=== PATIENT | female | born 1985 | race Caucasian/White ===

== ENCOUNTER 2018-04-27 17:02 | Inpatient (IN) | payer OTHER ==
[2018-04-27] MEDS ORDERED: ONDANSETRON 4 MG/2 ML VIAL IVPUSH ONE (17:13)
[2018-04-27] MEDS ORDERED: SODIUM CHLORIDE 1,000 ML IV STA (17:13)
--- NOTE | 2018-04-27 17:13 | PDOC ---
Rapid Medical Evaluation Chief Complaint: Nausea/Vomiting Time Seen by Provider: 04/27/18 17:09 Medical Evaluation: Allergies Allergy/AdvReac Type Severity Reaction Status Date / Time No Known Drug Allergies Allergy Verified 03/30/13 09:39 I have performed a brief in-person evaluation of this patient. The patient presents with a chief complaint of: Hx of fatty liver, cholecystectomy presents with emesis x 4 episodes today; denies fever, cp, abd pain, diarrhea, urinary complaints Pertinent physical exam findings: Dry mucous membranes, abdomen soft, ND I have ordered the following: Labs, IVF, zofran The patient will proceed to the ED for further evaluation. 04/27/18 17:09 Discharge Disposition - Discharge Dispostion Condition at time of disposition: Stable - Referrals - Patient Instructions - Post Discharge Activity
--- NOTE | 2018-04-27 17:34 | PDOC ---
Attending Attestation - HPI HPI: 04/27/18 18:14 The patient is a 32 year old female with a past medical history of cholecystectomy and EtOH abuse who presents to the emergency department for evaluation of multiple episodes of bloody emesis since this morning. Patient is cambodian speaking and spoke through administrative intern phone. Patient reports 2 episodes of bloody emesis this morning and she reports vomiting bright red blood 3 times in the emergency department. Patient endorses drinking a large quantity of alcohol over the last 2 days, and notes she lost track of how alcohol she consumed. Patient states that she experienced brief loss of consciousness for 5 seconds while sitting down this morning. She states this has never happened before. The patient denies chest pain, abdominal pain, palpitations, headache, shortness of breath, fevers, chills, urinary symptoms, diarrhea, and constipation. - Physicial Exam PE: 04/27/18 18:14 +Hypotensive 32 year old female head ncat Eyes +Icteric sclera neck supple oropharynx +very dry mucous membranes, no exudates Heart +Tachycardic No gallops, murmurs, or rubs. lungs clear to auscultation bilaterally abd soft,no rebound tenderness ext no e/c/c, MAEx4 skin +slightly jaundiced neuro A&Ox3,no gross focal neuro deficits - Medical Decision Making 04/27/18 18:[address] Ceballos at 17:45. 18:15 Documentation prepared by Elyse Taveras, acting as medical instrument cable fabricator for Claire Nesbitt MD. <Elyse Taveras - Last Filed: 04/27/18 18:18> - Resident Resident Name: Ephraim Aquino - ED Attending Attestation I have performed the following: I have examined & evaluated the patient, The case was reviewed & discussed with the resident, I agree w/resident's findings & plan, Exceptions are as noted - Medical Decision Making 04/27/18 17:59 32-year-old female presents in significant distress with hematemesis, she was hypotensive and tachycardic and has icteric sclera. Long history of alcoholism. Past surgical history cholecystectomy. Concern for esophageal varices, upper GI bleed, EtOH gastritis Patient is receiving octreotide octreotide, Zofran, Protonix, IV fluids. Her hemoglobin is referred to be fine for and she will be transfused with packed RBCs. GI consult Dr. Morales has been done 04/27/18 19:09 Dr. Ceballos's bedside and states that his goal for her hemoglobin is about 7.5. He does not want any more blood transfusions if she doesn't have any further bleeding once her hemoblogin about 7.5/8 and at that point he recommends FFP pt admitted to ICU 04/28/18 03:21 <Claire Nesbitt - Last Filed: 04/28/18 03:22>
[2018-04-27] MEDS ORDERED: OCTREOTIDE ACETATE 50 MCG/1 ML - 1 ML VIAL IVPUSH ONE (17:37)
[2018-04-27] MEDS ORDERED: PANTOPRAZOLE SODIUM 40 MG VIAL IVPUSH ONE (17:37)
[2018-04-27] MEDS ORDERED: CEFTRIAXONE 1,000 MG in DEXTROSE 5%-WATER - 50 ML IVPB ONE (17:38)
[2018-04-27 17:49] LABS: BASO % 0.6 % (0-2.0); LYMPH % 16.1 % (8-40); MCH 39.1 pg (25.7-33.7); MCHC 32.8 g/dl (32.0-36.0); MEAN CELL VOLUME 119.1 fl (80-96); MEAN PLT VOLUME 9.1 fl (7.5-11.1); MONO % 10.2 % (3.8-10.2); NEUT % 73.1 % (42.8-82.8); PLATELET COUNT 135 K/MM3 (134-434); RBC 1.41 M/mm3 (3.60-5.2); RDW 19.5 % (11.6-15.6); WHITE BLOOD COUNT 7.8 K/mm3 (4.0-10.0)
[2018-04-27 17:54] LABS: HEMOGLOBIN 5.5 GM/dL (10.7-15.3)
[2018-04-27 17:55] LABS: HEMATOCRIT 16.8 % (32.4-45.2)
[2018-04-27] MEDS ORDERED: ONDANSETRON 4 MG/2 ML VIAL ONE (17:57)
[2018-04-27] MEDS ORDERED: CEFTRIAXONE 1 GM/50 ML BAG ONE (17:58)
[2018-04-27] MEDS ORDERED: PANTOPRAZOLE SODIUM 40 MG VIAL ONE (17:58)
[2018-04-27] MEDS ORDERED: OCTREOTIDE ACETATE 100 MCG/1 ML ONE (17:59)
--- NOTE | 2018-04-27 18:00 | PDOC ---
History of Present Illness - History of Present Illness Initial Comments: 04/27/18 17:54 32 yo F with h/o cholecystectomy (2013), Etoh abuse, who p/w hematemesis. Patient Tamaz[place] speaking. Autism Tutor phone used. Patient reports acute onset of 3 large bloody, bright red blood, episodes of emesis, with absent clotting beginning at approximately 10 AM. Patient states that she experienced brie floss of consciousness for approximately 5 seconds while sitting down. Denies head trauma or fall. Denies h/o hematemeiss in past. States that she was drinking heavily/alcohol x 2 days. Normal bowel habits, denies BPR. Decreased PO intake. Patient denies MELENDEZ, palpitations, F/C, CP, SOB, urinary complaints, abdominal pain, diarrhea, constipation, BPR, hematruia, lightheadedness, weakness, sensory changes. PMHx: as noted above. Denies h/o endoscopy, colonoscopy, chronic NSAID use. Does not f/w GI. Surgical: cholecystecomy ROS: as noted SHx: Denies tobacco use, IVDA. Denies medication use. Allergies: NKDA <Ephraim Aquino - Last Filed: 04/27/18 19:12> <Claire Nesbitt - Last Filed: 04/27/18 20:19> - General Chief Complaint: Nausea/Vomiting Stated Complaint: VOMITING Time Seen by Provider: 04/27/18 17:09 Past History - Past Medical History Asthma: No Cancer: No Cardiac Disorders: No COPD: No Diabetes: No HTN: No Liver Disease: Yes Seizures: No Thyroid Disease: No - Surgical History Cardiac Surgery: No - Immunization History Immunization Up to Date: No - Suicide/Smoking/Psychosocial Hx Smoking History: Never smoked Have you smoked in the past 12 months: No Information on smoking cessation initiated: No Hx Alcohol Use: No Drug/Substance Use Hx: No Hx Substance Use Treatment: No <Ephraim Aquino - Last Filed: 04/27/18 19:12> <Claire Nesbitt - Last Filed: 04/27/18 20:19> - Past Medical History Allergies/Adverse Reactions: Allergies Allergy/AdvReac Type Severity Reaction Status Date / Time No Known Drug Allergies Allergy Verified 04/27/18 18:29 Home Medications: Ambulatory Orders No Home Medications 0 dose .ROUTE UTDICT 03/30/12 Review of Systems - Review of Systems Comments:: 04/27/18 18:05 GENERAL/CONSTITUTIONAL: No fever or chills. No weakness. HEAD, EYES, EARS, NOSE AND THROAT: No change in vision. No ear pain or discharge. No sore throat. CARDIOVASCULAR: No chest pain or shortness of breath RESPIRATORY: No cough, wheezing, or hemoptysis. GASTROINTESTINAL: + Nausea, vomiting, hematemesis. No diarrhea or constipation. GENITOURINARY: No dysuria, frequency, or change in urination. MUSCULOSKELETAL: No joint or muscle swelling or pain. No neck or back pain. SKIN: No rash NEUROLOGIC: No headache, vertigo, loss of consciousness, or change in strength/ sensation. ENDOCRINE: No increased thirst. No abnormal weight change HEMATOLOGIC/LYMPHATIC: No anemia, easy bleeding, or history of blood clots. ALLERGIC/IMMUNOLOGIC: No hives or skin allergy. <Ephraim Aquino - Last Filed: 04/27/18 19:12> *Physical Exam - Vital Signs Last Vital Signs Temp Pulse Resp BP Pulse Ox 98.0 F 124 H 16 74/28 L 100 04/27/18 17:06 04/27/18 17:06 04/27/18 17:06 04/27/18 17:06 04/27/18 17:06 - Physical Exam Comments: 04/27/18 18:06 GENERAL: Awake, alert, and fully oriented, in no acute distress HEAD: No signs of trauma, normocephalic, atraumatic EYES: + Slceral icterus. Dried blood in posterior oropharynx. PERRLA, EOMI, conjunctiva clear ENT: Auricles normal inspection, hearing grossly normal, nares patent, oropharynx clear without exudates. Moist mucosa NECK: Normal ROM, supple, no lymphadenopathy, JVD, or masses LUNGS: No distress, speaks full sentences, clear to auscultation bilaterally HEART: Regular rate and rhythm, normal S1 and S2, no murmurs, rubs or gallops, peripheral pulses normal and equal bilaterally. ABDOMEN: Soft, nontender, normoactive bowel sounds. No guarding, no rebound. No masses EXTREMITIES : Normal inspection, Normal range of motion, no edema. No clubbing or cyanosis. NEUROLOGICAL: Cranial nerves II through XII grossly intact. Normal speech, normal gait, no focal sensorimotor deficits SKIN: Jaudniced/pale appearing. Warm, Dry, normal turgor, no rashes or lesions noted <Ephraim Aquino - Last Filed: 04/27/18 19:12> - Vital Signs Last Vital Signs Temp Pulse Resp BP Pulse Ox 98.0 F 124 H 16 74/28 L 99 04/27/18 17:06 04/27/18 17:06 04/27/18 17:06 04/27/18 17:06 04/27/18 18:00 <Claire Nesbitt - Last Filed: 04/27/18 20:19> Moderate Sedation - Procedure Monitoring Vital Signs: Procedure Monitoring Vital Signs Temperature 98.0 F 04/27/18 17:06 Pulse Rate 124 H 04/27/18 17:06 Respiratory Rate 16 04/27/18 17:06 Blood Pressure 74/28 L 04/27/18 17:06 O2 Sat by Pulse Oximetry (%) 100 04/27/18 17:06 <Ephraim Aquino - Last Filed: 04/27/18 19:12> - Procedure Monitoring Vital Signs: Procedure Monitoring Vital Signs Temperature 98.0 F 04/27/18 17:06 Pulse Rate 124 H 04/27/18 17:06 Respiratory Rate 16 04/27/18 17:06 Blood Pressure 74/28 L 04/27/18 17:06 O2 Sat by Pulse Oximetry (%) 99 04/27/18 18:00 <Claire Nesbitt - Last Filed: 04/27/18 20:19> ED Treatment Course - LABORATORY CBC & Chemistry Diagram: 04/27/18 17:15 04/27/18 17:15 <Ephraim Aquino - Last Filed: 04/27/18 19:12> - LABORATORY CBC & Chemistry Diagram: 04/27/18 17:15 04/27/18 17:15 - ADDITIONAL ORDERS Additional order review: Laboratory Results 04/27/18 04/27/18 04/27/18 18:01 18:01 17:45 PT with INR INR Sodium Potassium Chloride Carbon Dioxide Anion Gap BUN Creatinine Creat Clearance w eGFR Random Glucose Lactic Acid 14.7 H* Calcium Total Bilirubin AST ALT Alkaline Phosphatase Total Protein Albumin Lipase Alcohol, Quantitative 20.5 H Crossmatch See Detail 04/27/18 04/27/18 17:40 17:15 PT with INR 27.60 H INR 2.32 H Sodium 140 Potassium 4.7 Chloride 108 H Carbon Dioxide 15 L Anion Gap 18 H BUN 24 H Creatinine 1.2 Creat Clearance w eGFR 51.43 Random Glucose 127 H Lactic Acid Calcium 7.3 L Total Bilirubin 1.5 H AST 101 H ALT 28 Alkaline Phosphatase 80 Total Protein 6.5 Albumin 1.6 L Lipase 183 Alcohol, Quantitative Crossmatch 04/27/18 17:15 RBC 1.41 L MCV 119.1 H MCHC 32.8 RDW 19.5 H MPV 9.1 Neutrophils % 73.1 D Lymphocytes % 16.1 D Monocytes % 10.2 Eosinophils % 0.0 D Basophils % 0.6 - Medications Given in the ED: ED Medications Discontinued Medications Generic Name Dose Route Start Last Admin Trade Name Freq PRN Reason Stop Dose Admin Sodium Chloride 1,000 mls @ 1,000 mls/hr 04/27/18 17:13 04/27/18 17:37 Normal Saline - IV 04/27/18 18:12 1,000 mls/hr ASDIR STA Administration Ceftriaxone Sodium 1,000 mg/ 50 mls @ 100 mls/hr 04/27/18 17:38 04/27/18 18: 05 Dextrose IVPB 04/27/18 18:07 100 mls/hr ONCE ONE Administration Octreotide Acetate 50 mcg 04/27/18 17:37 04/27/18 18:00 Sandostatin - IVPUSH 04/27/18 17:38 50 mcg ONCE ONE Administration Ondansetron HCl 4 mg 04/27/18 17:13 04/27/18 18:00 Zofran Injection IVPUSH 04/27/18 17:14 4 mg ONCE ONE Administration Pantoprazole Sodium 40 mg 04/27/18 17:37 04/27/18 17:55 Protonix Iv IVPUSH 04/27/18 17:38 40 mg ONCE ONE Administration <Claire Nesbitt - Last Filed: 04/27/18 20:19> Medical Decision Making - Critical Care Time Total Critical Care Time (minutes): 120 Critical Care Statement: The care of this patient involved high complexity decision making to prevent further life threatening deterioration of the patient 's condition and/or to evaluate & treat vital organ system(s) failure or risk of failure. - Medical Decision Making 04/27/18 18:00 32 yo F with h/o cholecystectomy (2013), Etoh abuse, who p/w hematemesis. HR 124 , BP 74/28, A&Ox3. Physical exam notable for scleral icterus, dry mucous membranes, drried blood in post. oropharynx. Patient with UGI bleed with suspected variceal hemmohrage, vs Edith idalia/Juanita, PUD. Will provide adequate hydration, resuscitation. Ed course: PRBC x 2 unit, Ocreotide, Protonix, Rocephin 1 gm, NS 2 L 04/27/18 18:07 H/H: 5.5/16.8 04/27/18 18:09 Patient consents to 2 U PRBC transfusions 04/27/18 18:23 EKG: Sinus tachycardia HR 113 with absent KYLE,STD. Normal interval duration and axis. Dr. Schaefer/GI consulted. Patient discussed by Dr. Nesbitt. 04/27/18 18:46 Patient endorsed to ICU. Dr. Rodas. Accepted to ICU 04/27/18 18:50 Patient to receive 1 Unit PRBC O neg 04/27/18 18:56 AST 101 TBILI 1.5 ETOH: 20.5 04/27/18 19:[address] Hastings switch from PRBC to FFP once Hemoglobin 7.5. Decrease risk of variceal bleed. LA: 14.7 <Ephraim Aquino - Last Filed: 04/27/18 19:12> *DC/Admit/Observation/Transfer - Discharge Dispostion Decision to Admit order: Yes <Ephraim Aquino - Last Filed: 04/27/18 19:12> - Discharge Dispostion Decision to Admit order: Yes <Claire Nesbitt - Last Filed: 04/27/18 20:19> Diagnosis at time of Disposition: Upper GI bleeding, GI bleed not requiring more than 4 units of blood in 24 hours, ICU, or surgery, Alcohol abuse Alcoholic cirrhosis Qualifiers: Ascites presence: unspecified Qualified Code(s): K70.30 - Alcoholic cirrhosis of liver without ascites - Discharge Dispostion Condition at time of disposition: Guarded
[2018-04-27 18:02] LABS: ALBUMIN 1.6 g/dl (3.4-5.0); ALK PHOS 80 U/L (45-117); ANION GAP 18 MMOL/L (8-16); BILIRUBIN,TOTAL 1.5 mg/dL (0.2-1); BLOOD UREA NITROGEN 24 mg/dL (7-18); CALCIUM 7.3 mg/dL (8.5-10.1); CHLORIDE 108 mmol/L (98-107); CO2 15 mmol/L (21-32); CREATININE 1.2 mg/dL (0.55-1.3); GLUCOSE,RANDOM 127 mg/dL (74-106); LIPASE 183 U/L (73-393); POTASSIUM 4.7 mmol/L (3.5-5.1); SGOT/AST 101 U/L (15-37); SGPT/ALT 28 U/L (13-61); SODIUM 140 mmol/L (136-145); TOT PROT 6.5 g/dl (6.4-8.2)
[2018-04-27 18:24] LABS: INR 2.32 (0.83-1.09); PROTHROMBIN TIME (PATIENT) 27.6 SEC (9.7-13.0)
[2018-04-27] MEDS: PANTOPRAZOLE SODIUM 80 MG in SODIUM CHLORIDE 100 ML IVPB SCH (18:30)
--- NOTE | 2018-04-27 19:50 | CON.GI ---
Consult Consult Specialty:: Gastroenterology ( covering the [facility] GI service) Referred by:: Dr Claire Nesbitt Reason for Consultation:: Hematemesis and hypotension - History of Present Illness Chief Complaint: Bright red hematemesis x 5 episodes today History of Present Illness: 32 F presents to the ER with c/o 4 episodes of bright red hematemesis at home and another here in the ER. Her BP is 90 systolic. The history was obtained and EGD consent procured using [employer] studio technician # [id number]. She has been experiencng epigastirc pain and nausea but did not vomit until today. She has noted black stools for 3 days. She was partying this last weekend drinking champagne and beers. She parties on most weekends. She has no PMH and takes no meds. She denies taking NSAIDs. She las had medical care when she presented with markedly abnormal LFTs in 2013 attributed to gallstones. She underwent a cholecystectomy after a MRCP revealed no CBD stones. Her LFTs were tending toward normal after that surgery. Her liver may have been fatty on ultrasound. She denies alcohol intake at that time but now admits that she has been drinking on weekends for many years. The history was obtained and EGD consent procured using [employer] studio technician # [id number]. - History Source History Provided By: Patient Limitations to Obtaining History: Language Barrier - Past Medical History Hepatobiliary: Yes: Other (alcoholic liver disease) ...LMP: 04/13/11 Psych: Yes: Addictions (alcohol) - Past Surgical History Past Surgical History: Yes: Cholecystectomy (laparoscopic in 2013), Tubal Ligation - Alcohol/Substance Use Hx Alcohol Use: Yes (champagne and beer for past few days,drinks only on weekends t ) History of Substance Use: reports: Cocaine (snorts, no IVDA, not in the past month ) - Smoking History Smoking history: Never smoked Have you smoked in the past 12 months: No - Social History Usual Living Arrangement: With Significant Other (boyfriend and child) ADL: Independent Occupation: unemployed Place of : Other ([place]) Came to [place]year[place] age 20 History of Recent Travel: No Home Medications - Allergies Allergies/Adverse Reactions: Allergies Allergy/AdvReac Type Severity Reaction Status Date / Time No Known Drug Allergies Allergy Verified 04/27/18 18:29 - Home Medications Home Medications: Ambulatory Orders No Home Medications 0 dose .ROUTE UTDICT 03/30/12 Family Disease History - Family Disease History Family Disease History: Respiratory: Sister ( of asthma), Other: Father ( healthy), Mother (healthy) Review of Systems Unable to obtain ROS, reason: language barrier - Review of Systems Gastrointestinal: reports: Melena, Vomiting Blood Physical Exam-GI Vital Signs: Vital Signs Temperature 98.0 F 04/27/18 17:06 Pulse Rate 124 H 04/27/18 17:06 Respiratory Rate 16 04/27/18 17:06 Blood Pressure 74/28 L 04/27/18 17:06 O2 Sat by Pulse Oximetry (%) 99 04/27/18 18:00 CBC,CMP WBC 7.8 K/mm3 (4.0-10.0) 04/27/18 17:15 RBC 1.41 M/mm3 (3.60-5.2) L 04/27/18 17:15 Hgb 5.5 GM/dL (10.7-15.3) L* 04/27/18 17:15 Hct 16.8 % (32.4-45.2) L D 04/27/18 17:15 MCV 119.1 fl (80-96) H 04/27/18 17:15 MCH 39.1 pg (25.7-33.7) H D 04/27/18 17:15 MCHC 32.8 g/dl (32.0-36.0) 04/27/18 17:15 RDW 19.5 % (11.6-15.6) H 04/27/18 17:15 Plt Count 135 K/MM3 (134-434) D 04/27/18 17:15 MPV 9.1 fl (7.5-11.1) 04/27/18 17:15 Absolute Neuts (auto) 5.7 K/mm3 (1.5-8.0) 04/27/18 17:15 Neutrophils % 73.1 % (42.8-82.8) D 04/27/18 17:15 Lymphocytes % 16.1 % (8-40) D 04/27/18 17:15 Monocytes % 10.2 % (3.8-10.2) 04/27/18 17:15 Eosinophils % 0.0 % (0-4.5) D 04/27/18 17:15 Basophils % 0.6 % (0-2.0) 04/27/18 17:15 Nucleated RBC % 0 % (0-0) 04/27/18 17:15 Sodium 140 mmol/L (136-145) 04/27/18 17:15 Potassium 4.7 mmol/L (3.5-5.1) 04/27/18 17:15 Chloride 108 mmol/L (98-107) H 04/27/18 17:15 Carbon Dioxide 15 mmol/L (21-32) L 04/27/18 17:15 Anion Gap 18 MMOL/L (8-16) H 04/27/18 17:15 BUN 24 mg/dL (7-18) H 04/27/18 17:15 Creatinine 1.2 mg/dL (0.55-1.3) 04/27/18 17:15 Creat Clearance w eGFR 51.43 (>60) 04/27/18 17:15 Random Glucose 127 mg/dL (74-106) H 04/27/18 17:15 Lactic Acid 14.7 mmol/L (0.4-2.0) H* 04/27/18 18:01 Calcium 7.3 mg/dL (8.5-10.1) L 04/27/18 17:15 Total Bilirubin 1.5 mg/dL (0.2-1) H 04/27/18 17:15 AST 101 U/L (15-37) H 04/27/18 17:15 ALT 28 U/L (13-61) 04/27/18 17:15 Alkaline Phosphatase 80 U/L (45-117) 04/27/18 17:15 Total Protein 6.5 g/dl (6.4-8.2) 04/27/18 17:15 Albumin 1.6 g/dl (3.4-5.0) L 04/27/18 17:15 Lipase 183 U/L (73-393) 04/27/18 17:15 Current Medications Generic Name Dose Route Start Last Admin Trade Name Freq PRN Reason Stop Dose Admin Pantoprazole Sodium 80 mg/ 100 mls @ 10 mls/hr 04/27/18 17:45 04/27/18 18:30 Sodium Chloride IVPB 10 mls/hr Q10H LYNN Administration 8 MG/HR Constitutional: Yes: Anxious Eyes: Yes: Conjunctiva Clear HENT: Yes: Atraumatic Neck: Yes: Supple Cardiovascular: Yes: Regular Rate and Rhythm, Tachycardia Respiratory: Yes: CTA Bilaterally Gastrointestinal Inspection: Yes: Scars (healed laparoscopic incisions) ...Auscultate: Yes: Hyperactive Bowel Sounds ...Palpate: Yes: Soft, Other (nontender) ...Rectal Exam: Yes: Guaiac Positive (loose melena, strongly guaiac positive) Edema: No Peripheral Pulses WNL: Yes Neurological: Yes: Alert, Oriented Labs: CBC, BMP 04/27/18 17:15 04/27/18 17:15 INR, PTT INR 2.32 (0.83-1.09) H 04/27/18 17:40 Laboratory Tests 01/23/12 01/24/12 03/27/12 20:00 05:40 11:50 Hgb 13.3 12.8 13.9 MCV Plt Count INR Lactic Acid Total Bilirubin AST ALT Alkaline Phosphatase Albumin Alcohol, Quantitative 03/30/13 03/30/13 03/31/13 10:29 10:29 07:00 Hgb 15.1 13.1 D MCV Plt Count INR Lactic Acid Total Bilirubin AST 604 H* ALT 586 H* Alkaline Phosphatase 170 H Albumin Alcohol, Quantitative 03/31/13 04/01/13 04/01/13 07:00 06:30 06:30 Hgb 13.5 MCV Plt Count INR Lactic Acid Total Bilirubin AST 297 H D 114 H D ALT 475 H 323 H D Alkaline Phosphatase 158 H 149 H Albumin Alcohol, Quantitative 04/01/13 04/02/13 04/02/13 06:30 06:00 06:00 Hgb 11.7 D MCV 97.6 H Plt Count INR Lactic Acid Total Bilirubin AST 111 H 98 H ALT 337 H 251 H D Alkaline Phosphatase 151 H 126 Albumin Alcohol, Quantitative 04/27/18 04/27/18 04/27/18 17:15 17:15 17:40 Hgb 5.5 L* MCV 119.1 H Plt Count 135 D INR 2.32 H Lactic Acid Total Bilirubin 1.5 H AST 101 H ALT 28 Alkaline Phosphatase 80 Albumin 1.6 L Alcohol, Quantitative 04/27/18 04/27/18 18:01 18:01 Hgb MCV Plt Count INR Lactic Acid 14.7 H* Total Bilirubin AST ALT Alkaline Phosphatase Albumin Alcohol, Quantitative 20.5 H Problem List - Problems (1) Gastrointestinal hemorrhage with hematemesis Assessment/Plan: Suspect bleeding from esophageal varices or portal gastropathy that will require endoscopic intervention. Using [employer] studio technician # [id number] I explained the need for upper endoscopy and control of hemorrhage that will likely need rubber band ligation. I informed her of the potential for such complication as perforation and hemorrhage and answered all of her questions via the studio technician after which she signed an informed consent in the ER. She will need resuscitation with PRBCs before this can be undertaken. Octreotide and PPI drip will be given. She should not be transfused above 8gms. FFP will be given if possible. Given the likely need for rubber band ligation prophylactic antibiotics will also be given. Code(s): K92.0 - HEMATEMESIS (2) Hematemesis with nausea Code(s): K92.0 - HEMATEMESIS (3) Alcoholic cirrhosis Assessment/Plan: The hypoalbuminemia and elevated INR indicate that Nichelle has already developed cirrhosis. A sonogram will be ordered to look for ascites which will place her at risk for SBP. The elevated MCV probably reflects reticulocytosis but will need to check Vitamin B12/folate levels when stable. She is at risk of developing hepatic encephalopathy. Code(s): K70.30 - ALCOHOLIC CIRRHOSIS OF LIVER WITHOUT ASCITES (4) History of cholecystectomy Code(s): Z90.49 - ACQUIRED ABSENCE OF OTHER SPECIFIED PARTS OF DIGESTIVE TRACT (5) Alcohol abuse Assessment/Plan: The patient will need to be watched for DTs. At present she still has alcohol in her system so may defer Librium or Ativan until the AM. Code(s): F10.10 - ALCOHOL ABUSE, UNCOMPLICATED Assessment/Plan Impression: UGI bleed due to esophageal and/or gastric varices and/or portal gastropathy with alcoholic and/or NSAID gastritis or ulcers as alternatives. Alcoholic cirrhosis with risk for hepatic encephalopathy and if ascites exists SBP Alcohol dependence and at risk of developing DTs Plan: Resuscitate with PRBCs but don't exceed Hb 8 IV Octreotide and PPI FFP once Hb 7 is reached NPO for EGD when stabilized Kefzol prophylaxis for anticipated rubber band ligation Sonogram to exclude ascites and hepatoma Watch for DT. Will need to start Librium or Ativan after EGD. Will then also start Lactulose Will need alcoholism counseling when recovers
--- NOTE | 2018-04-27 19:59 | CONSULT ---
Consult Consult Specialty:: ICU Reason for Consultation:: Upper GI bleed. - History of Present Illness Chief Complaint: vomiting blood History of Present Illness: 32 yo turkmen speaking F with significant PMHx of ETOH abuse and ETOH liver disease presents with one day history of hematemesis. She states that this morning she began with 2 bouts of bloody vomitous at home. She then went to work and had 2 more episodes that promoted the trip to ER. In ER she had two additional episodes of hematemesis. She has know liver disease from ETOH abuse discovered in 2013 when she came here for acute cholecystitis. She says she stopped drinking at that time but recently started again. She says she does not drink daily but on weekends when she does she binge drinks beer and champagne. She denies chronic NSAID use. In ER she was started on PPI drip and octreotide. Two units of prbc's ordered. She endorses some chest pressure but no pain. She denies CP, MELENDEZ, SOB,palpitations, abdominal pain, nausea, fever or chills. - History Source History Provided By: Patient Limitations to Obtaining History: Language Barrier - Past Medical History Hepatobiliary: Yes: Cholecystitis, Hepatitis A, Other (fatty liver?) ...LMP: 04/13/11 ...: No ...: 3 ...Para: 3 - Past Surgical History Past Surgical History: Yes: Cholecystectomy, Tubal Ligation - Alcohol/Substance Use Hx Alcohol Use: Yes (alcoholic liver disease. ) - Smoking History Smoking history: Never smoked Have you smoked in the past 12 months: No - Social History Usual Living Arrangement: With Child ADL: Independent Place of : Other ([place]) Came to [place]year[place] 2006 History of Recent Travel: No Home Medications - Allergies Allergies/Adverse Reactions: Allergies Allergy/AdvReac Type Severity Reaction Status Date / Time No Known Drug Allergies Allergy Verified 04/27/18 18:29 - Home Medications Home Medications: Ambulatory Orders No Home Medications 0 dose .ROUTE UTDICT 03/30/12 Family Disease History - Family Disease History Family History: Unremarkable Review of Systems - Review of Systems Constitutional: reports: Weakness Eyes: reports: No Symptoms HENT: reports: No Symptoms Neck: reports: No Symptoms Cardiovascular: reports: Other (chest pressure) Respiratory: reports: SOB on Exertion Gastrointestinal: reports: Vomiting Blood Genitourinary: reports: No Symptoms Breasts: reports: No Symptoms Reported Musculoskeletal: reports: No Symptoms Integumentary: reports: No Symptoms Neurological: reports: No Symptoms Endocrine: reports: No Symptoms Hematology/Lymphatic: reports: No Symptoms Psychiatric: reports: Anxiety Physical Exam Vital Signs: Vital Signs Temperature 98.0 F 04/27/18 17:06 Pulse Rate 124 H 04/27/18 17:06 Respiratory Rate 16 04/27/18 17:06 Blood Pressure 74/28 L 04/27/18 17:06 O2 Sat by Pulse Oximetry (%) 99 04/27/18 18:00 Constitutional: Yes: Well Nourished, Anxious, Mild Distress Eyes: Yes: Conjunctiva Clear, EOM Intact, PERRL. No: Sclera Icterus HENT: Yes: Atraumatic, Normocephalic Neck: Yes: Supple, Trachea Midline Cardiovascular: Yes: Tachycardia, Murmur (2/6 ZAID), S1, S2 Respiratory: Yes: Regular, CTA Bilaterally Gastrointestinal: Yes: Normal Bowel Sounds, Soft, Hematemesis. No: Ascites, Distention ...Rectal Exam: Yes: Deferred Renal/: Yes: WNL Breast(s): No: Dimpling, Discharge from Nipple, Nipple Inversion, Skin Changes Musculoskeletal: Yes: WNL Extremities: No: Calf Tenderness, Cyanosis, Erythema Edema: No Neurological: Yes: Alert, Oriented, Cran Nerves II-XII Intact ...Motor Strength: WNL Psychiatric: Yes: Alert, Oriented Labs: CBC, BMP 04/27/18 17:15 04/27/18 17:15 Assessment/Plan A: 32 yo turkmen speaking F with significant PMHx of ETOH abuse and ETOH liver disease presents with one day history of hematemesis admitted to ICU for further management of upper GI bleed. Plan: NEURO: * Will monitor for signs of encephalopathy. PULM: * No active issues. * supplemental O2 PRN * maintain SpO2 >90% CV: * No active CV issues. * chest pressure most likely 2/2 hematemesis. * Will monitor BP * maintain MAP >65 GI: * Upper GI possible variceal bleed. * 2 units of PRBC ordered; goal Hgb 7-8 * FFP x 1unit to be given * started on PPI drip and Octreotide. * Ceftriaxone given in ER will continue * Phenergan for nausea PRN * Seen by GI Dr. Ceballos plan for EGD in AM HEME/ONC: * Anemia 2/2 acute blood loss. * transfuse 2 units of PRBC's and repeat H/H * 1 unit of FFP for elevated INR FEN: * Given 1L of NS in ER , now recieving blood. * monitor e-lytes and replete PRN - Calcium low 2/2 low albumin corrected WNL * NPO for now. DISPO:Continue to monitor in ICU; FULL CODE>
[2018-04-27 20:09] LABS: ANISOCYTOSIS 1+; MACROCYTOSIS 3+; OVALOCYTE 1+; PLATELET ESTIMATE ADEQUATE
[2018-04-27] MEDS ORDERED: CEFAZOLIN 1 GM in DEXTROSE 5%-WATER - 50 ML IVPB SCH (20:30)
[2018-04-27] MEDS ORDERED: OCTREOTIDE ACETATE 1,200 MCG in DEXTROSE 5%-WATER - 488 ML IVPB SCH (20:30)
[2018-04-27] MEDS ORDERED: PHYTONADIONE 10 MG/1 ML AMP IVPB ONE (20:30)
[2018-04-27] MEDS ORDERED: LORazepam 2 MG/ML SDV VIAL IVPUSH PRN (20:53)
--- NOTE | 2018-04-27 20:56 | HP ---
CHIEF COMPLAINT: hematemesis PCP: None HISTORY OF PRESENT ILLNESS: 32 [place]er-speaking F w/ pmhx of fatty liver disease, alcohol abuse presented to the ED with 6 episodes of bright red bloody vomit that started today at 10am. Prior to coming to the hospital, she had 4 episodes of vomiting and after arriving she had 2 more episodes. She states she never had this before. Admits to drinking 1.5 bottles of champagne last Thursday and says she usually drinks about 3 bottles of champagne once a weekend. Pt states she has had liver problems about 4 years ago, but denies following up with a GI doctor or ever getting an endoscopy or colonoscopy. She denies diarrhea or bright red blood, or black stool. She also reported one syncopal episode while she was on the toilet, fell to the ground, but did not hit her head and loss consciousness for 5 seconds. ER course was notable for: (1) Initial BP 74/28, HR 124, H/H 5.5/16.8, Lac 14.7, T Bili 1.5, Alb 1.6 (2) EKG showed sinus tach, QTc 513 (3) Rocephin 1gm IV, Octretide 50 mcg, Protonix drip, Zofran 4, NS x1L, pRBC x2U ordered Recent Travel:Denies PAST MEDICAL HISTORY: fatty liver disease alcohol abuse PAST SURGICAL HISTORY: cholecystectomy tubal ligation Social History: Smoking: Denies Alcohol: Current drinker; ~3 bottles of champagne weekly Drugs: Did cocaine one time about 2-3 months ago, but no history of rec drug abuse prior Family History: "Sister of diabetes" Allergies No Known Drug Allergies Allergy (Verified 04/27/18 18:29) HOME MEDICATIONS: Home Medications Medication Instructions Recorded No Home Medications 0 dose .ROUTE UTDICT 03/30/12 REVIEW OF SYSTEMS CONSTITUTIONAL: Absent: fever, chills, diaphoresis, generalized weakness, malaise, loss of appetite, weight change HEENT: Absent: rhinorrhea, nasal congestion, throat pain, throat swelling, difficulty swallowing, mouth swelling, ear pain, eye pain, visual changes CARDIOVASCULAR: +R sided chest pain, syncope Absent: palpitations, irregular heart rate, lightheadedness, peripheral edema RESPIRATORY: Absent: cough, shortness of breath, dyspnea with exertion, orthopnea GASTROINTESTINAL: +R sided abdominal pain, +nausea, +vomiting, bright red blood , constipation Absent: abdominal distension, diarrhea, melena, hematochezia GENITOURINARY: Absent: dysuria, frequency, urgency, hesitancy, hematuria MUSCULOSKELETAL: Absent: myalgia, arthralgia, joint swelling, back pain, neck pain SKIN: Absent: rash, itching, pallor HEMATOLOGIC/IMMUNOLOGIC: Absent: easy bleeding, easy bruising, lymphadenopathy, frequent infections NEUROLOGIC: +lightheadedness, +dizziness Absent: headache, unsteady gait, mental status changes PHYSICAL EXAMINATION Vital Signs - 24 hr 04/27/18 04/27/18 04/27/18 17:06 18:00 19:45 Temperature 98.0 F 98.3 F Pulse Rate 124 H Pulse Rate [ 110 H Apical] Respiratory 16 20 Rate Blood Pressure 74/28 L Blood Pressure 116/60 [Right Arm] O2 Sat by Pulse 100 99 99 Oximetry (%) 04/27/18 20:00 Temperature 98.6 F Pulse Rate Pulse Rate [ 115 H Apical] Respiratory 16 Rate Blood Pressure Blood Pressure 115/56 L [Right Arm] O2 Sat by Pulse 100 Oximetry (%) GENERAL: Awake and alert. NAD. Cooperative, [place]er-speaking female. HEENT: AT/NC. EOMI. HANNA. Moist mucus membranes. NECK: Normal range of motion, supple without lymphadenopathy. LUNGS: CTA B/L. No wheezes heard. HEART: Tachycardic. Normal S1, S2. +3/6 systolic murmur RUSB. ABDOMEN: Soft, ND. +TTP in R u/l quadrant. MUSCULOSKELETAL: Normal range of motion at all joints. No bony deformities or tenderness. No CVA tenderness. UPPER EXTREMITIES: 2+ pulses, warm, well-perfused. No cyanosis. No clubbing. No peripheral edema. LOWER EXTREMITIES: 2+ pulses, warm, well-perfused. No calf tenderness. No peripheral edema. NEUROLOGICAL: Normal speech. Responds to commands. Laboratory Results - last 24 hr 04/27/18 04/27/18 04/27/18 17:15 17:15 17:15 WBC 7.8 RBC 1.41 L Hgb 5.5 L* Hct 16.8 L D MCV 119.1 H MCH 39.1 H D MCHC 32.8 RDW 19.5 H Plt Count 135 D MPV 9.1 Absolute Neuts (auto) 5.7 Neutrophils % 73.1 D Lymphocytes % 16.1 D Monocytes % 10.2 Eosinophils % 0.0 D Basophils % 0.6 Nucleated RBC % 0 Platelet Estimate Adequate Platelet Comment Polychromasia 1+ Poikilocytosis 1+ Anisocytosis 1+ Macrocytosis 3+ Ovalocytes 1+ PT with INR INR Sodium 140 Potassium 4.7 Chloride 108 H Carbon Dioxide 15 L Anion Gap 18 H BUN 24 H Creatinine 1.2 Creat Clearance w eGFR 51.43 Random Glucose 127 H Lactic Acid Calcium 7.3 L Total Bilirubin 1.5 H AST 101 H ALT 28 Alkaline Phosphatase 80 Total Protein 6.5 Albumin 1.6 L Lipase 183 Serum , Qual Negative Alcohol, Quantitative Crossmatch 04/27/18 04/27/18 04/27/18 17:40 17:45 18:01 WBC RBC Hgb Hct MCV MCH MCHC RDW Plt Count MPV Absolute Neuts (auto) Neutrophils % Lymphocytes % Monocytes % Eosinophils % Basophils % Nucleated RBC % Platelet Estimate Platelet Comment Polychromasia Poikilocytosis Anisocytosis Macrocytosis Ovalocytes PT with INR 27.60 H INR 2.32 H Sodium Potassium Chloride Carbon Dioxide Anion Gap BUN Creatinine Creat Clearance w eGFR Random Glucose Lactic Acid Calcium Total Bilirubin AST ALT Alkaline Phosphatase Total Protein Albumin Lipase Serum , Qual Alcohol, Quantitative 20.5 H Crossmatch See Detail 04/27/18 18:01 WBC RBC Hgb Hct MCV MCH MCHC RDW Plt Count MPV Absolute Neuts (auto) Neutrophils % Lymphocytes % Monocytes % Eosinophils % Basophils % Nucleated RBC % Platelet Estimate Platelet Comment Polychromasia Poikilocytosis Anisocytosis Macrocytosis Ovalocytes PT with INR INR Sodium Potassium Chloride Carbon Dioxide Anion Gap BUN Creatinine Creat Clearance w eGFR Random Glucose Lactic Acid 14.7 H* Calcium Total Bilirubin AST ALT Alkaline Phosphatase Total Protein Albumin Lipase Serum , Qual Alcohol, Quantitative Crossmatch CONSULT: GI- Dr. Ceballos IMAGING ASSESSMENT/PLAN: 32 [place]er-speaking F w/ pmhx of fatty liver disease, alcohol abuse presented to the ED with 6 episodes hematemesis admitted for acute GI bleed. #Upper GIB; likely 2/2 esophageal varices due to alcohol abuse -IV Octreotide -Protonix drip -2U pRBCs ordered, recheck CBC -GI consulted; per GI recs, once Hgb reaches 7-8, can transition to FFP as Hgb > 8 increases risk of esophageal variceal bleeding -IV Ceftriaxone given for prophylaxis -NPO; will need EGD -Per GI, will likely need rubber band ligation #Alcoholic liver disease; likely cirrhosis -Pt is currently mentating well, able to answer questions, no acute encephalopathic signs at this time. Cont to monitor. -Abd U/S ordered, r/o ascites and hepatoma, SBP -MELD score 19; given pt's elevated INR and low albumin, pt likely has already developed cirrhosis -HIV/Hep C panel ordered #Alcohol Abuse -Monitor for withdrawal symptoms -Seems to still be intoxicated; Librium protocol deferred until AM #Syncope; likely 2/2 acute anemia -monitor for symptoms; currently treating likely cause (GI bleed) #Hyperbilirubinemia; 1.5. Likely 2/2 alcohol abuse. -Fractionate bilirubin -f/u Abd U/S #Elevated lactate; 14.7 -trend lactate -Aggressive hydration and transfuse #Coagulopathy; elevated INR 2.32 and not currently on AC -likely 2/2 alcoholic cirrhosis -cont to trend #Macrocytosis; persistent. likely 2/2 EtOH. -check B12/folate #Prophylaxis -SCDs -Protonix drip #FEN -IVf -recheck lytes in AM -NPO dispo -admit to ICU level of care -full code Visit type - Emergency Visit Emergency Visit: Yes ED Registration Date: 04/27/18 Care time: The patient presented to the Emergency Department on the above date and was hospitalized for further evaluation of their emergent condition. - New Patient This patient is new to me today: Yes Date on this admission: 04/29/18 - Critical Care Critical Care patient: Yes Total Critical Care Time (in minutes): 50 Critical Care Statement: The care of this patient involved high complexity decision making to prevent further life threatening deterioration of the patient 's condition and/or to evaluate & treat vital organ system(s) failure or risk of failure.
[2018-04-27] MEDS ORDERED: METOCLOPRAMIDE HCL INJECTION 10 MG/2 ML VIAL IVPUSH SCH (21:00)
[2018-04-27] MEDS ORDERED: PROMETHAZINE HCL 25 MG/1 ML VIAL IVPUSH PRN (21:02)
[2018-04-27 21:54] LABS: BASO % 0.3 % (0-2.0); LYMPH % 17.9 % (8-40); MCH 36.2 pg (25.7-33.7); MEAN CELL VOLUME 109.6 fl (80-96); MEAN PLT VOLUME 8.6 fl (7.5-11.1); NEUT % 70.8 % (42.8-82.8); PLATELET COUNT 116 K/MM3 (134-434); RBC 1.62 M/mm3 (3.60-5.2); RDW 24.4 % (11.6-15.6); WHITE BLOOD COUNT 10.1 K/mm3 (4.0-10.0)
[2018-04-27 21:56] LABS: HEMATOCRIT 17.7 % (32.4-45.2)
[2018-04-27 21:57] LABS: HEMOGLOBIN 5.9 GM/dL (10.7-15.3)
[2018-04-27] MEDS ORDERED: CHLORHEXIDINE GLUCONATE 4% CLEANSER FOR DECOLONIZATION TP SCH (22:00)
[2018-04-27] MEDS ORDERED: MUPIROCIN 2% TOPICAL OINTMENT FOR DECOLONIZATION NS SCH (22:00)
[2018-04-27] MEDS ORDERED: SODIUM CHLORIDE 500 ML IV STA (22:17)
--- NOTE | 2018-04-27 22:25 | PN ---
Teaching Attending Note Name of Resident: Magalis Nunez ATTENDING PHYSICIAN STATEMENT I saw and evaluated the patient. I reviewed the resident's note and discussed the case with the resident. I agree with the resident's findings and plan as documented. SUBJECTIVE: Seen and examined; please see resident note for further historical information. Briefly, patient presents for hematemesis and is found to have a Hb 5-range and a largely elevated lactate to 15-range; she is seen in the ICU with the resident team. She has had 6 episodes of large-volume bright red hemetemsis. No history of EGD/Cscope. Has a history of alcohol and cocaine abuse and known fatty liver disease. Did have syncope at home. Her INR is found to be elevated and she is quite tachycardic. She was seen by GI already in consult who plan for procedure in the AM and recommended transfusion with PRBC/FFP and close monitoring. 10 sys ROS done and negative aside from HPI PMH, PSH, Family hx, Social hx reviewed Medication list reviewed; pending reconciliation OBJECTIVE: VS, labs, imaging reviewed NAD, AAO, resting comfortably in bed RRR s1/2 no mgr NC AT EOMI PERRLA Lungs CTAB, w/ sym exp NT ND +BS CN2-12 wnl, no fnd Normal mood, appropriate behavior EKG reviewed; sinus tachy CXR reviewed Consult notes reviewed Elevated bilirubin; Hb and lactate per HPI ASSESSMENT AND PLAN: Patient presents for hemetemsis with elevated lactate, elevated bilirubin. Likely etiology is alcoholic cirrhosis (from her fatty liver progression likely ) causing likely variceal bleed (vs. of course other sources). She is being monitored in the ICU and GI will be following her; appreciate their expert opinion. She is critically ill. 1) Upper GIB -As stated, likely 2/2 varices related to EtOH but can consider other items on ddx; will be determined after scope. -Transfuse between goal of 7-8; FFP when Hb>8. Will need EGD. Followup RUQ US -Protonic and sandostatin drips; ppx ceftriaxone 2) Likely Cirrhosis, alcoholic -Checking US to r/o ascites, calculating MELD score, monitor for encephalopathy (mentating well with no asterixis) -Check Hep C and HIV screen 3) Alcohol Abuse -[facility] protocol -Counseling when critical issues resolved 4) Syncope -Likely 2/2 acute blood loss anemia; treat the presenting problem. If still persists can check nonurgent echo, etc. but this is overwhelmingly likely the cause 5) Elevated Bilirubin -Fractionate and f/u US; likely 2/2 #2 6) Elevated Lactate -Aggressively hydrate and transfuse; trend down. Also had a +alcohol level when in the ER so this could have contributed 7) Hypoalbuminemia -Likely 2/2 underlying illness; check prealbumin. 8) Acute blood loss anemia -2/2 UGIB; as she is being transfused will not further workup as would be unreliable 9) Coagulopathy -Likely due to cirrhosis; trend and give FFP 10) Macrocytosis -persistent; check b12/folate; likely 2/2 EtOH 11) Borderline thrombocytopenia -Checking HIV and HCV Ab; likely 2/2 EtOH. I would expect this number to drop; monitor it closely
[2018-04-27 23:05] VITALS: BMI 29.0
[2018-04-28] MEDS: PANTOPRAZOLE SODIUM 80 MG in SODIUM CHLORIDE 100 ML IVPB SCH ×2 (02:00→13:00)
[2018-04-28 03:43] LABS: BASO % 0.3 % (0-2.0); EOS % 0.3 % (0-4.5); HEMATOCRIT 21.1 % (32.4-45.2); HEMOGLOBIN 7.3 GM/dL (10.7-15.3); LYMPH % 16.2 % (8-40); MCH 34.9 pg (25.7-33.7); MCHC 34.5 g/dl (32.0-36.0); MEAN CELL VOLUME 100.9 fl (80-96); MEAN PLT VOLUME 8.8 fl (7.5-11.1); MONO % 13.1 % (3.8-10.2); NEUT % 70.1 % (42.8-82.8); PLATELET COUNT 96 K/MM3 (134-434); RBC 2.09 M/mm3 (3.60-5.2); RDW 21.3 % (11.6-15.6)
[2018-04-28 06:55] LABS: HEMATOCRIT 16.7 % (32.4-45.2); MCHC 35.5 g/dl (32.0-36.0); MEAN CELL VOLUME 98.6 fl (80-96); MEAN PLT VOLUME 8.9 fl (7.5-11.1); PLATELET COUNT 80 K/MM3 (134-434); RBC 1.69 M/mm3 (3.60-5.2); RDW 21.6 % (11.6-15.6); WHITE BLOOD COUNT 6.8 K/mm3 (4.0-10.0)
[2018-04-28 07:29] LABS: HEMOGLOBIN 5.9 GM/dL (10.7-15.3)
[2018-04-28 07:30] LABS: MAGNESIUM 1.7 mg/dL (1.8-2.4); PHOSPHOROUS 3.8 mg/dL (2.5-4.9)
[2018-04-28 08:16] LABS: INR 2.4 (0.83-1.09); PROTHROMBIN TIME (PATIENT) 28.6 SEC (9.7-13.0)
[2018-04-28 08:33] LABS: ALBUMIN 1.6 g/dl (3.4-5.0); ALK PHOS 55 U/L (45-117); ANION GAP 7 MMOL/L (8-16); BILIRUBIN,DIRECT 1.4 mg/dL (0.0-0.2); BLOOD UREA NITROGEN 33 mg/dL (7-18); CHLORIDE 114 mmol/L (98-107); CO2 22 mmol/L (21-32); CREATININE 1.5 mg/dL (0.55-1.3); GLUCOSE,RANDOM 144 mg/dL (74-106); SGOT/AST 136 U/L (15-37); SGPT/ALT 34 U/L (13-61); SODIUM 143 mmol/L (136-145); TOT PROT 5.2 g/dl (6.4-8.2)
--- NOTE | 2018-04-28 08:33 | PN ---
GI Progress Note Subjective: Patient received 3 U PRBC, 1 U monodonor platelets, Hgb 5.9 this morning Melena reported Patient denies abdominal pain - Objective Vital Signs: Vital Signs Temperature 99.3 F 04/28/18 08:00 Pulse Rate 108 H 04/28/18 08:00 Respiratory Rate 20 04/28/18 08:00 Blood Pressure 98/46 L 04/28/18 08:00 O2 Sat by Pulse Oximetry (%) 100 04/27/18 22:51 Constitutional: Calm Eyes: No: Sclera Icterus Cardiovascular: Yes: Tachycardia, Murmur (2/6 systolic murmur) Respiratory: Yes: CTA Bilaterally Gastrointestinal Inspection: No: Distention ...Auscultate: Yes: Normoactive Bowel Sounds ...Palpate: No: Hepatomegaly, Splenomegaly, Tenderness ...Percussion: No: Tympanitic Edema: No (No LE edema) Neurological: Yes: Alert (awake) Labs: CBC, BMP 04/28/18 06:15 INR, PTT INR 2.40 (0.83-1.09) H 04/28/18 06:15 Assessment/Plan UGIB: Suspected variceal hemorrhage given the clinical picture Continued resuscitation. Receiving 3 more units PRBC, FFP On Octreotide / PPI drip For upper endoscopy when stable Guarded prognosis
[2018-04-28] MEDS ORDERED: INSULIN REGULAR HUMAN 100 UNITS/ML *VIAL IVPUSH ONE (08:49)
[2018-04-28] MEDS ORDERED: ALBUTEROL SO4 0.083% IH SOL 2.5 MG/3 ML VIAL.NEB. NEB ONE (08:50)
[2018-04-28] MEDS ORDERED: CALCIUM GLUCONATE 10% - 1,000 MG/10 ML VIAL IVPUSH ONE (08:50)
[2018-04-28] MEDS ORDERED: DEXTROSE 50%-WATER - 25 GM/50 ML VIAL IVPUSH ONE (08:50)
[2018-04-28] MEDS ORDERED: SODIUM CHLORIDE 1,000 ML IV SCH ×2 (09:00→14:30)
--- NOTE | 2018-04-28 09:04 | PN ---
Physical Exam: SUBJECTIVE: Patient seen and examined this AM. Admits to drinking ~3 bottles of champagne over the past few days. No repeat episodes of hematemesis overnight. OBJECTIVE: Vital Signs Period Temp Pulse Resp BP Sys/Nash Pulse Ox Last 24 Hr 98.0 F-99.7 F 102-124 16-23 73-116/28-80 99-100 GENERAL: A&Ox3, NAD HEAD: NCAT EYES: PERRL, EOMI, Pale conjunctival mucosa ENT: Dry mucous membranes NECK: Supple LUNGS: Diminished breath sounds at the bases, no wheezes, no crackles HEART: Tachycardic, Diastolic murmur at the LUSB ABDOMEN: Soft, Tender to palpation over the right abdomen and midepigastrum, nondistended, + bowel sounds, no guarding RECTAL: Maroon Stool on tip of glove, Good sphincter tone, No external hemmorrhoids visualized, No internal hemmorhoids felt EXTREMITIES: no edema NEUROLOGICAL: Cranial nerves II through XII grossly intact. Normal speech SKIN: Warm, dry Laboratory Results - last 24 hr 04/27/18 04/27/18 04/27/18 17:15 17:15 17:15 WBC 7.8 RBC 1.41 L Hgb 5.5 L* Hct 16.8 L D MCV 119.1 H MCH 39.1 H D MCHC 32.8 RDW 19.5 H Plt Count 135 D MPV 9.1 Absolute Neuts (auto) 5.7 Neutrophils % 73.1 D Lymphocytes % 16.1 D Monocytes % 10.2 Eosinophils % 0.0 D Basophils % 0.6 Nucleated RBC % 0 Platelet Estimate Adequate Platelet Comment Polychromasia 1+ Poikilocytosis 1+ Anisocytosis 1+ Macrocytosis 3+ Ovalocytes 1+ Retic Count PT with INR INR Sodium 140 Potassium 4.7 Chloride 108 H Carbon Dioxide 15 L Anion Gap 18 H BUN 24 H Creatinine 1.2 Creat Clearance w eGFR 51.43 Random Glucose 127 H Lactic Acid Calcium 7.3 L Phosphorus Magnesium Total Bilirubin 1.5 H AST 101 H ALT 28 Alkaline Phosphatase 80 Ammonia Troponin I Total Protein 6.5 Albumin 1.6 L Lipase 183 Vitamin B12 Serum , Qual Negative Alcohol, Quantitative Blood Type Antibody Screen Crossmatch 04/27/18 04/27/18 04/27/18 17:40 17:45 18:01 WBC RBC Hgb Hct MCV MCH MCHC RDW Plt Count MPV Absolute Neuts (auto) Neutrophils % Lymphocytes % Monocytes % Eosinophils % Basophils % Nucleated RBC % Platelet Estimate Platelet Comment Polychromasia Poikilocytosis Anisocytosis Macrocytosis Ovalocytes Retic Count PT with INR 27.60 H INR 2.32 H Sodium Potassium Chloride Carbon Dioxide Anion Gap BUN Creatinine Creat Clearance w eGFR Random Glucose Lactic Acid Calcium Phosphorus Magnesium Total Bilirubin AST ALT Alkaline Phosphatase Ammonia Troponin I Total Protein Albumin Lipase Vitamin B12 Serum , Qual Alcohol, Quantitative 20.5 H Blood Type O POSITIVE Antibody Screen Negative Crossmatch See Detail 04/27/18 04/27/18 04/28/18 18:01 21:40 03:20 WBC 10.1 H 9.0 RBC 1.62 L 2.09 L Hgb 5.9 L* 7.3 L Hct 17.7 L 21.1 L D MCV 109.6 H D 100.9 H MCH 36.2 H 34.9 H MCHC 33.0 34.5 RDW 24.4 H 21.3 H Plt Count 116 L 96 L MPV 8.6 8.8 Absolute Neuts (auto) 7.1 6.3 Neutrophils % 70.8 70.1 Lymphocytes % 17.9 16.2 Monocytes % 11.0 H 13.1 H Eosinophils % 0.0 0.3 D Basophils % 0.3 0.3 Nucleated RBC % 0 0 Platelet Estimate Platelet Comment Polychromasia Poikilocytosis Anisocytosis Macrocytosis Ovalocytes Retic Count PT with INR INR Sodium Potassium Chloride Carbon Dioxide Anion Gap BUN Creatinine Creat Clearance w eGFR Random Glucose Lactic Acid 14.7 H* Calcium Phosphorus Magnesium Total Bilirubin AST ALT Alkaline Phosphatase Ammonia Troponin I Total Protein Albumin Lipase Vitamin B12 Serum , Qual Alcohol, Quantitative Blood Type Antibody Screen Crossmatch 04/28/18 04/28/18 04/28/18 06:15 06:15 06:15 WBC 6.8 RBC 1.69 L Hgb 5.9 L* Hct 16.7 L D MCV 98.6 H MCH 35.0 H MCHC 35.5 RDW 21.6 H Plt Count 80 L MPV 8.9 Absolute Neuts (auto) Neutrophils % Lymphocytes % Monocytes % Eosinophils % Basophils % Nucleated RBC % Platelet Estimate Platelet Comment Polychromasia Poikilocytosis Anisocytosis Macrocytosis Ovalocytes Retic Count 5.40 H PT with INR 28.60 H INR 2.40 H Sodium Potassium Chloride Carbon Dioxide Anion Gap BUN Creatinine Creat Clearance w eGFR Random Glucose Lactic Acid Calcium Phosphorus Magnesium Total Bilirubin AST ALT Alkaline Phosphatase Ammonia 161.90 H Troponin I Total Protein Albumin Lipase Vitamin B12 Serum , Qual Alcohol, Quantitative Blood Type Antibody Screen Crossmatch 04/28/18 04/28/18 04/28/18 06:15 06:15 06:15 WBC RBC Hgb Hct MCV MCH MCHC RDW Plt Count MPV Absolute Neuts (auto) Neutrophils % Lymphocytes % Monocytes % Eosinophils % Basophils % Nucleated RBC % Platelet Estimate Platelet Comment Polychromasia Poikilocytosis Anisocytosis Macrocytosis Ovalocytes Retic Count PT with INR INR Sodium Potassium Chloride Carbon Dioxide Anion Gap BUN Creatinine Creat Clearance w eGFR Random Glucose Lactic Acid 5.2 H* Calcium Phosphorus 3.8 Magnesium 1.7 L Total Bilirubin AST ALT Alkaline Phosphatase Ammonia Troponin I 0.36 H Total Protein Albumin Lipase Vitamin B12 968 Serum , Qual Alcohol, Quantitative Blood Type Antibody Screen Crossmatch Active Medications Chlorhexidine Gluconate (Hibiclens For Decolonization -) 1 applic TP HS LYNN Last Admin: 04/27/18 21:36 Dose: 1 applic Pantoprazole Sodium 80 mg/ (Sodium Chloride) 100 mls @ 10 mls/hr IVPB Q10H LYNN Last Admin: 04/28/18 02:00 Dose: 10 mls/hr Octreotide Acetate 1,200 mcg/ (Dextrose) 500 mls @ 20.83 mls/hr IVPB ASDIR LYNN Last Admin: 04/27/18 21:38 Dose: 20.83 mls/hr Ceftriaxone Sodium 1 gm/ (Dextrose) 50 mls @ 100 mls/hr IVPB DAILY [facility]; Protocol Lorazepam (Ativan Injection -) 0.5 mg IVPUSH Q6H PRN PRN Reason: ANXIETY Mupirocin (Bactroban Ointment (For Decolonization) -) 1 applic NS BID [facility] Stop: 05/02/18 21:59 Last Admin: 04/27/18 21:36 Dose: 1 applic Promethazine HCl (Phenergan Injection -) 12.5 mg IVPUSH Q6H PRN PRN Reason: NAUSEA AND/OR VOMITING Thiamine HCl (Vitamin B1 Injection -) 200 mg IVPB DAILY [facility] ASSESSMENT/PLAN: 32 y/o F with PMHx of ETOH abuse and ETOH liver disease presents with 1 day hx of hematemesis and Melana likely due to UGIB and will be admitted to ICU for further monitoring. #Neuro Hx of ETOH abuse -A&Ox3, NAD -Ammonia level, EtOH level elevated -Continue to monitor CIWA (currently 5) and for signs of hepatic encephalopathy -Continue Lorazepam 0.5mg IV Q6H PRN, Thiamine 200mg IV Daily #Cardio Tachycardia and Hypotension Troponemia, likely demand -Stat EKG pending -Likely due to UGIB -Maintain MAP > 65; Will Consider Fluid Bolus after pRBC's if MAP not at goal #Pulmonary -CXR: No acute chest pathology -Supplemental O2 to maintain SpO2 >90% #GI Hematemesis and Melana likely due to UGIB Lactic acidosis Hyperbilirubinemia Hx of ETOH liver disease -Endoscopy today -Vital Signs Q2H -Keep NPO -Hepatitis panel, FOBT, Abdominal US pending -S/P 1.5L NS; Continue NS @ 100 mls/hr -Continue Pantoprazole gtt and Octreotide gtt -Continue Ceftriaxone 1g Daily (Started on 04/27) -Promethazine for nausea PRN -Dr. Ceballos consulted, Appreciate Rec's #Renal GERA, Likely due to dehydration HyperKalemia -S/P 1.5L NS; Continue NS @ 100 mls/hr -Calcium gluconate, D50 with Insulin, Albuterol ordered -Continue to monitor Urine output, I&O's -Will consider further imaging if Cr continues to rise #Endo Elevated BG #ID -Afebrile, Mild leukocytosis (Resolved) -Continue Ceftriaxone 1g Daily (Started on 04/27) #Heme/Onc Acute blood loss Anemia, Likely due to UGIB Thrombocytopenia Elevated INR likely due to Liver Dysfunction -S/P 2 units of pRBC; Will order 3 more Units this AM as H&H have dropped -Goal Hgb 7-8 -FFP x 1 and Platelets x 1 unit this AM -Folate, B12 Normal -Elevated Retic Count #FEN -NS @ 100 mls/hr -Replete Lytes PRN -NPO #PPx -DVT: SCDs; Avoid chemical AC in the setting of GIB -GI: PPI gtt Code Status: Full code Dispo: Continue to monitor in ICU Visit type - Emergency Visit Emergency Visit: Yes ED Registration Date: 04/27/18 Care time: The patient presented to the Emergency Department on the above date and was hospitalized for further evaluation of their emergent condition. - New Patient This patient is new to me today: Yes Date on this admission: 04/28/18 - Critical Care Critical Care patient: Yes Total Critical Care Time (in minutes): 36 Critical Care Statement: The care of this patient involved high complexity decision making to prevent further life threatening deterioration of the patient 's condition and/or to evaluate & treat vital organ system(s) failure or risk of failure.
[2018-04-28] MEDS ORDERED: SODIUM CHLORIDE 1,000 ML IV STA (09:06)
--- NOTE | 2018-04-28 09:06 | PN ---
Physical Exam: SUBJECTIVE: Patient seen and examined in the ICU. No acute complaints at this time. No further episodes of vomiting or hematemesis overnight. Affirms multiple episodes bright red hematemesis since yesterday AM, additionally affirms melena. Mild abdominal pain. OBJECTIVE: Vital Signs Period Temp Pulse Resp BP Sys/Nash Pulse Ox Last 24 Hr 98.0 F-99.7 F 102-124 16-23 73-116/28-80 99-100 GENERAL: A&Ox3, NAD HEENT: NC/AT, EOMI, PERRLA, +scleral icterus NECK: Trachea midline, full range of motion, supple. LUNGS: CTA b/l HEART: tachycardic, systolic flow murmur ABDOMEN: soft, mild diffuse tenderness EXTREMITIES: tachy bounding pulses, warm, well-perfused, no edema. NEUROLOGICAL: project management director, motor, sensory systems w/o focal deficit PSYCH: Normal mood, normal affect. SKIN: diffusely jaundiced Laboratory Results - last 24 hr 04/27/18 04/27/18 04/27/18 17:15 17:15 17:15 WBC 7.8 RBC 1.41 L Hgb 5.5 L* Hct 16.8 L D MCV 119.1 H MCH 39.1 H D MCHC 32.8 RDW 19.5 H Plt Count 135 D MPV 9.1 Absolute Neuts (auto) 5.7 Neutrophils % 73.1 D Lymphocytes % 16.1 D Monocytes % 10.2 Eosinophils % 0.0 D Basophils % 0.6 Nucleated RBC % 0 Platelet Estimate Adequate Platelet Comment Polychromasia 1+ Poikilocytosis 1+ Anisocytosis 1+ Macrocytosis 3+ Ovalocytes 1+ Retic Count PT with INR INR Sodium 140 Potassium 4.7 Chloride 108 H Carbon Dioxide 15 L Anion Gap 18 H BUN 24 H Creatinine 1.2 Creat Clearance w eGFR 51.43 Random Glucose 127 H Lactic Acid Calcium 7.3 L Phosphorus Magnesium Total Bilirubin 1.5 H Direct Bilirubin AST 101 H ALT 28 Alkaline Phosphatase 80 Ammonia Troponin I C-Reactive Protein Total Protein 6.5 Albumin 1.6 L Lipase 183 Vitamin B12 Serum Folate Serum , Qual Negative Alcohol, Quantitative Blood Type Antibody Screen Crossmatch 04/27/18 04/27/18 04/27/18 17:40 17:45 18:01 WBC RBC Hgb Hct MCV MCH MCHC RDW Plt Count MPV Absolute Neuts (auto) Neutrophils % Lymphocytes % Monocytes % Eosinophils % Basophils % Nucleated RBC % Platelet Estimate Platelet Comment Polychromasia Poikilocytosis Anisocytosis Macrocytosis Ovalocytes Retic Count PT with INR 27.60 H INR 2.32 H Sodium Potassium Chloride Carbon Dioxide Anion Gap BUN Creatinine Creat Clearance w eGFR Random Glucose Lactic Acid Calcium Phosphorus Magnesium Total Bilirubin Direct Bilirubin AST ALT Alkaline Phosphatase Ammonia Troponin I C-Reactive Protein Total Protein Albumin Lipase Vitamin B12 Serum Folate Serum , Qual Alcohol, Quantitative 20.5 H Blood Type O POSITIVE Antibody Screen Negative Crossmatch See Detail 04/27/18 04/27/18 04/28/18 18:01 21:40 03:20 WBC 10.1 H 9.0 RBC 1.62 L 2.09 L Hgb 5.9 L* 7.3 L Hct 17.7 L 21.1 L D MCV 109.6 H D 100.9 H MCH 36.2 H 34.9 H MCHC 33.0 34.5 RDW 24.4 H 21.3 H Plt Count 116 L 96 L MPV 8.6 8.8 Absolute Neuts (auto) 7.1 6.3 Neutrophils % 70.8 70.1 Lymphocytes % 17.9 16.2 Monocytes % 11.0 H 13.1 H Eosinophils % 0.0 0.3 D Basophils % 0.3 0.3 Nucleated RBC % 0 0 Platelet Estimate Platelet Comment Polychromasia Poikilocytosis Anisocytosis Macrocytosis Ovalocytes Retic Count PT with INR INR Sodium Potassium Chloride Carbon Dioxide Anion Gap BUN Creatinine Creat Clearance w eGFR Random Glucose Lactic Acid 14.7 H* Calcium Phosphorus Magnesium Total Bilirubin Direct Bilirubin AST ALT Alkaline Phosphatase Ammonia Troponin I C-Reactive Protein Total Protein Albumin Lipase Vitamin B12 Serum Folate Serum , Qual Alcohol, Quantitative Blood Type Antibody Screen Crossmatch 04/28/18 04/28/18 04/28/18 06:15 06:15 06:15 WBC RBC Hgb Hct MCV MCH MCHC RDW Plt Count MPV Absolute Neuts (auto) Neutrophils % Lymphocytes % Monocytes % Eosinophils % Basophils % Nucleated RBC % Platelet Estimate Platelet Comment Polychromasia Poikilocytosis Anisocytosis Macrocytosis Ovalocytes Retic Count PT with INR 28.60 H INR 2.40 H Sodium 143 Potassium 6.0 H Chloride 114 H Carbon Dioxide 22 Anion Gap 7 L BUN 33 H Creatinine 1.5 H Creat Clearance w eGFR 39.75 Random Glucose 144 H Lactic Acid Calcium 6.1 L* Phosphorus Magnesium Total Bilirubin 4.0 H Direct Bilirubin 1.4 H AST 136 H ALT 34 Alkaline Phosphatase 55 Ammonia 161.90 H Troponin I C-Reactive Protein 1.0 H Total Protein 5.2 L Albumin 1.6 L Lipase Vitamin B12 Serum Folate 7 Serum , Qual Alcohol, Quantitative Blood Type Antibody Screen Crossmatch 04/28/18 04/28/18 04/28/18 06:15 06:15 06:15 WBC 6.8 RBC 1.69 L Hgb 5.9 L* Hct 16.7 L D MCV 98.6 H MCH 35.0 H MCHC 35.5 RDW 21.6 H Plt Count 80 L MPV 8.9 Absolute Neuts (auto) Neutrophils % Lymphocytes % Monocytes % Eosinophils % Basophils % Nucleated RBC % Platelet Estimate Platelet Comment Polychromasia Poikilocytosis Anisocytosis Macrocytosis Ovalocytes Retic Count 5.40 H PT with INR INR Sodium Potassium Chloride Carbon Dioxide Anion Gap BUN Creatinine Creat Clearance w eGFR Random Glucose Lactic Acid Calcium Phosphorus 3.8 Magnesium 1.7 L Total Bilirubin Direct Bilirubin AST ALT Alkaline Phosphatase Ammonia Troponin I 0.36 H C-Reactive Protein Total Protein Albumin Lipase Vitamin B12 968 Serum Folate Serum , Qual Alcohol, Quantitative Blood Type Antibody Screen Crossmatch 04/28/18 06:15 WBC RBC Hgb Hct MCV MCH MCHC RDW Plt Count MPV Absolute Neuts (auto) Neutrophils % Lymphocytes % Monocytes % Eosinophils % Basophils % Nucleated RBC % Platelet Estimate Platelet Comment Polychromasia Poikilocytosis Anisocytosis Macrocytosis Ovalocytes Retic Count PT with INR INR Sodium Potassium Chloride Carbon Dioxide Anion Gap BUN Creatinine Creat Clearance w eGFR Random Glucose Lactic Acid 5.2 H* Calcium Phosphorus Magnesium Total Bilirubin Direct Bilirubin AST ALT Alkaline Phosphatase Ammonia Troponin I C-Reactive Protein Total Protein Albumin Lipase Vitamin B12 Serum Folate Serum , Qual Alcohol, Quantitative Blood Type Antibody Screen Crossmatch Active Medications Generic Name Dose Route Start Last Admin Trade Name Freq PRN Reason Stop Dose Admin Chlorhexidine Gluconate 1 applic 04/27/18 22:00 04/27/18 21:36 Hibiclens For Decolonization - TP 1 applic HS LYNN Administration Pantoprazole Sodium 80 mg/ 100 mls @ 10 mls/hr 04/27/18 17:45 04/28/18 02:00 Sodium Chloride IVPB 10 mls/hr Q10H LYNN Administration 8 MG/HR Octreotide Acetate 1,200 mcg/ 500 mls @ 20.83 mls/hr 04/27/18 20:30 04/27/18 21:38 Dextrose IVPB 20.83 mls/hr ASDIR LYNN Administration 50 MCG/HR Ceftriaxone Sodium 1 gm/ 50 mls @ 100 mls/hr 04/28/18 10:00 Dextrose IVPB DAILY LYNN Protocol Lorazepam 0.5 mg 04/27/18 20:53 Ativan Injection - IVPUSH Q6H PRN ANXIETY Mupirocin 1 applic 04/27/18 22:00 04/27/18 21:36 Bactroban Ointment (For Decolonization) - NS 05/02/18 21:59 1 applic BID LYNN Administration Promethazine HCl 12.5 mg 04/27/18 21:02 Phenergan Injection - IVPUSH Q6H PRN NAUSEA AND/OR VOMITING Thiamine HCl 200 mg 04/28/18 10:00 Vitamin B1 Injection - IVPB DAILY [facility] ASSESSMENT/PLAN: 32 y/ F w/ PMHx EtOH abuse, unspecified "liver problem," p/w 6+ episodes bright red melena since yesterday AM a/w melena, on octreotide and PTX gtt in ICU. #neuro -monitor for encephalopathy -no active issues -ativan PRN #CV -K spiked to 6.0, stat EKG -insulin, D50, Ca gluconate, albuterol -not maintaining MAP > 65, undergoing resuscitation w/ PRBC/FFP/Plts, will reassess, provide further fluid bolus, then consider central line -active flow murmur #heme onc -actively bleeding, Hb 5.9-->7.3-->5.9 s/p 3U PRBC and 1U FFP -further 3U PRBC, 1U FFP, 1U Plt on board -grossly visible melena on BRENT, FOBT positive -INR 2.32-2.4 -spiking T bili 1.5-->4 #GI -high suspicion of varices -for urgent endoscopy, will await results -octreotide gtt -PTX gtt -alcoholic hepatitis LFT pattern -direct hyperbilirubinemia and jaundice on PE -phenergan PRN -possible acute on chronic liver failure #renal -hyperkalemia treated with insulin, D50, Ca gluconate, albuterol and corrected -now in GERA -monitor and aggressively correct electrolyte imbalances #FEN -large volume of fluids through transfusion on board, further boluses pending -monitor and aggressively correct K, Mg, Phos abnormalities -NPO #PPx -DVT: no pharmacologic AC -GI: PTX/octreotide gtt #code -full #dispo -cont to monitor in ICU Visit type - Emergency Visit Emergency Visit: Yes ED Registration Date: 04/27/18 Care time: The patient presented to the Emergency Department on the above date and was hospitalized for further evaluation of their emergent condition. - New Patient This patient is new to me today: Yes Date on this admission: 04/28/18 - Critical Care Critical Care patient: Yes Total Critical Care Time (in minutes): 35 Critical Care Statement: The care of this patient involved high complexity decision making to prevent further life threatening deterioration of the patient 's condition and/or to evaluate & treat vital organ system(s) failure or risk of failure.
[2018-04-28] MEDS ORDERED: DEXTROSE 50%-WATER 25 GM/50 ML DISP.SYRIN ONE (09:41)
[2018-04-28] MEDS ORDERED: CALCIUM GLUCONATE 10% - 1,000 MG/10 ML VIAL ONE (09:42)
[2018-04-28 09:44] LABS: CALCIUM 6.1 mg/dL (8.5-10.1)
[2018-04-28] MEDS ORDERED: THIAMINE HCL 200 MG/2 ML VIAL IVPB SCH (10:00)
[2018-04-28] MEDS ORDERED: CEFTRIAXONE 1 GM in DEXTROSE 5%-WATER - 50 ML IVPB SCH (10:00)
[2018-04-28] MEDS ORDERED: PHYTONADIONE 10 MG/1 ML AMP IVPB ONE (10:00)
[2018-04-28] MEDS ORDERED: cefTRIAXone SODIUM 1 GM VIAL ONE (10:35)
[2018-04-28] MEDS ORDERED: DEXTROSE 5%-WATER - 50 ML IVPB ONE (10:35)
--- NOTE | 2018-04-28 10:44 | EKG ---
Test Reason : Blood Pressure : / mmHG Vent. Rate : 113 BPM Atrial Rate : 113 BPM P-R Int : 120 ms QRS Dur : 070 ms QT Int : 374 ms P-R-T Axes : 039 026 029 degrees QTc Int : 513 ms SINUS TACHYCARDIA CANNOT RULE OUT INFERIOR INFARCT , AGE UNDETERMINED ABNORMAL ECG NO PREVIOUS ECGS AVAILABLE Confirmed by NACHO COX, RENATE ([id number]) on 04/28/2018 10:44:17 AM Referred By: Confirmed By:RENATE GRIFFITH MD
--- NOTE | 2018-04-28 10:46 | EKG ---
Test Reason : Blood Pressure : / mmHG Vent. Rate : 101 BPM Atrial Rate : 101 BPM P-R Int : 138 ms QRS Dur : 076 ms QT Int : 372 ms P-R-T Axes : 039 026 029 degrees QTc Int : 482 ms SINUS TACHYCARDIA OTHERWISE NORMAL ECG WHEN COMPARED WITH ECG OF 27-APR-2018 18:09, NO SIGNIFICANT CHANGE WAS FOUND Confirmed by RENATE GRIFFITH MD ([id number]) on 04/28/2018 10:46:19 AM Referred By: YASH DURAND DR Confirmed By:RENATE GRIFFITH MD
[2018-04-28 10:48] LABS: BASO % 0.6 % (0-2.0); EOS % 0.9 % (0-4.5); HEMATOCRIT 22.6 % (32.4-45.2); HEMOGLOBIN 7.8 GM/dL (10.7-15.3); LYMPH % 20.6 % (8-40); MCH 32.7 pg (25.7-33.7); MCHC 34.4 g/dl (32.0-36.0); MEAN CELL VOLUME 95.1 fl (80-96); MEAN PLT VOLUME 8.7 fl (7.5-11.1); MONO % 8.7 % (3.8-10.2); NEUT % 69.2 % (42.8-82.8); PLATELET COUNT 72 K/MM3 (134-434); RBC 2.37 M/mm3 (3.60-5.2); RDW 17.7 % (11.6-15.6); WHITE BLOOD COUNT 5.6 K/mm3 (4.0-10.0)
[2018-04-28 11:10] LABS: ANION GAP 6 MMOL/L (8-16); BLOOD UREA NITROGEN 36 mg/dL (7-18); CHLORIDE 116 mmol/L (98-107); CO2 23 mmol/L (21-32); CREATININE 1.5 mg/dL (0.55-1.3); GLUCOSE,RANDOM 141 mg/dL (74-106); POTASSIUM 4.6 mmol/L (3.5-5.1); SODIUM 145 mmol/L (136-145)
[2018-04-28 11:14] LABS: ACTIVATED PTT 40.5 SECONDS (25.2-36.5)
[2018-04-28 11:17] LABS: CALCIUM 6.1 mg/dL (8.5-10.1)
[2018-04-28 11:37] LABS: INR 2.37 (0.83-1.09); PROTHROMBIN TIME (PATIENT) 28.2 SEC (9.7-13.0)
[2018-04-28] MEDS ORDERED: SODIUM BICARBONATE 8.4% 50 MEQ/50 ML DISP.SYRIN IVPUSH ONE (11:57)
--- NOTE | 2018-04-28 12:26 | PN ---
Teaching Attending Note Name of Resident: Siobhan Adrian ATTENDING PHYSICIAN STATEMENT I saw and evaluated the patient. I reviewed the resident's note and discussed the case with the resident. I agree with the resident's findings and plan as documented. SUBJECTIVE: Pt seen and examined in the ICU. Still bleeding. Transfused 6 units PRBC, 1 unit FFP so far. Denies abdominal pain, shortness of breath or chest pain. Blood pressure borderline. OBJECTIVE: Vital Signs Period Temp Pulse Resp BP Sys/Nash Pulse Ox Last 24 Hr 98.0 F-99.7 F 102-124 16-23 73-116/28-80 99-100 Intake & Output 04/25/18 04/26/18 04/27/18 04/28/18 23:59 23:59 23:59 23:59 Intake Total 1350 2110 Output Total 500 1500 Balance 850 610 Weight 74.435 kg 74.389 kg Gen: anxious but in NAD Heart: tachycardic, regular Lung: decreased breath sounds at the bases Abd: soft, nontender Ext: no edema CBC, BMP 04/28/18 10:15 04/28/18 10:15 Active Medications Chlorhexidine Gluconate (Hibiclens For Decolonization -) 1 applic TP HS YLNN Last Admin: 04/27/18 21:36 Dose: 1 applic Pantoprazole Sodium 80 mg/ (Sodium Chloride) 100 mls @ 10 mls/hr IVPB Q10H LYNN Last Admin: 04/28/18 02:00 Dose: 10 mls/hr Octreotide Acetate 1,200 mcg/ (Dextrose) 500 mls @ 20.83 mls/hr IVPB ASDIR LYNN Last Admin: 04/27/18 21:38 Dose: 20.83 mls/hr Ceftriaxone Sodium 1 gm/ (Dextrose) 50 mls @ 100 mls/hr IVPB DAILY LYNN; Protocol Last Admin: 04/28/18 10:46 Dose: 100 mls/hr Sodium Chloride (Normal Saline -) 1,000 mls @ 100 mls/hr IV ASDIR LYNN Lorazepam (Ativan Injection -) 0.5 mg IVPUSH Q6H PRN PRN Reason: ANXIETY Mupirocin (Bactroban Ointment (For Decolonization) -) 1 applic NS BID LYNN Stop: 05/02/18 21:59 Last Admin: 04/27/18 21:36 Dose: 1 applic Promethazine HCl (Phenergan Injection -) 12.5 mg IVPUSH Q6H PRN PRN Reason: NAUSEA AND/OR VOMITING Thiamine HCl (Vitamin B1 Injection -) 200 mg IVPB DAILY LYNN Last Admin: 04/28/18 10:51 Dose: 200 mg ASSESSMENT AND PLAN: GI Bleed likely Upper Acute Blood Loss Anemia r/o Liver Cirrhosis/Variceal Bleed Coagulopathy Elevated LFTs Thrombocytopenia Lactic Acidosis Acute Kidney Injury Alcohol Abuse - transfuse PRBC, FFP - monitor CBC, coags - continue protonix, octreotide gtts - ensure large bore peripheral access - empiric antibiotics - for endoscopy - NPO - IVF - DVT prophylaxis - monitor for withdrawal symptoms - continue ICU monitoring critical care time spent in reviewing chart, evaluating patient and formulating plan 35 min
[2018-04-28] MEDS ORDERED: fentaNYL CITRATE 250 MCG/5 ML VIAL ONE (12:30)
--- NOTE | 2018-04-28 13:28 | PN ---
Progress Note (short form) - Note Progress Note: EGD complete. Report left in procedural section of physical chart and to be scanned into [employer]
[2018-04-28] MEDS ORDERED: BENZOIN/ALOE VERA/STORAX/TOLU 58 ML BOTTLE ONE (14:06)
--- NOTE | 2018-04-28 14:26 | DS ---
Physical Exam: SUBJECTIVE: Patient seen and examined in the ICU. No acute complaints at this time. No further episodes of vomiting or hematemesis overnight. Affirms multiple episodes bright red hematemesis since yesterday AM, additionally affirms melena. Mild abdominal pain. OBJECTIVE: Vital Signs Period Temp Pulse Resp BP Sys/Nash Pulse Ox Last 24 Hr 98.0 F-99.7 F 102-124 16-23 73-116/28-80 99-100 PHYSICAL EXAM GENERAL: A&Ox3, NAD HEENT: NC/AT, EOMI, PERRLA, +scleral icterus NECK: Trachea midline, full range of motion, supple. LUNGS: CTA b/l HEART: tachycardic, systolic flow murmur ABDOMEN: soft, mild diffuse tenderness EXTREMITIES: tachy bounding pulses, warm, well-perfused, no edema. NEUROLOGICAL: human resources support specialist, motor, sensory systems w/o focal deficit PSYCH: Normal mood, normal affect. SKIN: diffusely jaundiced LABS Laboratory Results - last 24 hr 04/27/18 04/27/18 04/27/18 17:15 17:15 17:15 WBC 7.8 RBC 1.41 L Hgb 5.5 L* Hct 16.8 L D MCV 119.1 H MCH 39.1 H D MCHC 32.8 RDW 19.5 H Plt Count 135 D MPV 9.1 Absolute Neuts (auto) 5.7 Neutrophils % 73.1 D Lymphocytes % 16.1 D Monocytes % 10.2 Eosinophils % 0.0 D Basophils % 0.6 Nucleated RBC % 0 Platelet Estimate Adequate Platelet Comment Polychromasia 1+ Poikilocytosis 1+ Anisocytosis 1+ Macrocytosis 3+ Ovalocytes 1+ Retic Count PT with INR INR PTT (Actin FS) Sodium 140 Potassium 4.7 Chloride 108 H Carbon Dioxide 15 L Anion Gap 18 H BUN 24 H Creatinine 1.2 Creat Clearance w eGFR 51.43 Random Glucose 127 H Lactic Acid Calcium 7.3 L Phosphorus Magnesium Total Bilirubin 1.5 H Direct Bilirubin AST 101 H ALT 28 Alkaline Phosphatase 80 Ammonia Troponin I C-Reactive Protein Total Protein 6.5 Albumin 1.6 L Lipase 183 Vitamin B12 Serum Folate Serum , Qual Negative Stool Occult Blood Alcohol, Quantitative Blood Type Antibody Screen Crossmatch 04/27/18 04/27/18 04/27/18 17:40 17:45 18:01 WBC RBC Hgb Hct MCV MCH MCHC RDW Plt Count MPV Absolute Neuts (auto) Neutrophils % Lymphocytes % Monocytes % Eosinophils % Basophils % Nucleated RBC % Platelet Estimate Platelet Comment Polychromasia Poikilocytosis Anisocytosis Macrocytosis Ovalocytes Retic Count PT with INR 27.60 H INR 2.32 H PTT (Actin FS) Sodium Potassium Chloride Carbon Dioxide Anion Gap BUN Creatinine Creat Clearance w eGFR Random Glucose Lactic Acid Calcium Phosphorus Magnesium Total Bilirubin Direct Bilirubin AST ALT Alkaline Phosphatase Ammonia Troponin I C-Reactive Protein Total Protein Albumin Lipase Vitamin B12 Serum Folate Serum , Qual Stool Occult Blood Alcohol, Quantitative 20.5 H Blood Type O POSITIVE Antibody Screen Negative Crossmatch See Detail 04/27/18 04/27/18 04/28/18 18:01 21:40 03:20 WBC 10.1 H 9.0 RBC 1.62 L 2.09 L Hgb 5.9 L* 7.3 L Hct 17.7 L 21.1 L D MCV 109.6 H D 100.9 H MCH 36.2 H 34.9 H MCHC 33.0 34.5 RDW 24.4 H 21.3 H Plt Count 116 L 96 L MPV 8.6 8.8 Absolute Neuts (auto) 7.1 6.3 Neutrophils % 70.8 70.1 Lymphocytes % 17.9 16.2 Monocytes % 11.0 H 13.1 H Eosinophils % 0.0 0.3 D Basophils % 0.3 0.3 Nucleated RBC % 0 0 Platelet Estimate Platelet Comment Polychromasia Poikilocytosis Anisocytosis Macrocytosis Ovalocytes Retic Count PT with INR INR PTT (Actin FS) Sodium Potassium Chloride Carbon Dioxide Anion Gap BUN Creatinine Creat Clearance w eGFR Random Glucose Lactic Acid 14.7 H* Calcium Phosphorus Magnesium Total Bilirubin Direct Bilirubin AST ALT Alkaline Phosphatase Ammonia Troponin I C-Reactive Protein Total Protein Albumin Lipase Vitamin B12 Serum Folate Serum , Qual Stool Occult Blood Alcohol, Quantitative Blood Type Antibody Screen Crossmatch 04/28/18 04/28/18 04/28/18 06:15 06:15 06:15 WBC RBC Hgb Hct MCV MCH MCHC RDW Plt Count MPV Absolute Neuts (auto) Neutrophils % Lymphocytes % Monocytes % Eosinophils % Basophils % Nucleated RBC % Platelet Estimate Platelet Comment Polychromasia Poikilocytosis Anisocytosis Macrocytosis Ovalocytes Retic Count PT with INR 28.60 H INR 2.40 H PTT (Actin FS) Sodium 143 Potassium 6.0 H Chloride 114 H Carbon Dioxide 22 Anion Gap 7 L BUN 33 H Creatinine 1.5 H Creat Clearance w eGFR 39.75 Random Glucose 144 H Lactic Acid Calcium 6.1 L* Phosphorus Magnesium Total Bilirubin 4.0 H Direct Bilirubin 1.4 H AST 136 H ALT 34 Alkaline Phosphatase 55 Ammonia 161.90 H Troponin I C-Reactive Protein 1.0 H Total Protein 5.2 L Albumin 1.6 L Lipase Vitamin B12 Serum Folate 7 Serum , Qual Stool Occult Blood Alcohol, Quantitative Blood Type Antibody Screen Crossmatch 04/28/18 04/28/18 04/28/18 06:15 06:15 06:15 WBC 6.8 RBC 1.69 L Hgb 5.9 L* Hct 16.7 L D MCV 98.6 H MCH 35.0 H MCHC 35.5 RDW 21.6 H Plt Count 80 L MPV 8.9 Absolute Neuts (auto) Neutrophils % Lymphocytes % Monocytes % Eosinophils % Basophils % Nucleated RBC % Platelet Estimate Platelet Comment Polychromasia Poikilocytosis Anisocytosis Macrocytosis Ovalocytes Retic Count 5.40 H PT with INR INR PTT (Actin FS) Sodium Potassium Chloride Carbon Dioxide Anion Gap BUN Creatinine Creat Clearance w eGFR Random Glucose Lactic Acid Calcium Phosphorus 3.8 Magnesium 1.7 L Total Bilirubin Direct Bilirubin AST ALT Alkaline Phosphatase Ammonia Troponin I 0.36 H C-Reactive Protein Total Protein Albumin Lipase Vitamin B12 968 Serum Folate Serum , Qual Stool Occult Blood Alcohol, Quantitative Blood Type Antibody Screen Crossmatch 04/28/18 04/28/18 04/28/18 06:15 08:00 10:15 WBC 5.6 RBC 2.37 L Hgb 7.8 L Hct 22.6 L D MCV 95.1 MCH 32.7 MCHC 34.4 RDW 17.7 H Plt Count 72 L MPV 8.7 Absolute Neuts (auto) 3.9 Neutrophils % 69.2 Lymphocytes % 20.6 D Monocytes % 8.7 Eosinophils % 0.9 D Basophils % 0.6 Nucleated RBC % 0 Platelet Estimate Platelet Comment Polychromasia Poikilocytosis Anisocytosis Macrocytosis Ovalocytes Retic Count PT with INR INR PTT (Actin FS) Sodium Potassium Chloride Carbon Dioxide Anion Gap BUN Creatinine Creat Clearance w eGFR Random Glucose Lactic Acid 5.2 H* Calcium Phosphorus Magnesium Total Bilirubin Direct Bilirubin AST ALT Alkaline Phosphatase Ammonia Troponin I C-Reactive Protein Total Protein Albumin Lipase Vitamin B12 Serum Folate Serum , Qual Stool Occult Blood Positive Alcohol, Quantitative Blood Type Antibody Screen Crossmatch 04/28/18 04/28/18 10:15 10:15 WBC RBC Hgb Hct MCV MCH MCHC RDW Plt Count MPV Absolute Neuts (auto) Neutrophils % Lymphocytes % Monocytes % Eosinophils % Basophils % Nucleated RBC % Platelet Estimate Platelet Comment Polychromasia Poikilocytosis Anisocytosis Macrocytosis Ovalocytes Retic Count PT with INR 28.20 H INR 2.37 H PTT (Actin FS) 40.5 H Sodium 145 Potassium 4.6 Chloride 116 H Carbon Dioxide 23 Anion Gap 6 L BUN 36 H Creatinine 1.5 H Creat Clearance w eGFR 39.75 Random Glucose 141 H Lactic Acid Calcium 6.1 L* Phosphorus Magnesium Total Bilirubin Direct Bilirubin AST ALT Alkaline Phosphatase Ammonia Troponin I C-Reactive Protein Total Protein Albumin Lipase Vitamin B12 Serum Folate Serum , Qual Stool Occult Blood Alcohol, Quantitative Blood Type Antibody Screen Crossmatch HOSPITAL COURSE: Date of Admission:04/27/18 Patient is a 32 y/ F w/ PMHx EtOH abuse who presented w/ 6+ episodes bright red hematemeis since yesterday AM a/w melena, admitted to ICU. Placed on octreotide and PTX gtt in ICU. Lab evidence showing LFT derangement in alcoholic hepatitis pattern with coagulopathy and hyperbilirubinemia. Received total 7U PRBCs, 1U FFP, 1U platelets. Underwent EGD and had 6 varices banded. Hemodynamically stable post-endoscopy. Intubated and sedated upon return to ICU. Transferred to tertiary care center. Date of Discharge: 04/28/18 Minutes to complete discharge: 40 Discharge Summary Reason For Visit: ALCOHOL ABUSE,GASTROINTRSTINAL HEMORRHAGE WITH Current Active Problems Alcohol abuse (Acute) Alcoholic cirrhosis (Acute) GI bleed not requiring more than 4 units of blood in 24 hours, ICU, or surgery ( Acute) Gastrointestinal hemorrhage with hematemesis (Acute) Hematemesis with nausea (Acute) History of cholecystectomy (Acute) Upper GI bleeding (Acute) Condition: Guarded - Instructions Diet, Activity, Other Instructions: Patient presented with variceal bleeding. Received total 7U PRBC, 1U FFP, 1U Platelets. Underwent EGD. 6 esophageal varices found and banded, 1 with white nipple, no gastric varices. 1 varix bled post banding and required repeat banding. Transfer to tertiary center recommended by GI given high risk of rebleeding. Disposition: TRANSFER ACUTE CARE/OTHER HOSP - Home Medications Comprehensive Discharge Medication List: Ambulatory Orders No Home Medications 0 dose .ROUTE UTDICT 03/30/12 This patient is new to me today: Yes Date on this admission: 04/28/18 Emergency Visit: Yes ED Registration Date: 04/27/18 Care time: The patient presented to the Emergency Department on the above date and was hospitalized for further evaluation of their emergent condition. Critical Care patient: Yes Total Critical Care Time (in minutes): 40 Critical Care Statement: The care of this patient involved high complexity decision making to prevent further life threatening deterioration of the patient 's condition and/or to evaluate & treat vital organ system(s) failure or risk of failure. - Discharge Referral Referred to [facility] Med P.C.: No
[2018-04-28] MEDS ORDERED: PROPOFOL 1,000,000 MCG/100 ML VIAL IVPB SCH (14:30)
[2018-04-28 15:59] LABS: BASO % 0.6 % (0-2.0); EOS % 1.4 % (0-4.5); HEMATOCRIT 32.2 % (32.4-45.2); HEMOGLOBIN 11.5 GM/dL (10.7-15.3); LYMPH % 16.2 % (8-40); MCH 32.6 pg (25.7-33.7); MCHC 35.7 g/dl (32.0-36.0); MEAN CELL VOLUME 91.3 fl (80-96); MEAN PLT VOLUME 8.6 fl (7.5-11.1); MONO % 14.5 % (3.8-10.2); NEUT % 67.3 % (42.8-82.8); PLATELET COUNT 87 K/MM3 (134-434); RBC 3.53 M/mm3 (3.60-5.2); RDW 16.3 % (11.6-15.6); WHITE BLOOD COUNT 7.9 K/mm3 (4.0-10.0)
[2018-04-28 17:39] VITALS: BP 113/67; PULSE 105; TEMP 99.3
--- NOTE | 2018-04-28 18:49 | PN ---
Teaching Attending Note Name of Resident: Fabio Marsh ATTENDING PHYSICIAN STATEMENT I saw and evaluated the patient. I reviewed the resident's note and discussed the case with the resident. I agree with the resident's findings and plan as documented. SUBJECTIVE: Feels okay - no complaints. Denies abdominal discomfort. 1 further episode of Hematemesis this am. Now having melena. OBJECTIVE: Afebrile, Hemodynamically Stable. Intubated for EGD subsequent to my medical interview and examination. Last Vital Signs Temp Pulse Resp BP Pulse Ox 99.3 F 105 H 12 113/67 96 04/28/18 17:35 04/28/18 17:35 04/28/18 17:35 04/28/18 17:35 04/28/18 13:45 HEENT - Atraumatic, Normocytic Heart - S1, S2, RRR Lungs - clear to auscultation. Abdomen - Soft, non-tender. Bowel Sounds normal. Extremities - no edema, no calf tenderness. Laboratory Results - last 24 hr 04/27/18 04/27/18 04/27/18 17:15 17:15 17:45 WBC RBC Hgb Hct MCV MCH MCHC RDW Plt Count MPV Absolute Neuts (auto) Neutrophils % Lymphocytes % Monocytes % Eosinophils % Basophils % Nucleated RBC % Platelet Estimate Adequate Platelet Comment Polychromasia 1+ Poikilocytosis 1+ Anisocytosis 1+ Macrocytosis 3+ Ovalocytes 1+ Retic Count PT with INR INR PTT (Actin FS) Sodium Potassium Chloride Carbon Dioxide Anion Gap BUN Creatinine Creat Clearance w eGFR Random Glucose Lactic Acid Calcium Phosphorus Magnesium Total Bilirubin Direct Bilirubin AST ALT Alkaline Phosphatase Ammonia Troponin I C-Reactive Protein Total Protein Albumin Vitamin B12 Serum Folate Serum , Qual Negative Stool Occult Blood Blood Type O POSITIVE Antibody Screen Negative Crossmatch See Detail 04/27/18 04/27/18 04/28/18 18:01 21:40 03:20 WBC 10.1 H 9.0 RBC 1.62 L 2.09 L Hgb 5.9 L* 7.3 L Hct 17.7 L 21.1 L D MCV 109.6 H D 100.9 H MCH 36.2 H 34.9 H MCHC 33.0 34.5 RDW 24.4 H 21.3 H Plt Count 116 L 96 L MPV 8.6 8.8 Absolute Neuts (auto) 7.1 6.3 Neutrophils % 70.8 70.1 Lymphocytes % 17.9 16.2 Monocytes % 11.0 H 13.1 H Eosinophils % 0.0 0.3 D Basophils % 0.3 0.3 Nucleated RBC % 0 0 Platelet Estimate Platelet Comment Polychromasia Poikilocytosis Anisocytosis Macrocytosis Ovalocytes Retic Count PT with INR INR PTT (Actin FS) Sodium Potassium Chloride Carbon Dioxide Anion Gap BUN Creatinine Creat Clearance w eGFR Random Glucose Lactic Acid 14.7 H* Calcium Phosphorus Magnesium Total Bilirubin Direct Bilirubin AST ALT Alkaline Phosphatase Ammonia Troponin I C-Reactive Protein Total Protein Albumin Vitamin B12 Serum Folate Serum , Qual Stool Occult Blood Blood Type Antibody Screen Crossmatch 04/28/18 04/28/18 04/28/18 06:15 06:15 06:15 WBC RBC Hgb Hct MCV MCH MCHC RDW Plt Count MPV Absolute Neuts (auto) Neutrophils % Lymphocytes % Monocytes % Eosinophils % Basophils % Nucleated RBC % Platelet Estimate Platelet Comment Polychromasia Poikilocytosis Anisocytosis Macrocytosis Ovalocytes Retic Count PT with INR 28.60 H INR 2.40 H PTT (Actin FS) Sodium 143 Potassium 6.0 H Chloride 114 H Carbon Dioxide 22 Anion Gap 7 L BUN 33 H Creatinine 1.5 H Creat Clearance w eGFR 39.75 Random Glucose 144 H Lactic Acid Calcium 6.1 L* Phosphorus Magnesium Total Bilirubin 4.0 H Direct Bilirubin 1.4 H AST 136 H ALT 34 Alkaline Phosphatase 55 Ammonia 161.90 H Troponin I C-Reactive Protein 1.0 H Total Protein 5.2 L Albumin 1.6 L Vitamin B12 Serum Folate 7 Serum , Qual Stool Occult Blood Blood Type Antibody Screen Crossmatch 04/28/18 04/28/18 04/28/18 06:15 06:15 06:15 WBC 6.8 RBC 1.69 L Hgb 5.9 L* Hct 16.7 L D MCV 98.6 H MCH 35.0 H MCHC 35.5 RDW 21.6 H Plt Count 80 L MPV 8.9 Absolute Neuts (auto) Neutrophils % Lymphocytes % Monocytes % Eosinophils % Basophils % Nucleated RBC % Platelet Estimate Platelet Comment Polychromasia Poikilocytosis Anisocytosis Macrocytosis Ovalocytes Retic Count 5.40 H PT with INR INR PTT (Actin FS) Sodium Potassium Chloride Carbon Dioxide Anion Gap BUN Creatinine Creat Clearance w eGFR Random Glucose Lactic Acid Calcium Phosphorus 3.8 Magnesium 1.7 L Total Bilirubin Direct Bilirubin AST ALT Alkaline Phosphatase Ammonia Troponin I 0.36 H C-Reactive Protein Total Protein Albumin Vitamin B12 968 Serum Folate Serum , Qual Stool Occult Blood Blood Type Antibody Screen Crossmatch 04/28/18 04/28/18 04/28/18 06:15 08:00 10:15 WBC 5.6 RBC 2.37 L Hgb 7.8 L Hct 22.6 L D MCV 95.1 MCH 32.7 MCHC 34.4 RDW 17.7 H Plt Count 72 L MPV 8.7 Absolute Neuts (auto) 3.9 Neutrophils % 69.2 Lymphocytes % 20.6 D Monocytes % 8.7 Eosinophils % 0.9 D Basophils % 0.6 Nucleated RBC % 0 Platelet Estimate Platelet Comment Polychromasia Poikilocytosis Anisocytosis Macrocytosis Ovalocytes Retic Count PT with INR INR PTT (Actin FS) Sodium Potassium Chloride Carbon Dioxide Anion Gap BUN Creatinine Creat Clearance w eGFR Random Glucose Lactic Acid 5.2 H* Calcium Phosphorus Magnesium Total Bilirubin Direct Bilirubin AST ALT Alkaline Phosphatase Ammonia Troponin I C-Reactive Protein Total Protein Albumin Vitamin B12 Serum Folate Serum , Qual Stool Occult Blood Positive Blood Type Antibody Screen Crossmatch 04/28/18 04/28/18 04/28/18 10:15 10:15 15:15 WBC 7.9 RBC 3.53 L Hgb 11.5 Hct 32.2 L D MCV 91.3 MCH 32.6 MCHC 35.7 RDW 16.3 H Plt Count 87 L D MPV 8.6 Absolute Neuts (auto) 5.3 Neutrophils % 67.3 Lymphocytes % 16.2 D Monocytes % 14.5 H Eosinophils % 1.4 Basophils % 0.6 Nucleated RBC % 0 Platelet Estimate Platelet Comment Polychromasia Poikilocytosis Anisocytosis Macrocytosis Ovalocytes Retic Count PT with INR 28.20 H INR 2.37 H PTT (Actin FS) 40.5 H Sodium 145 Potassium 4.6 Chloride 116 H Carbon Dioxide 23 Anion Gap 6 L BUN 36 H Creatinine 1.5 H Creat Clearance w eGFR 39.75 Random Glucose 141 H Lactic Acid Calcium 6.1 L* Phosphorus Magnesium Total Bilirubin Direct Bilirubin AST ALT Alkaline Phosphatase Ammonia Troponin I C-Reactive Protein Total Protein Albumin Vitamin B12 Serum Folate Serum , Qual Stool Occult Blood Blood Type Antibody Screen Crossmatch Current Medications Generic Name Dose Route Start Last Admin Trade Name Freq PRN Reason Stop Dose Admin Chlorhexidine Gluconate 1 applic 04/27/18 22:00 04/27/18 21:36 Hibiclens For Decolonization - TP 1 applic HS LYNN Administration Pantoprazole Sodium 80 mg/ 100 mls @ 10 mls/hr 04/27/18 17:45 04/28/18 13:00 Sodium Chloride IVPB 10 mls/hr Q10H LYNN Administration 8 MG/HR Octreotide Acetate 1,200 mcg/ 500 mls @ 20.83 mls/hr 04/27/18 20:30 04/27/18 21:38 Dextrose IVPB 20.83 mls/hr ASDIR LYNN Administration 50 MCG/HR Ceftriaxone Sodium 1 gm/ 50 mls @ 100 mls/hr 04/28/18 10:00 04/28/18 10:46 Dextrose IVPB 100 mls/hr DAILY LYNN Administration Protocol Sodium Chloride 1,000 mls @ 100 mls/hr 04/28/18 09:00 Normal Saline - IV ASDIR LYNN Sodium Chloride 1,000 mls @ 125 mls/hr 04/28/18 14:30 Normal Saline - IV ASDIR LYNN Propofol 1,000,000 mcg in 100 mls @ 2.232 mls/hr 04/28/18 14:30 Diprivan - IVPB TITR LYNN Protocol 5 MCG/KG/MIN Lorazepam 0.5 mg 04/27/18 20:53 Ativan Injection - IVPUSH Q6H PRN ANXIETY Mupirocin 1 applic 04/27/18 22:00 04/27/18 21:36 Bactroban Ointment (For Decolonization) - NS 05/02/18 21:59 1 applic BID LYNN Administration Promethazine HCl 12.5 mg 04/27/18 21:02 Phenergan Injection - IVPUSH Q6H PRN NAUSEA AND/OR VOMITING Thiamine HCl 200 mg 04/28/18 10:00 04/28/18 10:51 Vitamin B1 Injection - IVPB 200 mg DAILY LYNN Administration Home Medications Medication Instructions Recorded No Home Medications 0 dose .ROUTE UTDICT 03/30/12 ASSESSMENT AND PLAN: 32 year old female with history of alcohol abuse, presents with large volume hematemesis and severe anemia, with hypotension and lactic acidosis requiring ICU admission. 1. Acute Blood Loss Anemia secondary to Variceal Bleed sec to portal gastropathy secondary to Liver Cirrhosis due to alcohol excess. H/H 5.5/16.8 , now 7.8/22 s/p 6 units PRBCs (Target Hb 7-8) s/p EGD with banding of 6 varices. Hemodynamically stable but given high risk for re-bleed, will transfer patient to [facility] - accepting physician: Dr. Gold. IV Octreotide, PPI drips IV Ceftriaxone prophylaxis. Currently intubated post EGD No signs yet of alcohol withdrawal. Thiamine IV daily. 2. Liver Cirrhosis with synthetic Dysfunction, possible Hepatic Failure with Hyperbilirubinemia, elevated INR, elevated Ammonia levels, and Hypoalbuminemia Accepted for transfer to [facility] where Dr. Mallory of Hepatology team agrees to evaluate her. s/p 2 units FFP and Vitamin K to attempt correction of coagulopathy. MELD 25, prognosis guarded, 20% chance of 3 month mortality. 3. Macrocytosis/Thrombocytopenia - likely sec to Alcohol excess and Liver disease. Can check B12/Folate. 4. GERA secondary to Hemorrhagic Shock with low circulating volume - resolved s/ p transfusion of 6 units PRBCs. Will continue IV hydration and monitor renal response. 5. Apparent Hypocalcemia with Ca 6.1. When corrected for Albumin, corrected Calcium level 8.0. 6. Troponin egression - secondary to demand ischemia due to low circulating volume due to hemorrhagic shock. Will monitor. 7. Hyperkalemia sec to GERA - resolved s/p Insulin/Dextrose. DVT Px - SCDs. Medically Stable for transfer to ICU at [facility] for more specialized tertiary care including Advanced Endoscopy and Hepatology evaluation. Prognosis guarded. Accepting [employer] Coach at [facility] - Dr. Gold.
[2018-04-29 04:18] LABS: HEP.C VIRUS AB 0.2 s/co ratio (0.0-0.9)
== END 2018-04-28 18:15 | disposition short-term general hospital (02) | DRG 242 ==
LOC: JER 17:02 → JICU 20:19 → JER 21:26
PROVIDERS: ADMIT Internal Medicine
PROC: 30233N1 Transfusion of Nonautologous Red Blood Cells into Peripheral Vein, Percutaneous Approach (ICD-10-PCS; 2018-04-27)
PROC: 06L38CZ Occlusion of Esophageal Vein with Extraluminal Device, Via Natural or Artificial Opening Endoscopic (ICD-10-PCS; 2018-04-28)
PROC: 0W3P8ZZ Control Bleeding in Gastrointestinal Tract, Via Natural or Artificial Opening Endoscopic (ICD-10-PCS; principal; 2018-04-28 12:30)
DX: I85.11 Secondary esophageal varices with bleeding (principal); K70.30 Alcoholic cirrhosis of liver without ascites; D62 Acute posthemorrhagic anemia; I95.9 Hypotension, unspecified; N17.9 Acute kidney failure, unspecified; E83.51 Hypocalcemia; E87.5 Hyperkalemia; D68.9 Coagulation defect, unspecified; E87.2 Acidosis; R00.0 Tachycardia, unspecified; E88.09 Other disorders of plasma-protein metabolism, not elsewhere classified; E86.0 Dehydration; D75.89 Other specified diseases of blood and blood-forming organs; K76.0 Fatty (change of) liver, not elsewhere classified; F10.20 Alcohol dependence, uncomplicated; R55 Syncope and collapse; K92.0 Hematemesis; K92.1 Melena; K72.00 Acute and subacute hepatic failure without coma; R57.8 Other shock; I86.4 Gastric varices; D68.8 Other specified coagulation defects
CPT/HCPCS: 31500; 36415; 36430; 71045-TC-FY; 76700-TC; 80048; 80053; 80074; 80307; 82140; 82248; 82272; 82607; 82746; 83605; 83690; 83735; 84100; 84484; 84703; 85025; 85027; 85044; 85610; 85730; 86140; 87522; 93005; 93010; 94640; 99284-25; J7030; P9017; P9034; P9038; P9058

== ENCOUNTER 2018-07-22 10:57 | Inpatient (IN) | payer OTHER | END 2018-07-30 12:01 | disposition home or self-care (01) | LOC: J8W 07-23 00:20 → JER 10:57 → JERBED 14:43 ==

== ENCOUNTER 2018-07-31 10:13 | Day surgery (SDC) | payer OTHER ==
[2018-07-31] MEDS ORDERED: ERTAPENEM SODIUM 1 GM in SODIUM CHLORIDE 50 ML IVPB ONE (11:30)
[2018-07-31 11:59] VITALS: BP 103/56; PULSE 78; TEMP 98.1
== END 2018-07-31 11:59 | disposition home or self-care (01) ==
LOC: JINFUSION 10:13 → J7W 10:14 → JINFUSION 11:59
PROVIDERS: ATTEND Internal Medicine Infectious Disease
DX: K52.9 Noninfective gastroenteritis and colitis, unspecified (principal)
CPT/HCPCS: 96365; 96366

== ENCOUNTER 2018-08-01 10:39 | Day surgery (SDC) | payer OTHER | END 2018-08-01 12:15 | disposition home or self-care (01) | LOC: JINFUSION 10:39 → J7W 10:39 → JINFUSION 12:15 ==

== ENCOUNTER 2018-08-02 10:13 | Day surgery (SDC) | payer OTHER | END 2018-08-02 11:55 | disposition home or self-care (01) | LOC: JINFUSION 10:13 ==

== ENCOUNTER 2018-08-03 10:20 | Day surgery (SDC) | payer OTHER | END 2018-08-03 11:50 | disposition home or self-care (01) | LOC: JINFUSION 10:20 ==

== ENCOUNTER 2018-08-04 13:18 | Day surgery (SDC) | payer OTHER ==
[~2018-08-04 13:18] MED LIST: ERTAPENEM SODIUM 1 GM in SODIUM CHLORIDE 50 ML IVPB ONE
[2018-08-04 13:59] VITALS: TEMP 98.2
[2018-08-04 15:00] VITALS: BP 106/58; PULSE 78
== END 2018-08-04 14:36 | disposition home or self-care (01) ==
LOC: JINFUSION 13:18
PROVIDERS: ATTEND Internal Medicine Infectious Disease
DX: K25.9 Gastric ulcer, unspecified as acute or chronic, without hemorrhage or perforation (principal)
CPT/HCPCS: 96365

== ENCOUNTER 2018-08-05 11:14 | Day surgery (SDC) | payer OTHER ==
[2018-08-05 12:32] VITALS: BP 105/56; PULSE 89; TEMP 97.7
== END 2018-08-05 12:31 | disposition home or self-care (01) ==
LOC: JINFUSION 11:14
PROVIDERS: ATTEND Internal Medicine Infectious Disease
DX: K25.9 Gastric ulcer, unspecified as acute or chronic, without hemorrhage or perforation (principal)
CPT/HCPCS: 96365

== ENCOUNTER 2018-12-14 07:52 | Inpatient (IN) | payer OTHER ==
--- NOTE | 2018-12-14 08:23 | PDOC ---
History of Present Illness - General Chief Complaint: Pain Stated Complaint: ABD PAIN Time Seen by Provider: 12/14/18 08:23 Past History - Past Medical History Allergies/Adverse Reactions: Allergies Allergy/AdvReac Type Severity Reaction Status Date / Time No Known Drug Allergies Allergy Verified 12/14/18 08:03 Home Medications: Ambulatory Orders Lactulose (Oral Use) [Cephulac -] 20 gm PO TID PRN #1 bottle 07/30/18 Multivitamins [Multivit ([facility] Formulary)] 1 tab PO DAILY #30 tab 07/30/18 Pantoprazole Sodium [Protonix -] 40 mg PO DAILY #30 tablet.ec 07/30/18 Asthma: No Cancer: No Cardiac Disorders: No COPD: No Diabetes: No HTN: No Liver Disease: Yes (Alcoholic cirrhosis) Seizures: No Thyroid Disease: No - Surgical History Cardiac Surgery: No Cholecystectomy: Yes - Immunization History Immunization Up to Date: No - Psycho Social/Smoking Cessation Hx Smoking History: Former smoker Have you smoked in the past 12 months: No Information on smoking cessation initiated: No Hx Alcohol Use: No (past) Drug/Substance Use Hx: No Substance Use Type: None Hx Substance Use Treatment: No *Physical Exam - Vital Signs Last Vital Signs Temp Pulse Resp BP Pulse Ox 101 F H 114 H 20 99/57 L 100 12/14/18 08:05 12/14/18 08:05 12/14/18 08:05 12/14/18 08:05 12/14/18 08:05 ED Treatment Course - LABORATORY CBC & Chemistry Diagram: 12/15/18 06:17 12/15/18 06:17 Medical Decision Making - Medical Decision Making HPI: 33yo F with PMH of alcoholic cirrhosis, esophageal varices (s/p banding), EtOH abuse (last drink several months ago) presenting with diarrhea, cough, and abdominal pain. Patient states she has had watery diarrhea for the past 3 days, about five episodes per day. Patient has also had two episodes of bilious nonbloody vomiting. Denies urinary symptoms, vaginal discharge, or genital lesions. Did not take any medicine at home. No recent antibiotic use. Has had a nonproductive cough for two days. Reports abdominal pain. LMP was several months ago for unknown reasons. Endorses high fevers, but did not measure with a thermometer and chills. History obtained with assistance from [employer] edging supervisor #[id number] ROS: Constitutional: +fever, +chills HEENT: no throat pain, no dysphagia Cardiovascular: no chest pain, no palpitations Respiratory: +cough, no shortness of breath Gastrointestinal: +abdominal pain, +vomiting Genitourinary: no dysuria, no hematuria Musculoskeletal: no myalgia, no arthralgia Skin: no rash, no itching Neurologic: no headache, no weakness PE: General: Awake, alert, and fully oriented, with rigors Head: No signs of trauma Eyes: EOMI, sclera anicteric ENT: Dry mucus membranes Neck: Normal ROM, supple Lungs: Lungs clear, Normal breath sounds Cardio: Regular rhythm, S1 and S2 present Abdomen: Tender to palpation in RUQ and suprapubic area. Soft, No guarding, no rebound, no masses. No CVA tenderness Extremities: Normal range of motion, Distal pulses present SKIN: Jaundiced Neurologic: Cranial nerves II through XII grossly intact. Normal speech Pelvic: External genitalia without erythema, exudate or discharge. Vaginal vault is with yellow discharge. Cervix is of normal color without lesion. The os is closed. There is no bleeding noted. Uterus is noted to be of appropriate size and nontender. No cervical motion tenderness is seen. No masses are palpated. The adnexa are without masses or tenderness. ED Course/MDM: DDX including but not limited to UTI, pyelonephritis, PID, PNA, bacteremia Febrile, hypotensive, tachycardic Sepsis workup initiated Fluids Antibiotics: meropenem and vancomycin Tylenol (no ofirmev available in the hospital) 12/14/18 08:23 CBC WBC 14.8 K/mm3 (4.0-10.0) H 12/14/18 08:43 RBC 2.89 M/mm3 (3.60-5.2) L 12/14/18 08:43 Hgb 9.4 GM/dL (10.7-15.3) L 12/14/18 08:43 Hct 28.1 % (32.4-45.2) L D 12/14/18 08:43 MCV 97.0 fl (80-96) H 12/14/18 08:43 MCH 32.4 pg (25.7-33.7) 12/14/18 08:43 MCHC 33.4 g/dl (32.0-36.0) 12/14/18 08:43 RDW 17.7 % (11.6-15.6) H 12/14/18 08:43 Plt Count 95 K/MM3 (134-434) L D 12/14/18 08:43 MPV 10.3 fl (7.5-11.1) D 12/14/18 08:43 Absolute Neuts (auto) 10.9 K/mm3 (1.5-8.0) H 12/14/18 08:43 Neutrophils % 73.5 % (42.8-82.8) D 12/14/18 08:43 Lymphocytes % 5.4 % (8-40) L D 12/14/18 08:43 Monocytes % 20.6 % (3.8-10.2) H D 12/14/18 08:43 Eosinophils % 0.2 % (0-4.5) D 12/14/18 08:43 Basophils % 0.3 % (0-2.0) 12/14/18 08:43 Nucleated RBC % 0 % (0-0) 12/14/18 08:43 Leukocytosis CMP Sodium 132 mmol/L (136-145) L 12/14/18 08:43 Potassium 2.8 mmol/L (3.5-5.1) L* 12/14/18 08:43 Chloride 100 mmol/L (98-107) 12/14/18 08:43 Carbon Dioxide 18 mmol/L (21-32) L 12/14/18 08:43 Anion Gap 14 MMOL/L (8-16) 12/14/18 08:43 BUN 68.0 mg/dL (7-18) H 12/14/18 08:43 Creatinine 3.2 mg/dL (0.55-1.3) H 12/14/18 08:43 Est GFR (CKD-EPI)AfAm 20.71 12/14/18 08:43 Est GFR (CKD-EPI)NonAf 17.87 12/14/18 08:43 Random Glucose 116 mg/dL (74-106) H 12/14/18 08:43 Lactic Acid 3.4 mmol/L (0.4-2.0) H* 12/14/18 08:43 Calcium 6.7 mg/dL (8.5-10.1) L* 12/14/18 08:43 Phosphorus 2.7 mg/dL (2.5-4.9) 12/14/18 08:43 Magnesium 2.0 mg/dL (1.8-2.4) 12/14/18 08:43 Total Bilirubin 2.8 mg/dL (0.2-1) H 12/14/18 08:43 AST 130 U/L (15-37) H 12/14/18 08:43 ALT 50 U/L (13-61) 12/14/18 08:43 Alkaline Phosphatase 89 U/L (45-117) 12/14/18 08:43 Creatine Kinase 644 U/L (26-192) H 12/14/18 08:43 Creatine Kinase Index 0.5 % (0.0-5.0) 12/14/18 08:43 CK-MB (CK-2) 3.3 ng/mL (0.5-3.6) 12/14/18 08:43 Troponin I < 0.02 ng/ml (0.00-0.05) 12/14/18 08:43 Total Protein 6.8 g/dl (6.4-8.2) 12/14/18 08:43 Albumin 1.9 g/dl (3.4-5.0) L 12/14/18 08:43 Total Amylase 88 U/L (25-115) 12/14/18 08:43 Lipase 576 U/L (73-393) H 12/14/18 08:43 Beta HCG, Quant < 1.0 mIU/ml 12/14/18 08:43 Potassium Low; 40meq K-dur ordered Cr elevated, 3.2 Lactate elevated, 3.4 Lipase elevated, 576 Corrected calcium is 7.9 EKG: rate 97, QTc 513, NSR, prolonged QT UA positive for infection Urine test positive B-hcg added-on TVUS ordered RUQ US ordered 12/14/18 10:33 Patient informed of positive test with assistance from [employer] ed[employer] supervisor #[id number] Needs a CXR to assess for PNA as a source of infection, We will shield her abdomen/pelvis to minimize risk to fetus. 12/14/18 10:49 B-hcg <1 Urine test was likely a false positive CT re-ordered 12/14/18 11:29 CT as read by radiology: "TECHNIQUE: Sequential axial images were obtained from the domes of the diaphragm through the symphysis pubis. The study is markedly limited without the use of any contrast material. The lung bases are clear. There is a trace amount of ascites within the abdomen and pelvis. The liver is somewhat small in size and irregular in contour consistent with advanced hepatocellular disease. No mass lesions are identified within the liver. There is a TIPS shunt within the liver. Shunt patency cannot be determined without the use of intravenous contrast. There is a recanalized umbilical vein, additional Cirrhosis. The spleen is enlarged measuring 15.5 cm in craniocaudad dimension. The kidneys are somewhat enlarged with no evidence of a discrete mass or hydronephrosis. The etiology of this finding is uncertain. Correlation with renal function tests is recommended. The pancreas, adrenal glands and kidneys demonstrate no significant abnormalities. The gallbladder has been removed. There is no evidence of intra-abdominal or retroperitoneal lymphadenopathy or fluid collections. There is no evidence of pneumoperitoneum, bowel obstruction or intra-abdominal abscess. There is no CT evidence of acute appendicitis or diverticulitis. Examination of the pelvis demonstrates no evidence of pelvic masses, fluid collections or lymphadenopathy. The uterus is retroverted. There is no evidence of acute bony pathology. IMPRESSION: 1. Findings consistent with cirrhosis, including a small irregular liver, splenomegaly, trace ascites and recanalized umbilical vein. 2. TIPS shunt within the liver. Patency cannot be determined from this examination. 3. Enlarged kidneys without evidence of renal masses or obstructive uropathy. 4. No evidence of acute pathology within the abdomen or pelvis. Please see above discussion. " Plan for admission for urosepsis as patient with evidence of hemodynamic instability upon initial presentation. Parenteral antibiotics needed beyond observation care treatment as she has had prior positive blood cultures 12/14/18 13:35 Dr. Serrano discussed case with Dr. Tipton who accepted patient for admission under Dr. Moore 12/14/18 14:44 RUQ US as read by radiology: "Real time examination of the abdomen demonstrates the following: The gallbladder has been removed. There is no evidence of intra or extrahepatic biliary duct dilatation. The liver is normal in size. It is heterogeneous in texture with no discrete intrahepatic masses seen. There is a TIPS shunt within the liver that appears to be patent. Hepatopedal flow is documented within the main portal vein. The pancreas is normal in size and texture with no pancreatic masses identified. The spleen is enlarged measuring 15.4 cm in craniocaudad dimension. There is no evidence of hydronephrosis or acute renal abnormalities. The kidneys are somewhat large in size with the right kidney measuring 15.3 x 8.4 x 7.8 cm and the left kidney measuring 14.5 x 6.6 x 6.8 cm. There is no evidence of AAA. The IVC is patent. IMPRESSION: 1. Heterogeneous liver with patent TIPS shunt. 2. Splenomegaly. 3. Mildly enlarged kidneys with no evidence of hydronephrosis or acute pathology. " TVUS as read by radiology: "Vaginal discharge. Positive urine test. Negative beta hCG test. Rule out ectopic Pelvis ultrasound, transvaginal Initial transvesical images of the pelvis were obtained followed with a transvaginal examination. Compared to prior examination dated 09/15/2011 The uterus is retroverted measuring 0.8 x 4.8 cm. Endometrial stripe measures 6.5 mm in thickness. No intra-HI gestational sac is identified. Normal- appearing left ovary measuring 3 x 1.6 cm with normal vascular flow. Normal appearing right ovary measuring 2.5 x 1.7 cm with normal vascular flow. There is no free fluid in the cul-de-sac IMPRESSION: Normal appearing retroverted uterus with normal thickness of the chest right. Both ovaries appear unremarkable without evidence of torsion. There is no free fluid in the cul-de- sac. Incidentally noted the borderline thickening of the urinary bladder posterior wall, measuring 5 mm that may be due to partial distention. Correlate clinically to rule out cystitis " CXR as read by radiology: "Single AP view of the chest reveals an apical lordotic projection with large heart, normal aorta, prominent vernon and clear lung wong. The hands are sharp. The bones and soft tissues are intact. Impression: No acute chest pathology" Discharge - Discharge Information Problems reviewed: Yes Clinical Impression/Diagnosis: UTI (urinary tract infection), Sepsis - Admission Yes - Follow up/Referral - Patient Discharge Instructions - Post Discharge Activity
[2018-12-14] MEDS ORDERED: ACETAMINOPHEN 1000 MG/100 ML VIAL (NON FORMULARY) IVPB ONE (08:25)
[2018-12-14] MEDS ORDERED: SODIUM CHLORIDE 1,000 ML IV STA ×3 (08:25→13:31)
[2018-12-14] MEDS ORDERED: MEROPENEM 1 GM in DEXTROSE 5%-WATER 100 ML IVPB ONE (08:53)
[2018-12-14] MEDS ORDERED: VANCOMYCIN 1 GM in D5W (PRE-DOCKED) 1,000 MG/250 ML IVPB ONE (08:53)
[2018-12-14 09:03] LABS: BASO % 0.3 % (0-2.0); EOS % 0.2 % (0-4.5); HEMATOCRIT 28.1 % (32.4-45.2); HEMOGLOBIN 9.4 GM/dL (10.7-15.3); LYMPH % 5.4 % (8-40); MCH 32.4 pg (25.7-33.7); MCHC 33.4 g/dl (32.0-36.0); MEAN PLT VOLUME 10.3 fl (7.5-11.1); MONO % 20.6 % (3.8-10.2); NEUT % 73.5 % (42.8-82.8); PLATELET COUNT 95 K/MM3 (134-434); RBC 2.89 M/mm3 (3.60-5.2); RDW 17.7 % (11.6-15.6); WHITE BLOOD COUNT 14.8 K/mm3 (4.0-10.0)
[2018-12-14 09:18] LABS: INR 1.82 (0.83-1.09); PROTHROMBIN TIME (PATIENT) 21.6 SEC (9.7-13.0)
[2018-12-14 09:21] LABS: ACTIVATED PTT 40.6 SECONDS (25.2-36.5)
--- NOTE | 2018-12-14 09:23 | PDOC ---
Attending Attestation - Resident Resident Name: CarliePat - ED Attending Attestation I have performed the following: I have examined & evaluated the patient, The case was reviewed & discussed with the resident, I agree w/resident's findings & plan - HPI HPI: 12/14/18 09:18 33-year-old female history of alcoholic cirrhosis status post TIPS presents with 3 days of feeling generally unwell with nausea/vomiting/diarrhea and fever/ chills with generalized abdominal pain. No confusion or falls, slight cough but no dyspnea or chest pain. Denies dysuria or flank pain, though prior admission for UTI with bacteremia sepsis with similar presentation. Patient states has been noncompliant with her medications for over 1 month, when they ran out. - Physicial Exam PE: 12/14/18 09:19 Febrile, tachycardic, blood pressure 99 systolic Alert and conversant, oriented, moderate distress with chills Positive jaundice Heart is regular tachycardia, lungs are clear Abdomen is soft/nondistended. Slight tenderness in the right mid abdomen without guarding or rebound, no CVA tenderness Neurological exam is nonfocal, no asterixis Scattered bruising to face and extremities - Critical Care Time Total Critical Care Time: 50 Critical Care Statement: The care of this patient involved high complexity decision making to prevent further life threatening deterioration of the patient 's condition and/or to evaluate & treat vital organ system(s) failure or risk of failure. - Medical Decision Making 12/14/18 09:20 33-year-old female with history of cirrhosis/TIPS with infectious presentation, febrile and tachycardic with borderline blood pressure. Similar presentation in the setting of UTI/bacteremia in the past, rule out GI etiology. Sepsis protocol initiated Antipyretics, IV fluids IV antibiotics Admission 12/14/18 11:19 leukocytosis, baseline anemia, thrombocytopenia. T bili at baseline 2, Lipase elevated >500. Urine preg POSITIVE. pelvic per resident. started empirically on abx for sepsis (both OK in ), will perform U/S gallbladder/liver and pelvis. proceed with admission. 12/14/18 11:23 false positive urine (hcg quant negative). Heart Score/ECG Review #1 ECG reviewed & interpreted by me at: 10:12 General ECG Interpretation: Sinus Rhythm, Normal Rate (97, slight tachy), Normal Intervals (qtc 53), No acute ischemic changes
[2018-12-14] MEDS ORDERED: VANCOMYCIN 1 GRAM (PRE-DOCKED) 1,000 MG/250 ML BAG IVPB ONE (09:31)
[2018-12-14 09:36] LABS: ALBUMIN 1.9 g/dl (3.4-5.0); ALK PHOS 89 U/L (45-117); ANION GAP 14 MMOL/L (8-16); BILIRUBIN,TOTAL 2.8 mg/dL (0.2-1); CHLORIDE 100 mmol/L (98-107); CO2 18 mmol/L (21-32); CREATININE 3.2 mg/dL (0.55-1.3); GLUCOSE,RANDOM 116 mg/dL (74-106); SGOT/AST 130 U/L (15-37); SGPT/ALT 50 U/L (13-61); SODIUM 132 mmol/L (136-145); TOT PROT 6.8 g/dl (6.4-8.2)
[2018-12-14 09:39] LABS: CALCIUM 6.7 mg/dL (8.5-10.1); POTASSIUM 2.8 mmol/L (3.5-5.1)
[2018-12-14] MEDS ORDERED: POTASSIUM CHLORIDE TABS 20 MEQ TABLET.ER (FP) PO ONE ×3 (09:52→16:28)
[2018-12-14] MEDS ORDERED: ACETAMINOPHEN 325 MG TABLET (FP) PO ONE (09:52)
[2018-12-14] MEDS ORDERED: ACETAMINOPHEN 325 MG TABLET (FP) ONE (10:11)
[2018-12-14] MEDS ORDERED: POTASSIUM CHLORIDE TABS 10 MEQ TABLET.ER (FP) ONE (10:11)
[2018-12-14 10:16] LABS: HYALINE CASTS 10 /lpf (0-8); PH,URINE 5.5 (5.0-8.0); URINE APPEARANCE CLOUDY; URINE BACTERIA 712.7 /hpf (NEGATIVE); URINE BILIRUBIN NEGATIVE (NEGATIVE); URINE COLOR DK YELLOW; URINE GLUCOSE (UA) NEGATIVE (NEGATIVE); URINE KETONE NEGATIVE (NEGATIVE); URINE LEUK ESTERASE 3+ (NEGATIVE); URINE NITRITE NEGATIVE (NEGATIVE); URINE PROTEIN 2+ (NEGATIVE); URINE RBC 129 /hpf (0-4); URINE WBC 158 /hpf (0-5)
[2018-12-14 10:29] LABS: AMYLASE 88 U/L (25-115); LIPASE 576 U/L (73-393); PHOSPHOROUS 2.7 mg/dL (2.5-4.9)
[2018-12-14 12:13] LABS: ANISOCYTOSIS 1+; MACROCYTOSIS 0; PLATELET ESTIMATE DECREASED
[2018-12-14] MEDS ORDERED: ERTAPENEM SODIUM 1 GM in SODIUM CHLORIDE 50 ML IVPB ONE (14:58)
[2018-12-14] MEDS ORDERED: POTASSIUM CHLORIDE 10 MEQ in SODIUM CHLORIDE 1,000 ML IVPB SCH (15:00)
--- NOTE | 2018-12-14 15:01 | HP ---
CHIEF COMPLAINT: suprapubic pain PCP: none HISTORY OF PRESENT ILLNESS: Patient is a 33 y/o female with a history of ETOH cirrhosis and esophogeal varicies (with banding) who presents for suprapubic pain. Patient reports shes been having this pain for 3 days and it has been worsening. The patient reports she has also been having burning with urination. Patient reports the only time the pain got better was when she got to the ED and was given pain medications. Patient denies havign a history of UTI's but after further questioning reports she has had one years ago. She does not follow up with a PCP, but sometimes goes to [facility] for care. She denies fever, chills, nausea, headache, chest pain, or pain radiating to her back. She reports she is sexually active with multiple people. She states she has not been tested for STD's but has regular papsmears that are normal. Patient reports she is compliant with her medications , but does not know the names. ER course was notable for: (1) (2) (3) Recent Travel: denies PAST MEDICAL HISTORY: ETOH cirrhosis and esophogeal varicies (with banding) PAST SURGICAL HISTORY: per patient she has had no surgeries of liver or throat , per chart review patient is s/p TIPS and banding Social History: Smoking: denies Alcohol: no alcoholic drinks for 6 months and reports 6 months ago she only had one drink Drugs: denies Allergies No Known Drug Allergies Allergy (Verified 12/14/18 08:03) HOME MEDICATIONS: Home Medications Medication Instructions Recorded Ertapenem Sodium [Invanz -] 1 gm IVPB DAILY vial 07/30/18 Lactulose (Oral Use) [Cephulac -] 20 gm PO TID PRN #1 bottle 07/30/18 Multivitamins [Multivit ([facility] 1 tab PO DAILY #30 tab 07/30/18 Formulary)] Pantoprazole Sodium [Protonix -] 40 mg PO DAILY #30 tablet.ec 07/30/18 REVIEW OF SYSTEMS CONSTITUTIONAL: Absent: fever, chills, diaphoresis, generalized weakness, malaise, loss of appetite, weight change HEENT: Absent: rhinorrhea, nasal congestion, throat pain, throat swelling, difficulty swallowing, mouth swelling, ear pain, eye pain, visual changes CARDIOVASCULAR: Absent: chest pain, syncope, palpitations, irregular heart rate, lightheadedness , peripheral edema RESPIRATORY: Absent: cough, shortness of breath, dyspnea with exertion, orthopnea, wheezing, stridor, hemoptysis GASTROINTESTINAL: Absent: abdominal pain, abdominal distension, nausea, vomiting, diarrhea, constipation, melena, hematochezia GENITOURINARY: dysuria, frequency Absent: , urgency, hesitancy, hematuria, flank pain, genital pain MUSCULOSKELETAL: Absent: myalgia, arthralgia, joint swelling, back pain, neck pain SKIN: Absent: rash, itching, pallor HEMATOLOGIC/IMMUNOLOGIC: Absent: easy bleeding, easy bruising, lymphadenopathy, frequent infections ENDOCRINE: Absent: unexplained weight gain, unexplained weight loss, heat intolerance, cold intolerance NEUROLOGIC: Absent: headache, focal weakness or paresthesias, dizziness, unsteady gait, seizure, mental status changes, bladder or bowel incontinence PSYCHIATRIC: Absent: anxiety, depression, suicidal or homicidal ideation, hallucinations. PHYSICAL EXAMINATION Vital Signs - 24 hr 12/14/18 12/14/18 12/14/18 08:05 10:07 13:28 Temperature 101 F H 98.1 F Pulse Rate 114 H Pulse Rate [ 100 H 85 Apical] Respiratory 20 17 18 Rate Blood Pressure 99/57 L Blood Pressure 113/56 L 94/50 L [Right Arm] O2 Sat by Pulse 100 98 100 Oximetry (%) GENERAL: Awake, alert, and fully oriented, in no acute distress. EYES: Pupils equal, round and reactive to light, extraocular movements intact, NECK: no JVD EARS, NOSE, THROAT: Moist mucous membranes. LUNGS: Breath sounds equal, clear to auscultation bilaterally. No wheezes, and no crackles. No accessory muscle use. HEART: Regular rate and rhythm, 3/6 systolic murmur at upper sternal border ABDOMEN:suprapubic enderness MUSCULOSKELETAL: Normal range of motion at all joints. o CVA tenderness. LOWER EXTREMITIES: 2+ pulses, warm, well-perfused. No calf tenderness. No peripheral edema. SKIN: Warm, dry, normal turgor, no rashes or lesions noted, normal capillary refill. CBC, BMP 12/14/18 08:43 12/14/18 08:43 ASSESSMENT/PLAN: Patient is a 33 y/o female with a history of ETOH cirrhosis and esophogeal varicies (with banding) who is admitted for urosepsis. #Urosepsis - UA indicative of infection - patient with ESBL in the past, isolation precautions - will continue Ertapenem and Vancomycin - consult Chema - f/u blood and urine cx - NS with 10 KCL @ 125 - tylenol prn for pain #nemo - likely 2/2 to sepsis - f/u renal US - f/u urine lytes - CT: with enlarged kidneys #unprotected sex - f/u gonnorhea and chlamydia - f/u HIV, discussed with patient and she is agreeable to testing #cirrhosis - continue lactulose DVT ppx - heparin q8h FEN - regular diet - k 2.8, given 40 kdur in ED, 2 kriders ordered and KCL added to NS Dispo: monitor on med surg Visit type - Emergency Visit Emergency Visit: Yes ED Registration Date: 12/14/18 Care time: The patient presented to the Emergency Department on the above date and was hospitalized for further evaluation of their emergent condition. - New Patient This patient is new to me today: Yes Date on this admission: 12/15/18 - Critical Care Critical Care patient: No ATTENDING PHYSICIAN STATEMENT I saw and evaluated the patient. I reviewed the resident's note and discussed the case with the resident. I agree with the resident's findings and plan as documented. SUBJECTIVE: OBJECTIVE: ASSESSMENT AND PLAN:
[2018-12-14] MEDS ORDERED: KCL 10 MEQ IVPB 10 MEQ/100 ML INFUS.BAG IVPB ONE ×2 (15:32→16:02)
--- NOTE | 2018-12-14 15:37 | PN ---
Teaching Attending Note Name of Resident: Nichelle Tipton ATTENDING PHYSICIAN STATEMENT I saw and evaluated the patient. I reviewed the resident's note and discussed the case with the resident. I agree with the resident's findings and plan as documented with exceptions below. SUBJECTIVE: 33 yof with PMhx of ETOH abuse, ETOH cirrhosis, Esophageal varices s/p banding, s/p TIPS, Prior ESBL UTI/bacteremia in 06/2018, comes with 3 days of suprapubic discomfort, dysuria, urinary urgency, subjective fevers, decreased oral intake and occasional watery diarrhea. Currently sexually active with multiple partners per patient. Reports last ETOH use 6 months. No recent follow up and states ran out of her medications recently, which she gets intermittently from [facility]. OBJECTIVE: Vital Signs Period Temp Pulse Resp BP Sys/Nash Pulse Ox Last 24 Hr 98.1 F-101 F 85-114 17-20 94-113/50-57 98-100 Intake & Output 12/11/18 12/12/18 12/13/18 12/14/18 23:59 23:59 23:59 23:59 Weight 150 lb GENERAL: Awake, alert, and fully oriented, weak looking, but in no acute distress HEAD: Normal with no signs of trauma. EYES: Pupils equal, round and reactive to light, extraocular movements intact, scleral icterus, no lid lag EARS, NOSE, THROAT: Ears normal, nares patent, oropharynx clear without exudates. dry mucous membranes. NECK: Normal range of motion, supple , No JVD noted LUNGS: Breath sounds equal, clear to auscultation bilaterally. No wheezes, and no crackles. No accessory muscle use. HEART: Regular rate and rhythm, normal S1 and S2 ABDOMEN: Soft, obese, suprapubic and medial RLQ tenderness, no CVA tenderness, no voluntary or involuntary guarding or rigidity, pos bowel sounds RECTAL: Yellow brown scant watery stools, no blood noted MUSCULOSKELETAL: Normal range of motion at all joints. No bony deformities or tenderness. No CVA tenderness. UPPER EXTREMITIES: 2+ pulses, warm, well-perfused. No cyanosis. No clubbing. No peripheral edema. LOWER EXTREMITIES: 2+ pulses, warm, well-perfused. No calf tenderness. No peripheral edema. NEUROLOGICAL: AAOx3, power 5/5, Cranial nerves II-XII intact. Normal speech. Gait not observed PSYCHIATRIC: Cooperative. Good eye contact. Appropriate mood and affect. SKIN: Warm, dry, decreased skin turgor, no rashes or lesions noted, normal capillary refill. Home Medications Medication Instructions Recorded Lactulose (Oral Use) [Cephulac -] 20 gm PO TID PRN #1 bottle 07/30/18 Multivitamins [Multivit ([facility] 1 tab PO DAILY #30 tab 07/30/18 Formulary)] Pantoprazole Sodium [Protonix -] 40 mg PO DAILY #30 tablet.ec 07/30/18 Active Medications Acetaminophen (Tylenol -) 650 mg PO Q4H PRN PRN Reason: FEVER Heparin Sodium (Porcine) (Heparin -) 5,000 unit SQ TID LYNN Potassium Chloride 10 meq/ (Sodium Chloride) 1,005 mls @ 125 mls/hr IVPB ASDIR LYNN Potassium Chloride (Potassium Chloride 10 Meq Premix Ivpb -) 10 meq in 100 mls @ 100 mls/hr IVPB Q60M LYNN Stop: 12/14/18 16:59 Ertapenem 1 gm/ Sodium (Chloride) 50 mls @ 100 mls/hr IVPB DAILY LYNN Lactulose (Cephulac (Oral Use)) 20 gm PO TID PRN PRN Reason: liver cirrhosis Multivitamins/Minerals/Vitamin C (Tab-A-Vit -) 1 tab PO DAILY LYNN Pantoprazole Sodium (Protonix -) 40 mg PO DAILY [facility] Laboratory Results - last 24 hr 12/14/18 12/14/18 12/14/18 08:43 08:43 08:43 WBC 14.8 H RBC 2.89 L Hgb 9.4 L Hct 28.1 L D MCV 97.0 H MCH 32.4 MCHC 33.4 RDW 17.7 H Plt Count 95 L D MPV 10.3 D Absolute Neuts (auto) 10.9 H Neutrophils % 73.5 D Neutrophils % (Manual) 75.3 Band Neutrophils % 0.0 Lymphocytes % 5.4 L D Lymphocytes % (Manual) 6.9 L D Monocytes % 20.6 H D Monocytes % (Manual) 16 H D Eosinophils % 0.2 D Eosinophils % (Manual) 0.0 Basophils % 0.3 Basophils % (Manual) 0.0 Myelocytes % (Man) 0 Promyelocytes % (Man) 0 Blast Cells % (Manual) 0 Nucleated RBC % 0 Metamyelocytes 0 D Hypochromia 0 Platelet Estimate Decreased Polychromasia 1+ Poikilocytosis 0 Anisocytosis 1+ Microcytosis 0 Macrocytosis 0 PT with INR 21.60 H INR 1.82 H PTT (Actin FS) 40.6 H Sodium 132 L Potassium 2.8 L* Chloride 100 Carbon Dioxide 18 L Anion Gap 14 BUN 68.0 H Creatinine 3.2 H Est GFR (CKD-EPI)AfAm 20.71 Est GFR (CKD-EPI)NonAf 17.87 Random Glucose 116 H Lactic Acid Calcium 6.7 L* Phosphorus 2.7 Magnesium 2.0 Total Bilirubin 2.8 H AST 130 H ALT 50 Alkaline Phosphatase 89 Creatine Kinase 644 H Creatine Kinase Index 0.5 CK-MB (CK-2) 3.3 Troponin I < 0.02 Total Protein 6.8 Albumin 1.9 L Total Amylase 88 Lipase 576 H Beta HCG, Quant < 1.0 Urine Color Urine Appearance Urine pH Ur Specific [place] Urine Protein Urine Glucose (UA) Urine Ketones Urine Blood Urine Nitrite Urine Bilirubin Urine Urobilinogen Ur Leukocyte Esterase Urine WBC (Auto) Urine RBC (Auto) Urine Casts (Auto) U Epithel Cells (Auto) Urine Bacteria (Auto) Urine HCG, Qual 12/14/18 12/14/18 12/14/18 08:43 08:43 10:05 WBC RBC Hgb Hct MCV MCH MCHC RDW Plt Count MPV Absolute Neuts (auto) Neutrophils % Neutrophils % (Manual) Band Neutrophils % Lymphocytes % Lymphocytes % (Manual) Monocytes % Monocytes % (Manual) Eosinophils % Eosinophils % (Manual) Basophils % Basophils % (Manual) Myelocytes % (Man) Promyelocytes % (Man) Blast Cells % (Manual) Nucleated RBC % Metamyelocytes Hypochromia Platelet Estimate Polychromasia Poikilocytosis Anisocytosis Microcytosis Macrocytosis PT with INR Cancelled INR Cancelled PTT (Actin FS) Sodium Potassium Chloride Carbon Dioxide Anion Gap BUN Creatinine Est GFR (CKD-EPI)AfAm Est GFR (CKD-EPI)NonAf Random Glucose Lactic Acid 3.4 H* Calcium Phosphorus Magnesium Total Bilirubin AST ALT Alkaline Phosphatase Creatine Kinase Creatine Kinase Index CK-MB (CK-2) Troponin I Total Protein Albumin Total Amylase Lipase Beta HCG, Quant Urine Color Dk yellow Urine Appearance Cloudy Urine pH 5.5 Ur Specific [place] 1.011 Urine Protein 2+ H Urine Glucose (UA) Negative Urine Ketones Negative Urine Blood 3+ H Urine Nitrite Negative Urine Bilirubin Negative Urine Urobilinogen 1.0 Ur Leukocyte Esterase 3+ H Urine WBC (Auto) 158 Urine RBC (Auto) 129 Urine Casts (Auto) 10 U Epithel Cells (Auto) 1.0 Urine Bacteria (Auto) 712.7 Urine HCG, Qual 12/14/18 12/14/18 10:05 13:14 WBC RBC Hgb Hct MCV MCH MCHC RDW Plt Count MPV Absolute Neuts (auto) Neutrophils % Neutrophils % (Manual) Band Neutrophils % Lymphocytes % Lymphocytes % (Manual) Monocytes % Monocytes % (Manual) Eosinophils % Eosinophils % (Manual) Basophils % Basophils % (Manual) Myelocytes % (Man) Promyelocytes % (Man) Blast Cells % (Manual) Nucleated RBC % Metamyelocytes Hypochromia Platelet Estimate Polychromasia Poikilocytosis Anisocytosis Microcytosis Macrocytosis PT with INR INR PTT (Actin FS) Sodium Potassium Chloride Carbon Dioxide Anion Gap BUN Creatinine Est GFR (CKD-EPI)AfAm Est GFR (CKD-EPI)NonAf Random Glucose Lactic Acid 1.9 Calcium Phosphorus Magnesium Total Bilirubin AST ALT Alkaline Phosphatase Creatine Kinase Creatine Kinase Index CK-MB (CK-2) Troponin I Total Protein Albumin Total Amylase Lipase Beta HCG, Quant Urine Color Urine Appearance Urine pH Ur Specific [place] Urine Protein Urine Glucose (UA) Urine Ketones Urine Blood Urine Nitrite Urine Bilirubin Urine Urobilinogen Ur Leukocyte Esterase Urine WBC (Auto) Urine RBC (Auto) Urine Casts (Auto) U Epithel Cells (Auto) Urine Bacteria (Auto) Urine HCG, Qual Positive CT A/P,abdominal US and transvaginal US results noted CXR results noted EKG Sinus tach, prolonged QTc ASSESSMENT AND PLAN: 33 yof with PMhx of ETOH abuse, ETOH cirrhosis, Esophageal varices s/p banding, s/p TIPS, Prior ESBL UTI/bacteremia in 06/2018 admitted with UTI/cystitis with sepsis, GERA -Complicated UTI/cystitis with sepsis -GERA, suspect hypovolumia/sepsis, CT A/P neg for obstructive process -Lactic acidosis, suspect from sepsis/Dehydration -Dehydration -Severe hypokalemia -Transaminitis, AST>ALT, ?concerns for active ETOH use -Thrombocytopenia, suspect from sepsis/cirrhosis/Splenomegaly, cannot r/o ongoing ETOH related suppression -ETOH Cirrhosis with esophageal varices s/p banding, s/p TIPS -Prior ESBL UTI/Bacteremia 06/2018 -h/o ETOH abuse -False pos test Plan: Ertapenem, blood/urine cultures. Aggresive hydration, monitor hemodynamics/volume status closely. CT A/P results noted. Chlamydia/gonorrhea, consent for HIV. ID consult. Renal consult, check urine lytes. Replete K aggressively. Check GGT, monitor h/h. PPI daily Retrieve prior home meds. Dispo pending clinical improvement. Discussed with patient, care co-ordinated with ED Total admit time 65 min.
[2018-12-14] MEDS: KCL 10 MEQ IVPB 10 MEQ/100 ML INFUS.BAG IVPB SCH ×2 (15:44→16:26)
[2018-12-14] MEDS ORDERED: SODIUM CHLORIDE 1,000 ML IV ONE (15:54)
--- NOTE | 2018-12-14 16:20 | CONSULT ---
Consult Consult Specialty:: Nephrology Reason for Consultation:: GERA - History of Present Illness Chief Complaint: suprapubic pain History of Present Illness: Pt is a 33 year old female with pmhx of alcoholic liver cirrhosis, esophageal varicces, and s/p tips who presents with suprapubic pain. She was found to be acute renal failure and I was called to evaluate her. She was also found to be hypokalemic. She was hypotensive and requires 3 liters of saline boluses. She complains of nausea and decreased PO intake. She also complains of diarrhea. She says she has not taken any of her meds in about a month. She denies active etoh use. - History Source History Provided By: Patient, Medical Record - Past Medical History Gastrointestinal: Yes: Esophageal Varices (bleed 04/20) Hepatobiliary: Yes: Cirrhosis (ETOH), Cholecystitis, Other (fatty liver?, esophageal varices (bleed 04/20)) ...LMP: 04/13/11 Psych: Yes: Addictions (alcohol) - Past Surgical History Past Surgical History: Yes: Cholecystectomy, Tubal Ligation - Alcohol/Substance Use Hx Alcohol Use: No (past) History of Substance Use: reports: Cocaine (intranasal, no IVDA, not in the past month ) - Smoking History Smoking history: Former smoker Have you smoked in the past 12 months: No - Social History Usual Living Arrangement: With Child ADL: Independent Occupation: Unemployed History of Recent Travel: No Home Medications - Allergies Allergies/Adverse Reactions: Allergies Allergy/AdvReac Type Severity Reaction Status Date / Time No Known Drug Allergies Allergy Verified 12/14/18 08:03 - Home Medications Home Medications: Ambulatory Orders Lactulose (Oral Use) [Cephulac -] 20 gm PO TID PRN #1 bottle 07/30/18 Multivitamins [Multivit ([facility] Formulary)] 1 tab PO DAILY #30 tab 07/30/18 Pantoprazole Sodium [Protonix -] 40 mg PO DAILY #30 tablet.ec 07/30/18 Family Medical History Family History: Denies Review of Systems - Review of Systems Constitutional: reports: Chills, Fever, Malaise Eyes: reports: No Symptoms HENT: reports: No Symptoms Neck: reports: No Symptoms Cardiovascular: reports: No Symptoms Respiratory: reports: No Symptoms Gastrointestinal: reports: No Symptoms Genitourinary: reports: Dysuria Musculoskeletal: reports: No Symptoms Integumentary: reports: No Symptoms Neurological: reports: No Symptoms Endocrine: reports: No Symptoms Hematology/Lymphatic: reports: No Symptoms Psychiatric: reports: No Symptoms Physical Exam Vital Signs: Vital Signs Temperature 98.1 F 12/14/18 13:28 Pulse Rate 85 12/14/18 13:28 Respiratory Rate 18 12/14/18 13:28 Blood Pressure 94/50 L 12/14/18 13:28 O2 Sat by Pulse Oximetry (%) 100 12/14/18 13:28 Constitutional: Yes: Calm Eyes: Yes: Conjunctiva Clear HENT: Yes: Atraumatic Neck: Yes: Supple Cardiovascular: Yes: S1, S2 Respiratory: Yes: CTA Bilaterally Gastrointestinal: Yes: Normal Bowel Sounds, Soft Renal/: Yes: WNL Musculoskeletal: Yes: WNL Extremities: Yes: WNL Edema: No Neurological: Yes: Oriented Psychiatric: Yes: Oriented Labs: CBC, BMP 12/14/18 08:43 12/14/18 08:43 Laboratory Tests 07/27/18 07/28/18 07/29/18 07:20 06:30 07:00 WBC Hgb Plt Count Sodium Potassium BUN Creatinine 0.7 0.7 0.7 Lactic Acid Beta HCG, Quant Urine Protein Urine Blood Ur Leukocyte Esterase Ur Random Sodium 12/14/18 12/14/18 12/14/18 08:43 08:43 08:43 WBC 14.8 H Hgb 9.4 L Plt Count 95 L D Sodium 132 L Potassium 2.8 L* BUN 68.0 H Creatinine 3.2 H Lactic Acid 3.4 H* Beta HCG, Quant < 1.0 Urine Protein Urine Blood Ur Leukocyte Esterase Ur Random Sodium 12/14/18 12/14/18 12/14/18 10:05 13:14 15:40 WBC Hgb Plt Count Sodium Potassium BUN Creatinine Lactic Acid 1.9 Beta HCG, Quant Urine Protein 2+ H Urine Blood 3+ H Ur Leukocyte Esterase 3+ H Ur Random Sodium 17 L Imaging - Results Cat Scan: Report Reviewed Problem List - Problems (1) Sepsis Code(s): A41.9 - SEPSIS, UNSPECIFIED ORGANISM (2) UTI (urinary tract infection) Code(s): N39.0 - URINARY TRACT INFECTION, SITE NOT SPECIFIED (3) Alcoholic cirrhosis Code(s): K70.30 - ALCOHOLIC CIRRHOSIS OF LIVER WITHOUT ASCITES Qualifiers: Ascites presence: unspecified Qualified Code(s): K70.30 - Alcoholic cirrhosis of liver without ascites Assessment/Plan Current Medications Generic Name Dose Route Start Last Admin Trade Name Elian PRN Reason Stop Dose Admin Acetaminophen 650 mg 12/14/18 14:54 Tylenol - PO Q4H PRN FEVER Heparin Sodium (Porcine) 5,000 unit 12/14/18 22:00 Heparin - SQ TID LYNN Potassium Chloride 10 meq/ 1,005 mls @ 125 mls/hr 12/14/18 15:00 Sodium Chloride IVPB ASDIR LYNN Potassium Chloride 10 meq in 100 mls @ 100 mls/hr 12/14/18 15:00 12/14/18 15: 44 Potassium Chloride 10 Meq Premix Ivpb - IVPB 12/14/18 16:59 100 mls/hr Q60M LYNN Administration Ertapenem 1 gm/ Sodium 50 mls @ 100 mls/hr 12/15/18 10:00 Chloride IVPB DAILY LYNN Sodium Chloride 1,000 mls @ 1,000 mls/hr 12/14/18 15:54 12/14/18 15:59 Normal Saline - IV 12/14/18 16:53 1,000 mls/hr ONCE ONE Administration Lactulose 20 gm 12/14/18 15:22 Cephulac (Oral Use) PO TID PRN liver cirrhosis Multivitamins/Minerals/Vitamin C 1 tab 12/15/18 10:00 Tab-A-Vit - PO DAILY [facility] Pantoprazole Sodium 40 mg 12/15/18 10:00 Protonix - PO DAILY [facility] Impression 1. GERA 2. hypokalemia 3. sepsis 4. lactic acidosis 5. hypotension 6. UTI 7. liver corrhosis 8. hx of etoh abuse Plan - replace potassium - cont with fluids - monitor lytes - check mag level - cont abx - monitor bp - maintain a map of 65 - follow blood and urine cultures - GERA likely from sepsis and pre-renal disease - low urine sodium consistent with pre-renal disease
--- NOTE | 2018-12-14 17:27 | PN ---
Progress Note (short form) - Note Progress Note: ID consult dictated imp/reccd sepsis secondary to UTI-got vancomycin and meropenem in ED this am GERA- no obstruction prior history of ecoli ESBL bacteremia liver cirrhosis- s/p TIPS continue meropenem until cultures are back will f/u cultures contact isolation Problem List - Problems (1) Sepsis Code(s): A41.9 - SEPSIS, UNSPECIFIED ORGANISM (2) UTI (urinary tract infection) Code(s): N39.0 - URINARY TRACT INFECTION, SITE NOT SPECIFIED (3) GERA (acute kidney injury) Code(s): N17.9 - ACUTE KIDNEY FAILURE, UNSPECIFIED (4) Liver cirrhosis Code(s): K74.60 - UNSPECIFIED CIRRHOSIS OF LIVER
[2018-12-14] MEDS: POTASSIUM CHLORIDE 10 MEQ in SODIUM CHLORIDE 1,000 ML IVPB SCH (18:49)
--- NOTE | 2018-12-14 20:09 | CONS ---
INFECTIOUS DISEASE CONSULTATION DATE OF CONSULTATION: 12/14/2018 REQUESTING PHYSICIAN: The hospitalist service. This is a 33-year-old woman with a history of alcohol-related liver cirrhosis and varices with banding, who presented with suprapubic pain. She was found to have fever in the ER of 101. She has a prior history of E. coli ESBL UTI. She has no regular care and goes to [facility]. She denied fevers, chills, and otherwise felt well. She reported that she has had suprapubic discomfort and that she had some dysuria. She has multiple sexual partners. She has not been tested for STDs. She takes medications, but she does not know what. PAST MEDICAL HISTORY: Notable for alcoholic cirrhosis with esophageal varices. She is status post TIPS and banding. Patient is unaware of all these things. SOCIAL HISTORY: She says she has not had a drink for 6 months. Denies any drug or cigarette use. ALLERGIES: She has no known drug allergies. MEDICATIONS: Her medication list is not known. REVIEW OF SYSTEMS: She is resting comfortably. She denies chest pain, cough, nausea, vomiting, or diarrhea. PHYSICAL EXAMINATION: General: She is a young lady in no acute distress. Vital Signs: Current temperature is 98.7; T-max of 101. Pulse of 86, blood pressure 93/59. She is saturating 100% on room air. HEENT: She is normocephalic. Her eyes are anicteric. She has no thrush. Neck: Supple. Lungs: Clear to auscultation. Heart: Regular rate and rhythm. Abdomen: Soft, nontender. She has no CVA tenderness, and her suprapubic pain has resolved. LABORATORY DATA: Her labs are notable for a white count of 14.8, hemoglobin 9.4, platelets are 95,000. INR is 1.8. BUN is 68 and creatinine 3.2. Her lactic acid was 3.4 on admission. Urinalysis had 3+ leukocyte esterase with 158 white cells. Urine and blood cultures are pending. She has a history in June of having had an E. coli ESBL bacteremia. Her baseline renal function is normal; so, this is clearly an abnormality. She has had a chest x-ray that was normal. She had a CAT of her abdomen and pelvis notable for liver cirrhosis, splenomegaly, TIP shunt, enlarged kidneys, no obstructive uropathy. She had an ultrasound that showed heterogeneous liver, splenomegaly, no hydronephrosis. She had a transvaginal ultrasound that showed no free fluid. In summary, this is a 33-year-old woman admitted with: 1. Fever, urinary tract infection, possible sepsis secondary to urinary tract infection. 2. Acute renal failure, all in the setting of liver cirrhosis. Would continue her on ertapenem as ordered. She is being hydrated. Renal has evaluated her. She has no signs of obstruction. Further recommendations to follow. Jass [id number]
[2018-12-14] MEDS: MEROPENEM 500 MG in DEXTROSE 5%-WATER 100 ML IVPB SCH (21:52)
[2018-12-14] MEDS ORDERED: HEPARIN NA (PORCINE) 5,000 UNITS/ML 1ML VIAL SQ SCH (22:00)
[2018-12-15 01:37] VITALS: BMI 31.5
[2018-12-15] MEDS: ACETAMINOPHEN 325 MG TABLET (FP) PO PRN (02:33)
[2018-12-15] MEDS: POTASSIUM CHLORIDE 10 MEQ in SODIUM CHLORIDE 1,000 ML IVPB SCH ×3 (02:39→18:00)
[2018-12-15 07:03] LABS: BASO % 0.1 % (0-2.0); EOS % 0.9 % (0-4.5); HEMATOCRIT 24.6 % (32.4-45.2); HEMOGLOBIN 8.2 GM/dL (10.7-15.3); MCH 33.2 pg (25.7-33.7); MCHC 33.4 g/dl (32.0-36.0); MEAN CELL VOLUME 99.3 fl (80-96); MEAN PLT VOLUME 10.3 fl (7.5-11.1); MONO % 18.6 % (3.8-10.2); NEUT % 75.4 % (42.8-82.8); PLATELET COUNT 115 K/MM3 (134-434); RBC 2.48 M/mm3 (3.60-5.2); RDW 17.8 % (11.6-15.6); WHITE BLOOD COUNT 15.5 K/mm3 (4.0-10.0)
[2018-12-15 07:13] LABS: INR 2.11 (0.83-1.09); PROTHROMBIN TIME (PATIENT) 25.1 SEC (9.7-13.0)
[2018-12-15 07:17] LABS: ALBUMIN 1.4 g/dl (3.4-5.0); BILIRUBIN,TOTAL 1.8 mg/dL (0.2-1); BLOOD UREA NITROGEN 62.2 mg/dL (7-18); CREATININE 2.2 mg/dL (0.55-1.3); MAGNESIUM 1.8 mg/dL (1.8-2.4); PHOSPHOROUS 2.9 mg/dL (2.5-4.9); POTASSIUM 3.1 mmol/L (3.5-5.1)
[2018-12-15 07:31] LABS: CALCIUM 5.7 mg/dL (8.5-10.1)
[2018-12-15] MEDS ORDERED: CALCIUM CHLORIDE 1 GM/10 ML *DISP.SYRIN IVPB ONE ×2 (08:19→13:15)
[2018-12-15] MEDS ORDERED: CALCIUM GLUCONATE 10% - 1,000 MG/10 ML VIAL IVPB ONE ×2 (09:00→22:30)
[2018-12-15] MEDS ORDERED: PT OWN MED DRAWER 7, Y5N ONE (09:57)
[2018-12-15] MEDS ORDERED: VANCOMYCIN 1 GM in D5W (PRE-DOCKED) 1,000 MG/250 ML IVPB SCH (10:00)
[2018-12-15] MEDS ORDERED: ERTAPENEM SODIUM 1 GM in SODIUM CHLORIDE 50 ML IVPB SCH (10:00)
[2018-12-15] MEDS: PANTOPRAZOLE 40 MG TABLET (FP) PO SCH (10:06)
[2018-12-15] MEDS: LACTULOSE 20 GM/30 ML UDC (FOR ORAL USE ONLY) PO PRN (10:06)
[2018-12-15] MEDS: MULTIVITAMINS (DAILY MVI) TABLET (FP) PO SCH (10:06)
[2018-12-15] MEDS: POTASSIUM CHLORIDE TABS 20 MEQ TABLET.ER (FP) PO ONE ×2 (10:07)
[2018-12-15] MEDS: POTASSIUM CHLORIDE TABS 20 MEQ TABLET.ER (FP) PO SCH ×3 (10:07→16:38)
[2018-12-15 10:12] LABS: ANISOCYTOSIS 1+; MACROCYTOSIS 1+; PLATELET ESTIMATE DECREASED
--- NOTE | 2018-12-15 11:02 | EKG ---
Test Reason : Blood Pressure : / mmHG Vent. Rate : 097 BPM Atrial Rate : 097 BPM P-R Int : 158 ms QRS Dur : 100 ms QT Int : 404 ms P-R-T Axes : 025 028 013 degrees QTc Int : 513 ms NORMAL SINUS RHYTHM PROLONGED QT ABNORMAL ECG WHEN COMPARED WITH ECG OF 23-JUL-2018 09:32, NO SIGNIFICANT CHANGE WAS FOUND Confirmed by RENATE GRIFFITH MD ([id number]) on 12/15/2018 11:01:47 AM Referred By: Confirmed By:RENATE GRIFFITH MD
[2018-12-15] MEDS ORDERED: MAGNESIUM OXIDE 400 MG TABLET (FP) PO ONE (11:30)
--- NOTE | 2018-12-15 11:43 | EKG ---
Test Reason : Blood Pressure : / mmHG Vent. Rate : 076 BPM Atrial Rate : 076 BPM P-R Int : 174 ms QRS Dur : 102 ms QT Int : 438 ms P-R-T Axes : 052 037 024 degrees QTc Int : 492 ms NORMAL SINUS RHYTHM PROLONGED QT ABNORMAL ECG WHEN COMPARED WITH ECG OF 14-DEC-2018 10:12, NO SIGNIFICANT CHANGE WAS FOUND Confirmed by RENATE GRIFFITH MD ([id number]) on 12/15/2018 11:42:48 AM Referred By: Orville LEMOS Confirmed By:RENATE GRIFFITH MD
[2018-12-15 12:43] LABS: BILIRUBIN,DIRECT 1.3 mg/dL (0.0-0.2)
--- NOTE | 2018-12-15 13:40 | PN ---
Progress Note, Physician History of Present Illness: Pt seen and examined at bedside. She is awake and alert. She feels much better than yesterday. - Current Medication List Current Medications: Active Medications Acetaminophen (Tylenol -) 650 mg PO Q4H PRN PRN Reason: FEVER Last Admin: 12/15/18 02:33 Dose: 650 mg Potassium Chloride 10 meq/ (Sodium Chloride) 1,005 mls @ 125 mls/hr IVPB Q8H LYNN Last Admin: 12/15/18 08:30 Dose: 125 mls/hr Meropenem 500 mg/ Dextrose 100 mls @ 400 mls/hr IVPB Q12H LYNN Last Admin: 12/14/18 21:52 Dose: 400 mls/hr Lactulose (Cephulac (Oral Use)) 20 gm PO TID PRN PRN Reason: liver cirrhosis Lorazepam (Ativan Injection -) 1 mg IVPUSH Q4H PRN PRN Reason: ANXIETY Multivitamins/Minerals/Vitamin C (Tab-A-Vit -) 1 tab PO DAILY LYNN Last Admin: 12/15/18 10:06 Dose: 1 tab Pantoprazole Sodium (Protonix -) 40 mg PO DAILY LYNN Last Admin: 12/15/18 10:06 Dose: 40 mg Potassium Chloride (K-Dur -) 40 meq PO Q6H LYNN Stop: 12/15/18 16:46 - Objective Vital Signs: Vital Signs Temperature 98.9 F 12/15/18 04:00 Pulse Rate 95 H 12/15/18 04:00 Respiratory Rate 20 12/15/18 04:00 Blood Pressure 93/60 12/15/18 04:00 O2 Sat by Pulse Oximetry (%) 98 12/15/18 01:12 Constitutional: Yes: Calm Eyes: Yes: Conjunctiva Clear HENT: Yes: Atraumatic Neck: Yes: Supple Cardiovascular: Yes: S1, S2 Respiratory: Yes: CTA Bilaterally Gastrointestinal: Yes: Soft Genitourinary: Yes: WNL Musculoskeletal: Yes: WNL Edema: No Neurological: Yes: Oriented Psychiatric: Yes: Oriented Labs: CBC, BMP 12/15/18 06:17 12/15/18 06:17 INR, PTT INR 2.11 (0.83-1.09) H 12/15/18 06:17 Problem List - Problems (1) Sepsis Code(s): A41.9 - SEPSIS, UNSPECIFIED ORGANISM (2) UTI (urinary tract infection) Code(s): N39.0 - URINARY TRACT INFECTION, SITE NOT SPECIFIED (3) Alcoholic cirrhosis Code(s): K70.30 - ALCOHOLIC CIRRHOSIS OF LIVER WITHOUT ASCITES Qualifiers: Ascites presence: unspecified Qualified Code(s): K70.30 - Alcoholic cirrhosis of liver without ascites Assessment/Plan Current Medications Generic Name Dose Route Start Last Admin Trade Name Freq PRN Reason Stop Dose Admin Acetaminophen 650 mg 12/14/18 14:54 12/15/18 02:33 Tylenol - PO 650 mg Q4H PRN Administration FEVER Potassium Chloride 10 meq/ 1,005 mls @ 125 mls/hr 12/14/18 18:30 12/15/18 08: 30 Sodium Chloride IVPB 125 mls/hr Q8H LYNN Administration Meropenem 500 mg/ Dextrose 100 mls @ 400 mls/hr 12/14/18 21:00 12/14/18 21:52 IVPB 400 mls/hr Q12H LYNN Administration Lactulose 20 gm 12/14/18 15:22 Cephulac (Oral Use) PO TID PRN liver cirrhosis Lorazepam 1 mg 12/15/18 11:28 Ativan Injection - IVPUSH Q4H PRN ANXIETY Multivitamins/Minerals/Vitamin C 1 tab 12/15/18 10:00 12/15/18 10:06 Tab-A-Vit - PO 1 tab DAILY LYNN Administration Pantoprazole Sodium 40 mg 12/15/18 10:00 12/15/18 10:06 Protonix - PO 40 mg DAILY LYNN Administration Potassium Chloride 40 meq 12/15/18 10:45 K-Dur - PO 12/15/18 16:46 Q6H LYNN Impression 1. GERA 2. hypokalemia 3. sepsis 4. lactic acidosis 5. hypotension 6. UTI 7. liver corrhosis 8. hx of etoh abuse Plan - replace potassium - renal function is improving - cont fluids - replace calcium - appetite is improved - follow blood and urine cultures - GERA likely from sepsis and pre-renal disease
[2018-12-15] MEDS: MEROPENEM 500 MG in DEXTROSE 5%-WATER 100 ML IVPB SCH (14:22)
--- NOTE | 2018-12-15 15:21 | PN ---
Teaching Attending Note Name of Resident: Avinash Mares ATTENDING PHYSICIAN STATEMENT I saw and evaluated the patient. I reviewed the resident's note and discussed the case with the resident. I agree with the resident's findings and plan as documented with exceptions below. SUBJECTIVE: patient seen and examined. feels better, no pain or urinary symptoms currently. OBJECTIVE: Vital Signs Period Temp Pulse Resp BP Sys/Nash Pulse Ox Last 24 Hr 97.6 F-99.5 F 79-95 17-20 89-93/59-63 98-100 Intake & Output 12/12/18 12/13/18 12/14/18 12/15/18 23:59 23:59 23:59 23:59 Intake Total 575 1215 Balance 575 1215 Weight 150 lb 167 lb General: sitting in bed in no acute distress Neck: soft, supple CVS:S1S2 regular Chest: CTAb, no rales or wheezing Abdomen:soft, obese, no new distension, no suprapubic or CVA tenderness Extremities: no edema, mild tremors Home Medications Medication Instructions Recorded Lactulose (Oral Use) [Cephulac -] 20 gm PO TID PRN #1 bottle 07/30/18 Multivitamins [Multivit ([facility] 1 tab PO DAILY #30 tab 07/30/18 Formulary)] Pantoprazole Sodium [Protonix -] 40 mg PO DAILY #30 tablet.ec 07/30/18 Active Medications Acetaminophen (Tylenol -) 650 mg PO Q4H PRN PRN Reason: FEVER Last Admin: 12/15/18 02:33 Dose: 650 mg Potassium Chloride 10 meq/ (Sodium Chloride) 1,005 mls @ 125 mls/hr IVPB Q8H LYNN Last Admin: 12/15/18 08:30 Dose: 125 mls/hr Meropenem 500 mg/ Dextrose 100 mls @ 400 mls/hr IVPB Q12H LYNN Last Admin: 12/15/18 14:22 Dose: 400 mls/hr Lactulose (Cephulac (Oral Use)) 20 gm PO TID PRN PRN Reason: liver cirrhosis Lorazepam (Ativan Injection -) 1 mg IVPUSH Q4H PRN PRN Reason: ANXIETY Multivitamins/Minerals/Vitamin C (Tab-A-Vit -) 1 tab PO DAILY LYNN Last Admin: 12/15/18 10:06 Dose: 1 tab Pantoprazole Sodium (Protonix -) 40 mg PO DAILY LYNN Last Admin: 12/15/18 10:06 Dose: 40 mg Potassium Chloride (K-Dur -) 40 meq PO Q6H LYNN Stop: 12/15/18 16:46 Laboratory Results - last 24 hr 12/14/18 12/14/18 12/15/18 15:40 15:40 06:17 WBC 15.5 H RBC 2.48 L Hgb 8.2 L Hct 24.6 L MCV 99.3 H MCH 33.2 MCHC 33.4 RDW 17.8 H Plt Count 115 L D MPV 10.3 Absolute Neuts (auto) 11.7 H Neutrophils % 75.4 Neutrophils % (Manual) 82.0 Band Neutrophils % 1.0 Lymphocytes % 5.0 L Lymphocytes % (Manual) 3.0 L D Monocytes % 18.6 H Monocytes % (Manual) 12 H Eosinophils % 0.9 D Eosinophils % (Manual) 2.0 D Basophils % 0.1 Basophils % (Manual) 0.0 Myelocytes % (Man) 0 Promyelocytes % (Man) 0 Blast Cells % (Manual) 0 Nucleated RBC % 0 Metamyelocytes 0 Hypochromia 1+ Platelet Estimate Decreased Polychromasia 1+ Poikilocytosis 0 Anisocytosis 1+ Microcytosis 0 Macrocytosis 1+ PT with INR INR Sodium Potassium Chloride Carbon Dioxide Anion Gap BUN Creatinine Est GFR (CKD-EPI)AfAm Est GFR (CKD-EPI)NonAf Random Glucose Calcium Phosphorus Magnesium Total Bilirubin Direct Bilirubin GGT AST ALT Alkaline Phosphatase Total Protein Albumin Ur Random Creatinine 129.0 Ur Random Sodium 17 L Ur Random Potassium 12.0 L Ur Random Chloride < 11 L Random Vancomycin 12/15/18 12/15/18 12/15/18 06:17 06:17 13:49 WBC RBC Hgb Hct MCV MCH MCHC RDW Plt Count MPV Absolute Neuts (auto) Neutrophils % Neutrophils % (Manual) Band Neutrophils % Lymphocytes % Lymphocytes % (Manual) Monocytes % Monocytes % (Manual) Eosinophils % Eosinophils % (Manual) Basophils % Basophils % (Manual) Myelocytes % (Man) Promyelocytes % (Man) Blast Cells % (Manual) Nucleated RBC % Metamyelocytes Hypochromia Platelet Estimate Polychromasia Poikilocytosis Anisocytosis Microcytosis Macrocytosis PT with INR 25.10 H INR 2.11 H Sodium 137 Potassium 3.1 L Chloride 113 H Carbon Dioxide 15 L Anion Gap 9 BUN 62.2 H Creatinine 2.2 H Est GFR (CKD-EPI)AfAm 32.58 Est GFR (CKD-EPI)NonAf 28.11 Random Glucose 104 Calcium 5.7 L* Phosphorus 2.9 Magnesium 1.8 Total Bilirubin 1.8 H Direct Bilirubin 1.3 H GGT 32 AST 81 H ALT 35 Alkaline Phosphatase 65 Total Protein 5.0 L Albumin 1.4 L Ur Random Creatinine Ur Random Sodium Ur Random Potassium Ur Random Chloride Random Vancomycin 8.2 L Microbiology 12/14/18 10:05 Urine - Urine Clean Catch Urine Culture - Final Contaminated: Please Repeat 12/14/18 08:43 Blood - Peripheral Venous Blood Culture - Preliminary Non Lactose Fermenting Gnb 12/14/18 08:30 Blood - Peripheral Venous Blood Culture - Preliminary Non Lactose Fermenting Gnb ASSESSMENT AND PLAN: 33 yof with PMhx of ETOH abuse, ETOH cirrhosis, Esophageal varices s/p banding, s/p TIPS, Prior ESBL UTI/bacteremia in 06/2018 admitted with UTI/cystitis with sepsis, GERA -Gm neg complicated UTI/cystitis/sepsis with bacteremia -GERA, suspect hypovolumia/sepsis, CT A/P neg for obstructive process -Lactic acidosis, suspect from sepsis/Dehydration -Dehydration -Severe hypokalemia -Transaminitis, AST>ALT, ?concerns for active ETOH use -Thrombocytopenia, suspect from sepsis/cirrhosis/Splenomegaly, cannot r/o ongoing ETOH related suppression -ETOH Cirrhosis with esophageal varices s/p banding, s/p TIPS -Prior ESBL UTI/Bacteremia 06/2018 -h/o ETOH abuse -False pos test Plan: Changed to meropenem, follow up blood/urine cultures ID/renal input noted. Aggressive hydration with monitoring for ascitis/effusions. Monitor hemodynamics/volume status closely. CT A/P results noted. Follow up Chlamydia/Gonorrhea/HIV Tremulous today, though denies recent ETOH use, Monitor closely for withdrawals. GGT noted. PPI daily Dispo pending clinical improvement. DVTPPX SCDs. Place on heparin if platelets stable x 24 hours and no bleed concerns. Discussed with patient and nursing.
--- NOTE | 2018-12-15 15:28 | PN ---
Progress Note (short form) - Note Progress Note: up out of bed feels well wants to know when she can go home Vital Signs Period Temp Pulse Resp BP Sys/Nash Pulse Ox Last 24 Hr 97.6 F-99.5 F 79-95 17-20 89-93/59-63 98-100 cor-rrr 2/6 hsm lungs clear abd soft,nt no cvat, no suplrapubic pain ext no edema CBC, BMP 12/15/18 06:17 12/15/18 06:17 Microbiology 12/14/18 10:05 Urine - Urine Clean Catch Urine Culture - Final Contaminated: Please Repeat 12/14/18 08:43 Blood - Peripheral Venous Blood Culture - Preliminary Non Lactose Fermenting Gnb 12/14/18 08:30 Blood - Peripheral Venous Blood Culture - Preliminary Non Lactose Fermenting Gnb imp/reccd sepsis secondary to UTI-continue meropenem, dose adjust for improving renal function GERA- no obstruction history of liver cirrhosis with TIPS prior history of ecoli ESBL bacteremia 07/18 continue meropenem until cultures are back will f/u cultures contact isolation
--- NOTE | 2018-12-15 15:42 | PN ---
Physical Exam: SUBJECTIVE: Patient seen and examined. ANISA Endorses mild Right lower abdomen-suprapubic pain; overall improved from last night. Denies pain with urination. States that urine is very yellow Denies being an everyday drinker. Last EtOH was 5 beers in Oct 2018 due to [employer] party. Sparkle [id number] OBJECTIVE: Vital Signs Period Temp Pulse Resp BP Sys/Nash Pulse Ox Last 24 Hr 97.6 F-99.5 F 79-95 17-20 89-93/59-63 98-100 GENERAL: The patient is awake, alert, in no acute distress. HEAD: Normal with no signs of trauma. EYES: mild sclera icterus, conjunctiva clear. ENT: Ears normal, nares patent, moist mucous membranes. NECK: Trachea midline, full range of motion, supple. LUNGS: Breath sounds equal, clear to auscultation bilaterally, no wheezes, no crackles, no accessory muscle use. HEART: Regular rate and rhythm, S1, S2 without murmur, rub or gallop. ABDOMEN: Soft, nondistended, mildly tender to deep palpitation of Right suprapubic area; no guarding, no rebound EXTREMITIES: 2+ pulses, warm, well-perfused, no edema. Tremulous with active movement NEUROLOGICAL: Normal speech. PSYCH: Normal mood, normal affect. SKIN: Warm, dry, normal turgor, no rashes or lesions noted Laboratory Results - last 24 hr 12/14/18 12/14/18 12/15/18 15:40 15:40 06:17 WBC 15.5 H RBC 2.48 L Hgb 8.2 L Hct 24.6 L MCV 99.3 H MCH 33.2 MCHC 33.4 RDW 17.8 H Plt Count 115 L D MPV 10.3 Absolute Neuts (auto) 11.7 H Neutrophils % 75.4 Neutrophils % (Manual) 82.0 Band Neutrophils % 1.0 Lymphocytes % 5.0 L Lymphocytes % (Manual) 3.0 L D Monocytes % 18.6 H Monocytes % (Manual) 12 H Eosinophils % 0.9 D Eosinophils % (Manual) 2.0 D Basophils % 0.1 Basophils % (Manual) 0.0 Myelocytes % (Man) 0 Promyelocytes % (Man) 0 Blast Cells % (Manual) 0 Nucleated RBC % 0 Metamyelocytes 0 Hypochromia 1+ Platelet Estimate Decreased Polychromasia 1+ Poikilocytosis 0 Anisocytosis 1+ Microcytosis 0 Macrocytosis 1+ PT with INR INR Sodium Potassium Chloride Carbon Dioxide Anion Gap BUN Creatinine Est GFR (CKD-EPI)AfAm Est GFR (CKD-EPI)NonAf Random Glucose Calcium Phosphorus Magnesium Total Bilirubin Direct Bilirubin GGT AST ALT Alkaline Phosphatase Total Protein Albumin Ur Random Creatinine 129.0 Ur Random Sodium 17 L Ur Random Potassium 12.0 L Ur Random Chloride < 11 L Random Vancomycin 12/15/18 12/15/18 12/15/18 06:17 06:17 13:49 WBC RBC Hgb Hct MCV MCH MCHC RDW Plt Count MPV Absolute Neuts (auto) Neutrophils % Neutrophils % (Manual) Band Neutrophils % Lymphocytes % Lymphocytes % (Manual) Monocytes % Monocytes % (Manual) Eosinophils % Eosinophils % (Manual) Basophils % Basophils % (Manual) Myelocytes % (Man) Promyelocytes % (Man) Blast Cells % (Manual) Nucleated RBC % Metamyelocytes Hypochromia Platelet Estimate Polychromasia Poikilocytosis Anisocytosis Microcytosis Macrocytosis PT with INR 25.10 H INR 2.11 H Sodium 137 Potassium 3.1 L Chloride 113 H Carbon Dioxide 15 L Anion Gap 9 BUN 62.2 H Creatinine 2.2 H Est GFR (CKD-EPI)AfAm 32.58 Est GFR (CKD-EPI)NonAf 28.11 Random Glucose 104 Calcium 5.7 L* Phosphorus 2.9 Magnesium 1.8 Total Bilirubin 1.8 H Direct Bilirubin 1.3 H GGT 32 AST 81 H ALT 35 Alkaline Phosphatase 65 Total Protein 5.0 L Albumin 1.4 L Ur Random Creatinine Ur Random Sodium Ur Random Potassium Ur Random Chloride Random Vancomycin 8.2 L Active Medications Generic Name Dose Route Start Last Admin Trade Name Freq PRN Reason Stop Dose Admin Acetaminophen 650 mg 12/14/18 14:54 12/15/18 02:33 Tylenol - PO 650 mg Q4H PRN Administration FEVER Potassium Chloride 10 meq/ 1,005 mls @ 125 mls/hr 12/14/18 18:30 12/15/18 08: 30 Sodium Chloride IVPB 125 mls/hr Q8H LYNN Administration Meropenem 1 gm/ Dextrose 100 mls @ 200 mls/hr 12/15/18 21:00 IVPB Q12H LYNN Lactulose 20 gm 12/14/18 15:22 Cephulac (Oral Use) PO TID PRN liver cirrhosis Lorazepam 1 mg 12/15/18 11:28 Ativan Injection - IVPUSH Q4H PRN ANXIETY Multivitamins/Minerals/Vitamin C 1 tab 12/15/18 10:00 12/15/18 10:06 Tab-A-Vit - PO 1 tab DAILY LYNN Administration Pantoprazole Sodium 40 mg 12/15/18 10:00 12/15/18 10:06 Protonix - PO 40 mg DAILY LYNN Administration Potassium Chloride 40 meq 12/15/18 10:45 K-Dur - PO 12/15/18 16:46 Q6H LYNN ASSESSMENT/PLAN: 33F w/ pmh of cirrhosis(s/p TIPS, esophageal banding, paracentesis) presenting w / 4days of lower abdominal pain, dark urine with fever. #sepsis 2/2 to complicated UTI > CXR(12/14/18): neg > CT A/P(12/14/18): neg for acute path(s/p cholecystectomy, patent TIPS, splenomegaly, cirrhotic liver) > h/o ESBL(June 2018) in BCX and UCX > UA(12/14/18): 3+ LE, WBC 158 > UCX(12/14/18) --contaminated --pending repeat > BCX(12/14/18) --GNB growing - Ertapenem and Vancomycin --dc'd as per ID - ID consult([facility]) --Meropenem day 1 --fu UCX #macrocytic anemia --likely chronic, less likely acute > baseline Hgb ~8-10 > Hgb 9.4 -->8.2 > MCV 97, 99.3 - trend daily Hgb #hyperbilirubinemia --likely 2/2 cirrrhosis - pt is s/p cholecystectomy > Tbil 2.8 --> 1.8(direct Carlos 1.3) #hypocalcemia > Alb 1.4 > Ca2+ 5.7, corrected ~ 7.8 - s/p calcium gluconate #GERA --likely 2/2 to sepsis > renal US(12/14/18): enlarged kidneys, no hydronephrosis > Cr baseline ~ 0.7 > Cr 3.2 --> 2.2 - IVF - encourage PO intake #unprotected sex > gonnorhea and chlamydia --pending > HIV --pending #cirrhosis 2/2 to ?pesticide exposure > Eveline B > RUQ US(12/14/18): heterogenous liver, patent TIPS, GB missing, mildly enlarged kidneys - continue lactulose DVT ppx - heparin q8h FEN - regular diet - replete electrolytes PRN Visit type - Emergency Visit Emergency Visit: No - New Patient This patient is new to me today: No - Critical Care Critical Care patient: No ATTENDING PHYSICIAN STATEMENT I saw and evaluated the patient. I reviewed the resident's note and discussed the case with the resident. I agree with the resident's findings and plan as documented. SUBJECTIVE: OBJECTIVE: ASSESSMENT AND PLAN:
[2018-12-15] MEDS ORDERED: DEXTROSE 5%-WATER 100 ML IVPB ONE (20:27)
[2018-12-15] MEDS ORDERED: MEROPENEM 1 GM VIAL (RESTRICTED TO ID) IVPB ONE (20:27)
[2018-12-15] MEDS: MEROPENEM 1 GM in DEXTROSE 5%-WATER 100 ML IVPB SCH (20:36)
[2018-12-15 21:27] LABS: BLOOD UREA NITROGEN 57.4 mg/dL (7-18); CREATININE 1.9 mg/dL (0.55-1.3); MAGNESIUM 2.2 mg/dL (1.8-2.4); POTASSIUM 3.5 mmol/L (3.5-5.1)
[2018-12-15 21:59] LABS: ALBUMIN 1.5 g/dl (3.4-5.0)
[2018-12-16] MEDS: POTASSIUM CHLORIDE 10 MEQ in SODIUM CHLORIDE 1,000 ML IVPB SCH ×4 (02:48→15:16)
[2018-12-16] MEDS ORDERED: MEROPENEM 1 GM VIAL (RESTRICTED TO ID) IVPB ONE (08:55)
[2018-12-16] MEDS ORDERED: DEXTROSE 5%-WATER 100 ML IVPB ONE (08:55)
[2018-12-16] MEDS: MEROPENEM 1 GM in DEXTROSE 5%-WATER 100 ML IVPB SCH (08:57)
[2018-12-16] MEDS: LACTULOSE 20 GM/30 ML UDC (FOR ORAL USE ONLY) PO PRN (09:41)
[2018-12-16] MEDS: MULTIVITAMINS (DAILY MVI) TABLET (FP) PO SCH (09:42)
[2018-12-16] MEDS: PANTOPRAZOLE 40 MG TABLET (FP) PO SCH (09:42)
[2018-12-16 10:15] LABS: BLOOD UREA NITROGEN 43.2 mg/dL (7-18); CREATININE 1.5 mg/dL (0.55-1.3); MAGNESIUM 1.9 mg/dL (1.8-2.4); PHOSPHOROUS 2.1 mg/dL (2.5-4.9); POTASSIUM 3.8 mmol/L (3.5-5.1)
[2018-12-16 10:34] LABS: CALCIUM 6.5 mg/dL (8.5-10.1)
[2018-12-16 11:22] LABS: BASO % 0.1 % (0-2.0); EOS % 0.4 % (0-4.5); HEMATOCRIT 26.4 % (32.4-45.2); HEMOGLOBIN 8.5 GM/dL (10.7-15.3); LYMPH % 6.2 % (8-40); MCH 32.4 pg (25.7-33.7); MCHC 32.3 g/dl (32.0-36.0); MEAN CELL VOLUME 100.3 fl (80-96); MEAN PLT VOLUME 9.3 fl (7.5-11.1); MONO % 12.6 % (3.8-10.2); NEUT % 80.7 % (42.8-82.8); PLATELET COUNT 173 K/MM3 (134-434); RBC 2.63 M/mm3 (3.60-5.2); WHITE BLOOD COUNT 14.7 K/mm3 (4.0-10.0)
--- NOTE | 2018-12-16 14:25 | PN ---
Progress Note (short form) - Note Progress Note: c/o itching, no rash Vital Signs Period Temp Pulse Resp BP Sys/Nash Pulse Ox Last 24 Hr 97.6 F-98.6 F 77-88 18-20 93-115/51-65 98 cor-rrr 2/6 hsm lungs clear abd soft,nt ext no edema CBC, BMP 12/16/18 10:40 12/16/18 08:00 Microbiology 12/14/18 08:43 Blood - Peripheral Venous Blood Culture - Final Escherichia Coli 12/14/18 08:30 Blood - Peripheral Venous Blood Culture - Final Escherichia Coli 12/15/18 12:25 Urine - Urine Clean Catch Urine Culture - Final NO GROWTH OBTAINED 12/14/18 10:05 Urine - Urine Clean Catch Urine Culture - Final Contaminated: Please Repeat imp/reccd ecoli bacteremia- switch to cefazolin, repeat blood cultures pending, presumed urinary source, no ascites , pyuria urine culture sent after antiibiotics were started?- I suspect by timing of antibioitcs and culture heart murmur check echo GERA- no obstruction history of liver cirrhosis with TIPS prolonged qtc prior history of ecoli ESBL bacteremia 07/18-contact isolation will f/u cultures contact isolation
--- NOTE | 2018-12-16 14:37 | PN ---
Progress Note, Physician History of Present Illness: Pt seen and examined at bedside. She is awake and alert. She denies shortness of breath. - Current Medication List Current Medications: Active Medications Acetaminophen (Tylenol -) 650 mg PO Q4H PRN PRN Reason: FEVER Last Admin: 12/15/18 02:33 Dose: 650 mg Potassium Chloride 10 meq/ (Sodium Chloride) 1,005 mls @ 125 mls/hr IVPB Q8H LYNN Last Admin: 12/16/18 14:05 Dose: 125 mls/hr Cefazolin Sodium 2 gm/ (Dextrose) 50 mls @ 200 mls/hr IVPB Q8H-IV LYNN Lactulose (Cephulac (Oral Use)) 20 gm PO TID PRN PRN Reason: liver cirrhosis Last Admin: 12/16/18 09:41 Dose: 20 gm Lorazepam (Ativan Injection -) 1 mg IVPUSH Q4H PRN PRN Reason: ANXIETY Multivitamins/Minerals/Vitamin C (Tab-A-Vit -) 1 tab PO DAILY LYNN Last Admin: 12/16/18 09:42 Dose: 1 tab Pantoprazole Sodium (Protonix -) 40 mg PO DAILY LYNN Last Admin: 12/16/18 09:42 Dose: 40 mg Potassium Phos/Sodium Phos (Phos-Nak Packet -) 1 packet PO Q6H [facility] - Objective Vital Signs: Vital Signs Temperature 98.2 F 12/16/18 10:18 Pulse Rate 88 12/16/18 10:18 Respiratory Rate 20 12/16/18 10:18 Blood Pressure 115/65 12/16/18 10:18 O2 Sat by Pulse Oximetry (%) 98 12/15/18 21:00 Constitutional: Yes: Calm HENT: Yes: Atraumatic Neck: Yes: Supple Cardiovascular: Yes: S1, S2 Respiratory: Yes: CTA Bilaterally Gastrointestinal: Yes: Normal Bowel Sounds, Soft Genitourinary: Yes: WNL Musculoskeletal: Yes: WNL Edema: No Neurological: Yes: Oriented Psychiatric: Yes: Oriented Labs: CBC, BMP 12/16/18 10:40 12/16/18 08:00 INR, PTT INR 2.11 (0.83-1.09) H 12/15/18 06:17 Problem List - Problems (1) Sepsis Code(s): A41.9 - SEPSIS, UNSPECIFIED ORGANISM (2) UTI (urinary tract infection) Code(s): N39.0 - URINARY TRACT INFECTION, SITE NOT SPECIFIED (3) Alcoholic cirrhosis Code(s): K70.30 - ALCOHOLIC CIRRHOSIS OF LIVER WITHOUT ASCITES Qualifiers: Ascites presence: unspecified Qualified Code(s): K70.30 - Alcoholic cirrhosis of liver without ascites Assessment/Plan Current Medications Generic Name Dose Route Start Last Admin Trade Name Freq PRN Reason Stop Dose Admin Acetaminophen 650 mg 12/14/18 14:54 12/15/18 02:33 Tylenol - PO 650 mg Q4H PRN Administration FEVER Potassium Chloride 10 meq/ 1,005 mls @ 125 mls/hr 12/14/18 18:30 12/16/18 14: 05 Sodium Chloride IVPB 125 mls/hr Q8H LYNN Administration Cefazolin Sodium 2 gm/ 50 mls @ 200 mls/hr 12/16/18 14:30 Dextrose IVPB Q8H-IV LYNN Lactulose 20 gm 12/14/18 15:22 12/16/18 09:41 Cephulac (Oral Use) PO 20 gm TID PRN Administration liver cirrhosis Lorazepam 1 mg 12/15/18 11:28 Ativan Injection - IVPUSH Q4H PRN ANXIETY Multivitamins/Minerals/Vitamin C 1 tab 12/15/18 10:00 12/16/18 09:42 Tab-A-Vit - PO 1 tab DAILY LYNN Administration Pantoprazole Sodium 40 mg 12/15/18 10:00 12/16/18 09:42 Protonix - PO 40 mg DAILY LYNN Administration Potassium Phos/Sodium Phos 1 packet 12/16/18 14:30 Phos-Nak Packet - PO Q6H [facility] Microbiology 12/15/18 12:25 Urine - Urine Clean Catch Urine Culture - Final NO GROWTH OBTAINED 12/14/18 10:05 Urine - Urine Clean Catch Urine Culture - Final Contaminated: Please Repeat 12/14/18 08:43 Blood - Peripheral Venous Blood Culture - Final Escherichia Coli 12/14/18 08:30 Blood - Peripheral Venous Blood Culture - Final Escherichia Coli Laboratory Tests 12/14/18 12/14/18 09:10 10:19 C. trachomatis (KAREN) Negative HIV 1&2 Ag/Ab, 4th Gen Non reactive N. gonorrhoeae (KAREN) Negative Impression 1. GERA 2. hypokalemia 3. sepsis 4. lactic acidosis 5. hypotension 6. UTI 7. liver corrhosis 8. hx of etoh abuse 9. bacteremia Plan - can start to decrease rate of fluids - monitor renal function - repeat ua once renal function improves - potassium is improved - GERA likely from sepsis and pre-renal disease
[2018-12-16] MEDS: NAPH,MB-DB/K PH,MBDB POWDER PACKET PO SCH ×2 (14:49→20:23)
[2018-12-16] MEDS: CEFAZOLIN 2 GM/D5W 2 GM/50 ML ML IVPB SCH ×2 (14:50→17:00)
--- NOTE | 2018-12-16 16:58 | PN ---
Teaching Attending Note Name of Resident: Avinash Mares ATTENDING PHYSICIAN STATEMENT I saw and evaluated the patient. I reviewed the resident's note and discussed the case with the resident. I agree with the resident's findings and plan as documented with exceptions below. SUBJECTIVE: Patient seen and examined, feels better, no pain. OBJECTIVE: Vital Signs Period Temp Pulse Resp BP Sys/Nash Pulse Ox Last 24 Hr 98 F-98.6 F 82-88 18-20 98-115/51-67 98 Intake & Output 12/13/18 12/14/18 12/15/18 12/16/18 23:59 23:59 23:59 23:59 Intake Total 575 2865 300 Balance 575 2865 300 Weight 150 lb 167 lb General: sitting in bed in no acute distress neck: soft, supple Chest: CTAb, no rales or wheezing Abdomen:Soft, NT, no suprapubic or CVA tenderness Extremities: no edema Home Medications Medication Instructions Recorded Lactulose (Oral Use) [Cephulac -] 20 gm PO TID PRN #1 bottle 07/30/18 Multivitamins [Multivit ([facility] 1 tab PO DAILY #30 tab 07/30/18 Formulary)] Pantoprazole Sodium [Protonix -] 40 mg PO DAILY #30 tablet.ec 07/30/18 Active Medications Acetaminophen (Tylenol -) 650 mg PO Q4H PRN PRN Reason: FEVER Last Admin: 12/15/18 02:33 Dose: 650 mg Cefazolin Sodium/Dextrose (Ancef 2 Gm Premixed Ivpb -) 2 gm in 50 mls @ 200 mls /hr IVPB Q8H-IV LYNN Last Admin: 12/16/18 14:50 Dose: 200 mls/hr Potassium Chloride 10 meq/ (Sodium Chloride) 1,005 mls @ 100 mls/hr IVPB Q10H LYNN Last Admin: 12/16/18 15:16 Dose: 100 mls/hr Lactulose (Cephulac (Oral Use)) 20 gm PO TID PRN PRN Reason: liver cirrhosis Last Admin: 12/16/18 09:41 Dose: 20 gm Lorazepam (Ativan Injection -) 1 mg IVPUSH Q4H PRN PRN Reason: ANXIETY Multivitamins/Minerals/Vitamin C (Tab-A-Vit -) 1 tab PO DAILY LYNN Last Admin: 12/16/18 09:42 Dose: 1 tab Pantoprazole Sodium (Protonix -) 40 mg PO DAILY LYNN Last Admin: 12/16/18 09:42 Dose: 40 mg Potassium Phos/Sodium Phos (Phos-Nak Packet -) 1 packet PO Q6H LYNN Last Admin: 12/16/18 14:49 Dose: 1 packet Laboratory Results - last 24 hr 12/14/18 12/14/18 12/15/18 09:10 10:19 19:20 WBC Corrected WBC (auto) RBC Hgb Hct MCV MCH MCHC RDW Plt Count MPV Absolute Neuts (auto) Neutrophils % Lymphocytes % Monocytes % Eosinophils % Basophils % Nucleated RBC % Platelet Estimate Platelet Comment Sodium 140 Potassium 3.5 Chloride 114 H Carbon Dioxide 16 L Anion Gap 11 BUN 57.4 H Creatinine 1.9 H Est GFR (CKD-EPI)AfAm 38.90 Est GFR (CKD-EPI)NonAf 33.57 Random Glucose 126 H Calcium 6.0 L* Phosphorus Magnesium 2.2 Albumin 1.5 L C. trachomatis (KAREN) Negative HIV 1&2 Ag/Ab, 4th Gen Non reactive N. gonorrhoeae (KAREN) Negative 12/16/18 12/16/18 12/16/18 08:00 08:00 10:40 WBC Cancelled 14.7 H Corrected WBC (auto) Cancelled RBC Cancelled 2.63 L Hgb Cancelled 8.5 L Hct Cancelled 26.4 L MCV Cancelled 100.3 H MCH Cancelled 32.4 MCHC Cancelled 32.3 RDW Cancelled 18.0 H Plt Count Cancelled 173 D MPV Cancelled 9.3 Absolute Neuts (auto) Cancelled 11.8 H Neutrophils % Cancelled 80.7 Lymphocytes % Cancelled 6.2 L D Monocytes % Cancelled 12.6 H Eosinophils % Cancelled 0.4 Basophils % Cancelled 0.1 Nucleated RBC % Cancelled 0 Platelet Estimate Cancelled Platelet Comment Cancelled Sodium 141 Potassium 3.8 Chloride 118 H Carbon Dioxide 15 L Anion Gap 9 BUN 43.2 H Creatinine 1.5 H Est GFR (CKD-EPI)AfAm 51.77 Est GFR (CKD-EPI)NonAf 44.67 Random Glucose 80 Calcium 6.5 L* Phosphorus 2.1 L Magnesium 1.9 Albumin C. trachomatis (KAREN) HIV 1&2 Ag/Ab, 4th Gen N. gonorrhoeae (KAREN) Microbiology 12/14/18 08:43 Blood - Peripheral Venous Blood Culture - Final Escherichia Coli 12/14/18 08:30 Blood - Peripheral Venous Blood Culture - Final Escherichia Coli 12/15/18 12:25 Urine - Urine Clean Catch Urine Culture - Final NO GROWTH OBTAINED 12/14/18 10:05 Urine - Urine Clean Catch Urine Culture - Final Contaminated: Please Repeat ASSESSMENT AND PLAN: 33 yof with PMhx of ETOH abuse, ETOH cirrhosis, Esophageal varices s/p banding, s/p TIPS, Prior ESBL UTI/bacteremia in 06/2018 admitted with UTI/cystitis with sepsis, GERA -Gm neg complicated UTI/cystitis/sepsis with bacteremia -GERA, suspect hypovolumia/sepsis, CT A/P neg for obstructive process -Lactic acidosis, suspect from sepsis/Dehydration -Dehydration -Severe hypokalemia -Transaminitis, AST>ALT, ?concerns for active ETOH use -Thrombocytopenia, suspect from sepsis/cirrhosis/Splenomegaly, cannot r/o ongoing ETOH related suppression -ETOH Cirrhosis with esophageal varices s/p banding, s/p TIPS -Prior ESBL UTI/Bacteremia 06/2018 -h/o ETOH abuse -False pos test Plan: Blood cx noted, changed to cefazolin Clinically improved renal function better Discuss with ID about abx duration Dc in 24 hours if no new concerns, pending ID input
--- NOTE | 2018-12-16 17:01 | PN ---
Physical Exam: SUBJECTIVE: Patient seen and examined NAEON. Lower abdominal pain has resolved, dysuria improved OBJECTIVE: Vital Signs Period Temp Pulse Resp BP Sys/Nash Pulse Ox Last 24 Hr 98 F-98.6 F 82-88 18-20 98-115/51-67 98 GENERAL: The patient is awake, alert, in no acute distress. HEAD: Normal with no signs of trauma. EYES: mild sclera icterus, conjunctiva clear. ENT: Ears normal, nares patent, moist mucous membranes. NECK: Trachea midline, full range of motion, supple. LUNGS: Breath sounds equal, clear to auscultation bilaterally, no wheezes, no crackles, no accessory muscle use. HEART: Regular rate and rhythm, S1, S2 without murmur, rub or gallop. ABDOMEN: Soft, nondistended, mildly tender to deep palpitation of Right suprapubic area; no guarding, no rebound EXTREMITIES: 2+ pulses, warm, well-perfused, no edema. Tremulous with active movement NEUROLOGICAL: Normal speech. PSYCH: Normal mood, normal affect. SKIN: Warm, dry, normal turgor, no rashes or lesions noted Laboratory Results - last 24 hr 12/14/18 12/14/18 12/15/18 09:10 10:19 19:20 WBC Corrected WBC (auto) RBC Hgb Hct MCV MCH MCHC RDW Plt Count MPV Absolute Neuts (auto) Neutrophils % Lymphocytes % Monocytes % Eosinophils % Basophils % Nucleated RBC % Platelet Estimate Platelet Comment Sodium 140 Potassium 3.5 Chloride 114 H Carbon Dioxide 16 L Anion Gap 11 BUN 57.4 H Creatinine 1.9 H Est GFR (CKD-EPI)AfAm 38.90 Est GFR (CKD-EPI)NonAf 33.57 Random Glucose 126 H Calcium 6.0 L* Phosphorus Magnesium 2.2 Albumin 1.5 L C. trachomatis (KAREN) Negative HIV 1&2 Ag/Ab, 4th Gen Non reactive N. gonorrhoeae (KAREN) Negative 12/16/18 12/16/18 12/16/18 08:00 08:00 10:40 WBC Cancelled 14.7 H Corrected WBC (auto) Cancelled RBC Cancelled 2.63 L Hgb Cancelled 8.5 L Hct Cancelled 26.4 L MCV Cancelled 100.3 H MCH Cancelled 32.4 MCHC Cancelled 32.3 RDW Cancelled 18.0 H Plt Count Cancelled 173 D MPV Cancelled 9.3 Absolute Neuts (auto) Cancelled 11.8 H Neutrophils % Cancelled 80.7 Lymphocytes % Cancelled 6.2 L D Monocytes % Cancelled 12.6 H Eosinophils % Cancelled 0.4 Basophils % Cancelled 0.1 Nucleated RBC % Cancelled 0 Platelet Estimate Cancelled Platelet Comment Cancelled Sodium 141 Potassium 3.8 Chloride 118 H Carbon Dioxide 15 L Anion Gap 9 BUN 43.2 H Creatinine 1.5 H Est GFR (CKD-EPI)AfAm 51.77 Est GFR (CKD-EPI)NonAf 44.67 Random Glucose 80 Calcium 6.5 L* Phosphorus 2.1 L Magnesium 1.9 Albumin C. trachomatis (KAREN) HIV 1&2 Ag/Ab, 4th Gen N. gonorrhoeae (KAREN) Active Medications Generic Name Dose Route Start Last Admin Trade Name Freq PRN Reason Stop Dose Admin Acetaminophen 650 mg 12/14/18 14:54 12/15/18 02:33 Tylenol - PO 650 mg Q4H PRN Administration FEVER Cefazolin Sodium/Dextrose 2 gm in 50 mls @ 200 mls/hr 12/16/18 14:45 14:50 Ancef 2 Gm Premixed Ivpb - IVPB 200 mls/hr Q8H-IV LYNN Administration Potassium Chloride 10 meq/ 1,005 mls @ 100 mls/hr 12/16/18 14:37 12/16/18 15: 16 Sodium Chloride IVPB 100 mls/hr Q10H LYNN Administration Lactulose 20 gm 12/14/18 15:22 12/16/18 09:41 Cephulac (Oral Use) PO 20 gm TID PRN Administration liver cirrhosis Lorazepam 1 mg 12/15/18 11:28 Ativan Injection - IVPUSH Q4H PRN ANXIETY Multivitamins/Minerals/Vitamin C 1 tab 12/15/18 10:00 12/16/18 09:42 Tab-A-Vit - PO 1 tab DAILY LYNN Administration Pantoprazole Sodium 40 mg 12/15/18 10:00 12/16/18 09:42 Protonix - PO 40 mg DAILY LYNN Administration Potassium Phos/Sodium Phos 1 packet 12/16/18 14:45 12/16/18 14:49 Phos-Nak Packet - PO 1 packet Q6H LYNN Administration Vital Signs Temp 98.2 F 12/16/18 14:00 Pulse 86 12/16/18 14:00 Resp 20 12/16/18 14:00 BP 112/67 12/16/18 14:00 Pulse Ox 98 12/15/18 21:00 Intake & Output 12/15/18 12/16/18 12/16/18 23:59 11:59 23:59 Intake Total 1850 300 Balance 1850 300 Intake: IV 1250 IVF 1250 IVPB 500 100 Oral 100 200 Other: Voiding Method Toilet Toilet # Unmeasured Voids Void 2 3 3 Bowel Movement No No No ASSESSMENT/PLAN: 33F w/ pmh of cirrhosis(s/p TIPS, esophageal banding, paracentesis) presenting w / 4days of lower abdominal pain, dark urine with fever. #sepsis 2/2 to complicated UTI > CXR(12/14/18): neg > CT A/P(12/14/18): neg for acute path(s/p cholecystectomy, patent TIPS, splenomegaly, cirrhotic liver) > h/o ESBL(June 2018) in BCX and UCX > UA(12/14/18): 3+ LE, WBC 158 > UCX(12/14/18) --contaminated --rpt w/ NGTD > BCX(12/14/18) --E coli(cordova-sensitive) - Ertapenem and Vancomycin --dc'd as per ID - ID consult([facility]) --Meropenem day 2 -- stopped --cefazolin day 3 --fu UCX #macrocytic anemia --likely chronic, less likely acute > baseline Hgb ~8-10 > Hgb 9.4 -->8.2 > MCV 97, 99.3 - trend daily Hgb #hyperbilirubinemia --likely 2/2 cirrrhosis - pt is s/p cholecystectomy > Tbil 2.8 --> 1.8(direct Carlos 1.3) #hypocalcemia --improving > Alb 1.4 > Ca2+ 5.7, corrected ~ 7.8; corrected 8.1 - s/p calcium gluconate #GERA --likely 2/2 to sepsis > renal US(12/14/18): enlarged kidneys, no hydronephrosis > Cr baseline ~ 0.7 > Cr 3.2 --> 2.2 -->1.5 - IVF - encourage PO intake #unprotected sex > gonnorhea and chlamydia --neg > HIV --neg #cirrhosis 2/2 to ?pesticide exposure > Veeline B > RUQ US(12/14/18): heterogenous liver, patent TIPS, GB missing, mildly enlarged kidneys - continue lactulose DVT ppx - heparin q8h FEN - regular diet - NS + K @100 - replete electrolytes PRN Visit type - Emergency Visit Emergency Visit: No - New Patient This patient is new to me today: No - Critical Care Critical Care patient: No ATTENDING PHYSICIAN STATEMENT I saw and evaluated the patient. I reviewed the resident's note and discussed the case with the resident. I agree with the resident's findings and plan as documented. SUBJECTIVE: OBJECTIVE: ASSESSMENT AND PLAN:
[2018-12-16] MEDS ORDERED: diphenhydrAMINE HCL 25 MG CAPSULE (FP) PO ONE (18:00)
[2018-12-17] MEDS: POTASSIUM CHLORIDE 10 MEQ in SODIUM CHLORIDE 1,000 ML IVPB SCH ×2 (00:50→15:19)
[2018-12-17] MEDS: NAPH,MB-DB/K PH,MBDB POWDER PACKET PO SCH ×4 (02:42→22:22)
[2018-12-17 07:20] LABS: BASO % 0.7 % (0-2.0); EOS % 0.6 % (0-4.5); HEMOGLOBIN 8.7 GM/dL (10.7-15.3); MCH 33.5 pg (25.7-33.7); MCHC 33.5 g/dl (32.0-36.0); MEAN CELL VOLUME 100.3 fl (80-96); MEAN PLT VOLUME 8.7 fl (7.5-11.1); MONO % 12.9 % (3.8-10.2); NEUT % 75.8 % (42.8-82.8); PLATELET COUNT 176 K/MM3 (134-434); RBC 2.59 M/mm3 (3.60-5.2); RDW 18.5 % (11.6-15.6); WHITE BLOOD COUNT 10.6 K/mm3 (4.0-10.0)
[2018-12-17] MEDS: LORazepam 2 MG/ML SDV VIAL IVPUSH PRN ×2 (07:37→11:39)
[2018-12-17 07:59] LABS: BLOOD UREA NITROGEN 30.2 mg/dL (7-18); MAGNESIUM 1.7 mg/dL (1.8-2.4); POTASSIUM 4.3 mmol/L (3.5-5.1)
[2018-12-17] MEDS ORDERED: MAGNESIUM OXIDE 400 MG TABLET (FP) PO ONE (08:14)
[2018-12-17 08:18] LABS: CREATININE 1.2 mg/dL (0.55-1.3)
[2018-12-17 08:23] LABS: CALCIUM 6.7 mg/dL (8.5-10.1)
[2018-12-17] MEDS: LACTULOSE 20 GM/30 ML UDC (FOR ORAL USE ONLY) PO PRN (09:15)
[2018-12-17] MEDS: MULTIVITAMINS (DAILY MVI) TABLET (FP) PO SCH (09:16)
[2018-12-17] MEDS: PANTOPRAZOLE 40 MG TABLET (FP) PO SCH (09:16)
[2018-12-17] MEDS: LORazepam 1 MG TABLET PO SCH ×3 (11:53→22:22)
[2018-12-17] MEDS: FOLIC ACID 1 MG TABLET (FP) PO SCH (11:59)
[2018-12-17] MEDS: THIAMINE HCL 100 MG TABLET (FP) PO SCH (11:59)
[2018-12-17] MEDS: LORazepam 1 MG TABLET PO PRN (13:28)
--- NOTE | 2018-12-17 13:47 | PN ---
Progress Note (short form) - Note Progress Note: c/o itching switched to azactam confused and tremulous +etoh use no abdominal pain Vital Signs Period Temp Pulse Resp BP Sys/Nash Pulse Ox Last 24 Hr 97.5 F-98.3 F 86-104 18-20 112-118/60-68 100 cor-rrr lungs clear abd soft, nt ext no edema no rash CBC, BMP 12/17/18 06:17 12/17/18 06:17 Microbiology 12/15/18 16:15 Blood - Peripheral Venous Blood Culture - Preliminary NO GROWTH OBTAINED AFTER 24 HOURS, INCUBATION TO CONTINUE FOR 4 DAYS. 12/15/18 16:30 Blood - Peripheral Venous Blood Culture - Preliminary NO GROWTH OBTAINED AFTER 24 HOURS, INCUBATION TO CONTINUE FOR 4 DAYS. 12/14/18 08:43 Blood - Peripheral Venous Blood Culture - Final Escherichia Coli 12/14/18 08:30 Blood - Peripheral Venous Blood Culture - Final Escherichia Coli 12/15/18 12:25 Urine - Urine Clean Catch Urine Culture - Final NO GROWTH OBTAINED 12/14/18 10:05 Urine - Urine Clean Catch Urine Culture - Final Contaminated: Please Repeat imp/reccd probable DTs ecoli bacteremia- secondary to UTI-currently on azactam due to itching- ? secondary to dts, no rash noted continue azactam heart murmur check echo GERA- no obstruction-resolving history of liver cirrhosis with TIPS prolonged qtc prior history of ecoli ESBL bacteremia 07/18-contact isolation will f/u cultures contact isolation
[2018-12-17] MEDS ORDERED: PT OWN MED DRAWER 7, Y5N ONE (13:53)
[2018-12-17] MEDS: AZTREONAM 1 GM in DEXTROSE 5%-WATER - 50 ML IVPB SCH ×2 (14:05→17:11)
[2018-12-17 14:51] LABS: BILIRUBIN,DIRECT 0.9 mg/dL (0.0-0.2); BILIRUBIN,TOTAL 1.7 mg/dL (0.2-1)
--- NOTE | 2018-12-17 15:17 | PN ---
Teaching Attending Note Name of Resident: Avinash Mares ATTENDING PHYSICIAN STATEMENT I saw and evaluated the patient. I reviewed the resident's note and discussed the case with the resident. I agree with the resident's findings and plan as documented with exceptions below. SUBJECTIVE: Patient seen and examined. confused, inappropriate laughing, though able to hold conversation, answers questions. No pain or concerns. OBJECTIVE: Vital Signs Period Temp Pulse Resp BP Sys/Nash Pulse Ox Last 24 Hr 97.5 F-98.3 F 86-104 18-20 115-118/60-68 100 Intake & Output 12/14/18 12/15/18 12/16/18 12/17/18 23:59 23:59 23:59 23:59 Intake Total 575 2865 2390 700 Balance 575 2865 2390 700 Weight 150 lb 167 lb General: ambulating with assist, unsteady, confused, inappropriate laughing CVS:S1S2 regular, tachycardic Chest: CTAB, no rales or wheezing Abdomen:Soft, obese, no suprapubic or CVA tenderness Extremities: tremulous unsteady gait Home Medications Medication Instructions Recorded Lactulose (Oral Use) [Cephulac -] 20 gm PO TID PRN #1 bottle 07/30/18 Multivitamins [Multivit ([facility] 1 tab PO DAILY #30 tab 07/30/18 Formulary)] Pantoprazole Sodium [Protonix -] 40 mg PO DAILY #30 tablet.ec 07/30/18 Active Medications Acetaminophen (Tylenol -) 650 mg PO Q4H PRN PRN Reason: FEVER Last Admin: 12/15/18 02:33 Dose: 650 mg Folic Acid (Folic Acid -) 1 mg PO DAILY LYNN Last Admin: 12/17/18 11:59 Dose: 1 mg Potassium Chloride 10 meq/ (Sodium Chloride) 1,005 mls @ 100 mls/hr IVPB Q10H LYNN Last Admin: 12/17/18 00:50 Dose: 100 mls/hr Aztreonam 1 gm/ Dextrose 50 mls @ 100 mls/hr IVPB Q8H-IV LYNN; Protocol Last Admin: 12/17/18 14:05 Dose: Not Given Lactulose (Cephulac (Oral Use)) 20 gm PO QID LYNN Lorazepam (Ativan Injection -) 1 mg IVPUSH Q4H PRN PRN Reason: ANXIETY Last Admin: 12/17/18 11:39 Dose: 1 mg Lorazepam (Ativan -) 0.5 mg PO 0500,1100,1700,2300 [facility] Stop: 12/19/18 05:01 Lorazepam (Ativan -) 0.5 mg PO Q4H PRN PRN Reason: Symptoms of Withdrawal Stop: 12/21/18 00:00 Lorazepam (Ativan -) 0.5 mg PO ONCE ONE Stop: 12/19/18 11:01 Lorazepam (Ativan -) 1 mg PO 0500,1100,1700,2300 [facility] Stop: 12/18/18 05:01 Last Admin: 12/17/18 11:53 Dose: Not Given Lorazepam (Ativan -) 1 mg PO Q4H PRN PRN Reason: Symptoms of Withdrawal Stop: 12/19/18 23:59 Last Admin: 12/17/18 13:28 Dose: 1 mg Multivitamins/Minerals/Vitamin C (Tab-A-Vit -) 1 tab PO DAILY [facility] Last Admin: 12/17/18 09:16 Dose: 1 tab Pantoprazole Sodium (Protonix -) 40 mg PO DAILY [facility] Last Admin: 12/17/18 09:16 Dose: 40 mg Potassium Phos/Sodium Phos (Phos-Nak Packet -) 1 packet PO Q6H [facility] Last Admin: 12/17/18 14:17 Dose: 1 packet Thiamine HCl (Vitamin B1 -) 100 mg PO DAILY [facility] Last Admin: 12/17/18 11:59 Dose: 100 mg Laboratory Results - last 24 hr 12/17/18 12/17/18 06:17 06:17 WBC 10.6 H RBC 2.59 L Hgb 8.7 L Hct 26.0 L MCV 100.3 H MCH 33.5 MCHC 33.5 RDW 18.5 H Plt Count 176 MPV 8.7 Absolute Neuts (auto) 8.1 H Neutrophils % 75.8 Lymphocytes % 10.0 D Monocytes % 12.9 H Eosinophils % 0.6 Basophils % 0.7 D Nucleated RBC % 0 Sodium 144 Potassium 4.3 Chloride 122 H Carbon Dioxide 16 L Anion Gap 7 L BUN 30.2 H Creatinine 1.2 Est GFR (CKD-EPI)AfAm 67.81 Est GFR (CKD-EPI)NonAf 58.50 Random Glucose 91 Calcium 6.7 L* Phosphorus 3.0 Magnesium 1.7 L Total Bilirubin 1.7 H Direct Bilirubin 0.9 H Microbiology 12/15/18 16:15 Blood - Peripheral Venous Blood Culture - Preliminary NO GROWTH OBTAINED AFTER 24 HOURS, INCUBATION TO CONTINUE FOR 4 DAYS. 12/15/18 16:30 Blood - Peripheral Venous Blood Culture - Preliminary NO GROWTH OBTAINED AFTER 24 HOURS, INCUBATION TO CONTINUE FOR 4 DAYS. 12/14/18 08:43 Blood - Peripheral Venous Blood Culture - Final Escherichia Coli 12/14/18 08:30 Blood - Peripheral Venous Blood Culture - Final Escherichia Coli 12/15/18 12:25 Urine - Urine Clean Catch Urine Culture - Final NO GROWTH OBTAINED 12/14/18 10:05 Urine - Urine Clean Catch Urine Culture - Final Contaminated: Please Repeat ASSESSMENT AND PLAN: 33 yof with PMhx of ETOH abuse, ETOH cirrhosis, Esophageal varices s/p banding, s/p TIPS, Prior ESBL UTI/bacteremia in 06/2018 admitted with UTI/cystitis with sepsis, GERA -AMS, highly suggestive of Delirium tremens, r/o hepatic encephalopathy -E coli UTI/cystitis/sepsis with bacteremia -GERA, suspect hypovolumia/sepsis, CT A/P neg for obstructive process -Lactic acidosis, suspect from sepsis/Dehydration -Dehydration -Severe hypokalemia -Transaminitis, AST>ALT, suspect from ETOH use -Thrombocytopenia, suspect from sepsis/cirrhosis/Splenomegaly, cannot r/o ongoing ETOH related suppression -ETOH Cirrhosis with esophageal varices s/p banding, s/p TIPS -Prior ESBL UTI/Bacteremia 06/2018 -h/o ETOH abuse -False pos test Plan: Confused, tremulous, inappropriate laughing. On detailed questioning, agreed to drinking almost daily with fridge full of beer. Last drink was day prior to admission at a '[facility]' per patient. Family also confirmed ongoing ETOH use. Will place on ativan detox protocol, folate/thiamine. Detox consult, and discuss ETOH rehab when improved. Reports of itching on cefazolin overnight, changed to Aztreonam, ID input noted.Will follow up. Trend daily LFts, coags for now. Change lactulose to QID standing, to be held for diarrhea. renal function better, IVF. Dispo dc on hold given ongoing active ETOH withdrawal Discussed with nursing.
[2018-12-17] MEDS ORDERED: MAGNESIUM SULF 50% (8.12 MEQ/2 ML-1 GM VIAL) IVPB ONE (15:23)
--- NOTE | 2018-12-17 16:17 | PN ---
Progress Note, Physician History of Present Illness: Pt seen and examined at bedside. She has apparently still been drinking etoh. She is in DTs. - Current Medication List Current Medications: Active Medications Acetaminophen (Tylenol -) 650 mg PO Q4H PRN PRN Reason: FEVER Last Admin: 12/15/18 02:33 Dose: 650 mg Folic Acid (Folic Acid -) 1 mg PO DAILY [facility] Last Admin: 12/17/18 11:59 Dose: 1 mg Potassium Chloride 10 meq/ (Sodium Chloride) 1,005 mls @ 100 mls/hr IVPB Q10H LYNN Last Admin: 12/17/18 15:19 Dose: 100 mls/hr Aztreonam 1 gm/ Dextrose 50 mls @ 100 mls/hr IVPB Q8H-IV LYNN; Protocol Last Admin: 12/17/18 14:05 Dose: Not Given Lactulose (Cephulac (Oral Use)) 20 gm PO QID LYNN Lorazepam (Ativan Injection -) 1 mg IVPUSH Q4H PRN PRN Reason: ANXIETY Last Admin: 12/17/18 11:39 Dose: 1 mg Lorazepam (Ativan -) 0.5 mg PO 0500,1100,1700,2300 [facility] Stop: 12/19/18 05:01 Lorazepam (Ativan -) 0.5 mg PO Q4H PRN PRN Reason: Symptoms of Withdrawal Stop: 12/21/18 00:00 Lorazepam (Ativan -) 0.5 mg PO ONCE ONE Stop: 12/19/18 11:01 Lorazepam (Ativan -) 1 mg PO 0500,1100,1700,2300 [facility] Stop: 12/18/18 05:01 Last Admin: 12/17/18 11:53 Dose: Not Given Lorazepam (Ativan -) 1 mg PO Q4H PRN PRN Reason: Symptoms of Withdrawal Stop: 12/19/18 23:59 Last Admin: 12/17/18 13:28 Dose: 1 mg Multivitamins/Minerals/Vitamin C (Tab-A-Vit -) 1 tab PO DAILY LYNN Last Admin: 12/17/18 09:16 Dose: 1 tab Pantoprazole Sodium (Protonix -) 40 mg PO DAILY [facility] Last Admin: 12/17/18 09:16 Dose: 40 mg Potassium Phos/Sodium Phos (Phos-Nak Packet -) 1 packet PO Q6H LYNN Last Admin: 12/17/18 14:17 Dose: 1 packet Thiamine HCl (Vitamin B1 -) 100 mg PO DAILY LYNN Last Admin: 12/17/18 11:59 Dose: 100 mg - Objective Vital Signs: Vital Signs Temperature 98.4 F 12/17/18 14:00 Pulse Rate 94 H 12/17/18 14:00 Respiratory Rate 20 12/17/18 14:00 Blood Pressure 115/65 12/17/18 14:00 O2 Sat by Pulse Oximetry (%) 100 12/16/18 21:00 Constitutional: Yes: Anxious Eyes: Yes: Conjunctiva Clear HENT: Yes: Atraumatic Cardiovascular: Yes: S1, S2 Respiratory: Yes: CTA Bilaterally Gastrointestinal: Yes: Soft Genitourinary: Yes: WNL Musculoskeletal: Yes: WNL Edema: No Integumentary: Yes: WNL Neurological: Yes: Confusion Psychiatric: Yes: Oriented Labs: CBC, BMP 12/17/18 06:17 12/17/18 06:17 INR, PTT INR 2.11 (0.83-1.09) H 12/15/18 06:17 Problem List - Problems (1) Sepsis Code(s): A41.9 - SEPSIS, UNSPECIFIED ORGANISM (2) UTI (urinary tract infection) Code(s): N39.0 - URINARY TRACT INFECTION, SITE NOT SPECIFIED (3) Alcoholic cirrhosis Code(s): K70.30 - ALCOHOLIC CIRRHOSIS OF LIVER WITHOUT ASCITES Qualifiers: Ascites presence: unspecified Qualified Code(s): K70.30 - Alcoholic cirrhosis of liver without ascites Assessment/Plan Current Medications Generic Name Dose Route Start Last Admin Trade Name Elian PRN Reason Stop Dose Admin Acetaminophen 650 mg 12/14/18 14:54 12/15/18 02:33 Tylenol - PO 650 mg Q4H PRN Administration FEVER Folic Acid 1 mg 12/17/18 11:45 12/17/18 11:59 Folic Acid - PO 1 mg DAILY LYNN Administration Potassium Chloride 10 meq/ 1,005 mls @ 100 mls/hr 12/16/18 14:37 12/17/18 15: 19 Sodium Chloride IVPB 100 mls/hr Q10H LYNN Administration Aztreonam 1 gm/ Dextrose 50 mls @ 100 mls/hr 12/16/18 18:30 12/17/18 14:05 IVPB Not Given Q8H-IV LYNN Protocol Lactulose 20 gm 12/17/18 18:00 Cephulac (Oral Use) PO QID LYNN Lorazepam 1 mg 12/15/18 11:28 12/17/18 11:39 Ativan Injection - IVPUSH 1 mg Q4H PRN Administration ANXIETY Lorazepam 0.5 mg 12/18/18 11:45 Ativan - PO 12/19/18 05:01 0500,1100,1700,2300 LYNN Lorazepam 0.5 mg 12/20/18 00:00 Ativan - PO 12/21/18 00:00 Q4H PRN Symptoms of Withdrawal Lorazepam 0.5 mg 12/19/18 11:00 Ativan - PO 12/19/18 11:01 ONCE ONE Lorazepam 1 mg 12/17/18 11:39 12/17/18 11:53 Ativan - PO 12/18/18 05:01 Not Given 0500,1100,1700,2300 LYNN Lorazepam 1 mg 12/17/18 11:38 12/17/18 13:28 Ativan - PO 12/19/18 23:59 1 mg Q4H PRN Administration Symptoms of Withdrawal Multivitamins/Minerals/Vitamin C 1 tab 12/15/18 10:00 12/17/18 09:16 Tab-A-Vit - PO 1 tab DAILY LYNN Administration Pantoprazole Sodium 40 mg 12/15/18 10:00 12/17/18 09:16 Protonix - PO 40 mg DAILY LYNN Administration Potassium Phos/Sodium Phos 1 packet 12/16/18 14:45 12/17/18 14:17 Phos-Nak Packet - PO 1 packet Q6H LYNN Administration Thiamine HCl 100 mg 12/17/18 11:45 12/17/18 11:59 Vitamin B1 - PO 100 mg DAILY LYNN Administration Impression 1. GERA 2. hypokalemia 3. sepsis 4. lactic acidosis 5. hypotension 6. UTI 7. liver corrhosis 8. hx of etoh abuse 9. bacteremia Plan - renal function is improved - GERA likely from sepsis - can cont fluids and monitor lytes - repeat ua next week - pt now on ativan protocol - will follow PRN
[2018-12-17] MEDS ORDERED: AZTREONAM 1 GM VIAL (RESTRICTED TO ID) ONE (17:04)
[2018-12-17] MEDS ORDERED: DEXTROSE 5%-WATER - 50 ML IVPB ONE (17:04)
[2018-12-17] MEDS: LACTULOSE 20 GM/30 ML UDC (FOR ORAL USE ONLY) PO SCH ×2 (17:12→22:22)
[2018-12-17] MEDS ORDERED: LORazepam 2 MG/ML SDV VIAL IVPUSH PRN (17:30)
[2018-12-17] MEDS ORDERED: AZTREONAM 1 GM in DEXTROSE 5%-WATER - 50 ML IVPB SCH (19:00)
--- NOTE | 2018-12-17 22:35 | PN ---
Physical Exam: SUBJECTIVE: Patient seen and examined O/N: agitated and started talking to someone that isn't present in the room. States urine isn't as yellow. Confessed that she has been drinking regularly, with the last drink being 2-3d prior to admission OBJECTIVE: Vital Signs Period Temp Pulse Resp BP Sys/Nash Pulse Ox Last 24 Hr 97.6 F-98.4 F 87-113 18-20 112-118/60-70 100 GENERAL: The patient is awake, alert, in no acute distress. HEAD: Normal with no signs of trauma. EYES: mild sclera icterus, conjunctiva clear. ENT: Ears normal, nares patent, moist mucous membranes. NECK: Trachea midline, full range of motion, supple. LUNGS: Breath sounds equal, clear to auscultation bilaterally, no wheezes, no crackles, no accessory muscle use. HEART: Regular rate and rhythm, S1, S2 without murmur, rub or gallop. ABDOMEN: Soft, nondistended, mildly tender to deep palpitation of Right suprapubic area; no guarding, no rebound EXTREMITIES: 2+ pulses, warm, well-perfused, no edema. NEUROLOGICAL: Normal speech. Tremulous at rest. Speaking rapidly to person that isn't present PSYCH: Normal mood, normal affect. SKIN: Warm, dry, normal turgor, no rashes or lesions noted Laboratory Results - last 24 hr 12/17/18 12/17/18 12/17/18 06:17 06:17 16:25 WBC 10.6 H RBC 2.59 L Hgb 8.7 L Hct 26.0 L MCV 100.3 H MCH 33.5 MCHC 33.5 RDW 18.5 H Plt Count 176 MPV 8.7 Absolute Neuts (auto) 8.1 H Neutrophils % 75.8 Lymphocytes % 10.0 D Monocytes % 12.9 H Eosinophils % 0.6 Basophils % 0.7 D Nucleated RBC % 0 Sodium 144 Potassium 4.3 Chloride 122 H Carbon Dioxide 16 L Anion Gap 7 L BUN 30.2 H Creatinine 1.2 Est GFR (CKD-EPI)AfAm 67.81 Est GFR (CKD-EPI)NonAf 58.50 Random Glucose 91 Calcium 6.7 L* Phosphorus 3.0 Magnesium 1.7 L Total Bilirubin 1.7 H Direct Bilirubin 0.9 H Ammonia 30.70 Active Medications Generic Name Dose Route Start Last Admin Trade Name Freq PRN Reason Stop Dose Admin Acetaminophen 650 mg 12/14/18 14:54 12/15/18 02:33 Tylenol - PO 650 mg Q4H PRN Administration FEVER Folic Acid 1 mg 12/17/18 11:45 12/17/18 11:59 Folic Acid - PO 1 mg DAILY JORJE Administration Potassium Chloride 10 meq/ 1,005 mls @ 100 mls/hr 12/16/18 14:37 12/17/18 15: 19 Sodium Chloride IVPB 100 mls/hr Q10H JORJE Administration Aztreonam 1 gm/ Dextrose 50 mls @ 100 mls/hr 12/16/18 18:30 12/17/18 17:11 IVPB 100 mls/hr Q8H-IV JORJE Administration Protocol Lactulose 20 gm 12/17/18 18:00 12/17/18 22:22 Cephulac (Oral Use) PO 20 gm QID JORJE Administration Lorazepam 1 mg 12/15/18 11:28 12/17/18 11:39 Ativan Injection - IVPUSH 1 mg Q4H PRN Administration ANXIETY Lorazepam 0.5 mg 12/18/18 11:45 Ativan - PO 12/19/18 05:01 0500,1100,1700,2300 JORJE Lorazepam 0.5 mg 12/20/18 00:00 Ativan - PO 12/21/18 00:00 Q4H PRN Symptoms of Withdrawal Lorazepam 0.5 mg 12/19/18 11:00 Ativan - PO 12/19/18 11:01 ONCE ONE Lorazepam 1 mg 12/17/18 11:39 12/17/18 22:22 Ativan - PO 12/18/18 05:01 1 mg 0500,1100,1700,2300 JORJE Administration Lorazepam 1 mg 12/17/18 11:38 12/17/18 13:28 Ativan - PO 12/19/18 23:59 1 mg Q4H PRN Administration Symptoms of Withdrawal Lorazepam 2 mg 12/17/18 17:30 12/17/18 17:36 Ativan Injection - IVPUSH 2 mg ONCE PRN Administration AGITATION Multivitamins/Minerals/Vitamin C 1 tab 12/15/18 10:00 12/17/18 09:16 Tab-A-Vit - PO 1 tab DAILY JORJE Administration Pantoprazole Sodium 40 mg 12/15/18 10:00 12/17/18 09:16 Protonix - PO 40 mg DAILY JORJE Administration Potassium Phos/Sodium Phos 1 packet 12/16/18 14:45 12/17/18 22:22 Phos-Nak Packet - PO 1 packet Q6H JORJE Administration Thiamine HCl 100 mg 12/17/18 11:45 12/17/18 11:59 Vitamin B1 - PO 100 mg DAILY JORJE Administration Vital Signs Temp 98.3 F 12/17/18 17:35 Pulse 113 H 12/17/18 17:35 Resp 18 12/17/18 17:35 BP 112/70 12/17/18 17:35 Pulse Ox 100 12/17/18 09:00 Intake & Output 12/16/18 12/17/18 12/17/18 23:59 11:59 23:59 Intake Total 2090 700 Balance 2090 700 Intake: IV 1700 700 IVF 1700 700 IVPB 150 Oral 240 Other: Voiding Method Toilet Toilet Toilet # Unmeasured Voids Void 3 1 3 Bowel Movement No Yes # Bowel Movements 3 ASSESSMENT/PLAN: 33F w/ pmh of cirrhosis(s/p TIPS, esophageal banding, paracentesis) presenting w / 4days of lower abdominal pain, dark urine with fever. #sepsis 2/2 to complicated UTI > CXR(12/14/18): neg > CT A/P(12/14/18): neg for acute path(s/p cholecystectomy, patent TIPS, splenomegaly, cirrhotic liver) > h/o ESBL(June 2018) in BCX and UCX > UA(12/14/18): 3+ LE, WBC 158 > UCX(12/14/18) --contaminated --rpt w/ Ecoli, cordova-sensitive > BCX(12/14/18) --E coli(cordova-sensitive) - Ertapenem and Vancomycin --dc'd as per ID - ID consult([facility]) --Meropenem day 2 --stopped --cefazolin day 3 --stopped due to concern of possible allergy --aztreonam day 4 > UCX -- Ecoli, cordova-sensitive #cirrhosis 2/2 to chronic EtOH - h/o TIPS, esophageal bands > Eveline B > RUQ US(12/14/18): heterogenous liver, patent TIPS, GB missing, mildly enlarged kidneys - continue lactulose jorje #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 - h/o daily drinking, last drink 2-3 prior to admission > ammonia ~30.7 - Ativan protocol #macrocytic anemia --likely chronic, less likely acute > baseline Hgb ~8-10 > Hgb 9.4 ->8.2-->8.7 > MCV 97, 99.3, 100.3 - trend daily Hgb #hyperbilirubinemia --likely 2/2 cirrrhosis - pt is s/p cholecystectomy > Tbil 2.8 ->1.8(direct Carlos 1.3) -->1.7(dBil 0.9) #hypocalcemia --improving > Alb 1.4 > Ca2+ 5.7, corrected ~ 7.8; corrected 8.1, corrected 8.7 - s/p calcium gluconate #GERA --likely 2/2 to sepsis > renal US(12/14/18): enlarged kidneys, no hydronephrosis > Cr baseline ~ 0.7 > Cr 3.2 -> 2.2 ->1.5 -->1.2 - IVF - encourage PO intake - Nephro Consult: --repea UA next week #unprotected sex > gonnorhea and chlamydia --neg > HIV --neg DVT ppx - heparin q8h FEN - regular diet - NS + K @100 - replete electrolytes PRN Visit type - Emergency Visit Emergency Visit: No - New Patient This patient is new to me today: No - Critical Care Critical Care patient: No ATTENDING PHYSICIAN STATEMENT I saw and evaluated the patient. I reviewed the resident's note and discussed the case with the resident. I agree with the resident's findings and plan as documented. SUBJECTIVE: OBJECTIVE: ASSESSMENT AND PLAN:
[2018-12-18] MEDS: LORazepam 2 MG/ML SDV VIAL IVPUSH PRN (00:45)
[2018-12-18] MEDS ORDERED: DEXTROSE 5%-WATER - 50 ML IVPB ONE ×3 (01:07→17:27)
[2018-12-18] MEDS ORDERED: AZTREONAM 1 GM VIAL (RESTRICTED TO ID) ONE ×3 (01:07→17:27)
[2018-12-18] MEDS ORDERED: PT OWN MED DRAWER 7, Y5N ONE ×2 (01:10→09:01)
[2018-12-18] MEDS: AZTREONAM 1 GM in DEXTROSE 5%-WATER - 50 ML IVPB SCH ×3 (01:21→17:32)
[2018-12-18] MEDS: NAPH,MB-DB/K PH,MBDB POWDER PACKET PO SCH ×4 (04:30→21:27)
[2018-12-18] MEDS: POTASSIUM CHLORIDE 10 MEQ in SODIUM CHLORIDE 1,000 ML IVPB SCH ×2 (04:30→06:24)
[2018-12-18] MEDS: LORazepam 1 MG TABLET PO SCH (06:23)
[2018-12-18 07:35] LABS: ALBUMIN 1.5 g/dl (3.4-5.0); BILIRUBIN,TOTAL 1.9 mg/dL (0.2-1); BLOOD UREA NITROGEN 21.9 mg/dL (7-18); CALCIUM 7.2 mg/dL (8.5-10.1); POTASSIUM 4.6 mmol/L (3.5-5.1); TOT PROT 5.6 g/dl (6.4-8.2)
[2018-12-18 07:40] LABS: HEMATOCRIT 24.3 % (32.4-45.2); HEMOGLOBIN 8.2 GM/dL (10.7-15.3); MCH 33.8 pg (25.7-33.7); MCHC 33.8 g/dl (32.0-36.0); MEAN CELL VOLUME 99.8 fl (80-96); MEAN PLT VOLUME 8.1 fl (7.5-11.1); PLATELET COUNT 188 K/MM3 (134-434); RBC 2.43 M/mm3 (3.60-5.2); RDW 18.5 % (11.6-15.6); WHITE BLOOD COUNT 9.8 K/mm3 (4.0-10.0)
[2018-12-18 08:00] LABS: INR 1.72 (0.83-1.09); PROTHROMBIN TIME (PATIENT) 20.4 SEC (9.7-13.0)
[2018-12-18] MEDS: LACTULOSE 20 GM/30 ML UDC (FOR ORAL USE ONLY) PO SCH ×4 (09:04→21:27)
[2018-12-18] MEDS: MULTIVITAMINS (DAILY MVI) TABLET (FP) PO SCH (09:05)
[2018-12-18] MEDS: FOLIC ACID 1 MG TABLET (FP) PO SCH (09:05)
[2018-12-18] MEDS: PANTOPRAZOLE 40 MG TABLET (FP) PO SCH (09:05)
[2018-12-18] MEDS: THIAMINE HCL 100 MG TABLET (FP) PO SCH (09:05)
[2018-12-18] MEDS: LORazepam 0.5 MG TABLET PO SCH ×3 (11:31→22:01)
[2018-12-18] MEDS: LORazepam 1 MG TABLET PO PRN (13:49)
--- NOTE | 2018-12-18 15:53 | PN ---
Progress Note, Physician History of Present Illness: Patient seen and examined at bedside patient is delerious and is giving staff a hard time and is not following directions she states she feels ok but can not give an accurate history or ROS due to withdrawals patient is actively withdrawing - Current Medication List Current Medications: Active Medications Acetaminophen (Tylenol -) 650 mg PO Q4H PRN PRN Reason: FEVER Last Admin: 12/15/18 02:33 Dose: 650 mg Folic Acid (Folic Acid -) 1 mg PO DAILY [facility] Last Admin: 12/18/18 09:05 Dose: 1 mg Aztreonam 1 gm/ Dextrose 50 mls @ 100 mls/hr IVPB Q8H-IV [facility]; Protocol Last Admin: 12/18/18 09:06 Dose: 100 mls/hr Lactulose (Cephulac (Oral Use)) 20 gm PO QID [facility] Last Admin: 12/18/18 14:00 Dose: 20 gm Lorazepam (Ativan -) 0.5 mg PO 0500,1100,1700,2300 [facility] Stop: 12/19/18 05:01 Last Admin: 12/18/18 11:31 Dose: 0.5 mg Lorazepam (Ativan -) 0.5 mg PO Q4H PRN PRN Reason: Symptoms of Withdrawal Stop: 12/21/18 00:00 Lorazepam (Ativan -) 0.5 mg PO ONCE ONE Stop: 12/19/18 11:01 Lorazepam (Ativan -) 1 mg PO Q4H PRN PRN Reason: Symptoms of Withdrawal Stop: 12/19/18 23:59 Last Admin: 12/18/18 13:49 Dose: 1 mg Lorazepam (Ativan Injection -) 2 mg IVPUSH ONCE PRN PRN Reason: AGITATION Last Admin: 12/17/18 17:36 Dose: 2 mg Multivitamins/Minerals/Vitamin C (Tab-A-Vit -) 1 tab PO DAILY [facility] Last Admin: 12/18/18 09:05 Dose: 1 tab Pantoprazole Sodium (Protonix -) 40 mg PO DAILY [facility] Last Admin: 12/18/18 09:05 Dose: 40 mg Potassium Phos/Sodium Phos (Phos-Nak Packet -) 1 packet PO Q6H [facility] Last Admin: 12/18/18 14:02 Dose: 1 packet Thiamine HCl (Vitamin B1 -) 100 mg PO DAILY [facility] Last Admin: 12/18/18 09:05 Dose: 100 mg - Objective Vital Signs: Vital Signs Temperature 98.1 F 12/18/18 08:50 Pulse Rate 104 H 12/18/18 08:50 Respiratory Rate 18 12/18/18 08:50 Blood Pressure 129/52 L 12/18/18 08:50 O2 Sat by Pulse Oximetry (%) 100 12/17/18 09:00 Constitutional: Yes: Well Nourished, Other (tremulous and withdrawing from alcohol) Eyes: Yes: Sclera Icterus (slight) HENT: Yes: Atraumatic, Normocephalic Neck: Yes: Supple Cardiovascular: Yes: Tachycardia, Murmur (3/6 systolic murmur ? if flow murmur and if secondary to a combinartion of tachycardia and anemia) Respiratory: Yes: CTA Bilaterally Gastrointestinal: Yes: Soft, Abdomen, Obese Genitourinary: Yes: Polyuria (per RN) Edema: No Neurological: Yes: Alert, Other (delerious and actively withdrawing) Labs: CBC, BMP 12/18/18 05:42 12/18/18 05:42 INR, PTT INR 1.72 (0.83-1.09) H 12/18/18 05:42 Impression/Plan Impression/Plan: 33 yof with PMhx of ETOH abuse, ETOH cirrhosis, Esophageal varices s/p banding, s/p TIPS, Prior ESBL UTI/bacteremia in 06/2018 admitted with UTI/cystitis with sepsis, GERA AMS, highly suggestive of Delirium tremens, r/o hepatic encephalopathy E coli UTI/cystitis/sepsis with bacteremia GERA, suspect hypovolumia/sepsis, CT A/P neg for obstructive process Lactic acidosis, suspect from sepsis/Dehydration Dehydration Severe hypokalemia-resolved Transaminitis, AST>ALT, suspect from ETOH use Thrombocytopenia, suspect from sepsis/cirrhosis/Splenomegaly, cannot r/o ongoing ETOH related suppression ETOH Cirrhosis with esophageal varices s/p banding, s/p TIPS Prior ESBL UTI/Bacteremia 06/2018 h/o ETOH abuse False pos test elevated INR due to liver disease Plan: Spoke with RN and [employer] certified court interpreter [id number] Confused and tremulous actively withdrawing from alcohol patient is able to hydrate herself and is urinating large volume per RN she is pulling on IVs Will stop IVF for patient safety and since creatinine is WNL now continue CIWA protocol Will place on ativan detox protocol, folate/thiamine. Detox consult, and discuss ETOH rehab when improved. ID consult noted and appreciated continue aztreonam repeat BCx no growth so far Trend daily LFts, coags for now. continue lactulose to QID standing, to be held for diarrhea. GERA resolved Visit type - Emergency Visit Emergency Visit: Yes ED Registration Date: 12/14/18 Care time: The patient presented to the Emergency Department on the above date and was hospitalized for further evaluation of their emergent condition. - New Patient This patient is new to me today: Yes Date on this admission: 12/18/18 - Critical Care Critical Care patient: No
[2018-12-19] MEDS ORDERED: DEXTROSE 5%-WATER - 50 ML IVPB ONE ×3 (01:14→16:59)
[2018-12-19] MEDS ORDERED: AZTREONAM 1 GM VIAL (RESTRICTED TO ID) ONE ×3 (01:14→16:59)
[2018-12-19] MEDS: AZTREONAM 1 GM in DEXTROSE 5%-WATER - 50 ML IVPB SCH ×3 (01:57→17:44)
[2018-12-19] MEDS: NAPH,MB-DB/K PH,MBDB POWDER PACKET PO SCH ×4 (01:57→21:30)
[2018-12-19] MEDS: LORazepam 0.5 MG TABLET PO SCH (05:56)
[2018-12-19 06:24] LABS: BASO % 0.7 % (0-2.0); EOS % 1.1 % (0-4.5); HEMATOCRIT 22.9 % (32.4-45.2); HEMOGLOBIN 7.7 GM/dL (10.7-15.3); LYMPH % 17.8 % (8-40); MCH 33.7 pg (25.7-33.7); MCHC 33.7 g/dl (32.0-36.0); MEAN CELL VOLUME 99.9 fl (80-96); MEAN PLT VOLUME 7.7 fl (7.5-11.1); MONO % 11.7 % (3.8-10.2); NEUT % 68.7 % (42.8-82.8); PLATELET COUNT 173 K/MM3 (134-434); RBC 2.29 M/mm3 (3.60-5.2); RDW 18.2 % (11.6-15.6); WHITE BLOOD COUNT 8.8 K/mm3 (4.0-10.0)
[2018-12-19 06:35] LABS: INR 1.88 (0.83-1.09); PROTHROMBIN TIME (PATIENT) 22.3 SEC (9.7-13.0)
[2018-12-19 06:48] LABS: ALBUMIN 1.5 g/dl (3.4-5.0); BILIRUBIN,TOTAL 1.8 mg/dL (0.2-1); BLOOD UREA NITROGEN 17.7 mg/dL (7-18); CALCIUM 7.3 mg/dL (8.5-10.1); MAGNESIUM 1.5 mg/dL (1.8-2.4); POTASSIUM 4.5 mmol/L (3.5-5.1); TOT PROT 5.6 g/dl (6.4-8.2)
[2018-12-19] MEDS: PANTOPRAZOLE 40 MG TABLET (FP) PO SCH (09:44)
[2018-12-19] MEDS: FOLIC ACID 1 MG TABLET (FP) PO SCH (09:44)
[2018-12-19] MEDS: THIAMINE HCL 100 MG TABLET (FP) PO SCH (09:44)
[2018-12-19] MEDS: LACTULOSE 20 GM/30 ML UDC (FOR ORAL USE ONLY) PO SCH ×4 (09:44→21:29)
[2018-12-19] MEDS: MAGNESIUM SULF 50% (8.12 MEQ/2 ML-1 GM VIAL) IVPB SCH ×2 (09:45→21:29)
[2018-12-19] MEDS: MULTIVITAMINS (DAILY MVI) TABLET (FP) PO SCH (09:45)
[2018-12-19] MEDS ORDERED: LORazepam 0.5 MG TABLET PO ONE (11:00)
[2018-12-19] MEDS: LORazepam 1 MG TABLET PO PRN (11:25)
--- NOTE | 2018-12-19 12:11 | PN ---
Teaching Attending Note Name of Resident: Siobhan Adrian ATTENDING PHYSICIAN STATEMENT I saw and evaluated the patient. I reviewed the resident's note and discussed the case with the resident. I agree with the resident's findings and plan as documented. SUBJECTIVE: Patient seen and examined at bedside with friends and family present Not as delirious and tremulous as yesterday but still tremulous Denies any symptoms. Denies nausea vomiting fever chills chest pain or SOB no longer incontinent Tbili 1.8 was 1.9 yesterday. INR up to 1.88 today patient was combative and agitated this AM but better now after family and friends came to bedside OBJECTIVE: Constitutional: Yes: Well Nourished, Other (tremulous and withdrawing from alcohol) Eyes: Yes: Sclera Icterus (slight) HENT: Yes: Atraumatic, Normocephalic Neck: Yes: Supple Cardiovascular: Yes: Tachycardia, Murmur (3/6 systolic murmur ? if flow murmur and if secondary to a combinartion of tachycardia and anemia) Respiratory: Yes: CTA Bilaterally Gastrointestinal: Yes: Soft, Abdomen, Obese Genitourinary: Yes: Polyuria (per RN) Edema: No Neurological: Yes: Alert, Other (delerious and actively withdrawing) Abnormal Lab Results 12/19/18 12/19/18 12/19/18 05:30 05:30 05:30 RBC 2.29 L Hgb 7.7 L Hct 22.9 L MCV 99.9 H RDW 18.2 H Monocytes % 11.7 H PT with INR 22.30 H INR 1.88 H Sodium 146 H Chloride 121 H Carbon Dioxide 18 L Calcium 7.3 L Magnesium 1.5 L Total Bilirubin 1.8 H Direct Bilirubin 1.0 H AST 64 H Total Protein 5.6 L Albumin 1.5 L ASSESSMENT AND PLAN: 33 yof with PMhx of ETOH abuse, ETOH cirrhosis, Esophageal varices s/p banding, s/p TIPS, Prior ESBL UTI/bacteremia in 06/2018 admitted with UTI/cystitis with sepsis, GERA AMS, highly suggestive of Delirium tremens, r/o hepatic encephalopathy E coli UTI/cystitis/sepsis with bacteremia GERA, suspect hypovolumia/sepsis, CT A/P neg for obstructive process Lactic acidosis, suspect from sepsis/Dehydration Dehydration Severe hypokalemia-resolved Transaminitis, AST>ALT, suspect from ETOH use Thrombocytopenia, suspect from sepsis/cirrhosis/Splenomegaly, cannot r/o ongoing ETOH related suppression ETOH Cirrhosis with esophageal varices s/p banding, s/p TIPS Prior ESBL UTI/Bacteremia 06/2018 h/o ETOH abuse False pos test elevated INR due to liver disease anemia Plan: less Confused and tremulous but still tremulous on movement actively withdrawing from alcohol she is pulling on IVs continue CIWA protocol Will place on ativan detox protocol, folate/thiamine. Detox consult, and discuss ETOH rehab when improved. ID consult noted and appreciated continue aztreonam per ID repeat BCx no growth so far Trend daily LFts, coags for now. continue lactulose to QID standing, to be held for diarrhea. GERA resolved-creatinine 1.0 stable patient states she is not having blood BM will check stool for occult blood to make sure she is not having GI bleed given history or varices and TIPS. depending on results may need to give vitamin K
--- NOTE | 2018-12-19 12:39 | PN ---
Physical Exam: SUBJECTIVE: Patient seen and examined this AM. Visible tremors, mildly anxious. No longer incontient. Tolerating PO. Denies any fevers, chills, nausea, vomiting , diarrhea headache or photophobia. OBJECTIVE: Vital Signs Period Temp Pulse Resp BP Sys/Nash Pulse Ox Last 24 Hr 98.1 F-98.1 F 98-101 18-20 128-134/69-73 GENERAL: A&Ox3, NAD HEAD: NCAT EYES: PERRL, EOMI ENT: Moist mucous membranes NECK: Supple LUNGS: CTAB, no wheezes, no crackles HEART: Regular rate and rhythm, S1, S2 without murmur ABDOMEN: Obese, Soft, nontender, nondistended, + bowel sounds, no guarding, no rebound EXTREMITIES: No edema NEUROLOGICAL: Awake, Alert, Tremors, CIWA 12 SKIN: Warm, dry Laboratory Results - last 24 hr 12/19/18 12/19/18 12/19/18 05:30 05:30 05:30 WBC 8.8 RBC 2.29 L Hgb 7.7 L Hct 22.9 L MCV 99.9 H MCH 33.7 MCHC 33.7 RDW 18.2 H Plt Count 173 MPV 7.7 Absolute Neuts (auto) 6.0 Neutrophils % 68.7 Lymphocytes % 17.8 D Monocytes % 11.7 H Eosinophils % 1.1 D Basophils % 0.7 Nucleated RBC % 0 PT with INR 22.30 H INR 1.88 H Sodium 146 H Potassium 4.5 Chloride 121 H Carbon Dioxide 18 L Anion Gap 8 BUN 17.7 Creatinine 1.0 Est GFR (CKD-EPI)AfAm 84.53 Est GFR (CKD-EPI)NonAf 72.93 Random Glucose 89 Calcium 7.3 L Magnesium 1.5 L Total Bilirubin 1.8 H Direct Bilirubin 1.0 H AST 64 H ALT 42 Alkaline Phosphatase 113 Total Protein 5.6 L Albumin 1.5 L Active Medications Acetaminophen (Tylenol -) 650 mg PO Q4H PRN PRN Reason: FEVER Last Admin: 12/15/18 02:33 Dose: 650 mg Folic Acid (Folic Acid -) 1 mg PO DAILY [facility] Last Admin: 12/19/18 09:44 Dose: 1 mg Aztreonam 1 gm/ Dextrose 50 mls @ 100 mls/hr IVPB Q8H-IV [facility]; Protocol Last Admin: 12/19/18 09:45 Dose: 100 mls/hr Lactulose (Cephulac (Oral Use)) 20 gm PO QID [facility] Last Admin: 12/19/18 09:44 Dose: 20 gm Lorazepam (Ativan -) 0.5 mg PO Q4H PRN PRN Reason: Symptoms of Withdrawal Stop: 12/21/18 00:00 Lorazepam (Ativan -) 1 mg PO Q4H PRN PRN Reason: Symptoms of Withdrawal Stop: 12/19/18 23:59 Last Admin: 12/19/18 11:25 Dose: 1 mg Lorazepam (Ativan Injection -) 2 mg IVPUSH ONCE PRN PRN Reason: AGITATION Last Admin: 12/17/18 17:36 Dose: 2 mg Magnesium Sulfate (Magnesium Sulfate) 2 gm IVPB BID [facility] Stop: 12/19/18 22:01 Last Admin: 12/19/18 09:45 Dose: 2 gm Multivitamins/Minerals/Vitamin C (Tab-A-Vit -) 1 tab PO DAILY [facility] Last Admin: 12/19/18 09:45 Dose: 1 tab Pantoprazole Sodium (Protonix -) 40 mg PO DAILY [facility] Last Admin: 12/19/18 09:44 Dose: 40 mg Potassium Phos/Sodium Phos (Phos-Nak Packet -) 1 packet PO Q6H [facility] Last Admin: 12/19/18 09:45 Dose: 1 packet Thiamine HCl (Vitamin B1 -) 100 mg PO DAILY [facility] Last Admin: 12/19/18 09:44 Dose: 100 mg Microbiology 12/15/18 16:15 Blood - Peripheral Venous Blood Culture - Preliminary NO GROWTH OBTAINED AFTER 72 HOURS, INCUBATION TO CONTINUE FOR 2 DAYS. 12/15/18 16:30 Blood - Peripheral Venous Blood Culture - Preliminary NO GROWTH OBTAINED AFTER 72 HOURS, INCUBATION TO CONTINUE FOR 2 DAYS. 12/14/18 08:43 Blood - Peripheral Venous Blood Culture - Final Escherichia Coli 12/14/18 08:30 Blood - Peripheral Venous Blood Culture - Final Escherichia Coli 12/15/18 12:25 Urine - Urine Clean Catch Urine Culture - Final NO GROWTH OBTAINED 12/14/18 10:05 Urine - Urine Clean Catch Urine Culture - Final Contaminated: Please Repeat ASSESSMENT/PLAN: 33 y/o F PMHx Cirrhosis (s/p TIPS, esophageal banding, paracentesis) presented with lower abdominal pain, found to be septic and in EtOH withdrawal. #Sepsis -Due to Cystitis and Bacteremia -Follow repeat blood cx's, NGTD -ID consulted, appreciate rec's -Continue Aztreonam (Abx course started on 12/14) #AMS -In the setting of EtOH withdrawal, CIWA 12 this AM -Continue Ativan protocol, MVI/Folate/Thiamine supplementation -Detox consulted #Cirrhosis with history of TIPS, esophageal bands -due to chronic EtOH use -Continue Lactulose -Trend LFTs, Coags #Macrocytic anemia -due to chronic EtOH use -Folate/B12 supplementation #Hypocalcemia, Improving -Replete with calcium gluconate #GERA, Resolved #FEN -No standing fluids -Replete lytes PRN -Regular diet #PPx -DVT: Heparin Visit type - Emergency Visit Emergency Visit: Yes ED Registration Date: 12/14/18 Care time: The patient presented to the Emergency Department on the above date and was hospitalized for further evaluation of their emergent condition. - New Patient This patient is new to me today: No - Critical Care Critical Care patient: No ATTENDING PHYSICIAN STATEMENT I saw and evaluated the patient. I reviewed the resident's note and discussed the case with the resident. I agree with the resident's findings and plan as documented. SUBJECTIVE: OBJECTIVE: ASSESSMENT AND PLAN:
[2018-12-19] MEDS: ACETAMINOPHEN 325 MG TABLET (FP) PO PRN (14:02)
[2018-12-20] MEDS ORDERED: LORazepam 0.5 MG TABLET PO PRN
[2018-12-20] MEDS: AZTREONAM 1 GM in DEXTROSE 5%-WATER - 50 ML IVPB SCH ×3 (02:12→17:22)
[2018-12-20] MEDS: NAPH,MB-DB/K PH,MBDB POWDER PACKET PO SCH ×2 (02:15→09:10)
[2018-12-20 07:28] LABS: BASO % 0.6 % (0-2.0); EOS % 1.1 % (0-4.5); HEMATOCRIT 21.2 % (32.4-45.2); HEMOGLOBIN 7.2 GM/dL (10.7-15.3); LYMPH % 16.1 % (8-40); MCHC 34.1 g/dl (32.0-36.0); MEAN CELL VOLUME 99.7 fl (80-96); MEAN PLT VOLUME 7.8 fl (7.5-11.1); MONO % 9.4 % (3.8-10.2); NEUT % 72.8 % (42.8-82.8); PLATELET COUNT 162 K/MM3 (134-434); RBC 2.13 M/mm3 (3.60-5.2); RDW 17.9 % (11.6-15.6); WHITE BLOOD COUNT 7.9 K/mm3 (4.0-10.0)
[2018-12-20 07:56] LABS: INR 1.78 (0.83-1.09); PROTHROMBIN TIME (PATIENT) 21.1 SEC (9.7-13.0)
[2018-12-20 08:00] LABS: ALBUMIN 1.5 g/dl (3.4-5.0); BILIRUBIN,TOTAL 1.7 mg/dL (0.2-1); CALCIUM 7.5 mg/dL (8.5-10.1); MAGNESIUM 1.8 mg/dL (1.8-2.4); PHOSPHOROUS 4.6 mg/dL (2.5-4.9); POTASSIUM 4.4 mmol/L (3.5-5.1); TOT PROT 5.6 g/dl (6.4-8.2)
[2018-12-20] MEDS ORDERED: AZTREONAM 1 GM VIAL (RESTRICTED TO ID) ONE ×2 (09:02→17:06)
[2018-12-20] MEDS ORDERED: DEXTROSE 5%-WATER - 50 ML IVPB ONE ×2 (09:02→17:06)
[2018-12-20] MEDS: FOLIC ACID 1 MG TABLET (FP) PO SCH (09:10)
[2018-12-20] MEDS: THIAMINE HCL 100 MG TABLET (FP) PO SCH (09:10)
[2018-12-20] MEDS: PANTOPRAZOLE 40 MG TABLET (FP) PO SCH (09:10)
[2018-12-20] MEDS: LACTULOSE 20 GM/30 ML UDC (FOR ORAL USE ONLY) PO SCH ×4 (09:10→22:15)
[2018-12-20] MEDS: MULTIVITAMINS (DAILY MVI) TABLET (FP) PO SCH (09:11)
--- NOTE | 2018-12-20 13:29 | PN ---
Progress Note, Physician History of Present Illness: Pt seen and examined at bedside. She is awake and alert. She denies shortness of breath. - Current Medication List Current Medications: Active Medications Acetaminophen (Tylenol -) 650 mg PO Q4H PRN PRN Reason: FEVER Last Admin: 12/19/18 14:02 Dose: 650 mg Folic Acid (Folic Acid -) 1 mg PO DAILY [facility] Last Admin: 12/20/18 09:10 Dose: 1 mg Aztreonam 1 gm/ Dextrose 50 mls @ 100 mls/hr IVPB Q8H-IV [facility]; Protocol Last Admin: 12/20/18 09:11 Dose: 100 mls/hr Lactulose (Cephulac (Oral Use)) 20 gm PO QID [facility] Last Admin: 12/20/18 09:10 Dose: 20 gm Lorazepam (Ativan -) 0.5 mg PO Q4H PRN PRN Reason: Symptoms of Withdrawal Stop: 12/21/18 00:00 Last Admin: 12/20/18 09:11 Dose: 0.5 mg Lorazepam (Ativan Injection -) 2 mg IVPUSH ONCE PRN PRN Reason: AGITATION Last Admin: 12/17/18 17:36 Dose: 2 mg Multivitamins/Minerals/Vitamin C (Tab-A-Vit -) 1 tab PO DAILY [facility] Last Admin: 12/20/18 09:11 Dose: 1 tab Pantoprazole Sodium (Protonix -) 40 mg PO DAILY [facility] Last Admin: 12/20/18 09:10 Dose: 40 mg Potassium Phos/Sodium Phos (Phos-Nak Packet -) 1 packet PO Q6H [facility] Last Admin: 12/20/18 09:10 Dose: 1 packet Thiamine HCl (Vitamin B1 -) 100 mg PO DAILY [facility] Last Admin: 12/20/18 09:10 Dose: 100 mg - Objective Vital Signs: Vital Signs Temperature 98.6 F 12/20/18 09:09 Pulse Rate 124 H 12/20/18 09:09 Respiratory Rate 20 12/20/18 09:09 Blood Pressure 120/70 12/20/18 09:09 O2 Sat by Pulse Oximetry (%) 100 12/17/18 09:00 Constitutional: Yes: Calm Eyes: Yes: Conjunctiva Clear HENT: Yes: Atraumatic Neck: Yes: Supple Cardiovascular: Yes: S1, S2 Respiratory: Yes: CTA Bilaterally Gastrointestinal: Yes: Soft Genitourinary: Yes: WNL Musculoskeletal: Yes: WNL Edema: No Neurological: Yes: Oriented Psychiatric: Yes: Oriented Labs: CBC, BMP 12/20/18 06:28 12/20/18 06:28 INR, PTT INR 1.78 (0.83-1.09) H 12/20/18 06:28 Problem List - Problems (1) Sepsis Code(s): A41.9 - SEPSIS, UNSPECIFIED ORGANISM (2) UTI (urinary tract infection) Code(s): N39.0 - URINARY TRACT INFECTION, SITE NOT SPECIFIED (3) Alcoholic cirrhosis Code(s): K70.30 - ALCOHOLIC CIRRHOSIS OF LIVER WITHOUT ASCITES Qualifiers: Ascites presence: unspecified Qualified Code(s): K70.30 - Alcoholic cirrhosis of liver without ascites Assessment/Plan Current Medications Generic Name Dose Route Start Last Admin Trade Name Freq PRN Reason Stop Dose Admin Acetaminophen 650 mg 12/14/18 14:54 12/19/18 14:02 Tylenol - PO 650 mg Q4H PRN Administration FEVER Folic Acid 1 mg 12/17/18 11:45 12/20/18 09:10 Folic Acid - PO 1 mg DAILY [facility] Administration Aztreonam 1 gm/ Dextrose 50 mls @ 100 mls/hr 12/16/18 18:30 12/20/18 09:11 IVPB 100 mls/hr Q8H-IV [facility] Administration Protocol Lactulose 20 gm 12/17/18 18:00 12/20/18 09:10 Cephulac (Oral Use) PO 20 gm QID [facility] Administration Lorazepam 0.5 mg 12/20/18 00:00 12/20/18 09:11 Ativan - PO 12/21/18 00:00 0.5 mg Q4H PRN Administration Symptoms of Withdrawal Lorazepam 2 mg 12/17/18 17:30 12/17/18 17:36 Ativan Injection - IVPUSH 2 mg ONCE PRN Administration AGITATION Multivitamins/Minerals/Vitamin C 1 tab 12/15/18 10:00 12/20/18 09:11 Tab-A-Vit - PO 1 tab DAILY [facility] Administration Pantoprazole Sodium 40 mg 12/15/18 10:00 12/20/18 09:10 Protonix - PO 40 mg DAILY [facility] Administration Potassium Phos/Sodium Phos 1 packet 12/16/18 14:45 12/20/18 09:10 Phos-Nak Packet - PO 1 packet Q6H [facility] Administration Thiamine HCl 100 mg 12/17/18 11:45 12/20/18 09:10 Vitamin B1 - PO 100 mg DAILY [facility] Administration Impression 1. GERA 2. hypokalemia 3. sepsis 4. lactic acidosis 5. hypotension 6. UTI 7. liver corrhosis 8. hx of etoh abuse 9. bacteremia Plan - encourage PO intake - repeat labs in a - can stop phos supplements - repeat ua
--- NOTE | 2018-12-20 14:22 | PN ---
Progress Note (short form) - Note Progress Note: remains tremulous no fevers no rash Vital Signs Period Temp Pulse Resp BP Sys/Nash Pulse Ox Last 24 Hr 98.2 F-98.7 F 88-124 20-20 120-130/70-77 cor-rrr lungs clear abd soft,nt ext no edema bilateral inguinal fungal rash CBC, BMP 12/20/18 06:28 12/20/18 06:28 Microbiology 12/15/18 16:15 Blood - Peripheral Venous Blood Culture - Preliminary NO GROWTH OBTAINED AFTER 96 HOURS, INCUBATION TO CONTINUE FOR 1 DAYS. 12/15/18 16:30 Blood - Peripheral Venous Blood Culture - Preliminary NO GROWTH OBTAINED AFTER 96 HOURS, INCUBATION TO CONTINUE FOR 1 DAYS. 12/14/18 08:43 Blood - Peripheral Venous Blood Culture - Final Escherichia Coli 12/14/18 08:30 Blood - Peripheral Venous Blood Culture - Final Escherichia Coli 12/15/18 12:25 Urine - Urine Clean Catch Urine Culture - Final NO GROWTH OBTAINED 12/14/18 10:05 Urine - Urine Clean Catch Urine Culture - Final Contaminated: Please Repeat Current Medications Acetaminophen (Tylenol -) 650 mg PO Q4H PRN PRN Reason: FEVER Last Admin: 12/19/18 14:02 Dose: 650 mg Folic Acid (Folic Acid -) 1 mg PO DAILY [facility] Last Admin: 12/20/18 09:10 Dose: 1 mg Aztreonam 1 gm/ Dextrose 50 mls @ 100 mls/hr IVPB Q8H-IV [facility]; Protocol Last Admin: 12/20/18 09:11 Dose: 100 mls/hr Lactulose (Cephulac (Oral Use)) 20 gm PO QID [facility] Last Admin: 12/20/18 09:10 Dose: 20 gm Lorazepam (Ativan -) 0.5 mg PO Q4H PRN PRN Reason: Symptoms of Withdrawal Stop: 12/21/18 00:00 Last Admin: 12/20/18 09:11 Dose: 0.5 mg Lorazepam (Ativan Injection -) 2 mg IVPUSH ONCE PRN PRN Reason: AGITATION Last Admin: 12/17/18 17:36 Dose: 2 mg Multivitamins/Minerals/Vitamin C (Tab-A-Vit -) 1 tab PO DAILY [facility] Last Admin: 12/20/18 09:11 Dose: 1 tab Pantoprazole Sodium (Protonix -) 40 mg PO DAILY [facility] Last Admin: 12/20/18 09:10 Dose: 40 mg Thiamine HCl (Vitamin B1 -) 100 mg PO DAILY [facility] Last Admin: 12/20/18 09:10 Dose: 100 mg imp/reccd probable DTs-remains tremulous ecoli bacteremia- secondary to UTI-day #6 antiibiotics, doubt betalactam rash, continue azactam fungal rash- start lotrimin cream GERA- resolved history of liver cirrhosis with TIPS prolonged qtc prior history of ecoli ESBL bacteremia 07/18-contact isolation
[2018-12-20 15:40] LABS: HEMATOCRIT 20.7 % (32.4-45.2); MCH 33.3 pg (25.7-33.7); MCHC 33.2 g/dl (32.0-36.0); MEAN CELL VOLUME 100.5 fl (80-96); MEAN PLT VOLUME 7.5 fl (7.5-11.1); PLATELET COUNT 159 K/MM3 (134-434); RBC 2.06 M/mm3 (3.60-5.2); RDW 17.9 % (11.6-15.6); WHITE BLOOD COUNT 7.9 K/mm3 (4.0-10.0)
[2018-12-20 15:45] LABS: HEMOGLOBIN 6.9 GM/dL (10.7-15.3)
[2018-12-20 17:20] LABS: EPI CELLS 0.6 /HPF (0-5/HPF); HYALINE CASTS 0 /lpf (0-8); URINE APPEARANCE CLEAR; URINE BACTERIA 15.1 /hpf (NEGATIVE); URINE BILIRUBIN NEGATIVE (NEGATIVE); URINE COLOR YELLOW; URINE GLUCOSE (UA) NEGATIVE (NEGATIVE); URINE KETONE NEGATIVE (NEGATIVE); URINE LEUK ESTERASE NEGATIVE (NEGATIVE); URINE NITRITE NEGATIVE (NEGATIVE); URINE PROTEIN NEGATIVE (NEGATIVE); URINE RBC 21 /hpf (0-4); URINE UROBILINOGEN 0.2 mg/dL (0.2-1.0); URINE WBC 5 /hpf (0-5)
[2018-12-20] MEDS ORDERED: PT OWN MED DRAWER 7, Y5N ONE ×2 (17:21→22:16)
--- NOTE | 2018-12-20 17:37 | PN ---
Teaching Attending Note Name of Resident: Avinash Mares ATTENDING PHYSICIAN STATEMENT I saw and evaluated the patient. I reviewed the resident's note and discussed the case with the resident. I agree with the resident's findings and plan as documented. SUBJECTIVE: Patient has no complaints. OBJECTIVE: Vital Signs Period Temp Pulse Resp BP Sys/Nash Pulse Ox Last 24 Hr 98.4 F-98.7 F 88-124 20-20 120-130/70-75 HEART: S1S2, RRR LUNGS: Clear ABDOMEN: Soft, non-tender, non-distended, normal BS EXTREMITIES: No edema Laboratory Results - last 24 hr 12/20/18 12/20/18 12/20/18 06:28 06:28 06:28 WBC 7.9 RBC 2.13 L Hgb 7.2 L Hct 21.2 L MCV 99.7 H MCH 34.0 H MCHC 34.1 RDW 17.9 H Plt Count 162 MPV 7.8 Absolute Neuts (auto) 5.8 Neutrophils % 72.8 Lymphocytes % 16.1 Monocytes % 9.4 Eosinophils % 1.1 Basophils % 0.6 Nucleated RBC % 0 Retic Count PT with INR 21.10 H INR 1.78 H Sodium 145 Potassium 4.4 Chloride 119 H Carbon Dioxide 20 L Anion Gap 6 L BUN 13.0 Creatinine 1.0 Est GFR (CKD-EPI)AfAm 84.53 Est GFR (CKD-EPI)NonAf 72.93 Random Glucose 87 Calcium 7.5 L Phosphorus 4.6 Magnesium 1.8 Iron TIBC Iron Saturation Unsaturated IBC Ferritin Total Bilirubin 1.7 H AST 52 H ALT 37 Alkaline Phosphatase 107 Total Protein 5.6 L Albumin 1.5 L Stool Occult Blood 12/20/18 12/20/18 12/20/18 10:30 14:25 14:25 WBC 7.9 RBC 2.06 L Hgb 6.9 L* Hct 20.7 L MCV 100.5 H MCH 33.3 MCHC 33.2 RDW 17.9 H Plt Count 159 MPV 7.5 Absolute Neuts (auto) Neutrophils % Lymphocytes % Monocytes % Eosinophils % Basophils % Nucleated RBC % Retic Count 1.90 H D PT with INR INR Sodium Potassium Chloride Carbon Dioxide Anion Gap BUN Creatinine Est GFR (CKD-EPI)AfAm Est GFR (CKD-EPI)NonAf Random Glucose Calcium Phosphorus Magnesium Iron 61 TIBC 199 L Iron Saturation 30 Unsaturated IBC 138 L Ferritin 273.0 Total Bilirubin AST ALT Alkaline Phosphatase Total Protein Albumin Stool Occult Blood Negative Current Medications Generic Name Dose Route Start Last Admin Trade Name Freq PRN Reason Stop Dose Admin Acetaminophen 650 mg 12/14/18 14:54 12/19/18 14:02 Tylenol - PO 650 mg Q4H PRN Administration FEVER Clotrimazole 1 applic 12/20/18 14:22 Lotrimin 1% Cream - TP BID [facility] Folic Acid 1 mg 12/17/18 11:45 12/20/18 09:10 Folic Acid - PO 1 mg DAILY [facility] Administration Aztreonam 1 gm/ Dextrose 50 mls @ 100 mls/hr 12/16/18 18:30 12/20/18 09:11 IVPB 100 mls/hr Q8H-IV [facility] Administration Protocol Lactulose 20 gm 12/17/18 18:00 12/20/18 14:54 Cephulac (Oral Use) PO 20 gm QID [facility] Administration Lorazepam 0.5 mg 12/20/18 00:00 12/20/18 09:11 Ativan - PO 12/21/18 00:00 0.5 mg Q4H PRN Administration Symptoms of Withdrawal Lorazepam 2 mg 12/17/18 17:30 12/17/18 17:36 Ativan Injection - IVPUSH 2 mg ONCE PRN Administration AGITATION Multivitamins/Minerals/Vitamin C 1 tab 12/15/18 10:00 12/20/18 09:11 Tab-A-Vit - PO 1 tab DAILY [facility] Administration Pantoprazole Sodium 40 mg 12/15/18 10:00 12/20/18 09:10 Protonix - PO 40 mg DAILY [facility] Administration Thiamine HCl 100 mg 12/17/18 11:45 12/20/18 09:10 Vitamin B1 - PO 100 mg DAILY [facility] Administration ASSESSMENT AND PLAN: This is a 33 year old woman with a history of cirrhosis with esophageal varices , variceal banding, TIPS, alcohol abuse who presented to the ED with suprapubic pain. 1. Severe sepsis secondary to E. coli bacteremia, likely UTI - Blood cultures (12/14) growing sensitive E. coli - Blood cultures (12/15) negative after 5 days - Continue Aztreonam 2. Delirium tremens - Improved 3. Alcohol withdrawal - Continue Ativan as needed 4. Continuous alcohol dependence - Continue thiamine, folic acid, multivitamin 5. Alcoholic cirrhosis with esophageal varices, history of banding, TIPS - Continue Lactulose 6. Thrombocytopenia - Resolved 7. Hepatic transaminitis - Secondary to alcohol - Improved 8. Anemia - Likely secondary to sepsis, alcohol - No evidence of bleeding - Transfuse 1 unit PRBCs - Monitor hemoglobin 9. Coagulopathy secondary to liver disease 10. Acute kidney injury - Resolved 11. Dehydration/hypovolemia - Resolved 12. Hypokalemia - Resolved 13. Hypomagnesemia - Resolved
[2018-12-20] MEDS: CLOTRIMAZOLE 1% CREAM 15 GM TUBE TP SCH ×2 (17:57→22:15)
--- NOTE | 2018-12-20 18:08 | PN ---
Physical Exam: SUBJECTIVE: Patient seen and examined NAEON. Endorses improvement in tremors. Denies abd pain, dysuria. OBJECTIVE: Vital Signs Period Temp Pulse Resp BP Sys/Nash Pulse Ox Last 24 Hr 98.4 F-98.7 F 88-124 20-20 120-130/70-75 GENERAL: The patient is awake, alert, in no acute distress. HEAD: Normal with no signs of trauma. EYES: mild sclera icterus, conjunctiva clear. ENT: Ears normal, nares patent, moist mucous membranes. NECK: Trachea midline, full range of motion, supple. LUNGS: Breath sounds equal, clear to auscultation bilaterally, no wheezes, no crackles, no accessory muscle use. HEART: Regular rate and rhythm, S1, S2 without murmur, rub or gallop. ABDOMEN: Soft, nondistended, no tenderness to palpitation of suprapubic area; no guarding, no rebound EXTREMITIES: 2+ pulses, warm, well-perfused, no edema. NEUROLOGICAL: Normal speech. Tremulous at rest. Normal speech PSYCH: Normal mood, normal affect. SKIN: Warm, dry, normal turgor, no rashes or lesions noted Laboratory Results - last 24 hr 12/20/18 12/20/18 12/20/18 06:28 06:28 06:28 WBC 7.9 RBC 2.13 L Hgb 7.2 L Hct 21.2 L MCV 99.7 H MCH 34.0 H MCHC 34.1 RDW 17.9 H Plt Count 162 MPV 7.8 Absolute Neuts (auto) 5.8 Neutrophils % 72.8 Lymphocytes % 16.1 Monocytes % 9.4 Eosinophils % 1.1 Basophils % 0.6 Nucleated RBC % 0 Retic Count PT with INR 21.10 H INR 1.78 H Sodium 145 Potassium 4.4 Chloride 119 H Carbon Dioxide 20 L Anion Gap 6 L BUN 13.0 Creatinine 1.0 Est GFR (CKD-EPI)AfAm 84.53 Est GFR (CKD-EPI)NonAf 72.93 Random Glucose 87 Calcium 7.5 L Phosphorus 4.6 Magnesium 1.8 Iron TIBC Iron Saturation Unsaturated IBC Ferritin Total Bilirubin 1.7 H AST 52 H ALT 37 Alkaline Phosphatase 107 Total Protein 5.6 L Albumin 1.5 L Urine Color Urine Appearance Urine pH Ur Specific Paxton Urine Protein Urine Glucose (UA) Urine Ketones Urine Blood Urine Nitrite Urine Bilirubin Urine Urobilinogen Ur Leukocyte Esterase Urine WBC (Auto) Urine RBC (Auto) Urine Casts (Auto) U Epithel Cells (Auto) Urine Bacteria (Auto) Stool Occult Blood Crossmatch 12/20/18 12/20/18 12/20/18 10:30 14:25 14:25 WBC 7.9 RBC 2.06 L Hgb 6.9 L* Hct 20.7 L MCV 100.5 H MCH 33.3 MCHC 33.2 RDW 17.9 H Plt Count 159 MPV 7.5 Absolute Neuts (auto) Neutrophils % Lymphocytes % Monocytes % Eosinophils % Basophils % Nucleated RBC % Retic Count 1.90 H D PT with INR INR Sodium Potassium Chloride Carbon Dioxide Anion Gap BUN Creatinine Est GFR (CKD-EPI)AfAm Est GFR (CKD-EPI)NonAf Random Glucose Calcium Phosphorus Magnesium Iron 61 TIBC 199 L Iron Saturation 30 Unsaturated IBC 138 L Ferritin 273.0 Total Bilirubin AST ALT Alkaline Phosphatase Total Protein Albumin Urine Color Urine Appearance Urine pH Ur Specific Pa[place] Urine Protein Urine Glucose (UA) Urine Ketones Urine Blood Urine Nitrite Urine Bilirubin Urine Urobilinogen Ur Leukocyte Esterase Urine WBC (Auto) Urine RBC (Auto) Urine Casts (Auto) U Epithel Cells (Auto) Urine Bacteria (Auto) Stool Occult Blood Negative Crossmatch 12/20/18 12/20/18 16:15 16:35 WBC RBC Hgb Hct MCV MCH MCHC RDW Plt Count MPV Absolute Neuts (auto) Neutrophils % Lymphocytes % Monocytes % Eosinophils % Basophils % Nucleated RBC % Retic Count PT with INR INR Sodium Potassium Chloride Carbon Dioxide Anion Gap BUN Creatinine Est GFR (CKD-EPI)AfAm Est GFR (CKD-EPI)NonAf Random Glucose Calcium Phosphorus Magnesium Iron TIBC Iron Saturation Unsaturated IBC Ferritin Total Bilirubin AST ALT Alkaline Phosphatase Total Protein Albumin Urine Color Yellow Urine Appearance Clear Urine pH 5.0 Ur Specific Pa[place] 1.012 Urine Protein Negative Urine Glucose (UA) Negative Urine Ketones Negative Urine Blood 3+ H Urine Nitrite Negative Urine Bilirubin Negative Urine Urobilinogen 0.2 Ur Leukocyte Esterase Negative Urine WBC (Auto) 5 Urine RBC (Auto) 21 Urine Casts (Auto) 0 U Epithel Cells (Auto) 0.6 Urine Bacteria (Auto) 15.1 Stool Occult Blood Crossmatch See Detail Active Medications Generic Name Dose Route Start Last Admin Trade Name Freq PRN Reason Stop Dose Admin Acetaminophen 650 mg 12/14/18 14:54 12/19/18 14:02 Tylenol - PO 650 mg Q4H PRN Administration FEVER Clotrimazole 1 applic 12/20/18 14:22 Lotrimin 1% Cream - TP BID JORJE Folic Acid 1 mg 12/17/18 11:45 12/20/18 09:10 Folic Acid - PO 1 mg DAILY JORJE Administration Aztreonam 1 gm/ Dextrose 50 mls @ 100 mls/hr 12/16/18 18:30 12/20/18 17:22 IVPB 100 mls/hr Q8H-IV JORJE Administration Protocol Lactulose 20 gm 12/17/18 18:00 12/20/18 17:22 Cephulac (Oral Use) PO 20 gm QID JORJE Administration Lorazepam 0.5 mg 12/20/18 00:00 12/20/18 09:11 Ativan - PO 12/21/18 00:00 0.5 mg Q4H PRN Administration Symptoms of Withdrawal Lorazepam 2 mg 12/17/18 17:30 12/17/18 17:36 Ativan Injection - IVPUSH 2 mg ONCE PRN Administration AGITATION Multivitamins/Minerals/Vitamin C 1 tab 12/15/18 10:00 12/20/18 09:11 Tab-A-Vit - PO 1 tab DAILY JORJE Administration Pantoprazole Sodium 40 mg 12/15/18 10:00 12/20/18 09:10 Protonix - PO 40 mg DAILY JORJE Administration Thiamine HCl 100 mg 12/17/18 11:45 12/20/18 09:10 Vitamin B1 - PO 100 mg DAILY JORJE Administration Vital Signs Temp 98.4 F 12/20/18 13:00 Pulse 92 H 12/20/18 13:00 Resp 20 12/20/18 13:00 BP 122/70 12/20/18 13:00 Pulse Ox 100 12/17/18 09:00 Intake & Output 12/19/18 12/20/18 12/20/18 23:59 11:59 23:59 Intake Total 350 50 Balance 350 50 Intake: IVPB 350 50 Other: Voiding Method Toilet Incontinent # Unmeasured Voids Void 3 1 Bowel Movement No No ASSESSMENT/PLAN: 33F w/ pmh of cirrhosis(s/p TIPS, esophageal banding, paracentesis) presenting w / 4days of lower abdominal pain, dark urine with fever. #sepsis 2/2 to complicated UTI > CXR(12/14/18): neg > CT A/P(12/14/18): neg for acute path(s/p cholecystectomy, patent TIPS, splenomegaly, cirrhotic liver) > h/o ESBL(June 2018) in BCX and UCX > UA(12/14/18): 3+ LE, WBC 158 > UCX(12/14/18) --contaminated --rpt w/ Ecoli, cordova-sensitive > BCX(12/14/18) --E coli(cordova-sensitive) - Ertapenem and Vancomycin --dc'd as per ID - ID consult([facility]) --Meropenem day 2 --stopped --cefazolin day 3 --stopped due to concern of possible allergy --aztreonam day 7 of abx > UCX -- Ecoli, cordova-sensitive #cirrhosis 2/2 to chronic EtOH - h/o TIPS, esophageal bands > Eveline B > RUQ US(12/14/18): heterogenous liver, patent TIPS, GB missing, mildly enlarged kidneys - continue lactulose jorje #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 - h/o daily drinking, last drink 2-3 prior to admission > ammonia ~30.7 - Ativan protocol --finished 12/20/18 #macrocytic anemia --likely chronic, less likely acute > baseline Hgb ~8-10 > reticulocyte count ~ 1.9 > Hgb 9.4 ->8.2-->8.7--> 6.9 > transferrin sat ~30% > MCV 97, 99.3, 100.3 - transfuse pRBC x1 - trend daily Hgb #inguinal rash -lotrimin cream #hyperbilirubinemia --likely 2/2 cirrrhosis - pt is s/p cholecystectomy > Tbil 2.8 ->1.8(direct Carlos 1.3) -->1.7(dBil 0.9) #hypocalcemia --improving > Alb 1.4 > Ca2+ 5.7, corrected ~ 7.8; corrected 8.1, corrected 8.7 - s/p calcium gluconate #GERA --likely 2/2 to sepsis > renal US(12/14/18): enlarged kidneys, no hydronephrosis > Cr baseline ~ 0.7 > Cr 3.2 -> 2.2 ->1.5 ->1.2--> 1.0 - encourage PO intake - Nephro Consult: --repeat UA: 3+blood, neg LE, neg nitrite #unprotected sex > gonnorhea and chlamydia --neg > HIV --neg DVT ppx - heparin q8h FEN - regular diet - replete electrolytes PRN Visit type - Emergency Visit Emergency Visit: No - New Patient This patient is new to me today: No - Critical Care Critical Care patient: No ATTENDING PHYSICIAN STATEMENT I saw and evaluated the patient. I reviewed the resident's note and discussed the case with the resident. I agree with the resident's findings and plan as documented. SUBJECTIVE: OBJECTIVE: ASSESSMENT AND PLAN:
[2018-12-21] MEDS ORDERED: AZTREONAM 1 GM VIAL (RESTRICTED TO ID) ONE ×2 (01:07→09:28)
[2018-12-21] MEDS ORDERED: DEXTROSE 5%-WATER - 50 ML IVPB ONE ×2 (01:07→09:28)
[2018-12-21] MEDS: AZTREONAM 1 GM in DEXTROSE 5%-WATER - 50 ML IVPB SCH ×2 (01:24→09:33)
[2018-12-21 08:07] LABS: HEMATOCRIT 26.7 % (32.4-45.2); HEMOGLOBIN 8.7 GM/dL (10.7-15.3); MCH 31.9 pg (25.7-33.7); MCHC 32.8 g/dl (32.0-36.0); MEAN CELL VOLUME 97.4 fl (80-96); MEAN PLT VOLUME 7.8 fl (7.5-11.1); PLATELET COUNT 183 K/MM3 (134-434); RBC 2.74 M/mm3 (3.60-5.2); WHITE BLOOD COUNT 8.5 K/mm3 (4.0-10.0)
[2018-12-21 08:19] LABS: INR 1.86 (0.83-1.09); PROTHROMBIN TIME (PATIENT) 22.1 SEC (9.7-13.0)
[2018-12-21 08:22] LABS: ALBUMIN 1.5 g/dl (3.4-5.0); BILIRUBIN,TOTAL 1.8 mg/dL (0.2-1); BLOOD UREA NITROGEN 11.8 mg/dL (7-18); CALCIUM 7.4 mg/dL (8.5-10.1); MAGNESIUM 1.4 mg/dL (1.8-2.4); PHOSPHOROUS 4.1 mg/dL (2.5-4.9); POTASSIUM 3.8 mmol/L (3.5-5.1); TOT PROT 5.7 g/dl (6.4-8.2)
[2018-12-21 08:47] VITALS: BP 120/50; PULSE 76; TEMP 98.9
[2018-12-21] MEDS: THIAMINE HCL 100 MG TABLET (FP) PO SCH (09:33)
[2018-12-21] MEDS: FOLIC ACID 1 MG TABLET (FP) PO SCH (09:33)
[2018-12-21] MEDS: PANTOPRAZOLE 40 MG TABLET (FP) PO SCH (09:33)
[2018-12-21] MEDS: LACTULOSE 20 GM/30 ML UDC (FOR ORAL USE ONLY) PO SCH ×2 (09:33→13:58)
[2018-12-21] MEDS: MULTIVITAMINS (DAILY MVI) TABLET (FP) PO SCH (09:33)
[2018-12-21] MEDS: CLOTRIMAZOLE 1% CREAM 15 GM TUBE TP SCH (09:34)
[2018-12-21] MEDS ORDERED: MAGNESIUM SULF 50% (8.12 MEQ/2 ML-1 GM VIAL) IVPB ONE (10:00)
--- NOTE | 2018-12-21 13:42 | PN ---
Progress Note, Physician History of Present Illness: Pt seen and examined at bedside. She is awake and alert. She denies shortness of breath. - Current Medication List Current Medications: Active Medications Acetaminophen (Tylenol -) 650 mg PO Q4H PRN PRN Reason: FEVER Last Admin: 12/19/18 14:02 Dose: 650 mg Clotrimazole (Lotrimin 1% Cream -) 1 applic TP BID LYNN Last Admin: 12/21/18 09:34 Dose: 1 applic Folic Acid (Folic Acid -) 1 mg PO DAILY LYNN Last Admin: 12/21/18 09:33 Dose: 1 mg Aztreonam 1 gm/ Dextrose 50 mls @ 100 mls/hr IVPB Q8H-IV LYNN; Protocol Last Admin: 12/21/18 09:33 Dose: 100 mls/hr Lactulose (Cephulac (Oral Use)) 20 gm PO QID LYNN Last Admin: 12/21/18 09:33 Dose: 20 gm Lorazepam (Ativan Injection -) 2 mg IVPUSH ONCE PRN PRN Reason: AGITATION Last Admin: 12/17/18 17:36 Dose: 2 mg Multivitamins/Minerals/Vitamin C (Tab-A-Vit -) 1 tab PO DAILY LYNN Last Admin: 12/21/18 09:33 Dose: 1 tab Pantoprazole Sodium (Protonix -) 40 mg PO DAILY LYNN Last Admin: 12/21/18 09:33 Dose: 40 mg Thiamine HCl (Vitamin B1 -) 100 mg PO DAILY LYNN Last Admin: 12/21/18 09:33 Dose: 100 mg - Objective Vital Signs: Vital Signs Temperature 98.9 F 12/21/18 08:46 Pulse Rate 76 12/21/18 08:46 Respiratory Rate 18 12/21/18 08:46 Blood Pressure 120/50 L 12/21/18 08:46 O2 Sat by Pulse Oximetry (%) 100 12/17/18 09:00 Constitutional: Yes: Calm Eyes: Yes: Conjunctiva Clear Cardiovascular: Yes: S1, S2 Respiratory: Yes: CTA Bilaterally Gastrointestinal: Yes: Soft Genitourinary: Yes: WNL Musculoskeletal: Yes: WNL Edema: No Neurological: Yes: Oriented Psychiatric: Yes: Oriented Labs: CBC, BMP 12/21/18 07:30 12/21/18 07:30 INR, PTT INR 1.86 (0.83-1.09) H 12/21/18 07:30 Problem List - Problems (1) Sepsis Code(s): A41.9 - SEPSIS, UNSPECIFIED ORGANISM (2) UTI (urinary tract infection) Code(s): N39.0 - URINARY TRACT INFECTION, SITE NOT SPECIFIED (3) Alcoholic cirrhosis Code(s): K70.30 - ALCOHOLIC CIRRHOSIS OF LIVER WITHOUT ASCITES Qualifiers: Ascites presence: unspecified Qualified Code(s): K70.30 - Alcoholic cirrhosis of liver without ascites Assessment/Plan Current Medications Generic Name Dose Route Start Last Admin Trade Name Freq PRN Reason Stop Dose Admin Acetaminophen 650 mg 12/14/18 14:54 12/19/18 14:02 Tylenol - PO 650 mg Q4H PRN Administration FEVER Clotrimazole 1 applic 12/20/18 14:22 12/21/18 09:34 Lotrimin 1% Cream - TP 1 applic BID LYNN Administration Folic Acid 1 mg 12/17/18 11:45 12/21/18 09:33 Folic Acid - PO 1 mg DAILY LYNN Administration Aztreonam 1 gm/ Dextrose 50 mls @ 100 mls/hr 12/16/18 18:30 12/21/18 09:33 IVPB 100 mls/hr Q8H-IV LYNN Administration Protocol Lactulose 20 gm 12/17/18 18:00 12/21/18 09:33 Cephulac (Oral Use) PO 20 gm QID LYNN Administration Lorazepam 2 mg 12/17/18 17:30 12/17/18 17:36 Ativan Injection - IVPUSH 2 mg ONCE PRN Administration AGITATION Multivitamins/Minerals/Vitamin C 1 tab 12/15/18 10:00 12/21/18 09:33 Tab-A-Vit - PO 1 tab DAILY LYNN Administration Pantoprazole Sodium 40 mg 12/15/18 10:00 12/21/18 09:33 Protonix - PO 40 mg DAILY LYNN Administration Thiamine HCl 100 mg 12/17/18 11:45 12/21/18 09:33 Vitamin B1 - PO 100 mg DAILY LYNN Administration Laboratory Tests 12/20/18 16:15 Urine Protein Negative Urine Glucose (UA) Negative Urine Ketones Negative Urine Blood 3+ H Laboratory Tests 12/20/18 16:15 Urine Bacteria (Auto) 15.1 Impression 1. GERA 2. hypokalemia 3. sepsis 4. lactic acidosis 5. hypotension 6. UTI 7. liver cirrhosis 8. hx of etoh abuse 9. bacteremia 10. hypernatremia mild Plan - encourage free water intake - sodium mildly elevated - replace mag - can follow in office - recommends that goes to [facility] as well - reviewed repeat ua, will check again as outpt after uti fully treated
--- NOTE | 2018-12-21 14:20 | PN ---
Progress Note (short form) - Note Progress Note: no fevers no rash feels well Vital Signs Period Temp Pulse Resp BP Sys/Nash Pulse Ox Last 24 Hr 98.5 F-98.9 F 69-78 18-20 120-132/50-77 cor-rrr lungs clear abd soft,nt no inguinal rash- much improved ext no edema imp/reccd ecoli bacteremia- secondary to UTI-day #7 antiibiotics, d/w dr grace- no renal objection to bactrim- suggest bactrim ds one po bid for 7 days f/u with her PMD fungal rash- start lotrimin cream GERA- resolved history of liver cirrhosis with TIPS prolonged qtc-cannot use quinolones s/p DTS prior history of ecoli ESBL bacteremia 07/18-contact isolation
[2018-12-21] MEDS ORDERED: LORazepam 0.5 MG TABLET PO ONE (14:30)
--- NOTE | 2018-12-21 18:11 | PN ---
Teaching Attending Note Name of Resident: Avinash Mares ATTENDING PHYSICIAN STATEMENT I saw and evaluated the patient. I reviewed the resident's note and discussed the case with the resident. I agree with the resident's findings and plan as documented. SUBJECTIVE: OBJECTIVE: Last Vital Signs Temp Pulse Resp BP Pulse Ox 98.9 F 76 18 120/50 L 100 12/21/18 08:46 12/21/18 08:46 12/21/18 08:46 12/21/18 08:46 12/17/18 09:00 HEENT - Atraumatic, Normocephalic. Heart - SI, S2, SM Lungs - clear to auscultation Abdomen - Soft, non-tender. Bowel Sounds normal. Extremities - no edema, no calf tenderness. Laboratory Results - last 24 hr 12/18/18 12/20/18 12/21/18 05:42 16:35 07:30 WBC RBC Hgb Hct MCV MCH MCHC RDW Plt Count MPV PT with INR INR Sodium 146 H Potassium 3.8 Chloride 117 H Carbon Dioxide 22 Anion Gap 7 L BUN 11.8 Creatinine 1.0 Est GFR (CKD-EPI)AfAm 84.53 Est GFR (CKD-EPI)NonAf 72.93 Random Glucose 90 Calcium 7.4 L Phosphorus 4.1 Magnesium 1.4 L Total Bilirubin 1.8 H AST 51 H ALT 33 Alkaline Phosphatase 105 Total Protein 5.7 L Albumin 1.5 L TSH 1.93 Zinc 51 L Blood Type O POSITIVE Antibody Screen Negative Crossmatch See Detail 12/21/18 12/21/18 07:30 07:30 WBC 8.5 RBC 2.74 L Hgb 8.7 L Hct 26.7 L D MCV 97.4 H MCH 31.9 MCHC 32.8 RDW 20.0 H Plt Count 183 MPV 7.8 PT with INR 22.10 H INR 1.86 H Sodium Potassium Chloride Carbon Dioxide Anion Gap BUN Creatinine Est GFR (CKD-EPI)AfAm Est GFR (CKD-EPI)NonAf Random Glucose Calcium Phosphorus Magnesium Total Bilirubin AST ALT Alkaline Phosphatase Total Protein Albumin TSH Zinc Blood Type Antibody Screen Crossmatch Discharge Medications Medication Instructions Recorded Multivitamins [Multivit ([facility] 1 tab PO DAILY #30 tab 07/30/18 Formulary)] Pantoprazole Sodium [Protonix -] 40 mg PO DAILY #30 tablet.ec 07/30/18 Folic Acid - 1 mg PO DAILY #30 tablet 12/21/18 Sulfamethoxazole/Trimethoprim 1 tab PO BID #14 tablet 12/21/18 [Bactrim Ds -] Thiamine HCl [Vitamin B1 -] 100 mg PO DAILY #30 tablet 12/21/18 ASSESSMENT AND PLAN:
--- NOTE | 2018-12-21 19:45 | DS ---
Physical Exam: SUBJECTIVE: Patient seen and examined OBJECTIVE: Vital Signs Period Temp Pulse Resp BP Sys/Nash Pulse Ox Last 24 Hr 98.5 F-98.9 F 69-78 18-20 120-132/50-77 PHYSICAL EXAM GENERAL: The patient is awake, alert, and fully oriented, in no acute distress. HEAD: Normal with no signs of trauma. EYES: PERRL, extraocular movements intact, sclera anicteric, conjunctiva clear. ENT: Ears normal, nares patent, oropharynx clear without exudates, moist mucous membranes. NECK: Trachea midline, full range of motion, supple. LUNGS: Breath sounds equal, clear to auscultation bilaterally, no wheezes, no crackles, no accessory muscle use. HEART: Regular rate and rhythm, S1, S2 without murmur, rub or gallop. ABDOMEN: Soft, nontender, nondistended, normoactive bowel sounds, no guarding, no rebound, no hepatosplenomegaly, no masses. EXTREMITIES: 2+ pulses, warm, well-perfused, no edema. NEUROLOGICAL: Cranial nerves II through XII grossly intact. Normal speech, gait not observed. PSYCH: Normal mood, normal affect. SKIN: Warm, dry, normal turgor, no rashes or lesions noted. LABS Laboratory Results - last 24 hr 12/18/18 12/21/18 12/21/18 05:42 07:30 07:30 WBC 8.5 RBC 2.74 L Hgb 8.7 L Hct 26.7 L D MCV 97.4 H MCH 31.9 MCHC 32.8 RDW 20.0 H Plt Count 183 MPV 7.8 PT with INR INR Sodium 146 H Potassium 3.8 Chloride 117 H Carbon Dioxide 22 Anion Gap 7 L BUN 11.8 Creatinine 1.0 Est GFR (CKD-EPI)AfAm 84.53 Est GFR (CKD-EPI)NonAf 72.93 Random Glucose 90 Calcium 7.4 L Phosphorus 4.1 Magnesium 1.4 L Total Bilirubin 1.8 H AST 51 H ALT 33 Alkaline Phosphatase 105 Total Protein 5.7 L Albumin 1.5 L TSH 1.93 Zinc 51 L 12/21/18 07:30 WBC RBC Hgb Hct MCV MCH MCHC RDW Plt Count MPV PT with INR 22.10 H INR 1.86 H Sodium Potassium Chloride Carbon Dioxide Anion Gap BUN Creatinine Est GFR (CKD-EPI)AfAm Est GFR (CKD-EPI)NonAf Random Glucose Calcium Phosphorus Magnesium Total Bilirubin AST ALT Alkaline Phosphatase Total Protein Albumin TSH Zinc HOSPITAL COURSE: Date of Admission:12/14/18 Date of Discharge: 12/21/18 Discharge Summary Problems reviewed: Yes Reason For Visit: UTI,SEPSIS Condition: Improved - Instructions Diet, Activity, Other Instructions: Your visit You were admitted to the hospital because you were found to have an infection in your blood. You were treated with IV antibiotics. You were also found to have a kidney injury and you were seen by the kidney doctor. This was likely caused by the infection and is now improved. Please avoid medications that can damage the kidneys such as Ibuprofen. Medications Please take the following medications as prescribed. 1. Bactrim DS 1 tab twice a day for 7 days. 2. Folic acid 1 mg daily. 3. Thiamine 100mg daily. Follow up -Please follow up with the land leveler (Dr. Trujillo) within 2 weeks to monitor your kidney function. -Please follow up with your primary care doctor within 1 week. You can follow up at the resident medical clinic at [facility]. Please call [phone] to schedule an appointment with Dr. Marc. Additional info -Please call [phone] or go the ED if with any worsening fever, chills, headache, dizziness, chest pain, shortness of breath, abdominal pain, diarrhea, or any new concerns noted. Referrals: [facility] [place] [Provider Group] Jann Trujillo MD [Staff Physician] - Disposition: HOME - Home Medications Comprehensive Discharge Medication List: Ambulatory Orders Multivitamins [Multivit ([facility] Formulary)] 1 tab PO DAILY #30 tab 07/30/18 Pantoprazole Sodium [Protonix -] 40 mg PO DAILY #30 tablet.ec 07/30/18 Folic Acid - 1 mg PO DAILY #30 tablet 12/21/18 Sulfamethoxazole/Trimethoprim [Bactrim Ds -] 1 tab PO BID #14 tablet 12/21/18 Thiamine HCl [Vitamin B1 -] 100 mg PO DAILY #30 tablet 12/21/18 ATTENDING PHYSICIAN STATEMENT I saw and evaluated the patient. I reviewed the resident's note and discussed the case with the resident. I agree with the resident's findings and plan as documented. SUBJECTIVE: OBJECTIVE: ASSESSMENT AND PLAN:
== END 2018-12-21 15:05 | disposition home or self-care (01) | DRG 720 ==
LOC: JER 07:52 → JERBED 13:33 → J8W 20:48
PROVIDERS: ADMIT Hospitalist
DX: A41.50 Gram-negative sepsis, unspecified (principal); N39.0 Urinary tract infection, site not specified; R00.0 Tachycardia, unspecified; E87.2 Acidosis; F10.230 Alcohol dependence with withdrawal, uncomplicated; D72.829 Elevated white blood cell count, unspecified; G93.49 Other encephalopathy; D69.6 Thrombocytopenia, unspecified; N17.9 Acute kidney failure, unspecified; R94.31 Abnormal electrocardiogram [ECG] [EKG]; E87.6 Hypokalemia; E83.42 Hypomagnesemia; E86.1 Hypovolemia; R41.82 Altered mental status, unspecified; I95.9 Hypotension, unspecified; D68.9 Coagulation defect, unspecified; E86.0 Dehydration; E66.8 Other obesity; K70.30 Alcoholic cirrhosis of liver without ascites; R16.1 Splenomegaly, not elsewhere classified; E83.51 Hypocalcemia; R01.1 Cardiac murmur, unspecified; E80.6 Other disorders of bilirubin metabolism; R21 Rash and other nonspecific skin eruption; E87.0 Hyperosmolality and hypernatremia; R18.8 Other ascites; Z16.12 Extended spectrum beta lactamase (ESBL) resistance; Z68.31 Body mass index [BMI] 31.0-31.9, adult
CPT/HCPCS: 36415; 36430; 36511; 71045-TC-FY; 74176-TC; 76705-TC; 76775-TC; 76817-TC; 76856-TC; 80048; 80053; 80076; 81003; 82040; 82140; 82150; 82247; 82248; 82272; 82436; 82550; 82553; 82565; 82728; 82977; 83540; 83550; 83605; 83690; 83735; 84100; 84133; 84300; 84443; 84484; 84630; 84702; 84703; 85025; 85027; 85044; 85610; 85730; 86850; 86900; 86901; 86922; 87040; 87086; 87186; 87389; 87491; 87591; 93005; 93010; 99283-25; G0480; J7030; P9038; P9058

== ENCOUNTER 2019-10-24 11:13 | Inpatient (IN) | payer OTHER ==
--- NOTE | 2019-10-24 11:33 | PDOC ---
History of Present Illness - General Chief Complaint: Pain Stated Complaint: ABD PAIN/FEVER Time Seen by Provider: 10/24/19 11:32 - History of Present Illness Initial Comments: 10/24/19 11:33 history of ETOH cirrhosis and esophogeal varicies Past History - Medical History Allergies/Adverse Reactions: Allergies Allergy/AdvReac Type Severity Reaction Status Date / Time No Known Drug Allergies Allergy Verified 12/14/18 08:03 cefazolin AdvReac Mild Itching Verified 12/21/18 10:42 Home Medications: Ambulatory Orders Multivitamins [Multivit ([facility] Formulary)] 1 tab PO DAILY #30 tab 07/30/18 Pantoprazole Sodium [Protonix -] 40 mg PO DAILY #30 tablet.ec 07/30/18 Folic Acid - 1 mg PO DAILY #30 tablet 12/21/18 Sulfamethoxazole/Trimethoprim [Bactrim Ds -] 1 tab PO BID #14 tablet 12/21/18 Thiamine HCl [Vitamin B1 -] 100 mg PO DAILY #30 tablet 12/21/18 Asthma: No Cancer: No Cardiac Disorders: No COPD: No Diabetes: No HTN: No Liver Disease: Yes (Alcoholic cirrhosis) Seizures: No Thyroid Disease: No - Surgical History Cardiac Surgery: No Cholecystectomy: Yes - Reproductive History Is Patient Now?: No - Immunization History Immunization Up to Date: No - Psycho-Social/Smoking History Smoking History: Never smoked Have you smoked in the past 12 months: No - Substance Abuse Hx (Audit-C & DAST Scrn) How often the patient has a drink containing alcohol: 4 0r more times/wk Number of drinks the patient has on a typical day: 3 or 4 Score: In Men: 4 or > Positive; In Women: 3 or > Positive: 5 Screen Result (Pos requires Nsg. Audit-10AR): Positive In the last yr the pt used illegal drug/Rx for NonMed reason: No Score: Yes response is considered Positive: 0 Screen Result (Positive result requires Nsg. DAST-10): Negative *Physical Exam - Vital Signs Last Vital Signs Temp Pulse Resp BP Pulse Ox 100.4 F H 109 H 20 112/59 L 100 10/24/19 11:21 10/24/19 11:21 10/24/19 11:21 10/24/19 11:21 10/24/19 11:21
--- NOTE | 2019-10-24 11:41 | PDOC ---
History of Present Illness - General Chief Complaint: Pain Stated Complaint: ABD PAIN/FEVER Time Seen by Provider: 10/24/19 11:32 History Source: Patient Exam Limitations: No Limitations - History of Present Illness Initial Comments: 10/24/19 11:38 34YOF with h/o long-standing alcohol use disorder with EtOH cirrhosis and esophogeal varicies s/p banding, who p/w constant epigastric and LUQ pain for the past 4 days, jaundice, NBNB episodes x4 per day, and altered mental status/ confusion. States her last drink was 5 days ago (had about 6 beers), denies any other substance use. Denies any chest pain, dysuria, hematuria, flank pain. She denies ever having EtOH withdrawal seizures or other withdrawal complications. Past History - Medical History Allergies/Adverse Reactions: Allergies Allergy/AdvReac Type Severity Reaction Status Date / Time No Known Drug Allergies Allergy Verified 10/24/19 12:58 cefazolin AdvReac Mild Itching Verified 10/24/19 12:58 Home Medications: Ambulatory Orders Unobtainable 10/24/19 Asthma: No Cancer: No Cardiac Disorders: No COPD: No Diabetes: No HTN: No Liver Disease: Yes (Alcoholic cirrhosis) Seizures: No Thyroid Disease: No - Surgical History Cardiac Surgery: No Cholecystectomy: Yes - Reproductive History Is Patient Now?: No - Immunization History Immunization Up to Date: No - Psycho-Social/Smoking History Smoking History: Never smoked Have you smoked in the past 12 months: No - Substance Abuse Hx (Audit-C & DAST Scrn) How often the patient has a drink containing alcohol: 4 0r more times/wk Number of drinks the patient has on a typical day: 3 or 4 Score: In Men: 4 or > Positive; In Women: 3 or > Positive: 5 Screen Result (Pos requires Nsg. Audit-10AR): Positive In the last yr the pt used illegal drug/Rx for NonMed reason: No Score: Yes response is considered Positive: 0 Screen Result (Positive result requires Nsg. DAST-10): Negative Review of Systems - Review of Systems Able to Perform ROS?: Yes Comments:: 10/24/19 11:43 GEN: fever, chills, malaise, generalized weakness HEENT: no ear pain, congestion, sore throat, vision change, or eye pain CV: no chest pain, palpitations, lightheadedness, syncope, or edema RESP: no SOB, wheezing, or cough GI: abdominal pain, nausea, no vomiting, diarrhea, constipation, or rectal bleed : no dysuria, hematuria, or discharge MSK: no muscle weakness or pain, no joint swelling or pain NEURO: no headache, vertigo, numbness, tingling, or focal weakness PSYCH: no SI, HI, or behavior change SKIN: jaundice, unexplained bruises, no rash, or lesions ROS otherwise negative except as noted in HPI *Physical Exam - Vital Signs Last Vital Signs Temp Pulse Resp BP Pulse Ox 100.4 F H 109 H 20 112/59 L 100 10/24/19 11:21 10/24/19 11:21 10/24/19 11:21 10/24/19 11:21 10/24/19 11:21 - Physical Exam 10/24/19 11:41 GENERAL: ill-appearing and jaundiced adult female, A/Ox4, no distress, appears a bit confused and provides some slightly bizarre answers to questions HEENT: scleral icterus and jaundiced face, PERRLA, EOMI, moist mucous membranes NECK/BACK: no midline ttp, no spinal step-off or deformity, no hematoma, full ROM, neck supple CARDIOVASCULAR: regular rate/rhythm, no MGR, strong peripheral pulses, capillary refill 3 seconds, extremities wwp, no edema LUNGS/RESPIRATORY: no respiratory distress, CTAB GI/ABDOMEN: symmetric omke-up-ajac, normoactive BS, soft, +epigastric and LUQ>RUQ ttp, no midline pulsatile masses : no CVA tenderness MSK/EXTREMITIES: no muscle atrophy, no acute deformity SKIN: +jaundice and pathologic-appearing bruising, no petechiae, warm and dry, no pallor, no rash, no skin breakdown, no cuts, no lesions NEUROLOGICAL: +resting tremor, +asterixis, GCS 15, CN II-XII grossly intact, 5/5 strength proximally and distally, no facial droop Heart Score/ECG Review #1 Sinus rhythm, rate 87, normal axis, QTc 483, no ischemic ST-T changes ED Treatment Course - LABORATORY CBC & Chemistry Diagram: 10/26/19 06:07 10/26/19 06:07 Medical Decision Making - Critical Care Time Total Critical Care Time (minutes): 35 Critical Care Statement: The care of this patient involved high complexity decision making to prevent further life threatening deterioration of the patient's condition and/or to evaluate & treat vital organ system(s) failure or risk of failure. - Medical Decision Making 10/24/19 11:44 34YOF with h/o heavy alcohol use p/w jaundice, upper abdominal pain, tremors, fever. Initial Vital Signs Temp Pulse Resp BP Pulse Ox 100.4 F H 109 H 20 112/59 L 100 10/24/19 11:21 10/24/19 11:21 10/24/19 11:21 10/24/19 11:21 10/24/19 11:21 DDX IBNLT: most likely alcoholic gastritis or pancreatitis as cause of abdominal pain, less likely biliary pathology as patient had cholecystectomy in 2013. Possible EtOH intoxication, withdrawal (w/wo seizures), DT, hepatic encephalopathy, ICH, UGIB (can cause AMS), LGIB, SBP, metabolic derangement, coingestion, hepatorenal syndrome, hepatopulmonary syndrome, Wernickes encephalopathy, Korsakoff syndrome, trauma, etc. Provider Orders Category Date Time Status VENOUS BLOOD GAS Stat ABG 10/24/19 11:35 Completed Decision to Admit to Hospital Routine Admission 10/24/19 13:52 Active TYPE AND SCREEN Stat Blood Bank 10/24/19 11:35 Completed ABDOMEN & PELVIS CT WITH CONTR [CT] Stat CT Scan 10/24/19 13:44 Completed ELECTROCARDIOGRAM [CARD] Stat Cardiology 10/24/19 11:48 Ordered Cardiac Monitoring Continuous Care 10/24/19 11:48 Active EKG needed NOW Care 10/24/19 11:49 Completed Finger Stick [BGM (Blood Glucose Monitoring)] NOW Care 10/24/19 11:37 Active IV - Insert 2 lines NOW Care 10/24/19 11:48 Completed Notify Physician As directed Care 10/24/19 11:48 Active Notify Physician As directed Care 10/24/19 11:48 Active Physician Instructions As directed Care 10/24/19 11:48 Active Vital Signs Q1H Care 10/24/19 11:48 Active ACETAMINOPHEN Stat Lab 10/24/19 11:35 Completed ALCOHOL Stat Lab 10/24/19 11:35 Completed AMMONIA (NH4) Stat Lab 10/24/19 11:35 Completed CBC WITH DIFFERENTIAL Stat Lab 10/24/19 11:35 Completed CK INDEX Stat Lab 10/24/19 11:35 Completed CK MB Stat Lab 10/24/19 11:35 Completed COMP METABOLIC PANEL Stat Lab 10/24/19 11:35 Completed CPK Stat Lab 10/24/19 11:35 Completed DRUG SCREEN,UR ER- [facility] Stat Lab 10/24/19 12:28 Ordered HEPATITIS ACUTE PANEL Stat Lab 10/24/19 12:28 Ordered LACTIC ACID Stat Lab 10/24/19 11:35 Completed LACTIC ACID Stat Lab 10/24/19 15:48 Uncollected LIPASE Stat Lab 10/24/19 11:35 Completed MAGNESIUM Stat Lab 10/24/19 11:35 Completed PHOSPHOROUS Stat Lab 10/24/19 11:35 Completed PT & APTT Stat Lab 10/24/19 11:35 Completed RBC MORPH Stat Lab 10/24/19 11:35 Completed SALICYLATE Stat Lab 10/24/19 11:35 Completed SERUM TEST Stat Lab 10/24/19 11:35 Completed TROPONIN I ([facility]) Stat Lab 10/24/19 11:35 Completed UA ([facility]) ONLY Stat Lab 10/24/19 12:28 Ordered Folic Acid Injection - 1 mg Medication 10/24/19 13:47 Active Thiamine HCl [Vitamin B1 Injection -] 100 mg Multivit Injection Adult [Infuvite Adult -] 10 ml Sodium Chloride [Normal Saline -] 988.8 ml IVPB ONCE Ketorolac Injection [Toradol Injection -] Medication 10/24/19 14:00 Discontinued 30 mg IVPUSH ONCE ONE Lorazepam Injection [Ativan Injection -] Medication 10/24/19 13:53 Discontinued 2 mg IVPUSH ONCE ONE Sodium Chloride [Normal Saline -] 2,449 ml Medication 10/24/19 11:48 Discontinued IV ONCE BLOOD CULTURE Stat Micro 10/24/19 11:35 Received URINE CULTURE Stat Micro 10/24/19 12:28 Ordered Saline Lock, Insert As directed Phy Order 10/24/19 11:48 Ordered CHEST X-RAY PORTABLE* [RAD] Stat Radiology 10/24/19 11:48 Completed Oxygen Therapy Nasal Cannula 2 lpm Neurosurgical Physician Assistant 10/24/19 11:48 Ordered Medications Generic Name Dose Route Start Last Admin Trade Name Freq PRN Reason Stop Dose Admin Folic Acid 1 mg/ Thiamine HCl 1,000 mls @ 125 mls/hr 10/24/19 13:47 100 mg/ Multivitamins/Minerals IVPB 10/24/19 21:46 10 ml/ Sodium Chloride ONCE ONE Discontinued Medications Generic Name Dose Route Start Last Admin Trade Name Elian PRN Reason Stop Dose Admin Sodium Chloride 2,449 mls @ 1,224.5 mls/hr 10/24/19 11:48 10/24/19 12:21 Normal Saline - 30 ml/kg infuse over 2 hr (2449 ml) 10/24/19 13:47 1,224.5 mls/hr IV Administration ONCE ONE Ketorolac Tromethamine 30 mg 10/24/19 14:00 Toradol Injection - IVPUSH 10/24/19 14:01 ONCE ONE Lorazepam 2 mg 10/24/19 13:53 Ativan Injection - IVPUSH 10/24/19 13:54 ONCE ONE Lab Results WBC 4.2 K/mm3 (4.0-10.0) 10/24/19 11:35 RBC 2.80 M/mm3 (3.60-5.2) L 10/24/19 11:35 Hgb 10.9 GM/dL (10.7-15.3) 10/24/19 11:35 Hct 32.5 % (32.4-45.2) D 10/24/19 11:35 MCV 116.2 fl (80-96) H 10/24/19 11:35 MCH 38.8 pg (25.7-33.7) H D 10/24/19 11:35 MCHC 33.4 g/dl (32.0-36.0) 10/24/19 11:35 RDW 16.8 % (11.6-15.6) H 10/24/19 11:35 Plt Count 58 K/MM3 (134-434) L D 10/24/19 11:35 MPV 9.9 fl (7.5-11.1) D 10/24/19 11:35 Absolute Neuts (auto) 2.8 K/mm3 (1.5-8.0) 10/24/19 11:35 Total Counted 100 10/24/19 11:35 Neutrophils % 67.2 % (42.8-82.8) 10/24/19 11:35 Neutrophils % (Manual) 67.0 % (42.8-82.8) 10/24/19 11:35 Band Neutrophils % 16.0 % 10/24/19 11:35 Lymphocytes % 11.4 % (8-40) D 10/24/19 11:35 Lymphocytes % (Manual) 8.0 % (8-40) D 10/24/19 11:35 Monocytes % 20.9 % (3.8-10.2) H D 10/24/19 11:35 Monocytes % (Manual) 9 % (3.8-10.2) 10/24/19 11:35 Eosinophils % 0.1 % (0-4.5) D 10/24/19 11:35 Basophils % 0.4 % (0-2.0) 10/24/19 11:35 Nucleated RBC % 0 % (0-0) 10/24/19 11:35 Hypochromia 1+ 10/24/19 11:35 Platelet Estimate Decreased 10/24/19 11:35 Platelet Comment Large platelets 10/24/19 11:35 Basophilic Stippling 1+ 10/24/19 11:35 Tear Drop Cells 1+ 10/24/19 11:35 Ovalocytes 1+ 10/24/19 11:35 PT with INR 35.80 SEC (9.7-13.0) H 10/24/19 11:35 INR 3.00 (0.83-1.09) H 10/24/19 11:35 PTT (Actin FS) 47.0 SECONDS (25.2-36.5) H 10/24/19 11:35 VBG pH 7.431 (7.310-7.410) H 10/24/19 11:35 POC VBG pCO2 37.1 mmHg (38-52) L 10/24/19 11:35 POC VBG pO2 21.4 mmHg (28-48) L 10/24/19 11:35 VBG HCO3 24.1 mmol/L (23-29) 10/24/19 11:35 VBG O2 Sat (Maris) 37.9 % (70-80) L 10/24/19 11:35 VBG Base Excess 0 mmol/L (-2-2) 10/24/19 11:35 Sodium 135 mmol/L (136-145) L 10/24/19 11:35 Potassium 3.2 mmol/L (3.5-5.1) L 10/24/19 11:35 Chloride 101 mmol/L (98-107) 10/24/19 11:35 Carbon Dioxide 20 mmol/L (21-32) L 10/24/19 11:35 Anion Gap 14 MMOL/L (8-16) 10/24/19 11:35 BUN 9.1 mg/dL (7-18) 10/24/19 11:35 Creatinine 1.1 mg/dL (0.55-1.3) 10/24/19 11:35 Est GFR (CKD-EPI)AfAm 74.80 10/24/19 11:35 Est GFR (CKD-EPI)NonAf 64.54 10/24/19 11:35 Random Glucose 119 mg/dL (74-106) H 10/24/19 11:35 Lactic Acid 2.6 mmol/L (0.4-2.0) H* 10/24/19 11:35 Calcium 7.0 mg/dL (8.5-10.1) L 10/24/19 11:35 Phosphorus 2.2 mg/dL (2.5-4.9) L 10/24/19 11:35 Magnesium 1.4 mg/dL (1.8-2.4) L 10/24/19 11:35 Total Bilirubin 4.6 mg/dL (0.2-1) H 10/24/19 11:35 AST 120 U/L (15-37) H 10/24/19 11:35 ALT 28 U/L (13-61) 10/24/19 11:35 Alkaline Phosphatase 109 U/L (45-117) 10/24/19 11:35 Ammonia 40.80 umol/L (11-32) H 10/24/19 11:35 Creatine Kinase 330 U/L (26-192) H 10/24/19 11:35 Creatine Kinase Index 0.3 % (0.0-5.0) 10/24/19 11:35 CK-MB (CK-2) 1.1 ng/mL (0.5-3.6) 10/24/19 11:35 CK-MB (CK-2) Cancelled 10/24/19 11:35 Troponin I < 0.02 ng/ml (0.00-0.05) 10/24/19 11:35 Total Protein 7.2 g/dl (6.4-8.2) 10/24/19 11:35 Albumin 2.0 g/dl (3.4-5.0) L 10/24/19 11:35 Lipase 329 U/L (73-393) 10/24/19 11:35 Serum , Qual Negative 10/24/19 11:35 Salicylates < 1.7 mg/dL (2.8-20) L 10/24/19 11:35 Acetaminophen < 2.0 ug/ml 10/24/19 11:35 Alcohol, Quantitative < 3 mg/dL (0.0-5.0) 10/24/19 11:35 Blood Type O POSITIVE 10/24/19 11:35 Antibody Screen Negative 10/24/19 11:35 RAD/CHEST X-RAY PORTABLE* Chest: Sepsis Single view of the chest is submitted. Since 12/14/2018 again noted is the large heart. There are clear lungs, normal vernon and normal aorta. The angles are sharp. The bones and soft tissues are intact. The prior exam of 12/14/2018 the increased lung markings have resolved. Impression: No acute chest pathology. Correlation recommended. CT/ABDOMEN PELVIS CT WITH CONTR HISTORY PROVIDED: Epigastric pain TECHNIQUE: Sequential axial images were obtained from the domes of the diaphragm through the symphysis pubis following the administration of intravenous contrast material. The study is markedly limited due to excessive motion artifact. The lung bases are clear. The liver is normal in size. It is hypodense in texture consistent with diffuse fatty infiltration. No mass lesions identified within the liver. There is a TIPS shunt within the liver. Evaluation of shunt patency cannot be determined on this limited study. A follow-up sonogram may be helpful to assess shunt patency. The spleen is enlarged measuring 14.8 cm in c raniocaudad dimension. The pancreas, adrenal glands and kidneys demonstrate no gross abnormalities. There is no evidence of intra-abdominal or retroperitoneal lymphadenopathy or fluid collections. Examination of the pelvis demonstrates no evidence of pelvic masses, fluid collections or lymphadenopathy. There is a small amount of free fluid within the dependent portion of the pelvis. There is no evidence of acute bony pathology. IMPRESSION: 1. Diffuse fatty infiltration of the liver with TIPS shunt consistent with advanced hepatocellular disease. 2. Free pelvic fluid. 3. No evidence of acute pathology within the abdomen and pelvis. Markedly limited study as described above. 10/24/19 15:26 The Pt is unsafe for discharge at this time given high-risk history and multiple lab abnormalities and continued abdominal pain. They require further hospital observation, workup, and treatment. Patient denies having a PCP or GI doctor currently. Admission to hospitalist. 10/24/19 15:[address] Nunez, patient's admission is to Dr. Bullock to [facility]. Discharge - Discharge Information Problems reviewed: Yes Clinical Impression/Diagnosis: Jaundice, Alcoholic liver disease, Abdominal pain, Hypokalemia, Macrocytic anemia, Abnormal INR, Hypomagnesemia, Hyperammonemia, Prolonged QT interval Condition: Guarded Disposition: AGAINST MEDICAL ADVICE - Admission Yes - Follow up/Referral - Patient Discharge Instructions - Post Discharge Activity
[2019-10-24] MEDS ORDERED: SODIUM CHLORIDE 2,449 ML IV ONE (11:48)
[2019-10-24 12:10] LABS: PROTHROMBIN TIME (PATIENT) 35.8 SEC (9.7-13.0)
[2019-10-24 12:57] LABS: BASO % 0.4 % (0-2.0); EOS % 0.1 % (0-4.5); HEMATOCRIT 32.5 % (32.4-45.2); HEMOGLOBIN 10.9 GM/dL (10.7-15.3); LYMPH % 11.4 % (8-40); MCH 38.8 pg (25.7-33.7); MCHC 33.4 g/dl (32.0-36.0); MEAN CELL VOLUME 116.2 fl (80-96); MEAN PLT VOLUME 9.9 fl (7.5-11.1); MONO % 20.9 % (3.8-10.2); NEUT % 67.2 % (42.8-82.8); PLATELET COUNT 58 K/MM3 (134-434); RDW 16.8 % (11.6-15.6); WHITE BLOOD COUNT 4.2 K/mm3 (4.0-10.0)
[2019-10-24 12:59] LABS: VENOUS O2 SATURATION 37.9 % (70-80); VENOUS PCO2 37.1 mmHg (38-52); VENOUS PH 7.431 (7.310-7.410)
[2019-10-24 13:24] LABS: ALK PHOS 109 U/L (45-117); ANION GAP 14 MMOL/L (8-16); BILIRUBIN,TOTAL 4.6 mg/dL (0.2-1); BLOOD UREA NITROGEN 9.1 mg/dL (7-18); CHLORIDE 101 mmol/L (98-107); CO2 20 mmol/L (21-32); CREATININE 1.1 mg/dL (0.55-1.3); GLUCOSE,RANDOM 119 mg/dL (74-106); LIPASE 329 U/L (73-393); MAGNESIUM 1.4 mg/dL (1.8-2.4); PHOSPHOROUS 2.2 mg/dL (2.5-4.9); POTASSIUM 3.2 mmol/L (3.5-5.1); SGOT/AST 120 U/L (15-37); SGPT/ALT 28 U/L (13-61); SODIUM 135 mmol/L (136-145); TOT PROT 7.2 g/dl (6.4-8.2)
[2019-10-24] MEDS ORDERED: FOLIC ACID INJECTION - 1 MG, THIAMINE HCL 100 MG, MULTIVIT INJECTION ADULT 10 ML in SOD... IVPB ONE (13:47)
[2019-10-24] MEDS ORDERED: KETOROLAC TROMETHAMINE 30 MG/1 ML VIAL IVPUSH ONE (14:00)
[2019-10-24 15:10] LABS: OVALOCYTE 1+; TEAR DROP CELLS 1+
[2019-10-24 15:11] LABS: PLATELET ESTIMATE DECREASED
[2019-10-24] MEDS ORDERED: KETOROLAC TROMETHAMINE 30 MG/1 ML VIAL ONE (15:38)
[2019-10-24] MEDS ORDERED: LORazepam 2 MG/ML SDV VIAL ONE (15:38)
--- NOTE | 2019-10-24 17:15 | HP ---
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 Pt is a poor historian. Majority of history taken from EMR and ED staff. 33F w/ pmh of cirrhosis (s/p TIPS @ [facility] ~4 years ago, esophageal banding, paracentesis) presents in the ED with complaints of mid-abdominal and LUQ abdominal pain since last . During interview, she is awake and alert, however responds to every other question that is asked. States she started feeling the abd pain after eating sweet potato. She denies fever/chills, but did admit to nausea and vomiting. She denies constipation/diarrhea or blood bowel movements. Also denies bloody vomit. She states she had a procedure done about 4 years ago at [facility] to "protect her liver and pancreas". She also denies ever having an EGD or colonoscopy done, however per EMR, she had esophageal variceal banding done on 04/2018. She seems to have been lost to follow up with a foster care social worker at [facility] as she denies following up with any doctor currently. She also denies taking any medications. States she drinks about 5 bottles of beer a day, her last drink was last Thursday. ER course was notable for: (1) Temp 100.4, HR 109, MCV 116, Pl 58, INR 3, K 3.2, Lac 2.6, BCx/UCx ordered, Phos 2.2, Mg 1.4, Amm 40.8, CPK 330 (2) IV Ativan, Banana bag, IV NS and IV Toradol given (3) CXR neg, CTAP +diffuse fatty liver infiltration w/ TIPS shunt c/w advanced hepatocellular disease, free pelvic fluid, no evid of acute pathology Recent Travel: Denies PAST MEDICAL HISTORY: As per HPI PAST SURGICAL HISTORY: Esophageal variceal banding ? TIPS Social History: Smoking: Denies Alcohol: Drinks about 5 beers a day Drugs: Denies Allergies No Known Drug Allergies Allergy (Verified 10/24/19 12:58) cefazolin Adverse Reaction (Mild, Verified 10/24/19 12:58) Itching 12/16/18 @1650. SUSPECTED ADR TO CEFAZOLIN. RX: MILD: ITCHING. BENADRYL 25 MG PO GIVEN. CEFAZOLIN DC HOME MEDICATIONS: Home Medications Medication Instructions Recorded Multivitamins [Multivit ([facility] 1 tab PO DAILY #30 tab 07/30/18 Formulary)] Pantoprazole Sodium [Protonix -] 40 mg PO DAILY #30 tablet.ec 07/30/18 Folic Acid - 1 mg PO DAILY #30 tablet 12/21/18 Sulfamethoxazole/Trimethoprim 1 tab PO BID #14 tablet 12/21/18 [Bactrim Ds -] Thiamine HCl [Vitamin B1 -] 100 mg PO DAILY #30 tablet 12/21/18 REVIEW OF SYSTEMS Limited ROS as pt was uncooperative during interview. PHYSICAL EXAMINATION Vital Signs - 24 hr 10/24/19 11:21 Temperature 100.4 F H Pulse Rate 109 H Respiratory 20 Rate Blood Pressure 112/59 L O2 Sat by Pulse 100 Oximetry (%) GENERAL: Awake and alert, oriented to person. NAD. HEENT: AT/NC. EOMI. Scleral icterus. NECK: Normal range of motion, supple without lymphadenopathy, JVD, or masses. LUNGS: CTA B/L. no wheezes/rales noted. HEART: RRR. normal S1, S2. No murmurs noted. ABDOMEN: Obese. Soft, NT/ND. Normoactive bowel sounds. No masses, rebound tenderness or guarding noted. Well-healed surgical scars. MUSCULOSKELETAL: Normal range of motion at all joints. No bony deformities or tenderness. No CVA tenderness. EXTREMITIES: No peripheral edema noted. SKIN: Warm, dry, normal turgor, no rashes or lesions noted, normal capillary refill. CBCD WBC 4.2 K/mm3 (4.0-10.0) 10/24/19 11:35 RBC 2.80 M/mm3 (3.60-5.2) L 10/24/19 11:35 Hgb 10.9 GM/dL (10.7-15.3) 10/24/19 11:35 Hct 32.5 % (32.4-45.2) D 10/24/19 11:35 MCV 116.2 fl (80-96) H 10/24/19 11:35 MCH 38.8 pg (25.7-33.7) H D 10/24/19 11:35 MCHC 33.4 g/dl (32.0-36.0) 10/24/19 11:35 RDW 16.8 % (11.6-15.6) H 10/24/19 11:35 Plt Count 58 K/MM3 (134-434) L D 10/24/19 11:35 MPV 9.9 fl (7.5-11.1) D 10/24/19 11:35 Absolute Neuts (auto) 2.8 K/mm3 (1.5-8.0) 10/24/19 11:35 Total Counted 100 10/24/19 11:35 Neutrophils % 67.2 % (42.8-82.8) 10/24/19 11:35 Neutrophils % (Manual) 67.0 % (42.8-82.8) 10/24/19 11:35 Band Neutrophils % 16.0 % 10/24/19 11:35 Lymphocytes % 11.4 % (8-40) D 10/24/19 11:35 Lymphocytes % (Manual) 8.0 % (8-40) D 10/24/19 11:35 Monocytes % 20.9 % (3.8-10.2) H D 10/24/19 11:35 Monocytes % (Manual) 9 % (3.8-10.2) 10/24/19 11:35 Eosinophils % 0.1 % (0-4.5) D 10/24/19 11:35 Basophils % 0.4 % (0-2.0) 10/24/19 11:35 Nucleated RBC % 0 % (0-0) 10/24/19 11:35 Hypochromia 1+ 10/24/19 11:35 Platelet Estimate Decreased 10/24/19 11:35 Platelet Comment Large platelets 10/24/19 11:35 Basophilic Stippling 1+ 10/24/19 11:35 Tear Drop Cells 1+ 10/24/19 11:35 Ovalocytes 1+ 10/24/19 11:35 PT with INR 35.80 SEC (9.7-13.0) H 10/24/19 11:35 INR 3.00 (0.83-1.09) H 10/24/19 11:35 PTT (Actin FS) 47.0 SECONDS (25.2-36.5) H 10/24/19 11:35 VBG pH 7.431 (7.310-7.410) H 10/24/19 11:35 POC VBG pCO2 37.1 mmHg (38-52) L 10/24/19 11:35 POC VBG pO2 21.4 mmHg (28-48) L 10/24/19 11:35 VBG HCO3 24.1 mmol/L (23-29) 10/24/19 11:35 VBG O2 Sat (Maris) 37.9 % (70-80) L 10/24/19 11:35 VBG Base Excess 0 mmol/L (-2-2) 10/24/19 11:35 Sodium 135 mmol/L (136-145) L 10/24/19 11:35 Potassium 3.2 mmol/L (3.5-5.1) L 10/24/19 11:35 Chloride 101 mmol/L (98-107) 10/24/19 11:35 Carbon Dioxide 20 mmol/L (21-32) L 10/24/19 11:35 Anion Gap 14 MMOL/L (8-16) 10/24/19 11:35 BUN 9.1 mg/dL (7-18) 10/24/19 11:35 Creatinine 1.1 mg/dL (0.55-1.3) 10/24/19 11:35 Est GFR (CKD-EPI)AfAm 74.80 10/24/19 11:35 Est GFR (CKD-EPI)NonAf 64.54 10/24/19 11:35 Random Glucose 119 mg/dL (74-106) H 10/24/19 11:35 Lactic Acid 2.6 mmol/L (0.4-2.0) H* 10/24/19 11:35 Calcium 7.0 mg/dL (8.5-10.1) L 10/24/19 11:35 Phosphorus 2.2 mg/dL (2.5-4.9) L 10/24/19 11:35 Magnesium 1.4 mg/dL (1.8-2.4) L 10/24/19 11:35 Total Bilirubin 4.6 mg/dL (0.2-1) H 10/24/19 11:35 AST 120 U/L (15-37) H 10/24/19 11:35 ALT 28 U/L (13-61) 10/24/19 11:35 Alkaline Phosphatase 109 U/L (45-117) 10/24/19 11:35 Ammonia 40.80 umol/L (11-32) H 10/24/19 11:35 Creatine Kinase 330 U/L (26-192) H 10/24/19 11:35 Creatine Kinase Index 0.3 % (0.0-5.0) 10/24/19 11:35 CK-MB (CK-2) 1.1 ng/mL (0.5-3.6) 10/24/19 11:35 CK-MB (CK-2) Cancelled 10/24/19 11:35 Troponin I < 0.02 ng/ml (0.00-0.05) 10/24/19 11:35 Total Protein 7.2 g/dl (6.4-8.2) 10/24/19 11:35 Albumin 2.0 g/dl (3.4-5.0) L 10/24/19 11:35 Lipase 329 U/L (73-393) 10/24/19 11:35 Serum , Qual Negative 10/24/19 11:35 Salicylates < 1.7 mg/dL (2.8-20) L 10/24/19 11:35 Acetaminophen < 2.0 ug/ml 10/24/19 11:35 Alcohol, Quantitative < 3 mg/dL (0.0-5.0) 10/24/19 11:35 CMP Sodium 135 mmol/L (136-145) L 10/24/19 11:35 Potassium 3.2 mmol/L (3.5-5.1) L 10/24/19 11:35 Chloride 101 mmol/L (98-107) 10/24/19 11:35 Carbon Dioxide 20 mmol/L (21-32) L 10/24/19 11:35 Anion Gap 14 MMOL/L (8-16) 10/24/19 11:35 BUN 9.1 mg/dL (7-18) 10/24/19 11:35 Creatinine 1.1 mg/dL (0.55-1.3) 10/24/19 11:35 Calcium 7.0 mg/dL (8.5-10.1) L 10/24/19 11:35 Total Bilirubin 4.6 mg/dL (0.2-1) H 10/24/19 11:35 AST 120 U/L (15-37) H 10/24/19 11:35 ALT 28 U/L (13-61) 10/24/19 11:35 Alkaline Phosphatase 109 U/L (45-117) 10/24/19 11:35 Total Protein 7.2 g/dl (6.4-8.2) 10/24/19 11:35 Albumin 2.0 g/dl (3.4-5.0) L 10/24/19 11:35 IMAGING: * CXR: neg * CTAP: +diffuse fatty liver infiltration w/ TIPS shunt c/w advanced hepatocellular disease, free pelvic fluid, no evid of acute pathology ASSESSMENT/PLAN: 33F w/ pmh of cirrhosis (s/p TIPS @ [facility] ~4 years ago, esophageal banding, paracentesis) presents in the ED with complaints abd pain found to be febrile and tachycardic upon admission. #Abdominal pain; in setting of alcoholic cirrhosis, r/o SBP -Given initial presentation of fever, tachycardia, abd pain, will obtain abd u/s to r/o ascites and treat empirically with IV Ceftriaxone x1 dose for empiric coverage of SBP -CTAP done, results noted above -Elevated Tbili 4.6 (previously 1.8 on 11/2018); D bili ordered -GI consulted -Hepatitis panel -BCx/UCx pending, hepatitis panel -Elevated ammonia level 40; will give Lactulose 20 mg x1 dose -MELD-Na score 26 (19.6% estimated 3-month mortality); Discriminant fxn >32 (poor prognosis) #Elevated INR; in setting of alcoholic cirrhosis. INR 3. -Vit K ordered x1 -Repeat INR in AM #Alcohol Withdrawal; CIWA 13 -Ativan 1 mg PRN for agitation -Banana bag given x1 -Thiamine/Folate/MVI -Monitor for withdrawal symptoms -Alcohol cessation counseling -Utox ordered #Hypokalemia/Hypophosphatemia/Hypomagnesemia -IV KPhos, IV Mag ordered; replete PRN #Lactic Acidosis; 2.6, repeat pending. #Thrombocytopenia; in setting of cirrhosis. #Prophylaxis DVT: SCDs for now, will hold off on AC given thrombocytopenia GI: Protonix 40 QD #FEN -NS -recheck lytes in AM -NPO, except meds Dispo -admit to tele Family Medical History Family History: As Documented (diabetes) Visit type - Emergency Visit Emergency Visit: Yes ED Registration Date: 10/24/19 Care time: The patient presented to the Emergency Department on the above date and was hospitalized for further evaluation of their emergent condition. - New Patient This patient is new to me today: Yes Date on this admission: 10/24/19 - Critical Care Critical Care patient: No ATTENDING PHYSICIAN STATEMENT I saw and evaluated the patient. I reviewed the resident's note and discussed the case with the resident. I agree with the resident's findings and plan as documented. SUBJECTIVE: OBJECTIVE: ASSESSMENT AND PLAN:
[2019-10-24] MEDS ORDERED: MAGNESIUM SULF 50% (8.12 MEQ/2 ML-1 GM VIAL) IVPB ONE (17:20)
[2019-10-24] MEDS ORDERED: CEFTRIAXONE 1,000 MG in DEXTROSE 5%-WATER - 50 ML IVPB ONE (17:33)
[2019-10-24] MEDS ORDERED: LORazepam 2 MG/ML SDV VIAL IVPUSH PRN (17:34)
--- NOTE | 2019-10-24 17:43 | PN ---
Teaching Attending Note Name of Resident: Cinthia Rhodes ATTENDING PHYSICIAN STATEMENT I saw and evaluated the patient. I reviewed the resident's note and discussed the case with the resident. I agree with the resident's findings and plan as documented. SUBJECTIVE: OBJECTIVE: ASSESSMENT AND PLAN: 33 year old Greenlandic speaking female with a PMHx notable for ETOH dependence, cirrhosis (s/p TIPS @ [facility] ~4 years ago, esophageal banding, paracentesis) who presents in the ED with complaints of LUQ abdominal pain. ER course was notable for: (1) Temp 100.4, HR 109, MCV 116, Pl 58, INR 3, K 3.2, Lac 2.6, BCx/UCx ordered, Phos 2.2, Mg 1.4, Amm 40.8, CPK 330 (2) IV Ativan, Banana bag, IV NS and IV Toradol given (3) CXR neg, CTAP +diffuse fatty liver infiltration w/ TIPS shunt c/w advanced hepatocellular disease, free pelvic fluid, no evid of acute pathology PLAN - Agree with Abd US to evaluate for ascites ? work up for SBP - c/w IV fluids - Lactulose dose x 1 - Replace K/Mg/Phosph - Ativan protocol as needed
[2019-10-24] MEDS ORDERED: PHYTONADIONE 10 MG/1 ML AMP IVPB ONE (17:45)
[2019-10-24] MEDS ORDERED: LACTULOSE 20 GM/30 ML UDC (FOR ORAL USE ONLY) PO ONE (17:49)
[2019-10-24] MEDS ORDERED: CEFTRIAXONE 1 GM/50 ML BAG ONE (18:15)
[2019-10-24] MEDS ORDERED: MAGNESIUM SULFATE IN WATER 2 GM/50 ML IVPB IVPB ONE (18:15)
[2019-10-24] MEDS: THIAMINE HCL 200 MG/2 ML VIAL IVPB SCH (18:23)
[2019-10-24] MEDS ORDERED: POTASSIUM PHOSPHATE 30 MM in SODIUM CHLORIDE 500 ML IVPB ONE (19:00)
[2019-10-25 01:07] VITALS: BMI 30.8
[2019-10-25 01:14] LABS: BILIRUBIN,DIRECT 3.5 mg/dL (0.0-0.2)
[2019-10-25 07:45] LABS: BASO % 0.5 % (0-2.0); HEMATOCRIT 28.3 % (32.4-45.2); HEMOGLOBIN 9.3 GM/dL (10.7-15.3); MCHC 32.8 g/dl (32.0-36.0); MEAN PLT VOLUME 10.7 fl (7.5-11.1); MONO % 27.4 % (3.8-10.2); NEUT % 57.1 % (42.8-82.8); PLATELET COUNT 48 K/MM3 (134-434); RBC 2.44 M/mm3 (3.60-5.2); RDW 16.9 % (11.6-15.6); WHITE BLOOD COUNT 2.3 K/mm3 (4.0-10.0)
[2019-10-25 07:49] LABS: INR 2.35 (0.83-1.09)
[2019-10-25 08:13] LABS: ALBUMIN 1.5 g/dl (3.4-5.0); BILIRUBIN,TOTAL 3.9 mg/dL (0.2-1); CREATININE 1.1 mg/dL (0.55-1.3); MAGNESIUM 2.1 mg/dL (1.8-2.4); PHOSPHOROUS 4.4 mg/dL (2.5-4.9); POTASSIUM 3.4 mmol/L (3.5-5.1)
--- NOTE | 2019-10-25 08:19 | PN ---
Progress Note, Physician Chief Complaint: Seen and examined in bed. C/o mild LLQ pain. Mild tremors noted to upper extrem- on ativan detox protocol. History of Present Illness: 34 y/o F with h/o long-standing alcohol use disorder with EtOH cirrhosis and esophogeal varicies s/p banding, who p/w constant epigastric and LUQ pain for the past 4 days, jaundice, NBNB episodes x4 per day, and AMS. States her last drink was 5 days ago (had about 6 beers), denies any other substance use. Denies any chest pain, dysuria, hematuria, flank pain. She denies ever having EtOH withdrawal seizures or other withdrawal complications. - Current Medication List Current Medications: Active Medications Folic Acid (Folic Acid -) 1 mg PO DAILY LYNN Lorazepam (Ativan Injection -) 1 mg IVPUSH Q4H PRN PRN Reason: WITHDRAWAL(CONT SUBST) Last Admin: 10/25/19 06:34 Dose: 1 mg Documented by: Multivitamins/Minerals/Vitamin C (Tab-A-Vit -) 1 tab PO DAILY LYNN Pantoprazole Sodium (Protonix -) 40 mg PO DAILY LYNN Thiamine HCl (Vitamin B1 Injection -) 200 mg IVPB DAILY LYNN Last Admin: 10/24/19 18:23 Dose: 200 mg Documented by: - Objective Vital Signs: Vital Signs Temperature 99.8 F H 10/25/19 06:00 Pulse Rate 95 H 10/25/19 06:00 Respiratory Rate 18 10/25/19 06:00 Blood Pressure 106/59 L 10/25/19 06:00 O2 Sat by Pulse Oximetry (%) 99 10/25/19 06:00 Constitutional: Yes: Well Nourished, No Distress, Calm Eyes: Yes: WNL, Sclera Icterus HENT: Yes: WNL, Atraumatic, Normocephalic Neck: Yes: WNL, Supple, Trachea Midline Cardiovascular: Yes: WNL, Regular Rate and Rhythm Respiratory: Yes: WNL, Regular, CTA Bilaterally Gastrointestinal: Yes: Normal Bowel Sounds, Soft ...Rectal Exam: Yes: Deferred Genitourinary: Yes: WNL Breast(s): Yes: WNL Musculoskeletal: Yes: WNL Extremities: Yes: WNL Edema: No Peripheral Pulses WNL: Yes Peripheral Pulses: Left Radial: 2+, Right Radial: 2+, Left Doralis Pedis: 2+, Right Dorsalis Pedis: 2+, Left Femoral: 2+, Right Femoral: 2+ Integumentary: Yes: WNL Neurological: Yes: Alert, Tremors (to UE) ...Motor Strength: WNL Psychiatric: Yes: WNL, Alert, Oriented Labs: INR, PTT INR 2.35 (0.83-1.09) H 10/25/19 05:47 - ....Imaging Chest X-ray: Image Reviewed (no effusions , infiltrates) Ultrasound: Report Reviewed (small amt ascites) Problem List - Problems (1) S/P TIPS (transjugular intrahepatic portosystemic shunt) Assessment/Plan: patency not noted on ultrasound read-will contact radiologist to assess patency Code(s): Z95.828 - PRESENCE OF OTHER VASCULAR IMPLANTS AND GRAFTS (2) History of ETOH abuse Assessment/Plan: actively drinking start ativan protocol CIWA 7 spoke with pt and SW and does not want to explore inpatinet detox/rehab c/qw thiamaine/MVI/folate Code(s): F10.11 - ALCOHOL ABUSE, IN REMISSION (3) Abnormal INR Assessment/Plan: INR 2.35 down from 3.0 one dose of vit K given c/t trend no chemical AC Code(s): R79.1 - ABNORMAL COAGULATION PROFILE (4) Alcoholic liver disease Assessment/Plan: long standing ETOH abuse since age 12 saw benefits consulting analyst at [facility]-pt does not recall name-will try to abtain medcial records pt refusing detox/rehab -SW exploring outpt options c/w ativan detox-avoid librium emphasized complete ETOH cessation Code(s): K70.9 - ALCOHOLIC LIVER DISEASE, UNSPECIFIED (5) Liver cirrhosis Assessment/Plan: GI following c/w lactulose titrated to 3-4 BM daily ETOH cessation Code(s): K74.60 - UNSPECIFIED CIRRHOSIS OF LIVER (6) Prophylactic measure Assessment/Plan: FEN Fluids: adequate PO intake Electrolytes: monitor & replete as needed Nutrition: low protein diet DVT no chemical AC given cirrhosis Dispo Maintain as inpatient-can transfer to med surg floor full code discharge planning Code(s): Z29.9 - ENCOUNTER FOR PROPHYLACTIC MEASURES, UNSPECIFIED (7) Severe malnutrition Code(s): E43 - UNSPECIFIED SEVERE PROTEIN-CALORIE MALNUTRITION (8) Hypomagnesemia Code(s): E83.42 - HYPOMAGNESEMIA (9) Thrombocytopenia Assessment/Plan: plt 48 most likely r/t cirrhosis c/t trend Code(s): D69.6 - THROMBOCYTOPENIA, UNSPECIFIED (10) COVID-19 virus not detected Assessment/Plan: neg PCR Code(s): Z03.818 - ENCNTR FOR OBS FOR SUSP EXPSR TO OTH BIOLG AGENTS RULED OUT (11) Hypokalemia Assessment/Plan: K 3.4 replete and monitor Code(s): E87.6 - HYPOKALEMIA (12) Hypocalcemia Assessment/Plan: Alb 1.5 corrected Ca 8.5 Code(s): E83.51 - HYPOCALCEMIA (13) Abdominal pain Assessment/Plan: mild abd pain c/t monitor Code(s): R10.9 - UNSPECIFIED ABDOMINAL PAIN (14) Transaminitis Assessment/Plan: ast 96 avoid hepatotoxic agents GI following Code(s): R74.0 - NONSPEC ELEV OF LEVELS OF TRANSAMNS & LACTIC ACID DEHYDRGNSE Visit type - Emergency Visit Emergency Visit: Yes ED Registration Date: 10/24/19 Care time: The patient presented to the Emergency Department on the above date and was hospitalized for further evaluation of their emergent condition. - New Patient This patient is new to me today: Yes Date on this admission: 10/25/19 - Critical Care Critical Care patient: No - Discharge Referral Referred to [facility] Med P.C.: Yes CIWA Score - CIWA Score Nausea/Vomitin-Mild Nausea/No Vomiting Muscle Tremors: 3 Anxiety: 1-Mildly Anxious Agitation: 0-Normal Activity Paroxysmal Sweats: No Perspiration Orientation: 1-Uncertain about Date Tacttile Disturbances: 0-None Auditory Disturbances: 0-None Visual Disturbances: 0-None Headache: 1-Very Mild CIWA-Ar Total Score: 7
[2019-10-25] MEDS ORDERED: POTASSIUM CHLORIDE TABS 20 MEQ TABLET.ER (FP) PO ONE (08:20)
[2019-10-25] MEDS ORDERED: LORazepam 1 MG TABLET PO PRN ×2 (08:21→12:25)
[2019-10-25] MEDS ORDERED: ACETAMINOPHEN 325 MG TABLET (FP) PO PRN (08:24)
[2019-10-25 09:14] LABS: CALCIUM 6.3 mg/dL (8.5-10.1)
[2019-10-25 09:42] LABS: ANISOCYTOSIS 1+; MACROCYTOSIS 1+; PLATELET ESTIMATE DECREASED
[2019-10-25] MEDS: FOLIC ACID 1 MG TABLET (FP) PO SCH (09:52)
[2019-10-25] MEDS: PANTOPRAZOLE 40 MG TABLET PO SCH (09:52)
[2019-10-25] MEDS: MULTIVITAMINS (DAILY MVI) TABLET (FP) PO SCH (09:52)
[2019-10-25] MEDS: THIAMINE HCL 200 MG/2 ML VIAL IVPB SCH (09:53)
[2019-10-25] MEDS ORDERED: ENOXAPARIN NA (PORCINE) 40 MG/0.4 ML DISP.SYRIN SQ SCH (10:00)
--- NOTE | 2019-10-25 10:18 | EKG ---
Test Reason : Blood Pressure : / mmHG Vent. Rate : 087 BPM Atrial Rate : 087 BPM P-R Int : 166 ms QRS Dur : 086 ms QT Int : 402 ms P-R-T Axes : 031 022 017 degrees QTc Int : 483 ms NORMAL SINUS RHYTHM PROLONGED QT ABNORMAL ECG WHEN COMPARED WITH ECG OF 15-DEC-2018 11:27, NO SIGNIFICANT CHANGE WAS FOUND Confirmed by MD Zamora Daniel ([id number]) on 10/25/2019 10:18:32 AM Referred By: Confirmed By:Fabio Zamora MD
[2019-10-25] MEDS ORDERED: PT OWN MED DRAWER 7, Y5N ONE (10:54)
[2019-10-25] MEDS ORDERED: LORazepam 2 MG TABLET PO SCH (11:00)
[2019-10-25] MEDS ORDERED: LORazepam 1 MG TABLET PO SCH (11:52)
--- NOTE | 2019-10-25 13:45 | CON.GI ---
Consult Consult Specialty:: GI Referred by:: Hospitalist Service Reason for Consultation:: Cirrhosis - History of Present Illness Chief Complaint: Currently asymptomatic History of Present Illness: [employer] Addiction Counselor [id number] admitted for evaluation of LUQ pain. Currently asymptomatic. She is an alcholic with chirrhosis and continues to drink alcohol, the last time being last thursday. She had an esophageal variceal bleeding in 04/20. Banding was performed and she was transferred to [facility] for further evaluation. Per the patient, she underwentt what sounds like TIPS in 05/18 (not for rebleeding per ther patient). In the past she has been following up at [facility], however, has had poor follow-up. She currently denies abdominal pain, confusion, rectal bleeding or melena. Contrast CT scan revealed fatty liver and free pelvic fluid. Abdominal US revealed small amount of ascites. She has been drinking alcohol since the age of 12. There is no family history of liver disease. - History Source History Provided By: Patient, Medical Record - Past Medical History Gastrointestinal: Yes: Esophageal Varices (bleed 04/20) Hepatobiliary: Yes: Cirrhosis (ETOH), Cholelithiasis, Cholecystitis, Other (fatty liver, esophageal varices (bleed 04/20)) ...LMP: 09/04/19 ...: No Infectious Disease: Yes: Other (Bacteremia from ascending UTI 2018) Psych: Yes: Addictions (alcohol) - Past Surgical History Past Surgical History: Yes: Cholecystectomy, Tubal Ligation - Alcohol/Substance Use Hx Alcohol Use: No (past) History of Substance Use: reports: Cocaine (intranasal, no IVDA, not in the past month ) - Smoking History Smoking history: Never smoked Have you smoked in the past 12 months: No - Social History Usual Living Arrangement: With Child ADL: Independent Occupation: Unemployed History of Recent Travel: No Home Medications - Allergies Allergies/Adverse Reactions: Allergies Allergy/AdvReac Type Severity Reaction Status Date / Time No Known Drug Allergies Allergy Verified 10/24/19 12:58 cefazolin AdvReac Mild Itching Verified 10/24/19 12:58 - Home Medications Home Medications: Ambulatory Orders Unobtainable 10/24/19 Family Medical History Other Family History: No family history of liver disease Review of Systems - Review of Systems Constitutional: reports: Chills Cardiovascular: denies: Chest Pain Respiratory: denies: Cough Gastrointestinal: reports: Abdominal Pain (Resolved). denies: Melena, Rectal B leeding Physical Exam-GI Vital Signs: Vital Signs Temperature 99.3 F 10/25/19 11:39 Pulse Rate 92 H 10/25/19 09:51 Respiratory Rate 18 10/25/19 09:51 Blood Pressure 106/62 10/25/19 09:51 O2 Sat by Pulse Oximetry (%) 99 10/25/19 09:51 Constitutional: Yes: Calm Eyes: Yes: Sclera Icterus (mild icterus) Cardiovascular: Yes: Regular Rate and Rhythm Neurological: Yes: Alert, Tremors (fine UE tremors bilaterally). No: Asterixis Labs: CBC, BMP 10/25/19 05:47 10/25/19 05:47 INR, PTT INR 2.35 (0.83-1.09) H 10/25/19 05:47 Imaging - Results Cat Scan: Report Reviewed, Image Reviewed Problem List - Problems (1) Abdominal pain Assessment/Plan: Resolved Would have radiologist comment on portal system to assess fpor patency of portal vein / mesenteric vessels Code(s): R10.9 - UNSPECIFIED ABDOMINAL PAIN (2) Alcoholic cirrhosis Assessment/Plan: Continues to drink alcohol (states just once this past thursday) worsened liver parameters / decompensation when compared to previous admissions. ? if secondary to continued alcohol use, superimposed alcoholic hepatitis, infection given low grade fevers, combination. Monitor for withdrawal Will need follow-up at [facility]. If continued clinicaly improvement, this can be pursued as outpatient. If worsening liver function, transfer should be considered Advised the patient need for complete etoh cessation and proper follow-up of her severe liver disease. Stopped acetaminophen Lactulose 20g BID. Tritrate for 3-4 loose BM;s per day Code(s): K70.30 - ALCOHOLIC CIRRHOSIS OF LIVER WITHOUT ASCITES
[2019-10-25] MEDS: LORazepam 1 MG TABLET PO SCH ×3 (13:47→22:13)
[2019-10-25] MEDS: LACTULOSE 20 GM/30 ML UDC (FOR ORAL USE ONLY) PO SCH (22:13)
[2019-10-26] MEDS: LORazepam 1 MG TABLET PO SCH ×3 (06:13→17:46)
--- NOTE | 2019-10-26 07:10 | PN.GI ---
GI Progress Note Subjective: STATES SHE IS DOING OKAY - NO N/V OVERNIGHT ; LESS ABD PAIN - Objective Vital Signs: Vital Signs Temperature 99.4 F 10/26/19 02:46 Pulse Rate 88 10/26/19 02:46 Respiratory Rate 18 10/26/19 02:46 Blood Pressure 107/64 10/26/19 02:46 O2 Sat by Pulse Oximetry (%) 99 10/25/19 22:00 Constitutional: Well Nourished, No Distress Eyes: Yes: Sclera Icterus HENT: Yes: WNL Neck: Yes: WNL Cardiovascular: Yes: WNL Respiratory: Yes: WNL, Regular, CTA Bilaterally Gastrointestinal Inspection: Yes: WNL ...Auscultate: Yes: Normoactive Bowel Sounds Edema: No Neurological: Yes: WNL (POSITIVE TREMOR / ASTERIX), Alert, Oriented, Other Labs: CBC, BMP 10/25/19 05:47 10/25/19 05:47 INR, PTT INR 2.35 (0.83-1.09) H 10/25/19 05:47 Problem List - Problems (1) Abdominal pain Assessment/Plan: -- C/W LACTULOSE TITRATE TO 3-4 BM'S DAILY -- WITHDRAWAL PROTOCOL -- LFT'S / INR NOT WORSENING TODAY - TREND DAILY WHILE HOSPITALIZED -- ETOH ABSTINENCE -- WILL NEED F/U AT [facility] -- AVOID NSAID Code(s): R10.9 - UNSPECIFIED ABDOMINAL PAIN (2) Abnormal INR Code(s): R79.1 - ABNORMAL COAGULATION PROFILE (3) Alcoholic cirrhosis Code(s): K70.30 - ALCOHOLIC CIRRHOSIS OF LIVER WITHOUT ASCITES (4) Alcoholic liver disease Code(s): K70.9 - ALCOHOLIC LIVER DISEASE, UNSPECIFIED (5) Hypocalcemia Code(s): E83.51 - HYPOCALCEMIA
[2019-10-26 07:57] LABS: BASO % 0.5 % (0-2.0); EOS % 1.7 % (0-4.5); HEMATOCRIT 28.9 % (32.4-45.2); HEMOGLOBIN 9.5 GM/dL (10.7-15.3); MEAN CELL VOLUME 115.1 fl (80-96); MEAN PLT VOLUME 10.4 fl (7.5-11.1); MONO % 26.3 % (3.8-10.2); NEUT % 47.5 % (42.8-82.8); PLATELET COUNT 51 K/MM3 (134-434); RBC 2.51 M/mm3 (3.60-5.2); RDW 16.4 % (11.6-15.6); WHITE BLOOD COUNT 3.5 K/mm3 (4.0-10.0)
[2019-10-26 08:16] LABS: INR 2.21 (0.83-1.09); PROTHROMBIN TIME (PATIENT) 26.3 SEC (9.7-13.0)
[2019-10-26 08:19] LABS: ACTIVATED PTT 43.3 SECONDS (25.2-36.5)
[2019-10-26 08:35] LABS: ALBUMIN 1.6 g/dl (3.4-5.0); BILIRUBIN,DIRECT 2.9 mg/dL (0.0-0.2); BILIRUBIN,TOTAL 3.6 mg/dL (0.2-1); POTASSIUM 3.6 mmol/L (3.5-5.1); TOT PROT 6.1 g/dl (6.4-8.2)
--- NOTE | 2019-10-26 08:37 | PN ---
Progress Note, Physician Chief Complaint: Seen and examined in bed. Abd pain resolved. mild tremors noted to upper extrem-c/w ativan detox protocol. Refusing detox/rehab for etoh History of Present Illness: 34 y/o F with h/o long-standing alcohol use disorder with EtOH cirrhosis and esophogeal varicies s/p banding, who p/w constant epigastric and LUQ pain for the past 4 days, jaundice, NBNB episodes x4 per day, and AMS. States her last drink was 5 days ago (had about 6 beers), denies any other substance use. Denies any chest pain, dysuria, hematuria, flank pain. She denies ever having EtOH withdrawal seizures or other withdrawal complications. - Current Medication List Current Medications: Active Medications Folic Acid (Folic Acid -) 1 mg PO DAILY [facility] Last Admin: 10/25/19 09:52 Dose: 1 mg Documented by: Lactulose (Cephulac (Oral Use)) 20 gm PO BID [facility] Last Admin: 10/25/19 22:13 Dose: 20 gm Documented by: Lorazepam (Ativan -) 1 mg PO 0500,1100,1700,2300 [facility] Stop: 10/27/19 23:01 Lorazepam (Ativan -) 1 mg PO Q4H PRN PRN Reason: Symptoms of Withdrawal Stop: 10/27/19 23:59 Lorazepam (Ativan -) 2 mg PO 0500,1100,1700,2300 [facility] Stop: 10/26/19 23:01 Last Admin: 10/26/19 06:13 Dose: 2 mg Documented by: Lorazepam (Ativan -) 0.5 mg PO Q6H [facility] Stop: 10/28/19 23:01 Lorazepam (Ativan -) 0.5 mg PO Q4H PRN PRN Reason: Symptoms of Withdrawal Stop: 10/29/19 00:00 Lorazepam (Ativan -) 0.5 mg PO ONCE ONE Stop: 10/29/19 05:01 Multivitamins/Minerals/Vitamin C (Tab-A-Vit -) 1 tab PO DAILY [facility] Last Admin: 10/25/19 09:52 Dose: 1 tab Documented by: Pantoprazole Sodium (Protonix -) 40 mg PO DAILY [facility] Last Admin: 10/25/19 09:52 Dose: 40 mg Documented by: Thiamine HCl (Vitamin B1 Injection -) 200 mg IVPB DAILY [facility] Last Admin: 10/25/19 09:53 Dose: 200 mg Documented by: - Objective Vital Signs: Vital Signs Temperature 98.6 F 10/26/19 06:00 Pulse Rate 72 10/26/19 06:00 Respiratory Rate 18 10/26/19 06:00 Blood Pressure 101/57 L 10/26/19 06:00 O2 Sat by Pulse Oximetry (%) 99 10/25/19 22:00 Additional Findings/Remarks: Constitutional: Yes: Well Nourished, No Distress, Calm Eyes: Yes: WNL, Sclera Icterus HENT: Yes: WNL, Atraumatic, Normocephalic Neck: Yes: WNL, Supple, Trachea Midline Cardiovascular: Yes: WNL, Regular Rate and Rhythm Respiratory: Yes: WNL, Regular, CTA Bilaterally Gastrointestinal: Yes: Normal Bowel Sounds, Soft ...Rectal Exam: Yes: Deferred Genitourinary: Yes: WNL Breast(s): Yes: WNL Musculoskeletal: Yes: WNL Extremities: Yes: WNL Edema: No Peripheral Pulses WNL: Yes Peripheral Pulses: Left Radial: 2+, Right Radial: 2+, Left Doralis Pedis: 2+, Right Dorsalis Pedis: 2+, Left Femoral: 2+, Right Femoral: 2+ Integumentary: Yes: WNL Neurological: Yes: Alert, Tremors (to UE) ...Motor Strength: WNL Psychiatric: Yes: WNL, Alert, Oriented Labs: CBC, BMP 10/26/19 06:07 10/26/19 06:07 INR, PTT INR 2.21 (0.83-1.09) H 10/26/19 06:07 Problem List - Problems (1) S/P TIPS (transjugular intrahepatic portosystemic shunt) Assessment/Plan: patency not noted on ultrasound read-will contact radiologist to assess patency Code(s): Z95.828 - PRESENCE OF OTHER VASCULAR IMPLANTS AND GRAFTS (2) History of ETOH abuse Assessment/Plan: actively drinking c/w ativan protocol CIWA 4 pt does not want to explore inpatinet detox/rehab c/w thiamaine/MVI/folate Code(s): F10.11 - ALCOHOL ABUSE, IN REMISSION (3) Abnormal INR Assessment/Plan: INR 2.21 down from 3.0 one dose of vit K given c/t trend no chemical AC Code(s): R79.1 - ABNORMAL COAGULATION PROFILE (4) Alcoholic liver disease Assessment/Plan: long standing ETOH abuse since age 12 saw stable cleaner at [facility]-pt does not want further f/u pt refusing detox/rehab -SW exploring outpt options c/w ativan detox-avoid librium emphasized complete ETOH cessation Code(s): K70.9 - ALCOHOLIC LIVER DISEASE, UNSPECIFIED (5) Liver cirrhosis Assessment/Plan: GI following c/w lactulose titrated to 3-4 BM daily ETOH cessation Code(s): K74.60 - UNSPECIFIED CIRRHOSIS OF LIVER (6) Prophylactic measure Assessment/Plan: FEN Fluids: adequate PO intake Electrolytes: monitor & replete as needed Nutrition: low protein diet DVT no chemical AC given cirrhosis Dispo Maintain as inpatient-can transfer to med surg floor full code discharge planning Code(s): Z29.9 - ENCOUNTER FOR PROPHYLACTIC MEASURES, UNSPECIFIED (7) Hypomagnesemia Code(s): E83.42 - HYPOMAGNESEMIA (8) Thrombocytopenia Assessment/Plan: plt 51, improving most likely r/t cirrhosis c/t trend Code(s): D69.6 - THROMBOCYTOPENIA, UNSPECIFIED (9) COVID-19 virus not detected Assessment/Plan: neg PCR Code(s): Z03.818 - ENCNTR FOR OBS FOR SUSP EXPSR TO OTH BIOLG AGENTS RULED OUT (10) Hypokalemia Assessment/Plan: K 3.6 replete and monitor Code(s): E87.6 - HYPOKALEMIA (11) Hypocalcemia Assessment/Plan: Alb 1.6 corrected Ca 8.5 Code(s): E83.51 - HYPOCALCEMIA (12) Abdominal pain Assessment/Plan: resolving c/t monitor Code(s): R10.9 - UNSPECIFIED ABDOMINAL PAIN (13) Transaminitis Assessment/Plan: ast 118 avoid hepatotoxic agents serologies pending GI following Code(s): R74.0 - NONSPEC ELEV OF LEVELS OF TRANSAMNS & LACTIC ACID DEHYDRGNSE Visit type - Emergency Visit Emergency Visit: Yes ED Registration Date: 10/24/19 Care time: The patient presented to the Emergency Department on the above date and was hospitalized for further evaluation of their emergent condition. - New Patient This patient is new to me today: No - Critical Care Critical Care patient: No - Discharge Referral Referred to [facility] Med P.C.: No CIWA Score - CIWA Score Nausea/Vomitin-Mild Nausea/No Vomiting Muscle Tremors: 2 Anxiety: 0-No Anxiety, at Ease Agitation: 0-Normal Activity Paroxysmal Sweats: No Perspiration Orientation: 1-Uncertain about Date Tacttile Disturbances: 0-None Auditory Disturbances: 0-None Visual Disturbances: 0-None Headache: 0-None Present CIWA-Ar Total Score: 4
[2019-10-26 08:38] LABS: CALCIUM 6.4 mg/dL (8.5-10.1)
[2019-10-26] MEDS ORDERED: POTASSIUM CHLORIDE TABS 20 MEQ TABLET.ER (FP) PO ONE (08:48)
[2019-10-26] MEDS: THIAMINE HCL 200 MG/2 ML VIAL IVPB SCH (09:53)
[2019-10-26] MEDS: PANTOPRAZOLE 40 MG TABLET PO SCH (09:54)
[2019-10-26] MEDS: LACTULOSE 20 GM/30 ML UDC (FOR ORAL USE ONLY) PO SCH (09:54)
[2019-10-26] MEDS: MULTIVITAMINS (DAILY MVI) TABLET (FP) PO SCH (09:54)
[2019-10-26] MEDS: FOLIC ACID 1 MG TABLET (FP) PO SCH (09:54)
[2019-10-26 09:55] LABS: ANISOCYTOSIS 2+; MACROCYTOSIS 2+; PLATELET ESTIMATE DECREASED
[2019-10-26 14:54] VITALS: BP 106/53; PULSE 96; TEMP 99.6
--- NOTE | 2019-10-26 17:24 | DS ---
Physical Exam: SUBJECTIVE: Patient seen and signed out AMA. Explained to patient with shale miner that leaving can result in withdrawal from ETOH, fulminant liver failure from worseing cirrhosis, seizures, cardiac arrest , . OBJECTIVE: Vital Signs Period Temp Pulse Resp BP Sys/Nash Pulse Ox Last 24 Hr 98 F-100 F 72-96 18-18 101-113/49-91 99-100 PHYSICAL EXAM refused LABS Laboratory Results - last 24 hr 10/26/19 10/26/19 10/26/19 06:07 06:07 06:07 WBC 3.5 L RBC 2.51 L Hgb 9.5 L Hct 28.9 L MCV 115.1 H MCH 38.0 H MCHC 33.0 RDW 16.4 H Plt Count 51 L MPV 10.4 Absolute Neuts (auto) 1.7 Neutrophils % 47.5 Neutrophils % (Manual) 32.0 L Band Neutrophils % 20.0 Lymphocytes % 24.0 D Lymphocytes % (Manual) 24.0 D Monocytes % 26.3 H Monocytes % (Manual) 20 H Eosinophils % 1.7 Eosinophils % (Manual) 3.0 D Basophils % 0.5 Basophils % (Manual) 0.0 Myelocytes % (Man) 0 Promyelocytes % (Man) 0 Blast Cells % (Manual) 0 Nucleated RBC % 0 Metamyelocytes 1 D Hypochromia 0 Platelet Estimate Decreased Polychromasia 1+ Poikilocytosis 0 Anisocytosis 2+ Microcytosis 0 Macrocytosis 2+ PT with INR 26.30 H INR 2.21 H PTT (Actin FS) 43.3 H Sodium 138 Potassium 3.6 Chloride 108 H Carbon Dioxide 22 Anion Gap 7 L BUN 15.0 Creatinine 1.0 Est GFR (CKD-EPI)AfAm 83.94 Est GFR (CKD-EPI)NonAf 72.42 Random Glucose 86 Calcium 6.4 L* Total Bilirubin 3.6 H Direct Bilirubin 2.9 H AST 118 H ALT 27 Alkaline Phosphatase 97 Total Protein 6.1 L Albumin 1.6 L HOSPITAL COURSE: Date of Admission:10/24/19 Date of Discharge: 10/26/19 Signed out AMA. Risks explained to patient and form signed and witnessed Minutes to complete discharge: 30 Discharge Summary Problems reviewed: Yes Reason For Visit: ALCOHOL ABUSE, JAUNDICE Current Active Problems Abdominal pain (Acute) Abnormal INR (Acute) Alcoholic cirrhosis (Acute) Alcoholic liver disease (Acute) COVID-19 virus not detected (Acute) History of ETOH abuse (Acute) Hyperammonemia (Acute) Hypocalcemia (Acute) Hypokalemia (Acute) Hypomagnesemia (Acute) Jaundice (Acute) Macrocytic anemia (Acute) Prolonged QT interval (Acute) S/P TIPS (transjugular intrahepatic portosystemic shunt) (Acute) Severe malnutrition (Acute) Suspected COVID-19 virus infection (Acute) Thrombocytopenia (Acute) Transaminitis (Acute) Condition: Guarded - Instructions Disposition: AGAINST MEDICAL ADVICE - Home Medications Comprehensive Discharge Medication List: Ambulatory Orders Unobtainable 10/24/19 Problem List - Problems (1) S/P TIPS (transjugular intrahepatic portosystemic shunt) Code(s): Z95.828 - PRESENCE OF OTHER VASCULAR IMPLANTS AND GRAFTS (2) History of ETOH abuse Code(s): F10.11 - ALCOHOL ABUSE, IN REMISSION (3) Abnormal INR Code(s): R79.1 - ABNORMAL COAGULATION PROFILE (4) Alcoholic liver disease Code(s): K70.9 - ALCOHOLIC LIVER DISEASE, UNSPECIFIED (5) Liver cirrhosis Code(s): K74.60 - UNSPECIFIED CIRRHOSIS OF LIVER (6) Prophylactic measure Code(s): Z29.9 - ENCOUNTER FOR PROPHYLACTIC MEASURES, UNSPECIFIED (7) Hypomagnesemia Code(s): E83.42 - HYPOMAGNESEMIA (8) Thrombocytopenia Code(s): D69.6 - THROMBOCYTOPENIA, UNSPECIFIED (9) COVID-19 virus not detected Code(s): Z03.818 - ENCNTR FOR OBS FOR SUSP EXPSR TO [facility] AGENTS RULED OUT (10) Hypokalemia Code(s): E87.6 - HYPOKALEMIA (11) Hypocalcemia Code(s): E83.51 - HYPOCALCEMIA (12) Abdominal pain Code(s): R10.9 - UNSPECIFIED ABDOMINAL PAIN (13) Transaminitis Code(s): R74.0 - NONSPEC ELEV OF LEVELS OF TRANSAMNS & LACTIC ACID DEHYDRGNSE This patient is new to me today: No Emergency Visit: Yes ED Registration Date: 10/24/19 Care time: The patient presented to the Emergency Department on the above date and was hospitalized for further evaluation of their emergent condition. Critical Care patient: No - Discharge Referral Referred to [facility] Med P.C.: No
[2019-10-27] MEDS ORDERED: LORazepam 1 MG TABLET PO SCH ×2 (05:00)
[2019-10-28] MEDS ORDERED: LORazepam 0.5 MG TABLET PO PRN ×2
[2019-10-28] MEDS ORDERED: LORazepam 0.5 MG TABLET PO SCH ×2 (05:00)
[2019-10-28 23:08] LABS: HEP B CORE AB, TOT Negative (Negative)
[2019-10-29] MEDS ORDERED: LORazepam 0.5 MG TABLET PO ONE ×2 (05:00)
== END 2019-10-26 17:00 | disposition left against medical advice (07) | DRG 280 ==
LOC: JER 11:13 → JERBED 13:52 → J4S 21:20
PROVIDERS: ADMIT Internal Medicine; ATTEND Nurse Practitioner Acute Care
PROC: HZ2ZZZZ Detoxification Services for Substance Abuse Treatment (ICD-10-PCS; principal; 2019-10-24)
DX: K70.31 Alcoholic cirrhosis of liver with ascites (principal); K70.0 Alcoholic fatty liver; R10.13 Epigastric pain; R10.12 Left upper quadrant pain; D53.9 Nutritional anemia, unspecified; E87.6 Hypokalemia; E83.51 Hypocalcemia; R94.31 Abnormal electrocardiogram [ECG] [EKG]; R17 Unspecified jaundice; E83.39 Other disorders of phosphorus metabolism; Z95.828 Presence of other vascular implants and grafts; R74.0 Nonspecific elevation of levels of transaminase and lactic acid dehydrogenase [LDH]; F10.239 Alcohol dependence with withdrawal, unspecified; E83.42 Hypomagnesemia; E72.20 Disorder of urea cycle metabolism, unspecified; E87.2 Acidosis; D69.6 Thrombocytopenia, unspecified; E43 Unspecified severe protein-calorie malnutrition
CPT/HCPCS: 36415; 71045-TC-FY; 74177-TC; 76700-TC; 80048; 80053; 80076; 80307; 82140; 82248; 82550; 82553; 82803; 83605; 83690; 83735; 84100; 84484; 84703; 85025; 85610; 85730; 86704; 86706; 86707; 86708; 86709; 86803; 86850; 86900; 86901; 87040; 87340; 93005; 93010; 99285-25; Q9967; U0003

== ENCOUNTER 2021-09-10 10:33 | Inpatient (IN) | payer OTHER ==
[2021-09-10 16:26] LABS: VENOUS BASE EXCESS -3.2 mmol/L (-2-2); VENOUS PCO2 29.9 mmHg (38-52); VENOUS PH 7.454 (7.310-7.410)
[2021-09-10 16:37] LABS: BASO % 0.4 % (0-2.0); EOS % 2.4 % (0-4.5); HEMATOCRIT 16.5 % (32.4-45.2); LYMPH % 22.3 % (8-40); MCH 35.5 pg (25.7-33.7); MCHC 31.5 g/dl (32.0-36.0); MEAN CELL VOLUME 112.6 fl (80-96); MEAN PLT VOLUME 9.7 fl (7.5-11.1); MONO % 18.3 % (3.8-10.2); NEUT % 56.6 % (42.8-82.8); PLATELET COUNT 61 10^3/uL (134-434); RBC 1.46 M/mm3 (3.60-5.2); RDW 19.4 % (11.6-15.6); WHITE BLOOD COUNT 3.3 K/mm3 (4.0-10.0)
[2021-09-10 16:40] LABS: HEMOGLOBIN 5.2 GM/dL (10.7-15.3)
[2021-09-10 16:45] LABS: INR 2.32 (0.83-1.09); PROTHROMBIN TIME (PATIENT) 26.9 SEC (9.7-13.0)
[2021-09-10 16:48] LABS: ACTIVATED PTT 34.3 SECONDS (25.2-36.5)
[2021-09-10 17:26] LABS: CHLORIDE 110 mmol/L (98-107); SODIUM 142 mmol/L (136-145)
[2021-09-10 17:27] LABS: ALBUMIN 2.1 g/dl (3.4-5.0); BLOOD UREA NITROGEN 13.8 mg/dL (7-18); CALCIUM 8.1 mg/dL (8.5-10.1); CO2 24 mmol/L (21-32); GLUCOSE,RANDOM 99 mg/dL (74-106); MAGNESIUM 1.7 mg/dL (1.8-2.4)
[2021-09-10 17:29] LABS: CREATININE 0.9 mg/dL (0.55-1.3); PHOSPHOROUS 3.4 mg/dL (2.5-4.9); SGOT/AST 78 U/L (15-37); SGPT/ALT 29 U/L (13-61)
[2021-09-10 17:31] LABS: TOT PROT 6.9 g/dl (6.4-8.2)
[2021-09-10 17:33] LABS: ALK PHOS 83 U/L (45-117)
[2021-09-10 17:49] LABS: EPI CELLS 19 /uL (0-25.1); HYALINE CASTS 0 /uL (0-3.1); PH,URINE 7.5 (5.0-8.0); URINE APPEARANCE CLOUDY; URINE BACTERIA >9,000 /uL (0-1359); URINE BILIRUBIN NEGATIVE (NEGATIVE); URINE COLOR DK YELLOW; URINE GLUCOSE (UA) NEGATIVE (NEGATIVE); URINE KETONE NEGATIVE (NEGATIVE); URINE LEUK ESTERASE 1+ (NEGATIVE); URINE NITRITE POSITIVE (NEGATIVE); URINE PROTEIN NEGATIVE (NEGATIVE); URINE RBC 34 /uL (0-23.9); URINE WBC 46 /uL (0-25.8)
[2021-09-10 18:15] LABS: ANION GAP 9 MMOL/L (8-16)
[2021-09-10 18:19] LABS: MACROCYTOSIS 3+; PLATELET ESTIMATE DECREASED
[2021-09-10 18:20] LABS: ANISOCYTOSIS 2+
[2021-09-10] MEDS ORDERED: CEFTRIAXONE 1 MG in DEXTROSE 5%-WATER - 50 ML IVPB ONE (18:38)
[2021-09-10] MEDS ORDERED: POTASSIUM CHLORIDE TABS 20 MEQ TABLET.ER (FP) PO ONE ×2 (18:39→18:51)
[2021-09-10] MEDS ORDERED: MAGNESIUM OXIDE 400 MG TABLET (FP) PO ONE (18:39)
[2021-09-10] MEDS ORDERED: CEFTRIAXONE 1 GM/50 ML BAG ONE ×2 (18:51→19:48)
[2021-09-10] MEDS ORDERED: MAGNESIUM OXIDE 400 MG TABLET (FP) ONE (18:51)
[2021-09-10] MEDS ORDERED: POTASSIUM CHLORIDE 20 MEQ PREMIX IVPB 100 ML IVPB ONE (18:56)
[2021-09-10] MEDS ORDERED: CEFTRIAXONE 1,000 MG in DEXTROSE 5%-WATER - 50 ML IVPB ONE (19:07)
[2021-09-10] MEDS ORDERED: ACETAMINOPHEN 325 MG TABLET (FP) PO ONE (19:12)
[2021-09-10] MEDS ORDERED: IBUPROFEN 400 MG TABLET (FP) PO ONE (19:12)
[2021-09-10] MEDS ORDERED: LORazepam 2 MG/ML SDV VIAL IVPUSH ONE ×3 (20:24→21:38)
[2021-09-10] MEDS ORDERED: chlordiazePOXIDE HCL 25 MG CAPSULE PO ONE (20:25)
[2021-09-10] MEDS ORDERED: chlordiazePOXIDE HCL 25 MG CAPSULE ONE (20:36)
[2021-09-10] MEDS ORDERED: MEROPENEM 1 GM in DEXTROSE 5%-WATER 100 ML IVPB ONE (21:00)
[2021-09-10] MEDS ORDERED: RAPID SEQUENCE INTUBATION KIT NR ONE (21:42)
[2021-09-10] MEDS ORDERED: MIDAZOLAM IN 0.9 % SOD.CHLORID 1 MG/1 ML PLAST..BAG ONE (21:43)
[2021-09-10] MEDS ORDERED: MIDAZOLAM HCL 2 MG/2 ML SINGLE DOSE VIAL ONE ×2 (21:43→21:58)
[2021-09-10] MEDS ORDERED: MIDAZOLAM IN 0.9 % SOD.CHLORID 100 MG/100 ML PLAST..BAG IVPB SCH (22:15)
[2021-09-10] MEDS ORDERED: MAGNESIUM SULF 50% (8.12 MEQ/2 ML-1 GM VIAL) IVPB ONE (22:17)
[2021-09-10] MEDS ORDERED: THIAMINE HCL 200 MG/2 ML VIAL IVPB ONE (23:17)
[2021-09-10] MEDS ORDERED: FENTANYL IVPB 500 MCG/100 ML BAG IVPB SCH (23:45)
[2021-09-10] MEDS: DOXYCYCLINE INJECTION 100 MG in DEXTROSE 5%-WATER 100 ML IVPB SCH (23:45)
[2021-09-11] MEDS ORDERED: DEXTROSE 5%-WATER 100 ML IVPB ONE ×5 (00:02→18:00)
[2021-09-11] MEDS ORDERED: DOXYCYCLINE HYCLATE 100 MG VIAL ONE ×2 (00:02→09:30)
[2021-09-11] MEDS ORDERED: SODIUM CHLORIDE 1,000 ML IV STA (00:31)
[2021-09-11] MEDS ORDERED: MEROPENEM 1 GM VIAL (RESTRICTED TO ID) IVPB ONE ×3 (00:31→18:00)
[2021-09-11] MEDS ORDERED: LACTATED RINGERS SOLUTION 1,000 ML/1,000 ML INFUS.BAG IV STA (00:51)
[2021-09-11 03:30] LABS: BILIRUBIN,DIRECT 3.2 mg/dL (0.0-0.2); LIPASE 215 U/L (73-393)
[2021-09-11 03:31] LABS: IRON SERUM 30 ug/dL (50-175); TOTAL IRON BINDING CAPACITY 291 ug/dL (250-450)
[2021-09-11 03:44] LABS: LDH 534 U/L (84-246)
[2021-09-11] MEDS: MUPIROCIN 2% TOPICAL OINTMENT FOR DECOLONIZATION NS SCH ×3 (04:29→22:54)
[2021-09-11] MEDS: MEROPENEM 1 GM in DEXTROSE 5%-WATER 100 ML IVPB SCH ×3 (04:31→18:03)
[2021-09-11] MEDS: PANTOPRAZOLE SODIUM 40 MG VIAL IVPUSH SCH ×2 (04:31→09:40)
[2021-09-11] MEDS: KCL 10 MEQ IVPB 10 MEQ/100 ML INFUS.BAG IVPB SCH ×2 (05:34)
[2021-09-11 07:56] LABS: HEMATOCRIT 21.2 % (32.4-45.2); MCH 32.6 pg (25.7-33.7); MCHC 32.2 g/dl (32.0-36.0); MEAN CELL VOLUME 101.2 fl (80-96); MEAN PLT VOLUME 9.1 fl (7.5-11.1); PLATELET COUNT 56 10^3/uL (134-434); RBC 2.09 M/mm3 (3.60-5.2); RDW 24.8 % (11.6-15.6); WHITE BLOOD COUNT 3.5 K/mm3 (4.0-10.0)
[2021-09-11 08:32] LABS: ALBUMIN 1.9 g/dl (3.4-5.0); BLOOD UREA NITROGEN 10.7 mg/dL (7-18); CALCIUM 7.1 mg/dL (8.5-10.1); MAGNESIUM 2.2 mg/dL (1.8-2.4)
[2021-09-11 08:33] LABS: PHOSPHOROUS 4.4 mg/dL (2.5-4.9)
[2021-09-11 08:35] LABS: CREATININE 0.7 mg/dL (0.55-1.3)
[2021-09-11 08:36] LABS: BILIRUBIN,TOTAL 4.7 mg/dL (0.2-1); TOT PROT 6.2 g/dl (6.4-8.2)
[2021-09-11 08:37] LABS: INR 2.27 (0.83-1.09); PROTHROMBIN TIME (PATIENT) 26.3 SEC (9.7-13.0)
[2021-09-11 08:40] LABS: ACTIVATED PTT 34.9 SECONDS (25.2-36.5)
[2021-09-11 08:42] LABS: HEMOGLOBIN 6.8 GM/dL (10.7-15.3)
[2021-09-11 08:47] LABS: ANISOCYTOSIS 2+; MACROCYTOSIS 2+
[2021-09-11 09:04] LABS: RETICULOCYTES 4.77 % (0.5-1.5)
[2021-09-11] MEDS: DOXYCYCLINE INJECTION 100 MG in DEXTROSE 5%-WATER 100 ML IVPB SCH (09:40)
[2021-09-11] MEDS: THIAMINE HCL 200 MG/2 ML VIAL IVPB SCH (09:41)
[2021-09-11] MEDS: MIDAZOLAM IN 0.9 % SOD.CHLORID 100 MG/100 ML PLAST..BAG IVPB SCH ×2 (09:47→11:16)
[2021-09-11] MEDS ORDERED: MEROPENEM 1 GM in DEXTROSE 5%-WATER 100 ML IVPB SCH (11:00)
[2021-09-11] MEDS: PROPOFOL 1,000,000 MCG/100 ML VIAL IVPB SCH ×3 (11:15→18:04)
[2021-09-11 11:43] LABS: CHLORIDE 115 mmol/L (98-107); SODIUM 145 mmol/L (136-145)
[2021-09-11 11:45] LABS: ANION GAP 10 MMOL/L (8-16); BLOOD UREA NITROGEN 10.7 mg/dL (7-18); CALCIUM 7.2 mg/dL (8.5-10.1); CO2 20 mmol/L (21-32); GLUCOSE,RANDOM 124 mg/dL (74-106)
[2021-09-11 11:48] LABS: CREATININE 0.7 mg/dL (0.55-1.3)
[2021-09-11 16:10] LABS: HEMATOCRIT 21.9 % (32.4-45.2); MCH 32.2 pg (25.7-33.7); MEAN CELL VOLUME 100.8 fl (80-96); MEAN PLT VOLUME 9.1 fl (7.5-11.1); PLATELET COUNT 60 10^3/uL (134-434); RBC 2.17 M/mm3 (3.60-5.2); RDW 27.6 % (11.6-15.6); WHITE BLOOD COUNT 2.9 K/mm3 (4.0-10.0)
[2021-09-11 16:22] LABS: ADD RBC MORPHOLOGY YES
[2021-09-11] MEDS ORDERED: LACTULOSE 20 GM/30 ML UDC (FOR RECTAL USE ONLY) PR SCH (18:00)
[2021-09-11 18:29] LABS: PLATELET ESTIMATE DECREASED
[2021-09-11 18:58] LABS: ANISOCYTOSIS 2+; MACROCYTOSIS 1+
[2021-09-11] MEDS: LACTULOSE 20 GM/30 ML UDC (FOR ORAL USE ONLY) GT SCH (22:55)
[2021-09-11] MEDS: CHLORHEXIDINE GLUCONATE 4% CLEANSER FOR DECOLONIZATION TP SCH (22:55)
[2021-09-11] MEDS: RIFAXIMIN 400 MG/20 ML SUSPENSION NGT SCH (22:55)
[2021-09-12] MEDS ORDERED: MEROPENEM 1 GM VIAL (RESTRICTED TO ID) IVPB ONE ×3 (00:15→17:32)
[2021-09-12] MEDS ORDERED: DEXTROSE 5%-WATER 100 ML IVPB ONE ×3 (00:15→17:32)
[2021-09-12] MEDS: MEROPENEM 1 GM in DEXTROSE 5%-WATER 100 ML IVPB SCH ×3 (03:00→17:37)
[2021-09-12] MEDS: LACTULOSE 20 GM/30 ML UDC (FOR ORAL USE ONLY) GT SCH ×5 (07:26→22:39)
[2021-09-12 08:21] LABS: CHLORIDE 115 mmol/L (98-107); SODIUM 146 mmol/L (136-145)
[2021-09-12 08:33] LABS: GLUCOSE,RANDOM 87 mg/dL (74-106)
[2021-09-12 08:34] LABS: ALBUMIN 1.7 g/dl (3.4-5.0); ANION GAP 7 MMOL/L (8-16); BLOOD UREA NITROGEN 11.6 mg/dL (7-18); CO2 24 mmol/L (21-32); MAGNESIUM 2.3 mg/dL (1.8-2.4)
[2021-09-12 08:35] LABS: ALK PHOS 65 U/L (45-117); BILIRUBIN,TOTAL 3.9 mg/dL (0.2-1); TOT PROT 6.1 g/dl (6.4-8.2)
[2021-09-12 08:36] LABS: IRON SERUM 31 ug/dL (50-175); PHOSPHOROUS 3.4 mg/dL (2.5-4.9); SGOT/AST 56 U/L (15-37)
[2021-09-12 08:37] LABS: CREATININE 0.7 mg/dL (0.55-1.3); SGPT/ALT 24 U/L (13-61); TOTAL IRON BINDING CAPACITY 246 ug/dL (250-450)
[2021-09-12 09:04] LABS: CALCIUM 6.9 mg/dL (8.5-10.1)
[2021-09-12] MEDS: PROPOFOL 1,000,000 MCG/100 ML VIAL IVPB SCH ×2 (09:40→19:41)
[2021-09-12] MEDS: PANTOPRAZOLE SODIUM 40 MG VIAL IVPUSH SCH (10:10)
[2021-09-12] MEDS: MUPIROCIN 2% TOPICAL OINTMENT FOR DECOLONIZATION NS SCH ×2 (10:10→22:39)
[2021-09-12] MEDS: RIFAXIMIN 400 MG/20 ML SUSPENSION NGT SCH ×2 (10:11→22:39)
[2021-09-12] MEDS: THIAMINE HCL 200 MG/2 ML VIAL IVPB SCH (10:11)
[2021-09-12] MEDS ORDERED: LACTULOSE 20 GM/30 ML UDC (FOR ORAL USE ONLY) GT SCH (14:00)
[2021-09-12 14:30] LABS: HEMATOCRIT 23.1 % (32.4-45.2); HEMOGLOBIN 7.6 GM/dL (10.7-15.3); MCH 32.9 pg (25.7-33.7); MCHC 32.7 g/dl (32.0-36.0); MEAN CELL VOLUME 100.7 fl (80-96); MEAN PLT VOLUME 9.6 fl (7.5-11.1); PLATELET COUNT 61 10^3/uL (134-434); RBC 2.29 M/mm3 (3.60-5.2); RDW 28.5 % (11.6-15.6); WHITE BLOOD COUNT 3.5 K/mm3 (4.0-10.0)
[2021-09-12 14:32] LABS: INR 2.02 (0.83-1.09); PROTHROMBIN TIME (PATIENT) 23.4 SEC (9.7-13.0)
[2021-09-12 15:38] LABS: ANISOCYTOSIS 1+; MACROCYTOSIS 1+
[2021-09-12] MEDS: MIDAZOLAM IN 0.9 % SOD.CHLORID 100 MG/100 ML PLAST..BAG IVPB SCH (17:45)
[2021-09-12] MEDS ORDERED: DEXTROSE 5%-WATER - 50 ML IVPB ONE (22:35)
[2021-09-12] MEDS ORDERED: cefTRIAXone SODIUM 1 GM VIAL ONE (22:35)
[2021-09-12] MEDS: CEFTRIAXONE 1 GM in DEXTROSE 5%-WATER - 50 ML IVPB SCH (22:38)
[2021-09-12] MEDS: CHLORHEXIDINE GLUCONATE 4% CLEANSER FOR DECOLONIZATION TP SCH (22:39)
[2021-09-13] MEDS: PROPOFOL 1,000,000 MCG/100 ML VIAL IVPB SCH (00:05)
[2021-09-13] MEDS: LACTULOSE 20 GM/30 ML UDC (FOR ORAL USE ONLY) GT SCH ×6 (01:56→21:25)
[2021-09-13 03:38] LABS: HEMATOCRIT 23.5 % (32.4-45.2); HEMOGLOBIN 7.6 GM/dL (10.7-15.3); MCH 32.7 pg (25.7-33.7); MCHC 32.4 g/dl (32.0-36.0); MEAN PLT VOLUME 9.3 fl (7.5-11.1); PLATELET COUNT 65 10^3/uL (134-434); RBC 2.32 M/mm3 (3.60-5.2); RDW 28.4 % (11.6-15.6); WHITE BLOOD COUNT 2.4 K/mm3 (4.0-10.0)
[2021-09-13] MEDS ORDERED: LACTATED RINGERS SOLUTION 1000 ML INFUS.BAG IV ONE ×3 (06:36→11:53)
[2021-09-13 07:13] LABS: ANISOCYTOSIS 2+; MACROCYTOSIS 2+; ROULEAU 1+
[2021-09-13 07:20] LABS: BASO % 0.5 % (0-2.0); EOS % 4.1 % (0-4.5); HEMATOCRIT 23.6 % (32.4-45.2); HEMOGLOBIN 7.6 GM/dL (10.7-15.3); LYMPH % 16.6 % (8-40); MCH 32.4 pg (25.7-33.7); MEAN CELL VOLUME 101.3 fl (80-96); MEAN PLT VOLUME 9.2 fl (7.5-11.1); NEUT % 59.8 % (42.8-82.8); PLATELET COUNT 64 10^3/uL (134-434); RBC 2.33 M/mm3 (3.60-5.2); RDW 28.3 % (11.6-15.6); WHITE BLOOD COUNT 2.2 K/mm3 (4.0-10.0)
[2021-09-13 07:29] LABS: INR 2.04 (0.83-1.09); PROTHROMBIN TIME (PATIENT) 23.6 SEC (9.7-13.0)
[2021-09-13 07:52] LABS: BILIRUBIN,TOTAL 3.5 mg/dL (0.2-1)
[2021-09-13 07:53] LABS: ALBUMIN 1.7 g/dl (3.4-5.0); BLOOD UREA NITROGEN 11.2 mg/dL (7-18); CREATININE 0.9 mg/dL (0.55-1.3); PHOSPHOROUS 3.2 mg/dL (2.5-4.9)
[2021-09-13 07:54] LABS: TOT PROT 6.3 g/dl (6.4-8.2)
[2021-09-13 07:55] LABS: BILIRUBIN,DIRECT 2.1 mg/dL (0.0-0.2); CALCIUM 7.4 mg/dL (8.5-10.1)
[2021-09-13 07:56] LABS: MAGNESIUM 2.6 mg/dL (1.8-2.4)
[2021-09-13] MEDS ORDERED: cefTRIAXone SODIUM 1 GM VIAL ONE (09:44)
[2021-09-13] MEDS ORDERED: DEXTROSE 5%-WATER - 50 ML IVPB ONE (09:44)
[2021-09-13] MEDS: PANTOPRAZOLE SODIUM 40 MG VIAL IVPUSH SCH (09:48)
[2021-09-13] MEDS: CEFTRIAXONE 1 GM in DEXTROSE 5%-WATER - 50 ML IVPB SCH (09:48)
[2021-09-13] MEDS: PHYTONADIONE 5 MG TABLET NR SCH (09:49)
[2021-09-13] MEDS: RIFAXIMIN 400 MG/20 ML SUSPENSION NGT SCH ×2 (09:49→21:25)
[2021-09-13] MEDS: THIAMINE HCL 200 MG/2 ML VIAL IVPB SCH (10:26)
[2021-09-13] MEDS: MUPIROCIN 2% TOPICAL OINTMENT FOR DECOLONIZATION NS SCH (12:44)
[2021-09-13 14:09] LABS: CALCIUM 7.4 mg/dL (8.5-10.1)
[2021-09-13 14:11] LABS: BLOOD UREA NITROGEN 11.1 mg/dL (7-18)
[2021-09-13 14:14] LABS: CREATININE 0.8 mg/dL (0.55-1.3)
[2021-09-13 14:15] VITALS: BMI 33.6
[2021-09-13] MEDS ORDERED: IRON SUCROSE INJECTION 200 MG in SODIUM CHLORIDE 90 ML IVPB ONE (15:30)
[2021-09-13 18:23] LABS: HEPATITIS B SURFACE AG MATERN NON-REACTIVE (NONREACTIVE)
[2021-09-13] MEDS: CHLORHEXIDINE GLUCONATE 4% CLEANSER FOR DECOLONIZATION TP SCH (21:28)
[2021-09-13] MEDS: MIDAZOLAM IN 0.9 % SOD.CHLORID 100 MG/100 ML PLAST..BAG IVPB SCH (21:53)
[2021-09-14] MEDS: MUPIROCIN 2% TOPICAL OINTMENT FOR DECOLONIZATION NS SCH ×3 (00:06→21:14)
[2021-09-14] MEDS: PROPOFOL 1,000,000 MCG/100 ML VIAL IVPB SCH ×2 (00:07→06:53)
[2021-09-14 00:12] LABS: ARTERIAL BLD GAS O2 SATURATION 96.3 % (95-98); ARTERIAL BLOOD GAS BASE EXCESS 0.1 mmol/L (-2-2); ARTERIAL BLOOD GAS PO2 81.2 mmHg (80-100); ARTERIAL BLOOD GAS pH 7.433 (7.350-7.450)
[2021-09-14 00:13] LABS: ALLENS TEST POSITIVE; VENT MODE A/C; VENT RATE 18
[2021-09-14] MEDS: MIDAZOLAM IN 0.9 % SOD.CHLORID 100 MG/100 ML PLAST..BAG IVPB SCH (01:00)
[2021-09-14] MEDS: LACTULOSE 20 GM/30 ML UDC (FOR ORAL USE ONLY) GT SCH ×3 (05:19→21:13)
[2021-09-14 07:10] LABS: HEMATOCRIT 26.1 % (32.4-45.2); HEMOGLOBIN 8.4 GM/dL (10.7-15.3); MCH 32.8 pg (25.7-33.7); MCHC 32.1 g/dl (32.0-36.0); MEAN CELL VOLUME 102.2 fl (80-96); MEAN PLT VOLUME 10.2 fl (7.5-11.1); PLATELET COUNT 73 10^3/uL (134-434); RBC 2.55 M/mm3 (3.60-5.2); WHITE BLOOD COUNT 5.3 K/mm3 (4.0-10.0)
[2021-09-14 07:24] LABS: BLOOD UREA NITROGEN 14.1 mg/dL (7-18); CALCIUM 7.2 mg/dL (8.5-10.1)
[2021-09-14 07:25] LABS: ALBUMIN 1.7 g/dl (3.4-5.0); MAGNESIUM 2.2 mg/dL (1.8-2.4)
[2021-09-14 07:28] LABS: CREATININE 0.9 mg/dL (0.55-1.3); PHOSPHOROUS 2.8 mg/dL (2.5-4.9)
[2021-09-14 07:29] LABS: BILIRUBIN,TOTAL 3.7 mg/dL (0.2-1); TOT PROT 6.2 g/dl (6.4-8.2)
[2021-09-14] MEDS ORDERED: FUROSEMIDE 40 MG/4 ML INJECTABLE VIAL IVPUSH STA (07:44)
[2021-09-14 08:51] LABS: ANISOCYTOSIS 2+; MACROCYTOSIS 2+; PLATELET ESTIMATE DECREASED
[2021-09-14] MEDS ORDERED: cefTRIAXone SODIUM 1 GM VIAL ONE (09:04)
[2021-09-14] MEDS ORDERED: DEXTROSE 5%-WATER - 50 ML IVPB ONE (09:05)
[2021-09-14] MEDS: PANTOPRAZOLE SODIUM 40 MG VIAL IVPUSH SCH (09:26)
[2021-09-14] MEDS: PHYTONADIONE 5 MG TABLET NR SCH (09:27)
[2021-09-14] MEDS: CEFTRIAXONE 1 GM in DEXTROSE 5%-WATER - 50 ML IVPB SCH (09:27)
[2021-09-14] MEDS: RIFAXIMIN 400 MG/20 ML SUSPENSION NGT SCH ×2 (09:28→21:14)
[2021-09-14] MEDS: THIAMINE HCL 200 MG/2 ML VIAL IVPB SCH (09:28)
[2021-09-14] MEDS: CHLORHEXIDINE GLUCONATE 4% CLEANSER FOR DECOLONIZATION TP SCH (21:14)
[2021-09-15] MEDS: LACTULOSE 20 GM/30 ML UDC (FOR ORAL USE ONLY) GT SCH ×3 (05:52→21:45)
[2021-09-15] MEDS ORDERED: ARTIFICIAL TEARS (POLYVINYL ALCOHOL) OPTH DROPS OU PRN (08:35)
[2021-09-15] MEDS ORDERED: HYDROCORTISONE SOD SUCCINATE 100 MG/2 ML VIAL IVPUSH STA (08:39)
[2021-09-15] MEDS ORDERED: DEXTROSE 5%-WATER - 50 ML IVPB ONE (10:07)
[2021-09-15] MEDS ORDERED: cefTRIAXone SODIUM 1 GM VIAL ONE (10:07)
[2021-09-15] MEDS ORDERED: FUROSEMIDE 40 MG/4 ML INJECTABLE VIAL ONE (10:11)
[2021-09-15] MEDS: CEFTRIAXONE 1 GM in DEXTROSE 5%-WATER - 50 ML IVPB SCH (10:12)
[2021-09-15] MEDS: FUROSEMIDE INJECTION 100 MG in SODIUM CHLORIDE 90 ML IVPB SCH (10:12)
[2021-09-15] MEDS: PANTOPRAZOLE SODIUM 40 MG VIAL IVPUSH SCH (10:12)
[2021-09-15] MEDS: RIFAXIMIN 400 MG/20 ML SUSPENSION NGT SCH ×2 (10:22→21:45)
[2021-09-15] MEDS: THIAMINE HCL 200 MG/2 ML VIAL IVPB SCH (10:28)
[2021-09-15] MEDS: MUPIROCIN 2% TOPICAL OINTMENT FOR DECOLONIZATION NS SCH ×2 (10:28→21:45)
[2021-09-15] MEDS: PHYTONADIONE 5 MG TABLET NR SCH (15:18)
[2021-09-15] MEDS ORDERED: IRON SUCROSE INJECTION 200 MG in SODIUM CHLORIDE 90 ML IVPB ONE (15:30)
[2021-09-15] MEDS: CHLORHEXIDINE GLUCONATE 4% CLEANSER FOR DECOLONIZATION TP SCH (21:45)
[2021-09-16] MEDS: LACTULOSE 20 GM/30 ML UDC (FOR ORAL USE ONLY) GT SCH ×2 (05:12→13:24)
[2021-09-16 07:25] LABS: HEMATOCRIT 26.4 % (32.4-45.2); HEMOGLOBIN 8.6 GM/dL (10.7-15.3); MCH 32.7 pg (25.7-33.7); MCHC 32.8 g/dl (32.0-36.0); MEAN CELL VOLUME 99.8 fl (80-96); MEAN PLT VOLUME 8.7 fl (7.5-11.1); PLATELET COUNT 85 10^3/uL (134-434); RBC 2.64 M/mm3 (3.60-5.2); RDW 26.8 % (11.6-15.6); WHITE BLOOD COUNT 5.4 K/mm3 (4.0-10.0)
[2021-09-16 08:01] LABS: CALCIUM 8.1 mg/dL (8.5-10.1)
[2021-09-16 08:02] LABS: BLOOD UREA NITROGEN 18.1 mg/dL (7-18); MAGNESIUM 1.6 mg/dL (1.8-2.4)
[2021-09-16 08:05] LABS: BILIRUBIN,DIRECT 2.4 mg/dL (0.0-0.2); CREATININE 0.8 mg/dL (0.55-1.3)
[2021-09-16 08:06] LABS: BILIRUBIN,TOTAL 4.4 mg/dL (0.2-1); TOT PROT 7.3 g/dl (6.4-8.2)
[2021-09-16 08:41] LABS: ALBUMIN 2.1 g/dl (3.4-5.0)
[2021-09-16] MEDS ORDERED: MAGNESIUM 2GM/50ML STERILE WATER IVPB IVPB ONE (09:00)
[2021-09-16] MEDS ORDERED: POTASSIUM CHLORIDE ORAL LIQUID 20 MEQ/15 ML NGT ONE (09:15)
[2021-09-16] MEDS ORDERED: LORazepam 2 MG/ML SDV VIAL IVPUSH PRN (09:39)
[2021-09-16] MEDS: FUROSEMIDE INJECTION 100 MG in SODIUM CHLORIDE 90 ML IVPB SCH (12:27)
[2021-09-16] MEDS: PANTOPRAZOLE SODIUM 40 MG VIAL IVPUSH SCH (12:27)
[2021-09-16] MEDS: RIFAXIMIN 400 MG/20 ML SUSPENSION NGT SCH (12:28)
[2021-09-16] MEDS: CEFTRIAXONE 1 GM in DEXTROSE 5%-WATER - 50 ML IVPB SCH (12:29)
[2021-09-16] MEDS: KCL 10 MEQ IVPB 10 MEQ/100 ML INFUS.BAG IVPB SCH ×2 (13:23→13:24)
[2021-09-16] MEDS: THIAMINE HCL 200 MG/2 ML VIAL IVPB SCH (13:24)
[2021-09-16] MEDS: POTASSIUM CHLORIDE ORAL LIQUID 20 MEQ/15 ML PO SCH ×2 (14:05→21:27)
[2021-09-16] MEDS: LACTULOSE 20 GM/30 ML UDC (FOR ORAL USE ONLY) PO SCH ×2 (14:08→21:27)
[2021-09-16] MEDS: MAGNESIUM OXIDE 400 MG TABLET (FP) PO SCH ×2 (14:08→21:28)
[2021-09-16] MEDS: CHLORHEXIDINE GLUCONATE 4% CLEANSER FOR DECOLONIZATION TP SCH (21:26)
[2021-09-16] MEDS: RIFAXIMIN 400 MG/20 ML SUSPENSION PO SCH (21:27)
[2021-09-17] MEDS ORDERED: LORazepam 2 MG/ML SDV VIAL IM ONE (00:45)
[2021-09-17] MEDS ORDERED: LORazepam 2 MG/ML SDV VIAL IVPB ONE (01:13)
[2021-09-17] MEDS: LORazepam 2 MG/ML SDV VIAL IVPUSH PRN ×3 (01:42→21:09)
[2021-09-17] MEDS: KCL 10 MEQ IVPB 10 MEQ/100 ML INFUS.BAG IVPB SCH ×3 (03:39→06:23)
[2021-09-17] MEDS: LACTULOSE 20 GM/30 ML UDC (FOR ORAL USE ONLY) PO SCH ×3 (06:24→21:08)
[2021-09-17 07:25] LABS: BASO % 0.4 % (0-2.0); EOS % 2.1 % (0-4.5); HEMATOCRIT 24.4 % (32.4-45.2); HEMOGLOBIN 8.1 GM/dL (10.7-15.3); MCH 33.4 pg (25.7-33.7); MEAN CELL VOLUME 101.1 fl (80-96); MONO % 11.8 % (3.8-10.2); NEUT % 70.7 % (42.8-82.8); PLATELET COUNT 72 10^3/uL (134-434); RBC 2.41 M/mm3 (3.60-5.2); WHITE BLOOD COUNT 3.6 K/mm3 (4.0-10.0)
[2021-09-17 09:54] LABS: BLOOD UREA NITROGEN 17.5 mg/dL (7-18)
[2021-09-17 09:55] LABS: CALCIUM 8.6 mg/dL (8.5-10.1)
[2021-09-17 09:56] LABS: CREATININE 0.7 mg/dL (0.55-1.3); MAGNESIUM 1.9 mg/dL (1.8-2.4); PHOSPHOROUS 4.1 mg/dL (2.5-4.9)
[2021-09-17 09:58] LABS: BILIRUBIN,TOTAL 4.6 mg/dL (0.2-1)
[2021-09-17] MEDS ORDERED: cefTRIAXone SODIUM 1 GM VIAL ONE (10:44)
[2021-09-17] MEDS ORDERED: DEXTROSE 5%-WATER - 50 ML IVPB ONE (10:45)
[2021-09-17] MEDS: MAGNESIUM OXIDE 400 MG TABLET (FP) PO SCH ×2 (10:45→21:08)
[2021-09-17] MEDS: POTASSIUM CHLORIDE ORAL LIQUID 20 MEQ/15 ML PO SCH ×2 (10:46→21:08)
[2021-09-17] MEDS: CEFTRIAXONE 1 GM in DEXTROSE 5%-WATER - 50 ML IVPB SCH (10:46)
[2021-09-17] MEDS: RIFAXIMIN 400 MG/20 ML SUSPENSION PO SCH ×2 (10:46→21:09)
[2021-09-17] MEDS: PANTOPRAZOLE 40 MG TABLET PO SCH (10:46)
[2021-09-17] MEDS ORDERED: LORazepam 2 MG/ML SDV VIAL IVPUSH ONE (14:22)
[2021-09-17] MEDS ORDERED: IRON SUCROSE INJECTION 200 MG in SODIUM CHLORIDE 90 ML IVPB ONE (15:00)
[2021-09-17] MEDS ORDERED: DEXTROSE 5%-WATER 1000 ML INFUS.BAG IV ONE (18:49)
[2021-09-17] MEDS ORDERED: DEXTROSE 5%-WATER 1000 ML INFUS.BAG IV SCH (19:00)
[2021-09-17] MEDS: CHLORHEXIDINE GLUCONATE 4% CLEANSER FOR DECOLONIZATION TP SCH (21:08)
[2021-09-18] MEDS: LACTULOSE 20 GM/30 ML UDC (FOR ORAL USE ONLY) PO SCH ×3 (06:40→21:13)
[2021-09-18 07:36] LABS: BASO % 0.9 % (0-2.0); EOS % 3.7 % (0-4.5); HEMATOCRIT 24.5 % (32.4-45.2); HEMOGLOBIN 7.9 GM/dL (10.7-15.3); LYMPH % 28.6 % (8-40); MCH 32.5 pg (25.7-33.7); MCHC 32.1 g/dl (32.0-36.0); MEAN CELL VOLUME 101.4 fl (80-96); MEAN PLT VOLUME 8.3 fl (7.5-11.1); MONO % 11.4 % (3.8-10.2); NEUT % 55.4 % (42.8-82.8); PLATELET COUNT 62 10^3/uL (134-434); RBC 2.42 M/mm3 (3.60-5.2); RDW 26.2 % (11.6-15.6); WHITE BLOOD COUNT 3.2 K/mm3 (4.0-10.0)
[2021-09-18 07:43] LABS: INR 2.05 (0.83-1.09); PROTHROMBIN TIME (PATIENT) 23.8 SEC (9.7-13.0)
[2021-09-18 07:52] LABS: BLOOD UREA NITROGEN 11.2 mg/dL (7-18); CALCIUM 8.3 mg/dL (8.5-10.1)
[2021-09-18 07:53] LABS: ALBUMIN 1.9 g/dl (3.4-5.0)
[2021-09-18 07:55] LABS: BILIRUBIN,DIRECT 2.1 mg/dL (0.0-0.2)
[2021-09-18 07:56] LABS: TOT PROT 6.8 g/dl (6.4-8.2)
[2021-09-18 07:57] LABS: BILIRUBIN,TOTAL 3.8 mg/dL (0.2-1); CREATININE 0.6 mg/dL (0.55-1.3)
[2021-09-18 08:54] LABS: ANISOCYTOSIS 1+; MACROCYTOSIS 1+
[2021-09-18] MEDS ORDERED: DEXTROSE 5%-WATER - 50 ML IVPB ONE (09:00)
[2021-09-18] MEDS ORDERED: cefTRIAXone SODIUM 1 GM VIAL ONE (09:00)
[2021-09-18] MEDS: POTASSIUM CHLORIDE ORAL LIQUID 20 MEQ/15 ML PO SCH ×2 (09:04→21:13)
[2021-09-18] MEDS: RIFAXIMIN 400 MG/20 ML SUSPENSION PO SCH ×2 (09:04→21:13)
[2021-09-18] MEDS: PANTOPRAZOLE 40 MG TABLET PO SCH (09:04)
[2021-09-18] MEDS: CEFTRIAXONE 1 GM in DEXTROSE 5%-WATER - 50 ML IVPB SCH (09:04)
[2021-09-18] MEDS: LORazepam 2 MG/ML SDV VIAL IVPUSH PRN ×2 (09:09→21:21)
[2021-09-18] MEDS: MAGNESIUM OXIDE 400 MG TABLET (FP) PO SCH ×2 (15:15→21:13)
[2021-09-18] MEDS ORDERED: LORazepam 2 MG/ML SDV VIAL IVPUSH ONE (16:19)
[2021-09-18] MEDS: CHLORHEXIDINE GLUCONATE 4% CLEANSER FOR DECOLONIZATION TP SCH (21:14)
[2021-09-19] MEDS: LACTULOSE 20 GM/30 ML UDC (FOR ORAL USE ONLY) PO SCH ×3 (05:31→21:34)
[2021-09-19 07:28] LABS: BASO % 1.5 % (0-2.0); EOS % 4.1 % (0-4.5); HEMATOCRIT 25.3 % (32.4-45.2); HEMOGLOBIN 8.4 GM/dL (10.7-15.3); LYMPH % 32.1 % (8-40); MCH 33.9 pg (25.7-33.7); MCHC 33.2 g/dl (32.0-36.0); MEAN CELL VOLUME 102.3 fl (80-96); MONO % 7.7 % (3.8-10.2); NEUT % 54.6 % (42.8-82.8); PLATELET COUNT 76 10^3/uL (134-434); RBC 2.47 M/mm3 (3.60-5.2); RDW 25.9 % (11.6-15.6)
[2021-09-19 07:31] LABS: WHITE BLOOD COUNT 6.1 K/mm3 (4.0-10.0)
[2021-09-19 07:53] LABS: CALCIUM 8.4 mg/dL (8.5-10.1)
[2021-09-19 07:54] LABS: BLOOD UREA NITROGEN 8.7 mg/dL (7-18)
[2021-09-19 07:57] LABS: CREATININE 0.7 mg/dL (0.55-1.3)
[2021-09-19 07:58] LABS: BILIRUBIN,TOTAL 3.9 mg/dL (0.2-1)
[2021-09-19 08:39] LABS: PLATELET ESTIMATE DECREASED
[2021-09-19] MEDS ORDERED: cefTRIAXone SODIUM 1 GM VIAL ONE (09:18)
[2021-09-19] MEDS ORDERED: DEXTROSE 5%-WATER - 50 ML IVPB ONE (09:18)
[2021-09-19] MEDS: CEFTRIAXONE 1 GM in DEXTROSE 5%-WATER - 50 ML IVPB SCH (10:04)
[2021-09-19] MEDS: POTASSIUM CHLORIDE ORAL LIQUID 20 MEQ/15 ML PO SCH ×2 (10:06→21:34)
[2021-09-19] MEDS: RIFAXIMIN 400 MG/20 ML SUSPENSION PO SCH ×2 (10:07→21:35)
[2021-09-19] MEDS: PANTOPRAZOLE 40 MG TABLET PO SCH (10:07)
[2021-09-19] MEDS: MAGNESIUM OXIDE 400 MG TABLET (FP) PO SCH ×2 (10:07→21:35)
[2021-09-19] MEDS: LORazepam 2 MG/ML SDV VIAL IVPUSH PRN ×2 (10:30→19:51)
[2021-09-19] MEDS ORDERED: ARTIFICIAL TEARS (POLYVINYL ALCOHOL) OPTH DROPS OU PRN (20:28)
[2021-09-20] MEDS: LACTULOSE 20 GM/30 ML UDC (FOR ORAL USE ONLY) PO SCH ×3 (06:05→21:32)
[2021-09-20] MEDS: LORazepam 2 MG/ML SDV VIAL IVPUSH PRN (06:09)
[2021-09-20] MEDS ORDERED: DEXTROSE 5%-WATER - 50 ML IVPB ONE (08:51)
[2021-09-20] MEDS ORDERED: cefTRIAXone SODIUM 1 GM VIAL ONE (08:51)
[2021-09-20] MEDS: CEFTRIAXONE 1 GM in DEXTROSE 5%-WATER - 50 ML IVPB SCH (09:09)
[2021-09-20] MEDS: POTASSIUM CHLORIDE ORAL LIQUID 20 MEQ/15 ML PO SCH ×2 (09:09→21:32)
[2021-09-20] MEDS: PANTOPRAZOLE 40 MG TABLET PO SCH (09:10)
[2021-09-20] MEDS: RIFAXIMIN 400 MG/20 ML SUSPENSION PO SCH ×2 (09:10→22:04)
[2021-09-20] MEDS: MAGNESIUM OXIDE 400 MG TABLET (FP) PO SCH ×2 (09:10→22:04)
[2021-09-20 10:43] LABS: BASO % 1.1 % (0-2.0); EOS % 3.4 % (0-4.5); HEMATOCRIT 22.4 % (32.4-45.2); HEMOGLOBIN 7.2 GM/dL (10.7-15.3); MCH 33.5 pg (25.7-33.7); MCHC 32.2 g/dl (32.0-36.0); MEAN PLT VOLUME 9.5 fl (7.5-11.1); MONO % 8.6 % (3.8-10.2); NEUT % 64.9 % (42.8-82.8); PLATELET COUNT 74 10^3/uL (134-434); RBC 2.16 M/mm3 (3.60-5.2); WHITE BLOOD COUNT 5.4 K/mm3 (4.0-10.0)
[2021-09-20 11:18] LABS: ALBUMIN 2.2 g/dl (3.4-5.0); CALCIUM 9.2 mg/dL (8.5-10.1)
[2021-09-20 11:22] LABS: BILIRUBIN,TOTAL 4.3 mg/dL (0.2-1); CREATININE 0.8 mg/dL (0.55-1.3); TOT PROT 7.6 g/dl (6.4-8.2)
[2021-09-20 12:22] VITALS: RESP 18
[2021-09-20] MEDS ORDERED: IRON SUCROSE INJECTION 200 MG in SODIUM CHLORIDE 90 ML IVPB ONE (15:00)
[2021-09-20] MEDS: HEPARIN NA (PORCINE) 5,000 UNITS/ML 1ML VIAL SQ SCH (22:04)
[2021-09-21] MEDS: LORazepam 2 MG/ML SDV VIAL IVPUSH PRN ×3 (00:18→23:21)
[2021-09-21] MEDS: LACTULOSE 20 GM/30 ML UDC (FOR ORAL USE ONLY) PO SCH ×3 (06:11→21:30)
[2021-09-21] MEDS ORDERED: cefTRIAXone SODIUM 1 GM VIAL ONE (10:32)
[2021-09-21] MEDS ORDERED: DEXTROSE 5%-WATER - 50 ML IVPB ONE (10:33)
[2021-09-21 10:49] LABS: CALCIUM 8.7 mg/dL (8.5-10.1)
[2021-09-21 10:50] LABS: ALBUMIN 2.2 g/dl (3.4-5.0); MAGNESIUM 2.1 mg/dL (1.8-2.4)
[2021-09-21] MEDS: HEPARIN NA (PORCINE) 5,000 UNITS/ML 1ML VIAL SQ SCH ×2 (10:52→21:30)
[2021-09-21 10:53] LABS: CREATININE 0.8 mg/dL (0.55-1.3)
[2021-09-21] MEDS: PANTOPRAZOLE 40 MG TABLET PO SCH (10:53)
[2021-09-21] MEDS: POTASSIUM CHLORIDE ORAL LIQUID 20 MEQ/15 ML PO SCH ×2 (10:53→21:30)
[2021-09-21] MEDS: MAGNESIUM OXIDE 400 MG TABLET (FP) PO SCH ×2 (10:53→21:30)
[2021-09-21 10:54] LABS: BILIRUBIN,TOTAL 3.4 mg/dL (0.2-1); TOT PROT 7.6 g/dl (6.4-8.2)
[2021-09-21] MEDS: CEFTRIAXONE 1 GM in DEXTROSE 5%-WATER - 50 ML IVPB SCH (10:54)
[2021-09-21 11:01] LABS: BASO % 1.2 % (0-2.0); EOS % 3.5 % (0-4.5); HEMATOCRIT 28.2 % (32.4-45.2); HEMOGLOBIN 9.2 GM/dL (10.7-15.3); LYMPH % 18.5 % (8-40); MCHC 32.6 g/dl (32.0-36.0); MEAN CELL VOLUME 104.4 fl (80-96); MEAN PLT VOLUME 8.8 fl (7.5-11.1); MONO % 8.8 % (3.8-10.2); PLATELET COUNT 66 10^3/uL (134-434); RDW 28.7 % (11.6-15.6); WHITE BLOOD COUNT 5.2 K/mm3 (4.0-10.0)
[2021-09-21] MEDS: RIFAXIMIN 400 MG/20 ML SUSPENSION PO SCH ×2 (11:01→22:40)
[2021-09-21 13:47] LABS: ANISOCYTOSIS 2+; MACROCYTOSIS 2+
[2021-09-22] MEDS: LACTULOSE 20 GM/30 ML UDC (FOR ORAL USE ONLY) PO SCH ×3 (06:11→21:39)
[2021-09-22] MEDS ORDERED: cefTRIAXone SODIUM 1 GM VIAL ONE (09:31)
[2021-09-22] MEDS ORDERED: DEXTROSE 5%-WATER - 50 ML IVPB ONE (09:31)
[2021-09-22] MEDS: CEFTRIAXONE 1 GM in DEXTROSE 5%-WATER - 50 ML IVPB SCH (09:50)
[2021-09-22] MEDS: POTASSIUM CHLORIDE ORAL LIQUID 20 MEQ/15 ML PO SCH ×2 (09:50→21:39)
[2021-09-22] MEDS: HEPARIN NA (PORCINE) 5,000 UNITS/ML 1ML VIAL SQ SCH ×2 (09:51→21:39)
[2021-09-22] MEDS: PANTOPRAZOLE 40 MG TABLET PO SCH (09:51)
[2021-09-22] MEDS: LORazepam 2 MG/ML SDV VIAL IVPUSH PRN (09:51)
[2021-09-22] MEDS: RIFAXIMIN 550 MG TABLET PO SCH ×2 (09:51→21:39)
[2021-09-22] MEDS: MAGNESIUM OXIDE 400 MG TABLET (FP) PO SCH ×2 (09:51→21:39)
[2021-09-22 10:11] LABS: BASO % 1.2 % (0-2.0); EOS % 3.5 % (0-4.5); HEMATOCRIT 28.3 % (32.4-45.2); HEMOGLOBIN 9.1 GM/dL (10.7-15.3); MCH 34.1 pg (25.7-33.7); MCHC 32.3 g/dl (32.0-36.0); MEAN CELL VOLUME 105.7 fl (80-96); MEAN PLT VOLUME 9.9 fl (7.5-11.1); MONO % 8.5 % (3.8-10.2); NEUT % 67.8 % (42.8-82.8); PLATELET COUNT 71 10^3/uL (134-434); RBC 2.67 M/mm3 (3.60-5.2); RDW 29.9 % (11.6-15.6); WHITE BLOOD COUNT 5.5 K/mm3 (4.0-10.0)
[2021-09-22 10:37] LABS: ALBUMIN 2.1 g/dl (3.4-5.0); MAGNESIUM 2.2 mg/dL (1.8-2.4)
[2021-09-22 10:38] LABS: BLOOD UREA NITROGEN 11.5 mg/dL (7-18)
[2021-09-22 10:39] LABS: CALCIUM 8.7 mg/dL (8.5-10.1)
[2021-09-22 10:41] LABS: CREATININE 0.9 mg/dL (0.55-1.3)
[2021-09-22 10:42] LABS: BILIRUBIN,TOTAL 3.5 mg/dL (0.2-1); TOT PROT 7.4 g/dl (6.4-8.2)
[2021-09-23] MEDS ORDERED: IBUPROFEN 800 MG/8 ML IJ IVPB ONE (05:29)
[2021-09-23] MEDS: LACTULOSE 20 GM/30 ML UDC (FOR ORAL USE ONLY) PO SCH ×3 (05:50→21:07)
[2021-09-23] MEDS ORDERED: DEXTROSE 5%-WATER - 50 ML IVPB ONE (09:13)
[2021-09-23] MEDS ORDERED: cefTRIAXone SODIUM 1 GM VIAL ONE (09:13)
[2021-09-23 09:38] LABS: BASO % 1.4 % (0-2.0); EOS % 3.9 % (0-4.5); HEMATOCRIT 27.9 % (32.4-45.2); HEMOGLOBIN 8.8 GM/dL (10.7-15.3); LYMPH % 24.1 % (8-40); MCH 33.9 pg (25.7-33.7); MCHC 31.7 g/dl (32.0-36.0); MEAN PLT VOLUME 9.7 fl (7.5-11.1); MONO % 10.5 % (3.8-10.2); NEUT % 60.1 % (42.8-82.8); PLATELET COUNT 81 10^3/uL (134-434); RDW 30.1 % (11.6-15.6); WHITE BLOOD COUNT 5.7 K/mm3 (4.0-10.0)
[2021-09-23 09:55] LABS: BLOOD UREA NITROGEN 16.7 mg/dL (7-18); CALCIUM 8.8 mg/dL (8.5-10.1); MAGNESIUM 2.4 mg/dL (1.8-2.4)
[2021-09-23 09:59] LABS: CREATININE 1.1 mg/dL (0.55-1.3)
[2021-09-23 10:00] LABS: BILIRUBIN,TOTAL 3.6 mg/dL (0.2-1); TOT PROT 7.2 g/dl (6.4-8.2)
[2021-09-23] MEDS: PANTOPRAZOLE 40 MG TABLET PO SCH (10:28)
[2021-09-23] MEDS: CEFTRIAXONE 1 GM in DEXTROSE 5%-WATER - 50 ML IVPB SCH (10:28)
[2021-09-23] MEDS: RIFAXIMIN 550 MG TABLET PO SCH ×2 (10:28→21:08)
[2021-09-23] MEDS: HEPARIN NA (PORCINE) 5,000 UNITS/ML 1ML VIAL SQ SCH ×2 (10:28→21:08)
[2021-09-23] MEDS: MAGNESIUM OXIDE 400 MG TABLET (FP) PO SCH ×2 (10:28→21:08)
[2021-09-23] MEDS: POTASSIUM CHLORIDE ORAL LIQUID 20 MEQ/15 ML PO SCH ×2 (10:29→21:08)
[2021-09-24] MEDS: LACTULOSE 20 GM/30 ML UDC (FOR ORAL USE ONLY) PO SCH ×3 (05:24→22:03)
[2021-09-24 09:32] LABS: BASO % 0.7 % (0-2.0); EOS % 4.7 % (0-4.5); HEMATOCRIT 27.4 % (32.4-45.2); HEMOGLOBIN 8.9 GM/dL (10.7-15.3); MCH 34.7 pg (25.7-33.7); MCHC 32.5 g/dl (32.0-36.0); MEAN CELL VOLUME 106.8 fl (80-96); MEAN PLT VOLUME 9.5 fl (7.5-11.1); NEUT % 63.6 % (42.8-82.8); PLATELET COUNT 89 10^3/uL (134-434); RBC 2.57 M/mm3 (3.60-5.2); WHITE BLOOD COUNT 5.5 K/mm3 (4.0-10.0)
[2021-09-24 10:12] LABS: CREATININE 0.9 mg/dL (0.55-1.3)
[2021-09-24 10:13] LABS: BLOOD UREA NITROGEN 13.6 mg/dL (7-18)
[2021-09-24 10:14] LABS: BILIRUBIN,TOTAL 3.7 mg/dL (0.2-1)
[2021-09-24 10:19] LABS: CALCIUM 8.7 mg/dL (8.5-10.1)
[2021-09-24] MEDS ORDERED: DEXTROSE 5%-WATER - 50 ML IVPB ONE (11:09)
[2021-09-24] MEDS ORDERED: cefTRIAXone SODIUM 1 GM VIAL ONE (11:09)
[2021-09-24] MEDS: POTASSIUM CHLORIDE ORAL LIQUID 20 MEQ/15 ML PO SCH ×2 (11:31→22:04)
[2021-09-24] MEDS: PANTOPRAZOLE 40 MG TABLET PO SCH (11:32)
[2021-09-24] MEDS: HEPARIN NA (PORCINE) 5,000 UNITS/ML 1ML VIAL SQ SCH ×2 (11:32→22:03)
[2021-09-24] MEDS: RIFAXIMIN 550 MG TABLET PO SCH ×2 (11:32→22:04)
[2021-09-24] MEDS: CEFTRIAXONE 1 GM in DEXTROSE 5%-WATER - 50 ML IVPB SCH (11:32)
[2021-09-24] MEDS: MAGNESIUM OXIDE 400 MG TABLET (FP) PO SCH ×2 (11:32→22:04)
[2021-09-25] MEDS: LACTULOSE 20 GM/30 ML UDC (FOR ORAL USE ONLY) PO SCH ×2 (06:03→14:31)
[2021-09-25 09:48] LABS: BASO % 1.5 % (0-2.0); EOS % 4.4 % (0-4.5); HEMATOCRIT 26.2 % (32.4-45.2); HEMOGLOBIN 8.6 GM/dL (10.7-15.3); LYMPH % 23.6 % (8-40); MCH 35.2 pg (25.7-33.7); MCHC 32.7 g/dl (32.0-36.0); MEAN CELL VOLUME 107.6 fl (80-96); MEAN PLT VOLUME 10.1 fl (7.5-11.1); MONO % 9.5 % (3.8-10.2); PLATELET COUNT 89 10^3/uL (134-434); RBC 2.43 M/mm3 (3.60-5.2); RDW 29.1 % (11.6-15.6); WHITE BLOOD COUNT 4.2 K/mm3 (4.0-10.0)
[2021-09-25 10:01] LABS: INR 1.96 (0.83-1.09); PROTHROMBIN TIME (PATIENT) 22.7 SEC (9.7-13.0)
[2021-09-25 10:17] LABS: CALCIUM 8.2 mg/dL (8.5-10.1)
[2021-09-25 10:18] LABS: ALBUMIN 1.9 g/dl (3.4-5.0); BLOOD UREA NITROGEN 12.5 mg/dL (7-18); MAGNESIUM 1.8 mg/dL (1.8-2.4)
[2021-09-25 10:21] LABS: CREATININE 0.7 mg/dL (0.55-1.3)
[2021-09-25 10:22] LABS: BILIRUBIN,TOTAL 2.9 mg/dL (0.2-1)
[2021-09-25 10:23] LABS: TOT PROT 6.6 g/dl (6.4-8.2)
[2021-09-25 10:32] LABS: ANISOCYTOSIS 2+; MACROCYTOSIS 2+
[2021-09-25] MEDS: HEPARIN NA (PORCINE) 5,000 UNITS/ML 1ML VIAL SQ SCH (10:56)
[2021-09-25] MEDS: MAGNESIUM OXIDE 400 MG TABLET (FP) PO SCH (10:56)
[2021-09-25] MEDS: POTASSIUM CHLORIDE ORAL LIQUID 20 MEQ/15 ML PO SCH (10:56)
[2021-09-25] MEDS: RIFAXIMIN 550 MG TABLET PO SCH (10:56)
[2021-09-25] MEDS: PANTOPRAZOLE 40 MG TABLET PO SCH (10:56)
[2021-09-25 14:50] VITALS: BP 112/51; PULSE 74; TEMP 99
[2021-09-25] MEDS ORDERED: ACETAMINOPHEN 325 MG TABLET (FP) PO PRN (16:35)
== END 2021-09-25 18:35 | disposition home or self-care (01) | DRG 720 ==
LOC: JER 10:33 → JERBED 17:57 → JICU 23:10 → J5S 09-19 20:20
PROVIDERS: ADMIT Internal Medicine Pulmonary Disease; ATTEND Nurse Practitioner Acute Care
PROC: 0BH17EZ Insertion of Endotracheal Airway into Trachea, Via Natural or Artificial Opening (ICD-10-PCS; principal; 2021-09-10)
PROC: 5A1955Z Respiratory Ventilation, Greater than 96 Consecutive Hours (ICD-10-PCS; 2021-09-10)
PROC: 30233N1 Transfusion of Nonautologous Red Blood Cells into Peripheral Vein, Percutaneous Approach (ICD-10-PCS; 2021-09-11)
DX: A41.81 Sepsis due to Enterococcus (principal); G92.8 Other toxic encephalopathy; D61.818 Other pancytopenia; J18.9 Pneumonia, unspecified organism; J98.11 Atelectasis; F10.231 Alcohol dependence with withdrawal delirium; J96.00 Acute respiratory failure, unspecified whether with hypoxia or hypercapnia; D68.9 Coagulation defect, unspecified; R00.0 Tachycardia, unspecified; E83.42 Hypomagnesemia; R50.9 Fever, unspecified; E87.6 Hypokalemia; E88.09 Other disorders of plasma-protein metabolism, not elsewhere classified; K70.10 Alcoholic hepatitis without ascites; D69.6 Thrombocytopenia, unspecified; K70.30 Alcoholic cirrhosis of liver without ascites; S50.12XA Contusion of left forearm, initial encounter; S50.11XA Contusion of right forearm, initial encounter; S70.02XA Contusion of left hip, initial encounter; K72.90 Hepatic failure, unspecified without coma; R79.89 Other specified abnormal findings of blood chemistry; N39.0 Urinary tract infection, site not specified; R01.1 Cardiac murmur, unspecified; Z87.19 Personal history of other diseases of the digestive system
CPT/HCPCS: 36415; 36430; 36600; 70450-TC; 71045-TC-FY; 74176-TC; 76700-TC; 76856-TC; 80048; 80053; 80076; 80307; 81003; 82010; 82105; 82140; 82248; 82272; 82607; 82728; 82746; 82747; 82803; 82962; 83010; 83036; 83540; 83550; 83605; 83615; 83690; 83735; 84100; 84443; 84484; 84702; 84703; 85014; 85025; 85027; 85045; 85610; 85730; 86704; 86708; 86803; 86850; 86880; 86900; 86901; 86922; 87040; 87070; 87086; 87186; 87205; 87340; 87517; 87899; 93005; 93010; 93306-TC; 94002; 97116-GP; 97162-GP; 99291; 99292; C9803-CS; G0480; J1644; J1756; P9058; U0003; U0005

== ENCOUNTER 2023-06-08 15:18 | Emergency (ER) | payer SELFPAY ==
[2023-06-08 15:22] VITALS: BP 120/72; PULSE 90; RESP 18; TEMP 98.7; BMI 28.3
[2023-06-08] MEDS ORDERED: KETOROLAC TROMETHAMINE 30 MG/1 ML VIAL ONE (16:34)
[2023-06-08] MEDS: KETOROLAC TROMETHAMINE 30 MG/1 ML VIAL IM ONE (16:39)
== END 2023-06-08 16:55 | disposition home or self-care (01) ==
LOC: JERFT 15:18
PROC: 3E0233Z Introduction of Anti-inflammatory into Muscle, Percutaneous Approach (ICD-10-PCS; principal; 2023-06-08)
DX: J10.1 Influenza due to other identified influenza virus with other respiratory manifestations (principal); Z20.822 Contact with and (suspected) exposure to COVID-19
CPT/HCPCS: 0241U-QW; 84703; 87651; 99284-25